=== PATIENT | male | born 1950 | race Caucasian/White ===

== ENCOUNTER 2020-06-13 19:37 | Inpatient (IN) | payer MEDICARE ==
[~2020-06-13] VITALS: Ht 180.3 cm; Wt 126.5 kg
[2020-06-13 20:11] LABS: BASOPHILS # (AUTO) 0.1 10^3/uL (0.0-0.1); BASOPHILS % (AUTO) 1 % (0-10); EOSINOPHILS # (AUTO) 0.1 10^3/uL (0.0-0.3); EOSINOPHILS % (AUTO) 1 % (0-10); HEMATOCRIT 47 % (40-54); HEMOGLOBIN 15.7 g/dL (13.3-17.7); LYMPHOCYTES # (AUTO) 1.3 10^3/uL (1.0-4.0); LYMPHOCYTES % (AUTO) 14 % (12-44); MEAN CORPUSCULAR HEMOGLOBIN 28 pg (25-34); MEAN CORPUSCULAR HGB CONC 33 g/dL (32-36); MEAN CORPUSCULAR VOLUME 83 fL (80-99); MEAN PLATELET VOLUME 9.4 fL (9.0-12.2); MONOCYTES # (AUTO) 0.8 10^3/uL (0.0-1.0); MONOCYTES % (AUTO) 9 % (0-12); NEUTROPHILS # (AUTO) 6.5 10^3/uL (1.8-7.8); NEUTROPHILS % (AUTO) 75 % (42-75); PLATELET COUNT 229 10^3/uL (130-400); WHITE BLOOD COUNT 8.8 10^3/uL (4.3-11.0)
[2020-06-13 20:19] LABS: ALBUMIN 4.1 GM/DL (3.2-4.5); CHLORIDE 101 MMOL/L (98-107); POTASSIUM 3.7 MMOL/L (3.6-5.0); SODIUM 136 MMOL/L (135-145)
[2020-06-13 20:20] LABS: CALCIUM 8.7 MG/DL (8.5-10.1)
[2020-06-13 20:22] LABS: GLUCOSE 146 MG/DL (70-105); TOTAL PROTEIN 7.9 GM/DL (6.4-8.2)
[2020-06-13 20:23] LABS: CARBON DIOXIDE 23 MMOL/L (21-32)
[2020-06-13 20:24] LABS: PROTHROMBIN TIME PATIENT 13.5 SEC (12.2-14.7)
[2020-06-13 20:25] LABS: ALKALINE PHOSPHATASE 96 U/L (40-136); CREATININE SERUM 0.98 MG/DL (0.60-1.30); GFR ESTIMATED > 60
[2020-06-13 20:26] LABS: BUN/CREATININE RATIO 16
[2020-06-13 20:28] LABS: ALANINE AMINOTRANSFERASE 38 U/L (0-55); CREATINE KINASE 539 U/L (30-200); MAGNESIUM 2.2 MG/DL (1.6-2.4)
[2020-06-13 20:37] LABS: CREATINE KINASE MB 11.1 NG/ML (<6.6)
[2020-06-13 20:39] LABS: ERYTHROCYTE SEDIMENTATION RATE 17 MM/HR (0-30)
[2020-06-13 20:48] LABS: TSH (THYROID ANALYZER) 4.26 UIU/ML (0.35-4.94)
--- NOTE | 2020-06-13 20:50 | Diagnostic Imaging Report ---
INDICATION: Edema. Abscess in bilateral legs x 2 months. TECHNIQUE: Single view chest 8:39 p.m. CORRELATION STUDY: None. FINDINGS: Heart size is enlarged. Vasculature overall is within normal limits. There may be minimal atelectasis at the left lung base. No significant infiltrate. No effusion. IMPRESSION: Cardiac enlargement without overt failure. There may be minimal left basilar atelectasis. Dictated by: Dictated on workstation # [id number]
[2020-06-13 21:25] LABS: BILIRUBIN,URINE NEGATIVE (NEGATIVE); CLARITY,URINE CLEAR; COLOR,URINE YELLOW; GLUCOSE, URINE (UA) NEGATIVE (NEGATIVE); KETONES,URINE NEGATIVE (NEGATIVE); LEUKOCYTE ESTERASE ,URINE NEGATIVE (NEGATIVE); NITRITE,URINE NEGATIVE (NEGATIVE); PROTEIN,URINE 1+ (NEGATIVE)
[2020-06-13 21:34] LABS: BACTERIA,URINE TRACE /HPF; SQUAMOUS EPITHELIAL CELL,UR RARE /HPF
[2020-06-13] MEDS ORDERED: TETANUS,DIPTH,PERTUSS P/F (BOOSTRIX) 0.5 ML VIAL IM ONE (22:15)
[2020-06-13] MEDS ORDERED: ENOXAPARIN 60 MG/0.6 ML (LOVENOX) SYR SC ONE (22:30)
[2020-06-13] MEDS ORDERED: ASPIRIN 81 MG CHEW (CHILDREN'S ASA) PO ONE (22:45)
[2020-06-13] MEDS: VANCOMYCIN INJECTION 1,000 MG in NS (IVPB) 250 ML IV SCH (23:23)
[2020-06-13 23:57] VITALS: BP 192/86
[2020-06-14] VITALS (15 sets, daily range): BP systolic 130–198; BP diastolic 62–86
[2020-06-14] MEDS ORDERED: ONDANSETRON 4 MG/2 ML (SDV) Z0FRAN IVP PRN (00:15)
[2020-06-14] MEDS ORDERED: morphine INJ 4 MG/ML 1 ML (VIAL/SYRINGE) IV PRN ×2 (00:15→01:45)
[2020-06-14] MEDS ORDERED: NITROGLYCERIN 0.4 MG SL TABS BTL 25'S SL PRN (00:15)
[2020-06-14] MEDS ORDERED: VANCOMYCIN 1000 MG/VIAL ONE (01:08)
[2020-06-14] MEDS ORDERED: NS (IVPB) 250 ML ONE (01:08)
[2020-06-14] MEDS: VANCOMYCIN INJECTION 1,000 MG in NS (IVPB) 250 ML IV SCH (01:13)
--- NOTE | 2020-06-14 01:20 | ED General ---
General Chief Complaint: Skin/Wound Problems Stated Complaint: NSTEMI;VENOUS STASIS ULCERS W/BILAT.LEG CELLULITIS Nursing Triage Note: PT STATES HE HAS WOUNDS/ABSCESSES ON HIS LEGS FOR 2 MONTHS. Nursing Sepsis Screen: No Definite Risk Source of Information: Patient History of Present Illness Date Seen by Provider: Jun 13, 2020 Time Seen by Provider: 19:47 Initial Comments PT ARRIVES VIA POV--NEEDS 2 PERSON AND WHEELCHAIR ASSIST, DESPITE ARRIVING WITH 2 CANES AND A WALKER FROM HOME C/O "SORES ON MY LEGS" FOR "2 MONTHS" ARRIVES WITH BOTH LOWER LEGS HEAVILY WRAPPED WITH PIECES OF GAUZE AND CUT UP T- SHIRT WRAPPED AROUND BOTH LOWER LEGS, WITH SIGNIFICANT WEEPING OF FLUID THROUGH DRESSINGS ( COMPLETELY SATURATED) AND ONTO THE FLOOR NO PAIN NO FEVER NO CHEST PAIN NO SHORTNESS OF BREATH NO PALPITATIONS NO DIZZINESS SYMPTOMS ARE NO DIFFERENT TONIGHT IN ANY WAY HAS NOT SOUGHT CARE UNTIL TONIGHT--STATES "MY SON TOLD ME TO COME HERE" HAS NOT APPLIED ANY ANTIBIOTIC OINTMENT, ETC. JUST WRAPS HIS LEGS WITH DRESSINGS. MOVED HERE "6 OR 7 MONTHS AGO" FROM [place] ( AMID PANDEMIC TRAVEL RESTRICTIONS) . HAS NOT ATTEMPTED TO ESTABLISH WITH ANY DR HERE. HE HAS NOT SEEN A DR IN A COUPLE OF YEARS PT STATES HE IS NOT DIABETIC AND DENIES ANY MEDICAL PROBLEMS AND STATES HE DOES NOT TAKE ANY MEDICATIONS. PCP: NONE Allergies and Home Medications Allergies Coded Allergies: No Known Drug Allergies (Unverified , 06/13/20) Patient Home Medication List Home Medication List Reviewed: Yes Review of Systems Review of Systems Constitutional: No chills, No diaphoresis, No dizziness, No fever Respiratory: no symptoms reported; No dyspnea on exertion, No orthopnea, No short of breath Cardiovascular: No chest pain; edema; No palpitations, No syncope Gastrointestinal: no symptoms reported Genitourinary: no symptoms reported Musculoskeletal: see HPI Skin: see HPI Psychiatric/Neurological: Denies Numbness, Denies Paresthesia; Pre-Existing Deficit (RIGHT FOOT DROP); Denies Tingling Past Gixuchk-Ltcrco-Puqysm Hx Past Med/Social Hx: Reviewed and Corrections made Patient Social History Alcohol Use: Past History Recreational Drug Use: No Smoking Status: Never a Smoker Recent Foreign Travel: No Contact w/Someone Who Travel: No Recent Infectious Disease Expo: No Recent Hopitalizations: No Physical Abuse: No Sexual Abuse: No Mistreated: No Fear: No Seasonal Allergies Seasonal Allergies: No Past Medical History Surgeries: Yes (BACK) Orthopedic (LUMBAR SPINE SURGERY) Respiratory: No Cardiac: No Neurological: Yes (RIGHT FOOT DROP DUE TO CHRONIC BACK PROBLEMS) Genitourinary: No Gastrointestinal: No Musculoskeletal: Yes (RIGHT FOOT DROP DUE TO CHRONIC BACK PROBLEMS;S/P LUMBAR SPINE SURGERY) Foot Drop, Chronic Back Pain Endocrine: No HEENT: No Cancer: No Psychosocial: No Integumentary: Yes (CHRONIC WOUNDS BILATERAL LOWER LEGS. 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 Physical Exam Vital Signs Vital Signs - First Documented 06/13/20 19:52 Temp 36.3 Pulse 76 Resp 20 B/P (MAP) 159/77 (104) Pulse Ox 96 O2 Delivery Room Air Capillary Refill : Less Than 3 Seconds Height, Weight, BMI Height: '" Weight: lbs. oz. kg; 39.34 BMI Method: General Appearance: No Apparent Distress, Obese, Other (DIRTY, UNKEMPT, MALODOROUS, UNSTEADY ON FEET--2 PERSON ASSIST FROM WHEELCHAIR TO BED. ) Respiratory: Normal Breath Sounds, No Accessory Muscle Use, No Respiratory Distress Cardiovascular: Regular Rate, Rhythm, No Murmur Gastrointestinal: Non Tender, Soft Extremity: Other (4+ EDEMA BILATERAL LOWER LEGS AND FEET. BOTH LOWER LEGS WITH GAUZE DRESSINGS IN PLACE AND BOTH LOWER LEGS ARE WRAPPED WITH A CUT UP T-SHIRT. PT ARRIVES WITHOUT SHOES, AND SOCKS ARE FILTHY. SOCKS AND DRESSINGS ON BOTH LEGS ARE ALL COMPLETELY SATURATED AND PROFUSELY WEEPING SEROUS FLUID ONTO THE FLOOR AND BED. BILATERAL LOWER LEGS WITH EXTENSIVE STASIS ULCERS CIRCUMFERENTIALLY., WITH DIFFUSE ERYTHEMA AND WARMTH TO BILATERAL LOWER LEGS UP TO KNEES. NO AREAS OF FLUCTUANCE. NO PURULENT DRAINAGE. NO STREAKS. FEET ARE IN EXTREMELY POOR HYGIENE, WITH TOPS OF FEET WITH VERY THICKENED AND VERY SCALY/LICHENIFIED SKIN. TOES AND FEET ARE SLIGHTLY COOL WITH DELAYED CAPILLARY REFILL BILATERALLY. PT HAS VERY MINIMAL ROM OF EITHER FOOT--STATES HE HAS RIGHT FOOT DROP, BUT DOES NOT HAVE MUCH MOVEMENT OF LEFT FOOT EITHER. ADDITIONALLY, THERE IS A BASEBALL-SIZED MASS PROTRUDING FROM JUST BELOW LEFT KNEE WITH VERY THICKENED/CALLOUSED/DARK DISCOLORED OVERLYING SKIN. 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 ) Focused Exam Lactate Level 06/13/20 20:00: Lactic Acid Level 1.64 Progress/Results/Core Measures Suspected Sepsis Recent Fever Within 48 Hours: No Infection Criteria Present: Suspected New Infection New/Unexplained Altered Menta: No Sepsis Screen: No Definite Risk SIRS Temperature: Pulse: 83 Respiratory Rate: 18 Laboratory Tests 06/13/20 20:00: White Blood Count 8.8 Blood Pressure 192 /86 Mean: 121 06/13/20 20:00: Lactic Acid Level 1.64 Laboratory Tests 06/13/20 20:00: Creatinine 0.98, INR Comment 1.0, Platelet Count 229, Total Bilirubin 1.0 Results/Orders Lab Results Laboratory Tests Test 06/13/20 20:00 06/13/20 20:01 06/13/20 21:15 06/14/20 00:48 Range/Units White Blood Count 8.8 4.3-11.0 10^3/uL Red Blood Count 5.68 H 4.30-5.52 10^6/uL Hemoglobin 15.7 13.3-17.7 g/dL Hematocrit 47 40-54 % Mean Corpuscular Volume 83 80-99 fL Mean Corpuscular Hemoglobin 28 25-34 pg Mean Corpuscular Hemoglobin Concent 33 32-36 g/dL Red Cell Distribution Width 13.5 10.0-14.5 % Platelet Count 229 130-400 10^3/uL Mean Platelet Volume 9.4 9.0-12.2 fL Immature Granulocyte % (Auto) 1 % Neutrophils (%) (Auto) 75 42-75 % Lymphocytes (%) (Auto) 14 12-44 % Monocytes (%) (Auto) 9 0-12 % Eosinophils (%) (Auto) 1 0-10 % Basophils (%) (Auto) 1 0-10 % Neutrophils # (Auto) 6.5 1.8-7.8 10^3/uL Lymphocytes # (Auto) 1.3 1.0-4.0 10^3/uL Monocytes # (Auto) 0.8 0.0-1.0 10^3/uL Eosinophils # (Auto) 0.1 0.0-0.3 10^3/uL Basophils # (Auto) 0.1 0.0-0.1 10^3/uL Immature Granulocyte # (Auto) 0.0 0.0-0.1 10^3/uL Erythrocyte Sedimentation Rate 17 0-30 MM/HR Prothrombin Time 13.5 12.2-14.7 SEC INR Comment 1.0 0.8-1.4 Activated Partial Thromboplast Time 31 24-35 SEC Sodium Level 136 135-145 MMOL/L Potassium Level 3.7 3.6-5.0 MMOL/L Chloride Level 101 98-107 MMOL/L Carbon Dioxide Level 23 21-32 MMOL/L Anion Gap 12 5-14 MMOL/L Blood Urea Nitrogen 16 7-18 MG/DL Creatinine 0.98 0.60-1.30 MG/DL Estimat Glomerular Filtration Rate > 60 BUN/Creatinine Ratio 16 Glucose Level 146 H 70-105 MG/DL Lactic Acid Level 1.64 0.50-2.00 MMOL/L Calcium Level 8.7 8.5-10.1 MG/DL Corrected Calcium 8.6 8.5-10.1 MG/DL Magnesium Level 2.2 1.6-2.4 MG/DL Total Bilirubin 1.0 0.1-1.0 MG/DL Aspartate Amino Transf (AST/SGOT) 39 H 5-34 U/L Alanine Aminotransferase (ALT/SGPT) 38 0-55 U/L Alkaline Phosphatase 96 40-136 U/L Total Creatine Kinase 539 H 30-200 U/L Creatine Kinase MB 11.1 *H <6.6 NG/ML Troponin I 0.061 H 0.074 H <0.028 NG/ML C-Reactive Protein High Sensitivity 1.98 H 0.00-0.50 MG/DL B-Type Natriuretic Peptide 18.7 <100.0 PG/ML Total Protein 7.9 6.4-8.2 GM/DL Albumin 4.1 3.2-4.5 GM/DL Procalcitonin 0.07 <0.10 NG/ML TSH Mcnabb Testing 4.26 0.35-4.94 UIU/ML Serum Alcohol < 10 <10 MG/DL Glucometer 135 H 70-110 MG/DL Urine Color YELLOW Urine Clarity CLEAR Urine pH 6.0 5-9 Urine Specific [place] 1.025 H 1.016-1.022 Urine Protein 1+ H NEGATIVE Urine Glucose (UA) NEGATIVE NEGATIVE Urine Ketones NEGATIVE NEGATIVE Urine Nitrite NEGATIVE NEGATIVE Urine Bilirubin NEGATIVE NEGATIVE Urine Urobilinogen 0.2 < = 1.0 MG/DL Urine Leukocyte Esterase NEGATIVE NEGATIVE Urine RBC (Auto) NEGATIVE NEGATIVE Urine RBC NONE /HPF Urine WBC NONE /HPF Urine Squamous Epithelial Cells RARE /HPF Urine Crystals NONE /LPF Urine Bacteria TRACE /HPF Urine Casts NONE /LPF Urine Mucus NEGATIVE /LPF Urine Culture Indicated NO My Orders Orders - NOAH BLACK DO Accucheck Stat ONCE (06/13/20:56) Ed Iv/Invasive Line Start (06/13/20:56) O2 (06/13/20:56) Monitor-Rhythm Ecg Trace Only (06/13/20:56) Chest 1 View, Ap/Pa Only (06/13/20:56) Alcohol (06/13/20:56) BNP (06/13/20:56) Cbc With Automated Diff (06/13/20:56) Comprehensive Metabolic Panel (06/13/20:56) Creatine Kinase (06/13/20:56) Creatine Kinase Mb (06/13/20:56) Hs C Reactive Protein (06/13/20:56) Lactic Acid Analyzer (06/13/20:56) Magnesium (06/13/20:56) Procalcitonin (Pct) (06/13/20:56) Protime With Inr (06/13/20:56) Partial Thromboplastin Time (06/13/20:56) Thyroid Analyzer (06/13/20:56) Ua Culture If Indicated (06/13/20:56) Blood Culture (06/13/20 19:56) Erythrocyte Sedimentation Rate (06/13/20 19:56) Wound Culture (06/13/20 20:10) Troponin I (06/13/20 20:54) Ekg Tracing (06/13/20 22:14) Vancomycin Injection (Vancomycin Injecti (06/13/20 22:15) Dipht,Pertuss(Acell),Tet Adult (Boostrix (06/13/20 22:15) Enoxaparin Injection (Lovenox Injection) (06/13/20 22:30) Aspirin Chewable Tablet (Baby Aspirin Ch (06/13/20 22:45) Medications Given in ED Current Medications Medications Dose Ordered Sig/Meli Route Start Time Stop Time Status Last Admin Dose Admin Diphtheria/ Tetanus/Acell Pertussis 0.5 ml ONCE ONCE IM 06/13/20 22:15 06/13/20 22:17 DC 06/13/20 23:23 0.5 ML Vital Signs/I&O 06/13/20 06/13/20 06/13/20 06/14/20 19:52 23:37 23:57 00:51 Temp 36.3 36.3 36.2 36.2 Pulse 76 69 83 83 Resp 18 B/P (MAP) 159/77 (104) 183/91 (104) 192/86 (121) 192/86 Pulse Ox 96 96 99 99 O2 Delivery Room Air Room Air Room Air Room Air Capillary Refill : Less Than 3 Seconds Blood Pressure Mean: 121 Point of Care Testing Finger Stick Blood Glucose: 135 Blood Glucose Action Taken: DR BLACK INFORMED Progress Note : Progress Note UNEVENTFUL ER STAY. ECG Initial ECG Impression Date: Jun 13, 2020 Initial ECG Impression Time: 22:25 Initial ECG Rate: 74 Initial ECG Rhythm: Normal Sinus Initial ECG Impression: Nonspecific Changes Initial ECG Comparisson: No Previous ECG Available Diagnostic Imaging Comments CXR--PER RADIOLOGIST REPORT AT 2214 FINDINGS: Heart size is enlarged. Vasculature overall is within normal limits. There may be minimal atelectasis at the left lung base. No significant infiltrate. No effusion. IMPRESSION: Cardiac enlargement without overt failure. There may be minimal left basilar atelectasis. Reviewed: Reviewed by Me Departure Communication (Admissions) 2211--SPOKE WITH DR. ALEXANDER, [facility], ORDERS NOTED. 2219--SPOKE WITH DR. YANEZ, HOSPITALIST, ACCEPTS PT FOR ADMIT. Impression Primary Impression: NSTEMI (non-ST elevated myocardial infarction) Additional Impressions: Bilateral lower leg cellulitis EXTENSIVE VENOUS STASIS ULCERS BILATERAL LOWER LEGS. Bilateral leg edema HTN (hypertension) Disposition: ADMITTED INPATIENT Condition: Stable Admissions Decision to Admit Reason: Admit from ER (General) Decision to Admit/Date: Jun 13, 2020 Time/Decision to Admit Time: 22:10 Departure-Patient Inst. Referrals: NO,LOCAL PHYSICIAN (PCP) Primary Care Physician NOAH BLACK DO Jun 14, 2020 01:20
--- NOTE | 2020-06-14 03:10 | NUR ---
ASSUMED CARE OF PT AT THIS TIME. SEE ASSESSMENT. HAS NO C/O CHEST PAIN AT THIS TIME.
--- NOTE | 2020-06-14 03:20 | NUR ---
REPORT GIVEN TO MEGHANN POLK FOR TRANSFER TO RM 420. PT TRANSFERRED TO ROOM 420 AT 0305 HRS.
[2020-06-14] MEDS ORDERED: CATHETER FLUSH 10 ML SYR IV PRN (07:45)
[2020-06-14 08:32] LABS: BASOPHILS # (AUTO) 0.1 10^3/uL (0.0-0.1); BASOPHILS % (AUTO) 1 % (0-10); EOSINOPHILS # (AUTO) 0.1 10^3/uL (0.0-0.3); EOSINOPHILS % (AUTO) 1 % (0-10); HEMATOCRIT 45 % (40-54); HEMOGLOBIN 14.6 g/dL (13.3-17.7); LYMPHOCYTES # (AUTO) 1.1 10^3/uL (1.0-4.0); LYMPHOCYTES % (AUTO) 13 % (12-44); MEAN CORPUSCULAR HEMOGLOBIN 28 pg (25-34); MEAN CORPUSCULAR HGB CONC 32 g/dL (32-36); MEAN CORPUSCULAR VOLUME 85 fL (80-99); MEAN PLATELET VOLUME 9.5 fL (9.0-12.2); MONOCYTES # (AUTO) 0.9 10^3/uL (0.0-1.0); MONOCYTES % (AUTO) 11 % (0-12); NEUTROPHILS # (AUTO) 6.5 10^3/uL (1.8-7.8); NEUTROPHILS % (AUTO) 74 % (42-75); PLATELET COUNT 189 10^3/uL (130-400); WHITE BLOOD COUNT 8.7 10^3/uL (4.3-11.0)
--- NOTE | 2020-06-14 08:40 | Diagnostic Imaging Report ---
PROCEDURE: US Venous Lower Ext Giorgi. TECHNIQUE: Multiple real-time grayscale images were obtained over the lower extremities in various projections, bilaterally. Additional duplex Doppler and color Doppler images were also obtained. INDICATION: Venous stasis ulcers In the right leg there appears be some nonoccluding thrombus in the mid right superficial femoral vein. Remainder the veins of the right leg have good color filling and compressibility. In the left leg there is good color filling and compressibility with phasic flow and a normal response to augmentation. IMPRESSION: Nonoccluding segmental thrombosis mid right superficial femoral vein. Dictated by: Dictated on workstation # [id number]
[2020-06-14 08:48] LABS: ALANINE AMINOTRANSFERASE 33 U/L (0-55); ALBUMIN 3.6 GM/DL (3.2-4.5); ALKALINE PHOSPHATASE 79 U/L (40-136); BILIRUBIN,TOTAL 1.2 MG/DL (0.1-1.0); BUN/CREATININE RATIO 17; CALCIUM 8.4 MG/DL (8.5-10.1); CARBON DIOXIDE 23 MMOL/L (21-32); CHLORIDE 104 MMOL/L (98-107); CREATININE SERUM 0.87 MG/DL (0.60-1.30); GFR ESTIMATED > 60; GLUCOSE 138 MG/DL (70-105); POTASSIUM 3.9 MMOL/L (3.6-5.0); SODIUM 139 MMOL/L (135-145); TOTAL PROTEIN 6.7 GM/DL (6.4-8.2)
[2020-06-14] MEDS ORDERED: REGADENOSON 0.4 MG/5 ML SYR (LEXISCAN) IV ONE ×2 (09:08→09:30)
--- NOTE | 2020-06-14 09:12 | NUR ---
PT TO STRESS TEST VIA WC
[2020-06-14] MEDS: ASPIRIN E.C. 325 MG (ECOTRIN) TABLET PO SCH (10:59)
[2020-06-14] MEDS ORDERED: amLODIPine 5 MG (NORVASC) TAB PO NR (11:00)
--- NOTE | 2020-06-14 11:22 | NUR ---
SPOKE WITH THE PT TO COMPLETE THE MED REC PT DENIES TAKING ANY PRESCRIPTION MEDICATION
[2020-06-14] MEDS: ENOXAPARIN 60 MG/0.6 ML (LOVENOX) SYR SC SCH ×2 (12:55→23:13)
--- NOTE | 2020-06-14 12:58 | NUR ---
vanc requested from pharmacy
--- NOTE | 2020-06-14 13:18 | NUR ---
pharmacy called for vanc
[2020-06-14] MEDS: VANCOMYCIN 1250 MG/NS 250 ML IVPB IV SCH ×4 (13:51→23:13)
[2020-06-14] MEDS: CATHETER FLUSH 10 ML SYR IV SCH ×2 (13:52→23:13)
--- NOTE | 2020-06-14 13:53 | NUR ---
Cm/SS visited with the patient for discharge planning. The patient was sitting up eating lunch at time of visit. He was very pleasant and willing to discuss discharge plans. Home: The patient lives at home with his adult son, [id number], and grandchildren. He reports that he moved here from [place] in September and is loving it here. He moved to be closer to his children/grandchildren. The patient states that at baseline he is independent but uses a cane to help assist him around the house. He reports he cooks, cleans, does laundry, and helps take care of the grandchildren. Equipment: Cane. Support: The patient has his 2 adult sons. His second son lives in [place] currently. The patient reports he has a good support system. His son is the one who encouraged him to come into the emergency room. Physician: The patient does not have a primary care physician. He states that while he was living in [place] he was hospitalized 2 years ago but did not follow up with anyone after that. He has not seen a physician here in [place] either. The patient reports that he is planning to follow up for his condition this time with the help of his son. Home Health: The patient does not have a PCP but if an appointment is made with a physician willing to follow until appointment it could be set up for wound care. CM/SS did discuss this with the patient. He was agreeable at this time. CM/SS will continue to follow.
--- NOTE | 2020-06-14 14:52 | History & Physical ---
History of Present Illness History of Present Illness Reason for visit/HPI 69 yo M admitted for NSTEMI; but initially came to the ER for his lower legs. They have been sore/weepy for 6-8 weeks. They do hurt some. Son told him to go to the hospital. Patient reports he moved to [place] to live with his son and help take care of the kids. Denies cardiac history or diabetes. He says he only goes to the doctor when he is really sick, does not go very often. Patient reports he is feeling better today compared to last night because he was too weak to even raise his legs last night. He has been using a walker lately but normaly only requires a cane. Date of Admission Jun 13, 2020 at 22:20 Date Seen by a Provider: Jun 14, 2020 Time Seen by a Provider: 14:45 I consulted on this patient on 06/14/20 14:46 Attending Physician Lizzy Gaines MD Admitting Physician No,Local Physician Consult Allergies and Home Medications Allergies Coded Allergies: No Known Drug Allergies (Unverified , 06/13/20) Home Medications No Active Prescriptions or Reported Meds Patient Home Medication List Home Medication List Reviewed: Yes Past Rvmevod-Isthys-Zaigar Hx Patient Social History Alcohol Use: Past History Recreational Drug Use: No Smoking Status: Never a Smoker Recent Foreign Travel: No Contact w/other who traveled: No Recent Hopitalizations: No Recent Infectious Disease Expo: No Seasonal Allergies Seasonal Allergies: No Surgeries Yes (BACK) Orthopedic (LUMBAR SPINE SURGERY) Respiratory No Cardiovascular No Neurological Yes (RIGHT FOOT DROP DUE TO CHRONIC BACK PROBLEMS) Genitourinary No Gastrointestinal No Musculoskeletal Yes (RIGHT FOOT DROP DUE TO CHRONIC BACK PROBLEMS;S/P LUMBAR SPINE SURGERY) Foot Drop, Chronic Back Pain Endocrine History of Endocrine Disorders: No HEENT History of HEENT Disorders: No Cancer No Psychosocial History of Psychiatric Problem: No Integumentary History of Skin or Integumenta: Yes (CHRONIC WOUNDS BILATERAL LOWER LEGS. 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 Physical Exam Vital Signs Vital Signs - First Documented 06/13/20 19:52 Temp 36.3 Pulse 76 Resp 20 B/P (MAP) 159/77 (104) Pulse Ox 96 O2 Delivery Room Air Capillary Refill : Less Than 3 SecondsLess Than 3 Seconds Height, Weight, BMI Height: '" Weight: lbs. oz. kg; 39.34 BMI Method: General Appearance: No Apparent Distress (unkempt) HEENT: PERRL/EOMI Neck: Non Tender, Supple Respiratory: Chest Non Tender, Lungs Clear, Normal Breath Sounds, No Accessory Muscle Use Cardiovascular: Regular Rate, Rhythm Gastrointestinal: Non Tender, Soft Extremity: Pedal Edema, Other (dirty lower extremities- callus, lichenification of skin. sores, edema, venous stasis.) Neurologic/Psychiatric: Alert, Oriented x3 Skin: Warm/Dry Assessment/Plan Assessment/Plan Admission Dx NSTEMI, elevated troponin venous stasis ulcers with cellulitis Admission Status: Inpatient Order (span 2 midnights) Reason for Inpatient Admission: Patient admitted for elevated troponin- will trend troponin levels and treat his lower extremity venous stasis ulcers with IV antibiotics. He will need over 2 midnights. Assessment and Plan NSTEMI (non-ST elevated myocardial infarction) Bilateral lower leg cellulitis- currently on vancomycin. EXTENSIVE VENOUS STASIS ULCERS BILATERAL LOWER LEGS. HTN (hypertension) 06/14/20- Dr. Seay consulted for lower extremity wounds. Dr. Domínguez consulted for cardiology. *ECHO report - LVEF 55-65%, cardiac aguirre mildly thickened.- grade 1 diastolic dysfunction. * lower leg- ultrasound -- significant for Nonoccluding segmental thrombosis mid right superficial femoral vein. -checking hga1c as his blood sugars are elevated- likely *newly diagnosed diabetic that has been diabetic for quite awhile. Dispo: awaiting wound care consult. -pt needs to establish with a PCP. -poor self care/hygiene is part of his issue along with obesity and likely sedentary lifestyle. Problems: (1) Venous stasis dermatitis of both lower extremities (2) NSTEMI (non-ST elevated myocardial infarction) (3) Bilateral lower leg cellulitis (4) HTN (hypertension) Clinical Quality Measures DVT/VTE Risk/Contraindication: Risk Factor Score Per Nursin RFS Level Per Nursing on Admit: 4+=Very High MINESH BENITEZ MD Jun 14, 2020 14:52
--- NOTE | 2020-06-14 18:48 | Consultation-Cardiology ---
HPI-Cardiology Cardiology Consultation: Date of Consultation 06/14/20 Date of Admission Attending Physician Lizzy Gaines MD Admitting Physician No,Local Physician Consulting Physician Asaf DOMÍNGUEZ MD HPI: Time Seen by a Provider: 12:30 Chief Complaint: Lower extremity discomfort This is a 69-year-old gentleman who denies any significant cardiac or medical history. He specifically denies active smoking, diabetes, hypertension, hyperlipidemia. Pertinent family history is negative. However he is been complaining of bilateral lower extremity discomfort, swelling which is getting worse. He was brought to the hospital for evaluation of his legs. During evaluation his troponin was found to be borderline positive. Cardiology was consulted. The patient denies any chest pain or shortness of breath. Review of Systems-Cardiology Review of Systems Constitutional: As described under HPI; No As described under HPI, No no symptoms reported, No chills, No fever, No lightheadedness Eyes: No As described under HPI, No no symptoms reported, No blindness, No blurred vision, No contact lenses, No drainage, No decreased acuity, No foreign body sensation, No pain, No vision change Ears/Nose/Throat: No As described under HPI, No no symptoms reported, No chronic hearing loss, No ear discharge, No ear pain, No nasal drainage, No ulcerations Respiratory: No no symptoms reported; As described under HPI; No As described under HPI, No cough, No orthopnea, No shortness of breath, No SOB with excertion Cardiovascular: No no symptoms reported; As described under HPI; No As desc ribed under HPI, No chest pain, No edema, No irregular heart rate, No lightheadedness, No palpitations Gastrointestinal: No no symptoms reported, No As described under HPI, No abdomen distended, No abdominal pain, No blood streaked bowels, No constipation, No diarrhea, No nausea, No vomiting, No stool coloration changes Genitourinary: No As described under HPI, No burning, No dysuria, No discharge, No frequency, No flank pain, No hematuria, No urgency Musculoskeletal: As describe under HPI Skin: As described under HPI; No rash, No skin related problems, No ulcerations Psychiatric/Neurological: No anxiety, No depression, No seizure, No focal weakness, No syncope Hematologic: No bleeding abnormalities DYS-Netorx-Ruwgie Hx Patient Social History Alcohol Use: Past History Recreational Drug Use: No Smoking Status: Never a Smoker Recent Foreign Travel: No Recent Infectious Disease Expo: No Past Medical History PMH As described under Assessment. Allergies and Home Medications Allergies Coded Allergies: No Known Drug Allergies (Unverified , 06/13/20) Home Medications No Active Prescriptions or Reported Meds Patient Home Medication List Home Medication List Reviewed: Yes Physical Exam-Cardiology Physical Exam Vital Signs/I&O 06/15/20 06/15/20 06/15/20 06/15/20 04:54 07:00 08:25 09:39 Temp 36.5 36.7 Pulse 72 66 74 Resp 18 18 B/P (MAP) 157/77 (103) 181/88 (119) Pulse Ox 98 93 O2 Delivery Room Air Room Air Room Air 06/15/20 06/15/20 06/15/20 11:45 12:44 16:00 Temp 37.2 36.2 Pulse 70 67 80 Resp 18 18 B/P (MAP) 151/70 (97) 161/81 (107) Pulse Ox 94 95 O2 Delivery Room Air Room Air 06/15/20 00:00 Intake Total 1036 ml Output Total 1650 ml Balance -614 ml Capillary Refill : Less Than 3 SecondsLess Than 3 Seconds Constitutional: appears stated age, AAO x 3; No apparent distress; well- developed, well-nourished HEENT: PERRL; No discharge; hearing is well preserved, oral hygience is good; No ulceration, No xanthelasmas are seen Neck: No carotid bruit; carotid pulses are 2 + bilaterally Respiratory: chest is bilaterally symmetric, lungs clear to auscultation Cardiovascular: regular rate-rhythm, S1 and S2; No diastolic murmur, No systolic murmur Gastrointestinal: soft, audible bowel sounds; No spleenomegaly Rectal: deferred Extremities: pedal edema (bilateral venous ulcers.); No clubbing, No cyanosis, No significant edema; wound Neurologic/Psychiatric: no motor/sensory deficits, alert, normal mood/affect, oriented x 3, power is 5/5 both on sides Skin: No rash, No ulcerations; ulcerations on exposed areas Data Review Labs Laboratory Tests 06/14/20 20:06: Glucometer 138H 06/15/20 05:36: Glucometer 110 06/15/20 10:04: Vancomycin Level Trough 12.7 11/21/20 10:39: Glucometer 115H 06/15/20 15:36: Glucometer 90 Microbiology 06/13/20 Blood Culture - Preliminary, Resulted No growth 06/13/20 Gram Stain - Final, Resulted 06/13/20 Wound Culture - Preliminary, Resulted Mixed Bacterial Sirena Testing In Progress ECG Impression ECG Initial ECG Rhythm: Normal Sinus Initial ECG Impression: Nonspecific Changes A/P-Cardiology Assessment/Admission Diagnosis Bilateral lower extremity venous ulcers, Positive troponin. Plan Bilateral lower extremity venous ulcers, defer to the wound service as well as general surgery. Positive troponin without any significant cardiac symptoms. Echocardiogram show s normal LV function. Nuclear stress test is recommended. Thank you for your consultation. Please call me if you have any questions. Favian Domínguez MD, FACP, FACC, FSCAI, FHRS, CCDS Interventional Cardiology Cardiac Electrophysiology Vascular Medicine and Endovascular Interventions Clinical Quality Measures DVT/VTE Risk/Contraindication: Risk Factor Score Per Nursin RFS Level Per Nursing on Admit: 4+=Very High Asaf DOMÍNGUEZ MD Jun 14, 2020 18:48
[2020-06-15] VITALS (7 sets, daily range): BP systolic 142–181; BP diastolic 65–88
[2020-06-15] MEDS: CATHETER FLUSH 10 ML SYR IV SCH ×3 (04:17→21:14)
[2020-06-15] MEDS: ASPIRIN E.C. 325 MG (ECOTRIN) TABLET PO SCH (08:32)
--- NOTE | 2020-06-15 08:42 | Progress Note ---
Subjective Subjective Date Seen by Provider: Jun 15, 2020 Time Seen by Provider: 10:00 No overnight events. Patient was sleeping this AM- No new complaints. Wound care came by last night and wrapped his legs. Review of Systems General: No Chills HEENT: No Head Aches Pulmonary: No Dyspnea, No Cough Cardiovascular: No: Chest Pain Gastrointestinal: No: Nausea, Vomiting Genitourinary: No Dysuria Musculoskeletal: back pain; No: neck pain Neurological: Weakness; No: Confusion Objective Exam Vital Signs Vital Signs Date Time Temp Pulse Resp B/P (MAP) Pulse Ox O2 Delivery O2 Flow Rate FiO2 06/15/20 07:00 66 06/15/20 04:54 36.5 72 18 157/77 (103) 98 Room Air 06/15/20 01:00 70 06/15/20 00:00 36.9 76 16 158/76 (103) 95 Room Air 06/14/20 20:11 36.7 74 18 155/71 (99) 96 Room Air 06/14/20 20:00 Room Air 06/14/20 19:00 71 06/14/20 16:23 36.7 68 20 130/68 (88) 99 Room Air 06/14/20 16:00 97 Room Air 06/14/20 13:00 67 06/14/20 12:00 97 Room Air 06/14/20 12:00 37.0 70 18 138/62 (87) 97 Room Air 06/14/20 11:00 36.3 81 18 180/79 (112) 97 Room Air 06/14/20 10:40 76 18 180/79 (112) 97 Room Air 06/14/20 09:51 Room Air 06/14/20 09:16 76 18 175/76 (109) 97 Room Air I & O 06/15/20 07:00 Intake Total 1536 ml Output Total 2625 ml Balance -1089 ml General Appearance: No Apparent Distress, Obese, Other (unkempt) Respiratory: Normal Breath Sounds, No Accessory Muscle Use, No Respiratory Distress Cardiovascular: Regular Rate, Rhythm, No Murmur Gastrointestinal: Non Tender, Soft Extremity: Other (4+ EDEMA BILATERAL LOWER LEGS AND FEET. BOTH LOWER LEGS WITH GAUZE DRESSINGS IN PLACE AND BOTH LOWER LEGS ARE WRAPPED WITH A CUT UP T-SHIRT. PT ARRIVES WITHOUT SHOES, AND SOCKS ARE FILTHY. SOCKS AND DRESSINGS ON BOTH LEGS ARE ALL COMPLETELY SATURATED AND PROFUSELY WEEPING SEROUS FLUID ONTO THE FLOOR AND BED. BILATERAL LOWER LEGS WITH EXTENSIVE STASIS ULCERS CIRCUMFERENTIALLY., WITH DIFFUSE ERYTHEMA AND WARMTH TO BILATERAL LOWER LEGS UP TO KNEES. NO AREAS OF FLUCTUANCE. NO PURULENT DRAINAGE. NO STREAKS. FEET ARE IN EXTREMELY POOR HYGIENE, WITH TOPS OF FEET WITH VERY THICKENED AND VERY SCALY/LICHENIFIED SKIN. TOES AND FEET ARE SLIGHTLY COOL WITH DELAYED CAPILLARY REFILL BILATERALLY. PT HAS VERY MINIMAL ROM OF EITHER FOOT--STATES HE HAS RIGHT FOOT DROP, BUT DOES NOT HAVE MUCH MOVEMENT OF LEFT FOOT EITHER. ADDITIONALLY, THERE IS A BASEBALL-SIZED MASS PROTRUDING FROM JUST BELOW LEFT KNEE WITH VERY THICKENED/CALLOUSED/DARK DISCOLORED OVERLYING SKIN. ) Neurologic/Psychiatric: Alert, Oriented x3, Normal Mood/Affect, Sensory Deficit (DECREASED SENSATION TO BOTH FEET AND LIMITED ROM OF BOTH FEET) Skin: Normal Color, Warm/Dry, Other ( ABOVE. ) Results Lab Laboratory Tests 06/14/20 12:04: Glucometer 140H 06/14/20 16:20: Glucometer 100 06/14/20 20:06: Glucometer 138H 06/15/20 05:36: Glucometer 110 Microbiology 06/13/20 Blood Culture - Preliminary, Resulted No growth 06/13/20 Gram Stain - Final, Resulted 06/13/20 Wound Culture - Preliminary, Resulted Mixed Bacterial Sirena Testing In Progress Assessment/Plan Assessment/Plan Admission Dx NSTEMI, elevated troponin venous stasis ulcers with cellulitis Assessment and Plan NSTEMI (non-ST elevated myocardial infarction) Bilateral lower leg cellulitis- currently on vancomycin. EXTENSIVE VENOUS STASIS ULCERS BILATERAL LOWER LEGS. HTN (hypertension) Diabetes Mellitus II 06/14/20- Dr. Seay consulted for lower extremity wounds. Dr. Domínguez consulted for cardiology. *ECHO report - LVEF 55-65%, cardiac aguirre mildly thickened.- grade 1 diastolic dysfunction. * lower leg- ultrasound -- significant for Nonoccluding segmental thrombosis mid right superficial femoral vein- he is on daily aspirin 325mg. 06/15/20- Hga1c 6.8- will do sliding scale insulin while inpatient- will start metformin on discharge- lifestyle modifications will also bring his a1c below 6.5- and improve his overall health- including his legs. Could consider SGLT2 inhibitor like farxiga, jardiance- as it would improve his blood sugar as well as be cardioprotective. But he is at increased risk for a infection due to his unkempt self-care so I will not be ordering a SGLT2 inhibitor. Dispo: awaiting wound care plan and cardiology recommendations. -pt needs to establish with a PCP. -poor self care/hygiene is part of his issue along with obesity and likely sedentary lifestyle. Problems: (1) Venous stasis dermatitis of both lower extremities (2) NSTEMI (non-ST elevated myocardial infarction) (3) Bilateral lower leg cellulitis (4) HTN (hypertension) (5) DMII (diabetes mellitus, type 2) Qualifiers: Admission Dx NSTEMI, elevated troponin venous stasis ulcers with cellulitis Clinical Quality Measures Admission Status Admission Dx NSTEMI, elevated troponin venous stasis ulcers with cellulitis DVT/VTE Risk/Contraindication: Risk Factor Score Per Nursin RFS Level Per Nursing on Admit: 4+=Very High MINESH BENITEZ MD Jun 15, 2020 08:42
[2020-06-15] MEDS ORDERED: TROUGH ORDER-PHARMACY XX NR (10:00)
--- NOTE | 2020-06-15 10:53 | NUR ---
RN CALLED DR BENITEZ RE PT BEING 'UNCOMFORTABLE' AND HAVING WOUND CARE DR COMING BACK LATER TODAY, RN ASKED IF WE CAN ADMIN IV MORPHINE FOR OTHER PAIN NOT RELATED TO ANGINA AND HE SAID YES.
[2020-06-15] MEDS: morphine INJ 4 MG/ML 1 ML (VIAL/SYRINGE) IVP PRN (10:59)
[2020-06-15] MEDS ORDERED: ENOXAPARIN 300 MG/3 ML (LOVENOX) MULTI-DOSE VIAL SQ SCH (11:30)
[2020-06-15] MEDS: inSUlin ASPART (NovoLOG) 1 UNIT/0.01 ML (CHARGE PER UNIT) SC SCH ×3 (11:42→21:13)
[2020-06-15] MEDS: VANCOMYCIN 1250 MG/NS 250 ML IVPB IV SCH ×4 (11:42→23:19)
[2020-06-15] MEDS: ENOXAPARIN 60 MG/0.6 ML (LOVENOX) SYR SC SCH (14:05)
--- NOTE | 2020-06-15 16:27 | Cardiology Stress Test Report ---
Stress Test Report Type of NM Stress Test: Test Type: LEXISCAN 0.4MG/5ML Date of Procedure/Referring: Date of Procedure: Jun 14, 2020 PCP Zander Szymanski MD Admitting Physician No,Local Physician Indications: Positive troponin Baseline Heart Rate: 73 Baseline Blood Pressure: Blood Pressure Systolic: 161 Blood Pressure Diastolic: 81 Baseline EKG: Baseline EKG: sinus rhythm Summary & Conclusion: Summary: The patient was brought to the stress lab after informed consent was taken. Stress test was performed according to the Lexiscan protocol. 0.4 mg of IV Lexiscan was given. Low-grade exercise was performed. Baseline EKG showed sinus rhythm at 73 bpm, blood pressure 175/76 mmHg, maximum heart rate of 81 bpm and blood pressure 152/80 mmHg. Patient did not have any chest pain, arrhythmias or ST segment changes during the stress test. 10.48 mCi of Myoview were given for rest imaging and 32.5 mCi of Myoview given for stress imaging. Transient ischemic dilatation score 1.2, EF 68 percent. Normal wall motion. Moderate sized distal anterior apical reversible defect. Conclusion: Pharmacological stress test was negative for ischemia. Normal LV function with no wall motion abnormalities. Evidence of possible distal anterior apical ischemia. Coronary angiography is recommended. Asaf ALEXANDER MD Jun 15, 2020 16:27
--- NOTE | 2020-06-15 16:28 | Cardiology Progress Note ---
Cardiology SOAP Progress Note Subjective: No cardiac complaints. Objective: I&O/Vital Signs 06/15/20 06/15/20 06/15/20 06/15/20 04:54 07:00 08:25 09:39 Temp 36.5 36.7 Pulse 72 66 74 Resp 18 18 B/P (MAP) 157/77 (103) 181/88 (119) Pulse Ox 98 93 O2 Delivery Room Air Room Air Room Air 06/15/20 06/15/20 06/15/20 11:45 12:44 16:00 Temp 37.2 36.2 Pulse 70 67 80 Resp 18 18 B/P (MAP) 151/70 (97) 161/81 (107) Pulse Ox 94 95 O2 Delivery Room Air Room Air 06/15/20 00:00 Intake Total 1036 ml Output Total 1650 ml Balance -614 ml Constitutional: appears stated age, AAO x 3; No apparent distress; well-develop ed, well-nourished Respiratory: chest is bilaterally symmetric, lungs clear to auscultation Cardiovascular: regular rate-rhythm, S1 and S2; No diastolic murmur, No systolic murmur Gastrointestional: soft, audible bowel sounds; No spleenomegaly Extremities: pedal edema (bilateral venous ulcers.); No clubbing, No cyanosis, No significant edema; wound Neurologic/Psychiatric: no motor/sensory deficits, alert, normal mood/affect, oriented x 3, power is 5/5 both on sides Skin: No rash, No ulcerations; ulcerations on exposed areas Results/Procedures: Labs Laboratory Tests 06/14/20 20:06: Glucometer 138H 06/15/20 05:36: Glucometer 110 06/15/20 10:04: Vancomycin Level Trough 12.7 06/15/20 10:39: Glucometer 115H 06/15/20 15:36: Glucometer 90 Microbiology 06/13/20 Blood Culture - Preliminary, Resulted No growth 06/13/20 Gram Stain - Final, Resulted 06/13/20 Wound Culture - Preliminary, Resulted Mixed Bacterial Sirena Testing In Progress A/P: Assessment/Dx: Bilateral lower extremity venous ulcers, Positive troponin. Plan: Bilateral lower extremity venous ulcers, defer to the wound service as well as general surgery. Positive troponin without any significant cardiac symptoms. Echocardiogram shows normal LV function. Nuclear stress test done 06/14/2020 showed possible anterior apical ischemia. Today I discussed at length with the patient and recommended coronary angiography and possible intervention. The patient refused. He understands the risk of NC and even . But at this point in time he is not willing to proceed with coronary angiography. We will start the patient on appropriate medical therapy including dual antiplatelet therapy Thank you for your consultation. Please call me if you have any questions. Favian Domínguez MD, FACP, FACC, FSCAI, FHRS, CCDS Interventional Cardiology Cardiac Electrophysiology Vascular Medicine and Endovascular Interventions Focused Exam Lactate Level 06/13/20 20:00: Lactic Acid Level 1.64 Asaf DOMÍNGUEZ MD Jun 15, 2020 16:28
[2020-06-15] MEDS: CLOPIDOGREL 75 MG (PLAVIX) TABLET PO SCH (17:22)
[2020-06-15] MEDS: lisINopril 20 MG (PRINIVIL) TABLET PO SCH (17:22)
[2020-06-15] MEDS: ENOXAPARIN 300 MG/3 ML (LOVENOX) MULTI-DOSE VIAL SQ SCH (23:19)
[2020-06-16 03:55] VITALS: BP 134/62
[2020-06-16] MEDS: inSUlin ASPART (NovoLOG) 1 UNIT/0.01 ML (CHARGE PER UNIT) SC SCH ×4 (05:31→20:53)
[2020-06-16] MEDS: CATHETER FLUSH 10 ML SYR IV SCH ×3 (06:25→22:07)
--- NOTE | 2020-06-16 07:31 | Progress Note ---
Subjective Subjective Date Seen by Provider: Jun 16, 2020 Time Seen by Provider: 07:30 No overnight events. He is having some difficulty urinating. -Yesterday, Cardiology recommended cath- after the stress test showed evidence of possible anterior apical ischemia. Patient declined and made an informed decision knowing risk of not further evaluating. no complaints this am- he reports he tries to walk but if he can't get up and do it lately he has been just sitting a lot more lately. Review of Systems General: No Chills HEENT: No Head Aches Pulmonary: No Dyspnea, No Cough Cardiovascular: No: Chest Pain Gastrointestinal: No: Nausea, Vomiting Genitourinary: No Dysuria Musculoskeletal: back pain; No: neck pain Neurological: Weakness; No: Confusion Objective Exam Vital Signs Vital Signs Date Time Temp Pulse Resp B/P (MAP) Pulse Ox O2 Delivery O2 Flow Rate FiO2 06/16/20 03:55 37.0 72 18 134/62 (86) 93 Room Air 06/16/20 01:00 84 06/15/20 23:29 37.2 70 18 142/65 (90) 93 Room Air 06/15/20 21:15 Room Air 06/15/20 19:58 37.0 85 18 154/79 (104) 95 Room Air 06/15/20 19:00 74 06/15/20 16:00 36.2 80 18 161/81 (107) 95 Room Air 06/15/20 12:44 67 06/15/20 11:45 37.2 70 18 151/70 (97) 94 Room Air 06/15/20 09:39 Room Air 06/15/20 08:25 36.7 74 18 181/88 (119) 93 Room Air I & O 06/16/20 07:00 Intake Total 910 ml Output Total 2175 ml Balance -1265 ml General Appearance: No Apparent Distress, Obese, Other (unkempt) HEENT: PERRL/EOMI Neck: Non Tender, Supple Respiratory: Normal Breath Sounds, No Accessory Muscle Use, No Respiratory Distress Cardiovascular: Regular Rate, Rhythm, No Murmur Gastrointestinal: Non Tender, Soft Extremity: Other (legs wrapped in kerlix gauze. ) Neurologic/Psychiatric: Alert, Oriented x3, Normal Mood/Affect, Sensory Deficit (DECREASED SENSATION TO BOTH FEET AND LIMITED ROM OF BOTH FEET), Other (PROPRIOCEPTION NOT INTACT- HE IS UNAWARE OF POSITION OF GREAT TOES. PART OF HIS FALL RISK) Skin: Normal Color, Warm/Dry, Other ( ABOVE. ) Results Lab Laboratory Tests 06/15/20 10:04: Vancomycin Level Trough 12.7 06/15/20 10:39: Glucometer 115H 06/15/20 15:36: Glucometer 90 06/15/20 18:05: Glucometer 106 06/15/20 20:09: Glucometer 105 06/16/20 05:20: Glucometer 100 Microbiology 06/13/20 Blood Culture - Preliminary, Resulted No growth 06/13/20 Gram Stain - Final, Resulted 06/13/20 Wound Culture - Preliminary, Resulted Mixed Bacterial Sirena Testing In Progress Assessment/Plan Assessment/Plan Admission Dx NSTEMI, elevated troponin venous stasis ulcers with cellulitis Assessment and Plan NSTEMI (non-ST elevated myocardial infarction) Bilateral lower leg cellulitis- currently on vancomycin. EXTENSIVE VENOUS STASIS ULCERS BILATERAL LOWER LEGS. HTN (hypertension) Diabetes Mellitus II 06/14/20- Dr. Seay consulted for lower extremity wounds. Dr. Domínguez consulted for cardiology. *ECHO report - LVEF 55-65%, cardiac aguirre mildly thickened.- grade 1 diastolic dysfunction. * lower leg- ultrasound -- significant for Nonoccluding segmental thrombosis mid right superficial femoral vein- he is on daily aspirin 325mg. 06/15/20- Hga1c 6.8- will do sliding scale insulin while inpatient- will start metformin on discharge- lifestyle modifications will also bring his a1c below 6.5- and improve his overall health- including his legs. Could consider SGLT2 inhibitor like dianne acevedo- as it would improve his blood sugar as well as be cardioprotective. But he is at increased risk for a infection due to his unkempt self-care so I will not be ordering a SGLT2 inhibitor. 06/16/20- maximize cardiac regimen- lisinopril, metoprolol, clopidogrel, atorvastatin. Continue with wound care. Proprioception not intact- increases his fall risk. ordering PT/OT to evaluate/work with him. Pt reports he will be going home to his son's house when he is discharged. Discharge planning pending wound care evaluation and recommendation. Wound culture pending. Dispo: -pt needs to establish with a PCP. Problems: (1) Venous stasis dermatitis of both lower extremities (2) NSTEMI (non-ST elevated myocardial infarction) (3) Bilateral lower leg cellulitis (4) HTN (hypertension) (5) DMII (diabetes mellitus, type 2) Qualifiers: Admission Dx NSTEMI, elevated troponin venous stasis ulcers with cellulitis Clinical Quality Measures Admission Status Admission Dx NSTEMI, elevated troponin venous stasis ulcers with cellulitis DVT/VTE Risk/Contraindication: Risk Factor Score Per Nursin RFS Level Per Nursing on Admit: 4+=Very High MINESH BENITEZ MD Jun 16, 2020 07:31
[2020-06-16 07:58] VITALS: BP 159/67
[2020-06-16] MEDS: lisINopril 20 MG (PRINIVIL) TABLET PO SCH (08:10)
[2020-06-16] MEDS: CLOPIDOGREL 75 MG (PLAVIX) TABLET PO SCH (08:10)
[2020-06-16] MEDS: ASPIRIN E.C. 325 MG (ECOTRIN) TABLET PO SCH (08:10)
[2020-06-16] MEDS: morphine INJ 4 MG/ML 1 ML (VIAL/SYRINGE) IVP PRN ×2 (11:11→13:54)
[2020-06-16] MEDS: ENOXAPARIN 300 MG/3 ML (LOVENOX) MULTI-DOSE VIAL SQ SCH ×2 (11:13→22:20)
[2020-06-16] MEDS: VANCOMYCIN 1250 MG/NS 250 ML IVPB IV SCH ×4 (11:13→22:07)
[2020-06-16 11:20] VITALS: BP 103/64
--- NOTE | 2020-06-16 12:59 | Cardiology Progress Note ---
Cardiology SOAP Progress Note Subjective: No acute cardiac complaints. Objective: I&O/Vital Signs 06/16/20 06/16/20 06/16/20 06/16/20 01:00 03:55 07:00 07:58 Temp 37.0 37.0 Pulse 84 72 78 72 Resp 18 18 B/P (MAP) 134/62 (86) 159/67 (97) Pulse Ox 93 95 O2 Delivery Room Air Room Air 06/16/20 06/16/20 09:00 11:20 Temp 35.6 Pulse 75 Resp 20 B/P (MAP) 103/64 (77) Pulse Ox 95 O2 Delivery Room Air Room Air 06/15/20 23:59 Intake Total 610 ml Output Total 2175 ml Balance -1565 ml Constitutional: appears stated age, AAO x 3; No apparent distress; well- developed, well-nourished Respiratory: chest is bilaterally symmetric, lungs clear to auscultation Cardiovascular: regular rate-rhythm, S1 and S2; No diastolic murmur, No systolic murmur Gastrointestional: soft, audible bowel sounds; No spleenomegaly Extremities: pedal edema (bilateral venous ulcers.); No clubbing, No cyanosis, No significant edema; wound Neurologic/Psychiatric: no motor/sensory deficits, alert, normal mood/affect, oriented x 3, power is 5/5 both on sides Skin: No rash, No ulcerations; ulcerations on exposed areas Results/Procedures: Labs Laboratory Tests 06/15/20 15:36: Glucometer 90 06/15/20 18:05: Glucometer 106 06/15/20 20:09: Glucometer 105 06/16/20 05:20: Glucometer 100 06/16/20 11:19: Glucometer 140H Microbiology 06/13/20 Blood Culture - Preliminary, Resulted No growth 06/13/20 Gram Stain - Final, Resulted 06/13/20 Wound Culture - Preliminary, Resulted Mixed Bacterial Sirena Testing In Progress A/P: Assessment/Dx: Bilateral lower extremity venous ulcers, Positive troponin. Plan: Bilateral lower extremity venous ulcers, defer to the wound service as well as general surgery. Positive troponin without any significant cardiac symptoms. Echocardiogram shows normal LV function. Nuclear stress test done 06/14/2020 showed possible anterior apical ischemia. Today I discussed at length with the patient and recommended coronary angiography and possible intervention. The patient refused. He understands the risk of AL and even . But at this point in time he is not willing to proceed with coronary angiography. We will start the patient on appropriate medical therapy including dual antiplatelet therapy. I will recommended patient follows with one of our outpatient retort load expediter either Dr Gabriel or Dr Jaeger. Thank you for your consultation. Please call me if you have any questions. Favian Domínguez MD, FACP, FACC, FSCAI, FHRS, CCDS Interventional Cardiology Cardiac Electrophysiology Vascular Medicine and Endovascular Interventions Focused Exam Lactate Level 06/13/20 20:00: Lactic Acid Level 1.64 Asaf DOMÍNGUEZ MD Jun 16, 2020 12:59
--- NOTE | 2020-06-16 15:00 | NUR ---
PVD ULCERS THAT ARE WERE UNWRAPPED D/T SHOWER AND HAD BLEEDING AFTERWARDS.PT TOOK SHOWER TODAY AND THEY WERE BLEEDING. DR ROSE CONTACTED BY THIS RN AND HE SAID TO WRAP THEM TIGHTLY AND TO HOLD AREA FOR 5 MINUTES. BLEEDING DID STOP. LEGS ELEVATED AT ALL TIMES IN BED AND WHEN UP IN RECLINER. PT TOLERATES WELL.
[2020-06-16 16:00] VITALS: BP 105/57
--- NOTE | 2020-06-16 17:59 | Wound Care Assessment ---
Wound Care Assessment Date Seen by Provider: Jun 16, 2020 Time Seen by Provider: 17:30 Chief Complaint Bilateral leg ulcers. HPI The patient is a 69 year old male with bilateral chronic venous stasis ulcers, cellulitis, and bleeding from ulcers on blood thinners for NSTEMI. The bleeding is controlled with current dry dressing. His dressing is not removed. the edema and cellulitis are markedly improved with elevation. Smoking Status: Never a Smoker Recreational Drug Use: No Alcohol Use: Past History Exam Vital Signs Date Time Temp Pulse Resp B/P (MAP) Pulse Ox O2 Delivery O2 Flow Rate FiO2 06/16/20 16:00 36.2 72 18 105/57 (73) 95 Room Air Capillary Refill : Less Than 3 SecondsLess Than 3 Seconds Results Laboratory Tests 06/15/20 18:05: Glucometer 106 06/15/20 20:09: Glucometer 105 06/16/20 05:20: Glucometer 100 06/16/20 11:19: Glucometer 140H 06/16/20 15:48: Glucometer 128H 06/16/20 17:07: Glucometer 138H Microbiology 06/13/20 Blood Culture - Preliminary, Resulted Probable Coag Negative Staph See Comments 06/13/20 Gram Stain - Final, Complete 06/13/20 Wound Culture - Final, Complete Mixed Bacterial Sirena EBONY ROSE MD Jun 16, 2020 17:59
[2020-06-16 19:43] VITALS: BP 110/57
[2020-06-16] MEDS ORDERED: ENOXAPARIN 60 MG/0.6 ML (LOVENOX) SYR SC SCH (23:30)
[2020-06-16 23:54] VITALS: BP 118/67
[2020-06-17 04:00] VITALS: BP 133/60
[2020-06-17] MEDS: inSUlin ASPART (NovoLOG) 1 UNIT/0.01 ML (CHARGE PER UNIT) SC SCH ×4 (05:28→22:28)
[2020-06-17] MEDS: CATHETER FLUSH 10 ML SYR IV SCH ×3 (05:28→22:28)
[2020-06-17 06:23] LABS: CALCIUM 7.8 MG/DL (8.5-10.1)
[2020-06-17 06:27] LABS: CREATININE SERUM 2.32 MG/DL (0.60-1.30)
[2020-06-17 08:50] VITALS: BP 135/72
[2020-06-17] MEDS ORDERED: meTOproloL SUCCINATE 50 MG (TOPROL XL) TAB PO SCH (09:00)
[2020-06-17] MEDS: ASPIRIN E.C. 325 MG (ECOTRIN) TABLET PO SCH (09:11)
[2020-06-17] MEDS: CLOPIDOGREL 75 MG (PLAVIX) TABLET PO SCH (09:12)
[2020-06-17] MEDS: lisINopril 20 MG (PRINIVIL) TABLET PO SCH (09:12)
--- NOTE | 2020-06-17 09:18 | Physical Therapy Evaluation ---
PT Evaluation-General Medical Diagnosis Admission Date Jun 13, 2020 at 22:20 Medical Diagnosis: NSTEMI/bilateral LE cellulitis/venous stasis ulcers bilateral LE Onset Date: Jun 13, 2020 Therapy Diagnosis Therapy Diagnosis: debility Precautions Precautions/Isolations: Fall Prevention, Standard Precautions Weight Bear Status Right Lower Extremity: Right Weight Bearing/Tolerated Left Lower Extremity: Left Weight Bearing/Tolerated Referral Physician: Stephon Reason for Referral: Evaluation/Treatment Medical History Additional Medical History lumbar surgery years prior resulting in right foot drop and limited left ankle/foot ROM Current History ER secondary to bilateral LE wounds x 2 months Reviewed History: Yes Social History Home: Single Level Current Living Status: Other Family Prior Prior Level of Function SCALE: Activities may be completed with or without assistive devices. 6-Llchmtpkvj-rzyirzj completes the activity by him/herself with no assistance from a helper. 5-Set-up or Clean-up Assistance-helper sets up or cleans up; patient completes activity. Callands assists only prior to or following the activity. 4-Supervision or Touching Assistance-helper provides verbal cues and/or touching/steadying and/or contact guard assistance as patient completes activity. Assistance may be provided throughout the activity or intermittently. 3-Partial/Moderate Assistance-helper does LESS THAN HALF the effort. Callands lifts, holds or supports trunk or limbs, but provides less than half the effort. 2-Substantial/Maximal Assistance-helper does MORE THAN HALF the effort. Callands lifts or holds trunk or limbs and provides more than half the effort. 5-Rdtjdnpgh-xdpexg does ALL the effort. Patient does none of the effort to complete the activity. Or, the assistance of 2 or more helpers is required for the patient to complete the activity. If activity was not attempted, code reason: 7-Patient Refused. 9-Not Applicable-not attempted and the patient did not perform the activity before the current illness, exacerbation or injury. 10-Not Attempted due to Environmental Limitations-(lack of equipment, weather restraints, etc.). 88-Not Attempted due to Medical Conditions or Safety Concerns. Bed Mobility: 5 Transfers (B,C,W/C): 5 Gait: 5 Stairs: 9 Indoor Mobility (Ambulation): Independent Stairs: Not Applicalbe Prior Devices Use: Walker PT Evaluation-Current Subjective Patient agrees to PT. Objective Patient Orientation: Normal For Age ROM/Strength ROM Lower Extremities diminished bilateral ankle ROM/ bilateral LE WFL Strength Lower Extremities 3/5 grossly bilateral LE Integumentary/Posture Integumentary refer to nursing notes Bowel Incontinence: Yes Bladder Incontinence: No Posture WFL Neuromuscular (Tone, Coordination, Reflexes) grossly intact Sensory Vision: Wears Glasses Hearing: Functional Sensation Right Lower Extremit: Impaired Sensation Left Lower Extremity: Impaired Transfers Roll Left to Right (QC): 5 Sit to Lying (QC): 5 Lying to Sitting/Side of Bed(Q: 5 Sit to Stand (QC): 3 Chair/Ltv-md-Ddcea Xfer(QC): 4 Gait Does the Patient Walk?: Yes Mode of Locomotion: Walk Anticipated Mode of Locomotion: Walk Walk 10 feet (QC): 4 Walk 50 ft with 2 Turns(QC): 4 Walk 150 ft (QC): 88 Gait Assistive Device: FWW Comments/Gait Description functional gait sequence/limited knee flexion due to weakness Wheelchair Training Does the Pt Use a Wheelchair?: No Balance Sitting Static: Normal Sitting Dynamic: Normal Standing Static: Fair Standing Dynamic: Fair Assessment/Needs 69 y.o. male, will benefit from skilled PT to address functional strength and mobility to improve current LOF to safely return to home with family at maximum LOF. Rehab Potential: Guarded Post Rehab Potential-Barriers: compliance PT Underwriting Clerks Supervisor Goals Mcfp Goals PT Mcfp Goals Time Frame: Jun 29, 2020 Roll Left & Right (QC): 6 Sit to Lying (QC): 6 Lying-Sitting on Side/Bed(QC): 6 Sit to Stand (QC): 6 Chair/Rph-rt-Mpymz Xfer(QC): 6 Toilet Transfer (QC): 6 Does the Patient Walk: Yes Walk 10 feet (QC): 6 Walk 50ft with 2 Turns (QC): 6 Walk 150 ft (QC): 6 PT Plan Problem List Problem List: Activity Tolerance, Functional Strength, Safety, Balance, Gait, Transfer, Bed Mobility Treatment/Plan Treatment Plan: Continue Plan of Care Treatment Plan: Bed Mobility, Education, Functional Activity Steph, Functional Strength, Gait, Safety, Therapeutic Exercise, Transfers Treatment Duration: Jun 29, 2020 Frequency: 6 times per week Estimated Hrs Per Day: .5 hour per day Patient and/or Family Agrees t: Yes Time/GCodes Time In: 824 Time Out: 846 Total Billed Treatment Time: 22 Total Billed Treatment 1 visit EVMod 22 min CHRIS,LAVELLE PT Jun 17, 2020 09:18
[2020-06-17] MEDS ORDERED: TROUGH ORDER-PHARMACY XX NR (10:00)
[2020-06-17] MEDS: VANCOMYCIN 1250 MG/NS 250 ML IVPB IV SCH ×2 (11:20)
[2020-06-17] MEDS: ENOXAPARIN 300 MG/3 ML (LOVENOX) MULTI-DOSE VIAL SQ SCH (11:59)
[2020-06-17 12:16] VITALS: BP 123/67
--- NOTE | 2020-06-17 12:22 | Progress Note ---
Subjective Subjective Date Seen by Provider: Jun 17, 2020 Time Seen by Provider: 13:15 No overnight events. Patient is looking forward to going home. He has thought about SNU but would chose to go home instead. Patient is willing to go to inpatient rehab. Urinating well, no issues. Review of Systems General: No Chills HEENT: No Head Aches Pulmonary: No Dyspnea, No Cough Cardiovascular: No: Chest Pain Gastrointestinal: No: Nausea, Vomiting Genitourinary: No Dysuria Musculoskeletal: back pain; No: neck pain Neurological: Weakness; No: Confusion Objective Exam Vital Signs Vital Signs Date Time Temp Pulse Resp B/P (MAP) Pulse Ox O2 Delivery O2 Flow Rate FiO2 06/17/20 12:16 72 20 123/67 (85) 97 Room Air 06/17/20 08:50 37.2 82 20 135/72 (93) 94 Room Air 06/17/20 08:00 94 Room Air 06/17/20 04:00 36.3 76 19 133/60 (84) 96 Room Air 06/17/20 01:00 68 06/16/20 23:54 36.0 67 18 118/67 (84) 97 Room Air 06/16/20 19:43 36.2 79 18 110/57 (74) 94 Room Air 06/16/20 19:40 Room Air 06/16/20 19:00 70 06/16/20 16:00 36.2 72 18 105/57 (73) 95 Room Air 06/16/20 13:00 61 I & O 06/17/20 07:00 Intake Total 1362.5 ml Output Total 1250 ml Balance 112.5 ml General Appearance: No Apparent Distress, Obese, Other (unkempt) HEENT: PERRL/EOMI Neck: Non Tender, Supple Respiratory: Normal Breath Sounds, No Accessory Muscle Use, No Respiratory Distress Cardiovascular: Regular Rate, Rhythm, No Murmur Gastrointestinal: Non Tender, Soft Extremity: Other (legs wrapped in kerlix gauze. ) Neurologic/Psychiatric: Alert, Oriented x3, Normal Mood/Affect, Sensory Deficit (DECREASED SENSATION TO BOTH FEET AND LIMITED ROM OF BOTH FEET), Other (PROPRIOCEPTION NOT INTACT- HE IS UNAWARE OF POSITION OF GREAT TOES. PART OF HIS FALL RISK) Skin: Normal Color, Warm/Dry, Other ( ABOVE. ) Results Lab Laboratory Tests 06/16/20 15:48: Glucometer 128H 06/16/20 17:07: Glucometer 138H 06/16/20 20:52: Glucometer 140H 06/17/20 05:12: Sodium Level 136, Potassium Level 4.0, Chloride Level 102, Carbon Dioxide Level 23, Anion Gap 11, Blood Urea Nitrogen 30H, Creatinine 2.32H, Estimat Glomerular Filtration Rate 28, BUN/Creatinine Ratio 13, Glucose Level 118H, Calcium Level 7.8L 06/17/20 05:27: Glucometer 115H 06/17/20 10:14: Vancomycin Level Trough 26.0*H 06/17/20 11:33: Glucometer 126H Microbiology 06/13/20 Blood Culture - Preliminary, Resulted Micrococcus species See Comments 06/13/20 Gram Stain - Final, Complete 06/13/20 Wound Culture - Final, Complete Mixed Bacterial Sirena Assessment/Plan Assessment/Plan Admission Dx NSTEMI, elevated troponin venous stasis ulcers with cellulitis Assessment and Plan NSTEMI (non-ST elevated myocardial infarction) Bilateral lower leg cellulitis- currently on vancomycin. EXTENSIVE VENOUS STASIS ULCERS BILATERAL LOWER LEGS. HTN (hypertension) Diabetes Mellitus II 06/14/20- Dr. Seay consulted for lower extremity wounds. Dr. Domínguez consulted for cardiology. *ECHO report - LVEF 55-65%, cardiac aguirre mildly thickened.- grade 1 diastolic dysfunction. * lower leg- ultrasound -- significant for Nonoccluding segmental thrombosis mid right superficial femoral vein- he is on daily aspirin 325mg. 06/15/20- Hga1c 6.8- will do sliding scale insulin while inpatient- will start metformin on discharge- lifestyle modifications will also bring his a1c below 6.5- and improve his overall health- including his legs. Could consider SGLT2 inhibitor like isabelxidianne dias- as it would improve his blood sugar as well as be cardioprotective. But he is at increased risk for a infection due to his unkempt self-care so I will not be ordering a SGLT2 inhibitor. 06/16/20- maximize cardiac regimen- lisinopril, metoprolol, clopidogrel, atorvastatin. Continue with wound care. Proprioception not intact- increases his fall risk. ordering PT/OT to evaluate/work with him. Pt reports he will be going home to his son's house when he is discharged. Discharge planning pending wound care evaluation and recommendation. Wound culture pending. 06/17/20- acute kidney injury- secondary to vancomycin, lovenox- stopping vancomycin- and starting doxycycline for his lower extremity infection- stopping therapeutic lovenox- will give him LR bolus at 200cc/hr x 1L. Holding lisinopril. Recheck of BMP- Creatinine about the same- placing on LR IVF- will recheck BMP in AM. Dispo: -pt needs to establish with a PCP- [facility] Plan to d/c to inpatient rehab- on Wednesday06/19/20. Will need to keep follow up at wound clinic at [facility]. Problems: (1) Venous stasis dermatitis of both lower extremities (2) NSTEMI (non-ST elevated myocardial infarction) (3) Bilateral lower leg cellulitis (4) HTN (hypertension) (5) DMII (diabetes mellitus, type 2) Qualifiers: (6) OSWALDO (acute kidney injury) Admission Dx NSTEMI, elevated troponin venous stasis ulcers with cellulitis Clinical Quality Measures Admission Status Admission Dx NSTEMI, elevated troponin venous stasis ulcers with cellulitis DVT/VTE Risk/Contraindication: Risk Factor Score Per Nursin RFS Level Per Nursing on Admit: 4+=Very High MINESH BENITEZ MD Jun 17, 2020 12:22
--- NOTE | 2020-06-17 12:42 | Cardiology Progress Note ---
Cardiology SOAP Progress Note Subjective: no cardiac complaints. Objective: I&O/Vital Signs 06/17/20 06/17/20 06/17/20 06/17/20 01:00 04:00 08:00 08:50 Temp 36.3 37.2 Pulse 68 76 82 Resp 20 B/P (MAP) 133/60 (84) 135/72 (93) Pulse Ox 96 94 94 O2 Delivery Room Air Room Air Room Air 06/17/20 12:16 Pulse 72 Resp 20 B/P (MAP) 123/67 (85) Pulse Ox 97 O2 Delivery Room Air 06/17/20 00:00 Intake Total 1162.5 ml Output Total 1000 ml Balance 162.5 ml Constitutional: appears stated age, AAO x 3; No apparent distress; well- developed, well-nourished Respiratory: chest is bilaterally symmetric, lungs clear to auscultation Cardiovascular: regular rate-rhythm, S1 and S2; No diastolic murmur, No systolic murmur Gastrointestional: soft, audible bowel sounds; No spleenomegaly Extremities: pedal edema (bilateral venous ulcers.); No clubbing, No cyanosis, No significant edema; wound Neurologic/Psychiatric: no motor/sensory deficits, alert, normal mood/affect, oriented x 3, power is 5/5 both on sides Skin: No rash, No ulcerations; ulcerations on exposed areas Results/Procedures: Labs Laboratory Tests 06/16/20 15:48: Glucometer 128H 06/16/20 17:07: Glucometer 138H 06/16/20 20:52: Glucometer 140H 06/17/20 05:12: Sodium Level 136, Potassium Level 4.0, Chloride Level 102, Carbon Dioxide Level 23, Anion Gap 11, Blood Urea Nitrogen 30H, Creatinine 2.32H, Estimat Glomerular Filtration Rate 28, BUN/Creatinine Ratio 13, Glucose Level 118H, Calcium Level 7.8L 06/17/20 05:27: Glucometer 115H 06/17/20 10:14: Vancomycin Level Trough 26.0*H 06/17/20 11:33: Glucometer 126H Microbiology 06/13/20 Blood Culture - Preliminary, Resulted Micrococcus species See Comments 06/13/20 Gram Stain - Final, Complete 06/13/20 Wound Culture - Final, Complete Mixed Bacterial Sirena A/P: Assessment/Dx: Bilateral lower extremity venous ulcers, Positive troponin. Plan: Bilateral lower extremity venous ulcers, defer to the wound service as well as general surgery. Positive troponin without any significant cardiac symptoms. Echocardiogram shows normal LV function. Nuclear stress test done 06/14/2020 showed possible anterior apical ischemia. I discussed at length with the patient and recommended coronary angiography and possible intervention. The patient refused. He understands the risk of NH and even . But at this point in time he is not willing to proceed with coronary angiography. We will start the patient on appropriate medical therapy including dual antiplatelet therapy. can change Lovenox to DVT dose. Dr. Gabriel to take over cardiology care tomorrow. Thank you for your consultation. Please call me if you have any questions. Favian Domínguez MD, FACP, FACC, FSCAI, FHRS, CCDS Interventional Cardiology Cardiac Electrophysiology Vascular Medicine and Endovascular Interventions Asaf DOMÍNGUEZ MD Jun 17, 2020 12:42
[2020-06-17] MEDS ORDERED: LACTATED RINGERS 1,000 ML IV ONE (12:45)
--- NOTE | 2020-06-17 14:05 | NUR ---
"RD ASSESSMENT PMHx: no significant PMH, as pt does not regularly seek routine medical care. PT INTERACTION: Pt was awake and pleasant during nutrition assessment. Pt states current appetite is okay. Note avg PO intake 34% x2d, per chart review. Pt states following a regular diet at home, and has no issues with chewing/swallowing food. Pt states no recent issues with nausea, vomiting, constipation, or diarrhea, and that his last BM was 06/15. Note pt not currently on bowel regimen per chart review. Pt states unsure of recent wt changes. Note unable to determine recent wt hx, per chart review. Note presence of wounds (bilateral LE), per chart review. ABNORMAL NUTRITION-RELATED LAB VALUES LOW: Ca 7.8; HIGH: BUN 20; cr 2.32; glu 118; Est. kcal needs: 9843-8980 kcal | 15-18 kcal/kg Est. Pro needs: 101-126 g Pro | 0.8-1.0 g Pro/kg PES STATEMENT: Inadequate oral intake (NI-2.1) related to loss of appetite as evidenced by pt interview, and avg PO intake 34% x2d. INTERVENTION: Continue with current diet order of CHO 75g/m 1snack diet. Add Glucerna (vary) to meals TID, for increased kcal intake. Provides 220 kcal and 10 g Pro per serving. Will continue to follow and reassess as pt needs, intake, and status change. Kelly Haley, MS RD LD"
--- NOTE | 2020-06-17 14:49 | Occupational Therapy Eval ---
OT Evaluation-General/PLF Medical Diagnosis Admission Date Jun 13, 2020 at 22:20 Medical Diagnosis: NSTEMI/bilateral LE cellulitis/venous stasis ulcers bilateral LE Onset Date: Jun 13, 2020 Therapy Diagnosis Therapy Diagnosis: Decreased ADL status Precautions Precautions/Isolations: Fall Prevention, Standard Precautions, Pressure Ulcer Referral Physician: Stephon Meade Reason: Activity Tolerance, Self Care, Evaluation/Treatment, Strengthening/ROM Medical History Additional Medical History see nursing/ medical hx Current History NSTEMI with BLE cellulitis/ venous stasis with ulceration. Reviewed History: Yes Social History Home: Single Level Current Living Status: Other Family ADL-Prior Level of Function SCALE: Activities may be completed with or without assistive devices. 5-Asttwwknji-hdkwdvs completes the activity by him/herself with no assistance from a helper. 5-Set-up or Clean-up Assistance-helper sets up or cleans up; patient completes activity. [place] assists only prior to or following the activity. 4-Supervision or Touching Assistance-helper provides verbal cues and/or touching/steadying and/or contact guard assistance as patient completes activity. Assistance may be provided throughout the activity or intermittently. 3-Partial/Moderate Assistance-helper does LESS THAN HALF the effort. Crouse lifts, holds or supports trunk or limbs, but provides less than half the effort. 2-Substantial/Maximal Assistance-helper does MORE THAN HALF the effort. [place]ouse lifts or holds trunk or limbs and provides more than half the effort. 8-Xbjrqwvbc-vykijt does ALL the effort. Patient does none of the effort to complete the activity. Or, the assistance of 2 or more helpers is required for the patient to complete the activity. If activity was not attempted, code reason: 7-Patient Refused. 9-Not Applicable-not attempted and the patient did not perform the activity before the current illness, exacerbation or injury. 10-Not Attempted due to Environmental Limitations-(lack of equipment, weather restraints, etc.). 88-Not Attempted due to Medical Conditions or Safety Concerns. ADL PLOF Comments Pt states IND within home with use of 2 SPC and walker. Self Care: Independent Functional Cognition: Independent DME/Equipment: Bath Chair, Grab Bars, Shower Drive Self: No OT Current Status Subjective Pt in chair upon entry. AxO. Pt in no apparent distress, LE's wrapped. pt agrees to OT eval/ treat. Mental Status/Objective Patient Orientation: Normal For Age Attachments: IV, Telemetry Current Glasses/Contacts: Yes Hearing Aids: No Dentures/Partials: No Hand Dominance: Right Upper Extremity ROM WFL BUE Upper Extremity Coordination WFL BUE Upper Extremity Sensation WFL BUE Upper Extremity Strength WFL BUE ADL-Treatment Eating (QC): 6 Oral Hygiene (QC): 6 Lower Body Dressing (QC): 2 (max A per clinical judgment) On/Off Footwear (QC): 5 (s/u for AE per clinical reasoning.Pt uses hip kit at home.) Toileting Hygiene (QC): 2 (Max A- completed in stance.) Other Treatments Pt in chair. Pt states lives with son and daughter in law with 7 grandchildren in single level home. Pt is responsible for cooking/ cleaning/ children's entertainer at times, though does not drive. Completes environment hx and ROM/ MMT. Pt's UE WFL. Pt states has decreased in strength in LE's since back surgery yeard prior. Pt states an increase of pressure on ulcer area upon stance. Pt sit to stand with mod A, mod A for righting when standing, upon righting pt able to bring hands to walker level and stands with CGA. Bottom is cleaned in stance and new ingrid placed under bottom. Pt stands ~45 sec and requests rest. Pt rests, and completes again. This time, min A stance. Pt stands with use of both SPCs, stands to walker height and utilizes walker to stand upright. Pt able to take one hand off walker and bring behind back/ to bottom. Pt does this with other hand. Pt returns to sit, all needs met, call light in reach. SW notified of HHOT recommended upon home. SW states physician desires home program for pt. HEP brought to pt, pt demonstrates 3/5 exercises. Agrees others can be managed on own. Pt instructed to complete 2-3x per day, 10 reps. Education OT Patient Education: Correct positioning, Exercise program, Home exercise program, Purpose of tx/functional activities, Safety issues Teaching Recipient: Patient Teaching Methods: Demonstration, Discussion Response to Teaching: Verbalize Understanding, Return Demonstration OT Film Editor Supervisor Goals Film Editor Supervisor Goals Time Frame: Jun 24, 2020 Eating (QC): 6 Oral Hygiene (QC): 6 Toileting Hygiene (QC): 4 Shower/Bathe Self (QC): 5 Upper Body Dressing (QC): 6 Lower Body Dressing (QC): 4 On/Off Footwear (QC): 6 Additional Goals: 1-Demonstrate ADL Tasks, 2-Verbalize Understanding, 3- ImproveStrength/Steph 1=Demonstrate adherence to instructed precautions during ADL tasks. 2=Patient will verbalize/demonstrate understanding of assistive devices/modifications for ADL. 3=Patient will improve strength/tolerance for activity to enable patient to perform ADL's. OT Education/Plan Problem List/Assessment Assessment: Decreased Activ Tolerance, Decreased UE Strength, Dependent Transfers, Edema, Impaired Funct Balance, Impaired I ADL's, Impaired Self-Care Skills Discharge Recommendations Plan/Recommendations: Continue POC Therapy Discharge Recommendati: 24 Hour Supervision, Home & Family, Post Acute PT, Post Acute OT Treatment Plan/Plan of Care Treatment,Training & Education: Yes Patient would benefit from OT for education, treatment and training to promote independence in ADL's, mobility, safety and/or upper extremity function for ADL's. Plan of Care: ADL Retraining, Functional Mobility, UE Funct Exercise/Act Treatment Duration: Jun 24, 2020 Frequency: 5 times per week Estimated Hrs Per Day: .5 hour per day Agreement: Yes Rehab Potential: Guarded Time/GCodes Start Time: 13:40 Stop Time: 14:28 Total Time Billed (hr/min): 20 Billed Treatment Time 1, EVM (20) OT in room from 8911-5249. OT eval lasted 20 minutes, remaining time not charged due to not fx treatment. ROMEL ALVARENGA OTR Jun 17, 2020 14:49
--- NOTE | 2020-06-17 15:09 | NUR ---
CM/DUY follow up. The patient reports he is doing well today. He states that his legs are also doing better. The patient was tired and drifting asleep inbetween conversation. CM/SS provided patient with number and services offered by [facility]. CM/SS visited about the the different discharge options such as nursing home home placement, home health (doesn't have a primary care physician), outpatient physical therapy, and Inpatient rehab. The patient reports that he would not go into a nursing home facility and doesn't want to do outpatient therapy due to Covid. The patient is wanting to stay in the hospital to receive therapies. TI/SS spoke with Marlena to discuss patient. She will evaluate patient and let this sw know.
[2020-06-17 16:00] VITALS: BP 132/58
--- NOTE | 2020-06-17 16:29 | NUR ---
IRF Evaluation Determination: Accepted At the request of SW, evaluation for ARU initiated. Chart review complete and findings discussed with Dr. Duong - patient accepted. Spoke with Dr. Szymanski and he is in agreement with this plan. The ARU continues to capped at 8, with the next available bed likely coming available, Wednesday, June 19. Will continue to follow. Thank you for this referral.
[2020-06-17] MEDS: DOXYCYCLINE 100 MG (VIBRAMYCIN) TABLET PO SCH (16:49)
[2020-06-17 20:00] VITALS: BP 143/67
[2020-06-17 21:22] LABS: POTASSIUM 3.9 MMOL/L (3.6-5.0)
[2020-06-17 21:24] LABS: CALCIUM 7.8 MG/DL (8.5-10.1)
[2020-06-17 21:28] LABS: CREATININE SERUM 2.55 MG/DL (0.60-1.30)
[2020-06-17] MEDS: LACTATED RINGERS 1,000 ML IV SCH (23:18)
[2020-06-18 00:37] VITALS: BP 124/63
[2020-06-18 04:00] VITALS: BP 151/68
[2020-06-18 05:14] LABS: BASOPHILS % (AUTO) 1 % (0-10); EOSINOPHILS # (AUTO) 0.3 10^3/uL (0.0-0.3); EOSINOPHILS % (AUTO) 3 % (0-10); HEMATOCRIT 38 % (40-54); HEMOGLOBIN 12.4 g/dL (13.3-17.7); LYMPHOCYTES # (AUTO) 1.1 10^3/uL (1.0-4.0); LYMPHOCYTES % (AUTO) 14 % (12-44); MEAN CORPUSCULAR HEMOGLOBIN 28 pg (25-34); MEAN CORPUSCULAR HGB CONC 32 g/dL (32-36); MEAN CORPUSCULAR VOLUME 87 fL (80-99); MEAN PLATELET VOLUME 10.5 fL (9.0-12.2); MONOCYTES # (AUTO) 0.9 10^3/uL (0.0-1.0); MONOCYTES % (AUTO) 12 % (0-12); NEUTROPHILS # (AUTO) 5.6 10^3/uL (1.8-7.8); NEUTROPHILS % (AUTO) 70 % (42-75); PLATELET COUNT 193 10^3/uL (130-400)
[2020-06-18 05:25] LABS: POTASSIUM 3.6 MMOL/L (3.6-5.0)
[2020-06-18 05:27] LABS: CALCIUM 7.7 MG/DL (8.5-10.1)
[2020-06-18 05:31] LABS: CREATININE SERUM 2.4 MG/DL (0.60-1.30)
[2020-06-18] MEDS: CATHETER FLUSH 10 ML SYR IV SCH ×3 (05:36→23:27)
[2020-06-18] MEDS: inSUlin ASPART (NovoLOG) 1 UNIT/0.01 ML (CHARGE PER UNIT) SC SCH ×4 (05:36→21:30)
[2020-06-18] MEDS: DOXYCYCLINE 100 MG (VIBRAMYCIN) TABLET PO SCH ×2 (06:39→17:45)
[2020-06-18 08:21] VITALS: BP 143/75
[2020-06-18] MEDS: CLOPIDOGREL 75 MG (PLAVIX) TABLET PO SCH (08:51)
[2020-06-18] MEDS: LACTATED RINGERS 1,000 ML IV SCH ×3 (08:51→23:29)
[2020-06-18] MEDS: ASPIRIN E.C. 325 MG (ECOTRIN) TABLET PO SCH (08:51)
--- NOTE | 2020-06-18 09:40 | Physical Therapy Daily Note ---
PT Daily Note-Current Subjective Patient agrees to PT. No c/o. Mental Status Patient Orientation: Normal For Age Attachments: IV Transfers SCALE: Activities may be completed with or without assistive devices. 7-Ldhoeuvwgh-rfixuwa completes the activity by him/herself with no assistance from a helper. 5-Set-up or Clean-up Assistance-helper sets up or cleans up; patient completes activity. [place] assists only prior to or following the activity. 4-Supervision or Touching Assistance-helper provides verbal cues and/or touching/steadying and/or contact guard assistance as patient completes activity. Assistance may be provided throughout the activity or intermittently. 3-Partial/Moderate Assistance-helper does LESS THAN HALF the effort. [place] lifts, holds or supports trunk or limbs, but provides less than half the effort. 2-Substantial/Maximal Assistance-helper does MORE THAN HALF the effort. [place] lifts or holds trunk or limbs and provides more than half the effort. 1-Jberrdgoo-itrgyo does ALL the effort. Patient does none of the effort to complete the activity. Or, the assistance of 2 or more helpers is required for the patient to complete the activity. If activity was not attempted, code reason: 7-Patient Refused. 9-Not Applicable-not attempted and the patient did not perform the activity before the current illness, exacerbation or injury. 10-Not Attempted due to Environmental Limitations-(lack of equipment, weather restraints, etc.). 88-Not Attempted due to Medical Conditions or Safety Concerns. Lying to Sitting/Side of Bed(Q: 5 Sit to Stand (QC): 3 Chair/Aba-wr-Etuza Xfer(QC): 3 Weight Bearing Right Lower Extremity: Right Weight Bearing/Tolerated Left Lower Extremity: Left Weight Bearing/Tolerated Gait Training Does the Patient Walk?: Yes Distance: 80' Walk 10 feet (QC): 3 Walk 50 ft with 2 Turns(QC): 3 Walk 150 ft (QC): 88 Gait Assistive Device: FWW slow, steady Exercises Supine Ex: Quad Set, Heel Slides, Straight leg raise Seated Therapy Exercises: Long arc quads, Hip flexion Seated Reps: 15 Assessment Patient tolerated treatment well and is up in recliner with needs met. PT and patient discussed ARU with patient excited about going. Plan transfer in a.m. per report. PT Novelty Chain Maker Goals Halfway Goals PT Halfway Goals Time Frame: Jun 29, 2020 Roll Left & Right (QC): 6 Sit to Lying (QC): 6 Lying-Sitting on Side/Bed(QC): 6 Sit to Stand (QC): 6 Chair/Rcm-ue-Mladc Xfer(QC): 6 Toilet Transfer (QC): 6 Does the Patient Walk: Yes Walk 10 feet (QC): 6 Walk 50ft with 2 Turns (QC): 6 Walk 150 ft (QC): 6 PT Plan Treatment/Plan Treatment Plan: Continue Plan of Care Treatment Plan: Bed Mobility, Education, Functional Activity Steph, Functional Strength, Gait, Safety, Therapeutic Exercise, Transfers Treatment Duration: Jun 29, 2020 Frequency: 6 times per week Estimated Hrs Per Day: .5 hour per day Patient and/or Family Agrees t: Yes Time/GCodes Time In: 846 Time Out: 914 Total Billed Treatment Time: 28 Total Billed Treatment 1 visit EX 15 min GT 13 min LAVELLE PEREZ PT Jun 18, 2020 09:40
[2020-06-18] MEDS ORDERED: TROUGH ORDER-PHARMACY XX NR (10:00)
--- NOTE | 2020-06-18 10:04 | Cardiology Progress Note ---
Subjective Date Seen by Provider: Jun 18, 2020 Time Seen by Provider: 09:59 Subjective/Events-last exam Patient was seen at bedside sitting comfortably denied any active pain Review of Systems General: No Chills, No Night Sweats, No Fatigue, No Malaise, No Appetite, No Other HEENT: No Head Aches, No Visual Changes, No Eye Pain, No Ear Pain, No Dysphasia, No Sinus Congestion, No Post Nasal Drip, No Sore Throat, No Other Pulmonary: No Dyspnea, No Cough, No Pleuritic Chest Pain, No Other Cardiovascular: No: Chest Pain, Palpitations, Orthopnea, Paroxysmal Noc. Dyspnea, Edema, Lt Headedness, Other Objective-Cardiology Exam Last Set of Vital Signs Vital Signs 06/18/20 08:21 Temp 36.2 Pulse 52 Resp 18 B/P (MAP) 143/75 (97) Pulse Ox 97 O2 Delivery Room Air Capillary Refill : Less Than 3 SecondsLess Than 3 Seconds I&O Intake and Output 06/18/20 00:00 Intake Total 2580 ml Output Total 1025 ml Balance 1555 ml Intake Oral 1580 ml IV Total 1000 ml Output Urine Total 1025 ml General: Alert, Oriented X3, Cooperative HEENT: Atraumatic, PERRLA Neck: Supple, No JVD, No Thyromegaly Lungs: Clear to Auscultation, Normal Air Movement Heart: Regular Rate, Normal S1, Normal S2, No Murmurs Abdomen: Normal Bowel Sounds, Soft, No Tenderness, No Hepatosplenomegaly, No Masses Extremities: No Clubbing, No Cyanosis, No Edema, Normal Pulses, No Tenderness/Swelling Skin: No Rashes, No Breakdown, No Significant Lesion Neuro: Normal Gait, Normal Speech, Strength at 5/5 X4 Ext, Normal Tone, Sensation Intact Psych/Mental Status: Mental Status NL, Mood NL Results Lab Laboratory Tests 06/17/20 20:20 06/18/20 04:35 A/P-Cardiology Admission Diagnosis BLE venous ulcers Positive troponin HTN HLP Assessment/Plan Bilateral lower extremity venous ulcers, defer to the wound service as well as general surgery. Positive troponin without any significant cardiac symptoms. Echocardiogram shows normal LV function. Nuclear stress test done 06/14/2020 showed possible anterior apical ischemia. I discussed at length with the patient and recommended coronary angiography and possible intervention. The patient refused. He understands the risk of PA and even . But at this point in time he is not willing to proceed with coronary angiography. Continue on current medication. Patient agreeable to f/u as outpatient. HTN, mildy elevated, continue to monitor HLP,maintained on statin. continue to monitor CRI DM Patient was seen and evaluated with Corinna, examination performed, management plan was discussed, agree with the current scribed note, I made few changes to the note using Italic font Patient was seen at bedside sitting comfortably. Denied any active pain We discussed the management plan, the possibility of cardiac catheterization, patient does not want to proceed with this procedure. We'll continue with medical therapy and monitor, continue to follow-up as an outpatient. Clinical Quality Measures DVT/VTE Risk/Contraindication: Risk Factor Score Per Nursin RFS Level Per Nursing on Admit: 4+=Very High CORINNA MARIA Jun 18, 2020 10:04 am RHONDA FERNANDEZ MD Jun 18, 2020 11:52 am
[2020-06-18 11:54] VITALS: BP 107/58
--- NOTE | 2020-06-18 13:13 | Occupational Ther Daily Note ---
OT Current Status-Daily Note Subjective Pt alert/ oriented in recliner. Pt denies pain, agrees to tx session. Mental Status/Objective Patient Orientation: Normal For Age ADL-Treatment Therapy Code Descriptions/Definitions Functional [place] Measure: 0=Not Assessed/NA 4=Minimal Assistance 1=Total Assistance 5=Supervision or Setup 2=Maximal Assistance 6=Modified [place] 3=Moderate Assistance 7=Complete IndependenceSCALE: Activities may be completed with or without assistive devices. 9-Glttznndme-nrozshh completes the activity by him/herself with no assistance from a helper. 5-Set-up or Clean-up Assistance-helper sets up or cleans up; patient completes activity. [place] assists only prior to or following the activity. 4-Supervision or Touching Assistance-helper provides verbal cues and/or touching/steadying and/or contact guard assistance as patient completes activity. Assistance may be provided throughout the activity or intermittently. 3-Partial/Moderate Assistance-helper does LESS THAN HALF the effort. [place] lifts, holds or supports trunk or limbs, but provides less than half the effort. 2-Substantial/Maximal Assistance-helper does MORE THAN HALF the effort. [place] lifts or holds trunk or limbs and provides more than half the effort. 0-Xyqaenzwt-acaoym does ALL the effort. Patient does none of the effort to compl ete the activity. Or, the assistance of 2 or more helpers is required for the patient to complete the activity. If activity was not attempted, code reason: 7-Patient Refused. 9-Not Applicable-not attempted and the patient did not perform the activity before the current illness, exacerbation or injury. 10-Not Attempted due to Environmental Limitations-(lack of equipment, weather restraints, etc.). 88-Not Attempted due to Medical Conditions or Safety Concerns. Eating (QC): 6 Oral Hygiene (QC): 6 (completes in recliner with items handed to pt) Bathing Location: L Arm, R Arm, L Upper Leg, R Upper Leg, Chest, Abdomen, Perineal Area Shower/Bathe Self (QC): 3 (min A for bottom hygiene in stance. Pt completes all other tasks in sit. Does not wash LE's / feet as wrapped. ) Upper Body Dressing (QC): 5 (s/u for gown doffing/ donning.) Lower Body Dressing (QC): 7 (denies underwear donning. ) Toileting Hygiene (QC): 3 Toilet Transfer (QC): 7 (states need for BM, BSC placed beside pt. Pt states no need anymore. ) Other Treatment Pt in recliner. Agrees to oral care and sponge bath. Pt completes all as outlined above. Sit to stand with walker with mod A, stands though requires min A for bottom thoroughness. Pt returns to sit, call light in reach, all needs met. Education OT Patient Education: Correct positioning, Progress toward Goal/Update tx plan, Purpose of tx/functional activities, Safety issues, Transfer techniques Teaching Recipient: Patient Teaching Methods: Demonstration, Discussion Response to Teaching: Verbalize Understanding, Return Demonstration OT Jigger Machine Operator Goals Fdc Goals Time Frame: Jun 24, 2020 Eating (QC): 6 Oral Hygiene (QC): 6 Toileting Hygiene (QC): 4 Shower/Bathe Self (QC): 5 Upper Body Dressing (QC): 6 Lower Body Dressing (QC): 4 On/Off Footwear (QC): 6 Additional Goals: 1-Demonstrate ADL Tasks, 2-Verbalize Understanding, 3- ImproveStrength/Steph 1=Demonstrate adherence to instructed precautions during ADL tasks. 2=Patient will verbalize/demonstrate understanding of assistive devices/chantal fications for ADL. 3=Patient will improve strength/tolerance for activity to enable patient to perform ADL's. OT Education/Plan Problem List/Assessment Assessment: Decreased Activ Tolerance, Decreased UE Strength, Dependent Transfers, Edema, Impaired Funct Balance, Impaired I ADL's, Impaired Self-Care Skills Discharge Recommendations Plan/Recommendations: Continue POC Therapy Discharge Recommendati: Post Acute OT Treatment Plan/Plan of Care Treatment,Training & Education: Yes Patient would benefit from OT for education, treatment and training to promote independence in ADL's, mobility, safety and/or upper extremity function for ADL's. Plan of Care: ADL Retraining, Functional Mobility, UE Funct Exercise/Act Treatment Duration: Jun 24, 2020 Frequency: 5 times per week Estimated Hrs Per Day: .5 hour per day Agreement: Yes Rehab Potential: Guarded Time/GCodes Start Time: 09:25 Stop Time: 09:54 Total Time Billed (hr/min): 29 Billed Treatment Time 1, ADL 2 (29) ROMEL ALVARENGA OTR Jun 18, 2020 13:13
--- NOTE | 2020-06-18 13:52 | Physician Query Clarification ---
"Physician Query-General Query to Physician: The medical record reflects the following clinical scenario: History/Risk factors: DM, NSTEMI, ABX for Cellulitis Clinical Findings: Cr on admission 0.98 increase to 2.55 on 06/17 Treatment: lab monitoring, I and O, IV fluids Question: What condition best reflects the above clinical scenario? Please document response in the Progress notes or Discharge Summary. 1. Acute kidney injury 2. CRI (as currently documented by Dr. Gabriel) 3. Other , with explanation of the clinical findings 4. Clinically undetermined, no explanation for the clinical findings Please remember a lack of response to the above will prompt a phone page by CDI/coding staff In responding to this query, please exercise your independent professional judgment. The purpose of this communication is to more accurately reflect the complexity of your patients condition. The fact that a question is asked does not imply that any particular answer is desired or expected. Thank you for timely response to this clarification. Sameera Couch, MSN, RN RN Specialist-Clinical Doc Improvement CD -Health Info Mgmt Operations [address] [facility] t: [phone] | f: [phone] If you are unable to reach me at my extension, I may be working from home. Please contact me at [phone] PHYSICIAN RESPONSE: Based on the clinical findings in the record, please respond to the query above on this document as an addendum. Physician Response: If you have questions please contact: [employer]: Ext: Thank you for your time and cooperation. Clinical Webmethods Architect/[employer] This is a permanent part of the medical record SAMEERA COUCH Jun 18, 2020 13:52"
--- NOTE | 2020-06-18 14:53 | NUR ---
Pt is Voodoo. Flat Cutter provided prayer and Communion.
--- NOTE | 2020-06-18 15:34 | NUR ---
CM/SS finalized discharge plan. Plan: Patient will discharge tomorrow to inpatient rehab unit. The patient reports that he spoke with Marlena and the therapist who he will be working with. He reports that she is tough but he knows he'll be much better when he is able to leave. CM/SS asked if this sw needs to call and speak with family about plan. He stated no, and that he has already alerted his son. No further needs at this time.
[2020-06-18 16:00] VITALS: BP 133/62
--- NOTE | 2020-06-18 17:17 | Progress Note ---
Subjective Subjective Date Seen by Provider: Jun 18, 2020 Time Seen by Provider: 12:40 No overnight events. Patient has been accepting to inpatient rehab. He is glad to get this opportunity before going home. Denies chest pain. Review of Systems General: No Chills, No Night Sweats, No Fatigue, No Malaise, No Appetite, No Other HEENT: No Head Aches, No Visual Changes, No Eye Pain, No Ear Pain, No Dysphasia, No Sinus Congestion, No Post Nasal Drip, No Sore Throat, No Other Pulmonary: No Dyspnea, No Cough, No Pleuritic Chest Pain, No Other Cardiovascular: No: Chest Pain, Palpitations, Orthopnea, Paroxysmal Noc. Dyspnea, Edema, Lt Headedness, Other Gastrointestinal: No: Nausea, Vomiting Genitourinary: No Dysuria Musculoskeletal: back pain; No: neck pain Neurological: Weakness; No: Confusion Objective Exam Vital Signs Vital Signs Date Time Temp Pulse Resp B/P (MAP) Pulse Ox O2 Delivery O2 Flow Rate FiO2 06/19/20 07:43 36.6 66 20 140/63 (88) 97 06/19/20 04:14 36.0 68 20 140/63 (88) 98 Room Air 06/19/20 01:00 64 06/19/20 00:30 36.5 72 18 149/67 (94) 95 Room Air 06/18/20 20:00 Room Air 06/18/20 20:00 36.3 68 16 130/61 (84) 95 Room Air 06/18/20 19:00 87 06/18/20 16:00 36.4 66 20 133/62 (85) 95 Room Air 06/18/20 12:40 84 06/18/20 11:54 36.5 74 20 107/58 (74) 96 Room Air 06/18/20 08:21 36.2 52 18 143/75 (97) 97 Room Air I & O 06/19/20 07:00 Intake Total 3270 ml Output Total 2150 ml Balance 1120 ml General Appearance: No Apparent Distress, Obese, Other (unkempt) HEENT: PERRL/EOMI Neck: Non Tender, Supple Respiratory: Normal Breath Sounds, No Accessory Muscle Use, No Respiratory Distress Cardiovascular: Regular Rate, Rhythm, No Murmur Gastrointestinal: Non Tender, Soft Extremity: Other (legs wrapped in kerlix gauze. ) Neurologic/Psychiatric: Alert, Oriented x3, Normal Mood/Affect, Sensory Deficit (DECREASED SENSATION TO BOTH FEET AND LIMITED ROM OF BOTH FEET), Other (PROPRIOCEPTION NOT INTACT- HE IS UNAWARE OF POSITION OF GREAT TOES. PART OF HIS FALL RISK) Skin: Normal Color, Warm/Dry, Other ( ABOVE. ) Results Lab Laboratory Tests 06/17/20 20:20: Sodium Level 134L, Potassium Level 3.9, Chloride Level 102, Carbon Dioxide Level 19L, Anion Gap 13, Blood Urea Nitrogen 36H, Creatinine 2.55H, Estimat Glomerular Filtration Rate 25, BUN/Creatinine Ratio 14, Glucose Level 115H, Calcium Level 7.8L 06/17/20 21:07: Glucometer 117H 06/18/20 04:35: Sodium Level 137, Potassium Level 3.6, Chloride Level 104, Carbon Dioxide Level 20L, Anion Gap 13, Blood Urea Nitrogen 36H, Creatinine 2.40H, Estimat Glomerular Filtration Rate 27, BUN/Creatinine Ratio 15, Glucose Level 115H, Calcium Level 7.7L, White Blood Count 8.0, Red Blood Count 4.43, Hemoglobin 12.4L, Hematocrit 38L, Mean Corpuscular Volume 87, Mean Corpuscular Hemoglobin 28, Mean Corpuscular Hemoglobin Concent 32, Red Cell Distribution Width 13.6, Platelet Count 193, Mean Platelet Volume 10.5, Immature Granulocyte % (Auto) 1, Neutrophils (%) (Auto) 70, Lymphocytes (%) (Auto) 14, Monocytes (%) (Auto) 12, Eosinophils (%) (Auto) 3, Basophils (%) (Auto) 1, Neutrophils # (Auto) 5.6, Lymphocytes # (Auto) 1.1, Monocytes # (Auto) 0.9, Eosinophils # (Auto) 0.3, Baso phils # (Auto) 0.0, Immature Granulocyte # (Auto) 0.1 06/18/20 11:12: Glucometer 134H 06/18/20 16:19: Glucometer 113H Microbiology 06/13/20 Blood Culture - Final, Complete Micrococcus species See Comments 06/13/20 Gram Stain - Final, Complete 06/13/20 Wound Culture - Final, Complete Mixed Bacterial Sirena Assessment/Plan Assessment/Plan Admission Dx NSTEMI, elevated troponin venous stasis ulcers with cellulitis Assessment and Plan NSTEMI (non-ST elevated myocardial infarction) Bilateral lower leg cellulitis- currently on vancomycin. EXTENSIVE VENOUS STASIS ULCERS BILATERAL LOWER LEGS. HTN (hypertension) Diabetes Mellitus II 06/14/20- Dr. Seay consulted for lower extremity wounds. Dr. Domínguez consulted for cardiology. *ECHO report - LVEF 55-65%, cardiac aguirre mildly thickened.- grade 1 diastolic dysfunction. * lower leg- ultrasound -- significant for Nonoccluding segmental thrombosis mid right superficial femoral vein- he is on daily aspirin 325mg. 06/15/20- Hga1c 6.8- will do sliding scale insulin while inpatient- will start metformin on discharge- lifestyle modifications will also bring his a1c below 6.5- and improve his overall health- including his legs. Could consider SGLT2 inhibitor like dianne acevedo- as it would improve his blood sugar as well as be cardioprotective. But he is at increased risk for a infection due to his unkempt self-care so I will not be ordering a SGLT2 inhibitor. 06/16/20- maximize cardiac regimen- lisinopril, metoprolol, clopidogrel, atorvastatin. Continue with wound care. Proprioception not intact- increases his fall risk. ordering PT/OT to evaluate/work with him. Pt reports he will be going home to his son's house when he is discharged. Discharge planning pending wound care evaluation and recommendation. Wound culture pending. 06/17/20- acute kidney injury- secondary to vancomycin, lovenox- stopping vancomycin- and starting doxycycline for his lower extremity infection- stopping therapeutic lovenox- will give him LR bolus at 200cc/hr x 1L. Holding lisinopril. Recheck of BMP- Creatinine about the same- placing on LR IVF- will recheck BMP in AM. 06/18/20-- Cr improving with IVF and avoiding nephrotoxic agents. Will transfer down to Rehab tomorrow. Dispo: -pt needs to establish with a PCP- [facility] Plan to d/c to inpatient rehab- on Wednesday06/19/20. Will need to keep follow up at wound clinic at [facility]. Problems: (1) Venous stasis dermatitis of both lower extremities (2) NSTEMI (non-ST elevated myocardial infarction) (3) Bilateral lower leg cellulitis (4) HTN (hypertension) (5) DMII (diabetes mellitus, type 2) Qualifiers: (6) OSWALDO (acute kidney injury) Admission Dx NSTEMI, elevated troponin venous stasis ulcers with cellulitis Clinical Quality Measures Admission Status Admission Dx NSTEMI, elevated troponin venous stasis ulcers with cellulitis DVT/VTE Risk/Contraindication: Risk Factor Score Per Nursin RFS Level Per Nursing on Admit: 4+=Very High MINESH BENITEZ MD Jun 18, 2020 17:17
[2020-06-18 20:00] VITALS: BP 130/61
[2020-06-19 00:30] VITALS: BP 149/67
[2020-06-19 04:14] VITALS: BP 140/63
[2020-06-19 05:50] LABS: POTASSIUM 3.3 MMOL/L (3.6-5.0)
[2020-06-19 05:51] LABS: CALCIUM 7.5 MG/DL (8.5-10.1)
[2020-06-19 05:55] LABS: CREATININE SERUM 1.99 MG/DL (0.60-1.30)
[2020-06-19] MEDS: inSUlin ASPART (NovoLOG) 1 UNIT/0.01 ML (CHARGE PER UNIT) SC SCH (06:07)
[2020-06-19] MEDS: DOXYCYCLINE 100 MG (VIBRAMYCIN) TABLET PO SCH (06:32)
[2020-06-19] MEDS: LACTATED RINGERS 1,000 ML IV SCH (06:33)
[2020-06-19] MEDS: CATHETER FLUSH 10 ML SYR IV SCH (06:33)
[2020-06-19 07:43] VITALS: BP 140/63
[2020-06-19] MEDS ORDERED: KCL 10 MEQ TAB (MICRO K) PO SCH (08:15)
[2020-06-19] MEDS: CLOPIDOGREL 75 MG (PLAVIX) TABLET PO SCH (08:29)
[2020-06-19] MEDS ORDERED: ATOR80TA76 PO (08:55)
[2020-06-19] MEDS ORDERED: CLOP75TA28 PO (08:55)
[2020-06-19] MEDS ORDERED: ASPI325T32 PO (08:55)
[2020-06-19] MEDS ORDERED: LISI-552 PO (08:55)
[2020-06-19] MEDS ORDERED: DOXY100T2 PO (08:55)
[2020-06-19] MEDS: ASPIRIN E.C. 325 MG (ECOTRIN) TABLET PO SCH (08:57)
--- NOTE | 2020-06-19 08:57 | Discharge Summary ---
Discharge Summary Hospital Course Was the Problem List Reviewed?: Yes Problems/Dx: (1) Venous stasis dermatitis of both lower extremities (2) NSTEMI (non-ST elevated myocardial infarction) Status: Acute (3) Bilateral lower leg cellulitis Status: Acute (4) HTN (hypertension) Status: Acute (5) DMII (diabetes mellitus, type 2) Qualifiers: (6) OSWALDO (acute kidney injury) Hospital Course Date of Admission: Jun 13, 2020 at 22:20 Admission Diagnosis : Family Physician/Provider: No,Local Physician Date of Discharge: 06/19/20 Discharge Diagnosis: [ ] Hospital Course: [ ] Labs and Pending Lab Test: Laboratory Tests 06/18/20 11:12: Glucometer 134H 06/18/20 16:19: Glucometer 113H 06/18/20 20:49: Glucometer 108 06/19/20 05:20: Sodium Level 138, Potassium Level 3.3L, Chloride Level 106, Carbon Dioxide Level 23, Anion Gap 9, Blood Urea Nitrogen 35H, Creatinine 1.99H, Estimat Glomerular Filtration Rate 34, BUN/Creatinine Ratio 18, Glucose Level 114H, Calcium Level 7.5L Microbiology 06/13/20 Blood Culture - Final, Complete Micrococcus species See Comments 06/13/20 Gram Stain - Final, Complete 06/13/20 Wound Culture - Final, Complete Mixed Bacterial Sirena Home Meds Active Aspirin EC (Aspirin) 325 Mg Tablet.dr 325 Mg PO DAILY Lisinopril 20 Mg Tablet 20 Mg PO DAILY Atorvastatin Calcium 80 Mg Tablet 80 Mg PO HS Clopidogrel (Clopidogrel Bisulfate) 75 Mg Tablet 75 Mg PO DAILY Doxycycline Hyclate 100 Mg Tablet 100 Mg PO BID@,17 Assessment/Pt Instructions Continue new prescriptions- may have to decrease lisinopril to 10mg if blood pressure is too low. -Discharged to inpatient rehab- -Patient will need to find a PCP- he is to look into [facility]. Discharge Planning: >30 minutes discharge planning Discharge Instructions Discharge Diet: Cardiac Diet Pneumonia Vaccine Order Indica: Yes Discharge Physical Examination Vital Signs Vital Signs Date Time Temp Pulse Resp B/P (MAP) Pulse Ox O2 Delivery O2 Flow Rate FiO2 06/19/20 07:43 36.6 66 20 140/63 (88) 97 06/19/20 04:14 Room Air Allergies: Coded Allergies: No Known Drug Allergies (Unverified , 06/13/20) Discharge Summary Date of Admission Jun 13, 2020 at 22:20 Date of Discharge Discharge Diagnosis (1) Venous stasis dermatitis of both lower extremities (2) NSTEMI (non-ST elevated myocardial infarction) Status: Acute (3) Bilateral lower leg cellulitis Status: Acute (4) HTN (hypertension) Status: Acute (5) DMII (diabetes mellitus, type 2) Qualifiers: (6) OSWALDO (acute kidney injury) Clinical Quality Measures DVT/VTE Risk/Contraindication: Risk Factor Score Per Nursin RFS Level Per Nursing on Admit: 4+=Very High MINESH BENITEZ MD Jun 19, 2020 08:57
--- NOTE | 2020-06-19 09:52 | NUR ---
REPORT CALLED TO AARON HANKS.
--- NOTE | 2020-06-19 09:59 | Cardiology Progress Note ---
Subjective Date Seen by Provider: Jun 19, 2020 Time Seen by Provider: 09:57 Subjective/Events-last exam Patient is sitting up in chair, no new complaints. Denies any chest pain or dyspnea. Review of Systems General: No Chills, No Night Sweats, No Fatigue, No Malaise, No Appetite, No Other HEENT: No Head Aches, No Visual Changes, No Eye Pain, No Ear Pain, No Dysphasi a, No Sinus Congestion, No Post Nasal Drip, No Sore Throat, No Other Pulmonary: No Dyspnea, No Cough, No Pleuritic Chest Pain, No Other Cardiovascular: No: Chest Pain, Palpitations, Orthopnea, Paroxysmal Noc. Dyspnea, Edema, Lt Headedness, Other Objective-Cardiology Exam Last Set of Vital Signs Vital Signs 06/19/20 06/19/20 07:43 08:00 Temp 36.6 Pulse 66 Resp 20 B/P (MAP) 140/63 (88) Pulse Ox 97 O2 Delivery Room Air Capillary Refill : Less Than 3 SecondsLess Than 3 Seconds I&O Intake and Output 06/19/20 00:00 Intake Total 2870 ml Output Total 2100 ml Balance 770 ml Intake Oral 1870 ml IV Total 1000 ml Output Urine Total 2100 ml General: Alert, Oriented X3, Cooperative HEENT: Atraumatic, PERRLA Neck: Supple, No JVD, No Thyromegaly Lungs: Clear to Auscultation, Normal Air Movement Heart: Regular Rate, Normal S1, Normal S2, No Murmurs Abdomen: Normal Bowel Sounds, Soft, No Tenderness, No Hepatosplenomegaly, No Masses Extremities: No Clubbing, No Cyanosis, No Edema, Normal Pulses, No Tenderness/Swelling Skin: No Rashes, No Breakdown, No Significant Lesion Neuro: Normal Gait, Normal Speech, Strength at 5/5 X4 Ext, Normal Tone, Sensation Intact Psych/Mental Status: Mental Status NL, Mood NL Results Lab Laboratory Tests 06/19/20 05:20 A/P-Cardiology Admission Diagnosis BLE venous ulcers Positive troponin HTN HLP Assessment/Plan Bilateral lower extremity venous ulcers, defer to the wound service as well as general surgery. Positive troponin without any significant cardiac symptoms. Echocardiogram shows normal LV function. Nuclear stress test done 06/14/2020 showed possible anterior apical ischemia. I discussed at length with the patient and re commended coronary angiography and possible intervention. The patient refused. He understands the risk of [place] and even . But at this point in time he is not willing to proceed with coronary angiography. Continue on current medication. Patient agreeable to f/u as outpatient. HTN, mildy elevated, continue to monitor HLP,maintained on statin. continue to monitor CRI DM Patient was seen and evaluated with Corinna, examination performed, management plan was discussed, agree with the current scribed note, I made few changes to the note using Italic font Patient was seen at that site, no new complaint Conservative management is recommended. We'll arrange for follow-up as an outpatient Continue to monitor blood pressure and lipids Clinical Quality Measures DVT/VTE Risk/Contraindication: Risk Factor Score Per Nursin RFS Level Per Nursing on Admit: 4+=Very High CORINNA MARIA Jun 19, 2020 09:59 RHONDA FERNANDEZ MD Jun 19, 2020 14:11
== END 2020-06-19 10:20 | DRG 281 ==
LOC: EDSEX 19:41 → ER 19:41 → ICU 22:20 → 4TH 06-14 04:18
PROVIDERS: ADMIT Internal Medicine; ATTEND Family Medicine
DX: I21.4 Non-ST elevation (NSTEMI) myocardial infarction (principal); L03.115 Cellulitis of right lower limb; L03.116 Cellulitis of left lower limb; I82.411 Acute embolism and thrombosis of right femoral vein; N17.9 Acute kidney failure, unspecified; I87.2 Venous insufficiency (chronic) (peripheral); E11.9 Type 2 diabetes mellitus without complications; I10 Essential (primary) hypertension; E66.9 Obesity, unspecified; M21.371 Foot drop, right foot; M54.9 Dorsalgia, unspecified; F10.21 Alcohol dependence, in remission; Z68.38 Body mass index [BMI] 38.0-38.9, adult; Z72.89 Other problems related to lifestyle; Z98.890 Other specified postprocedural states; T36.8X5A Adverse effect of other systemic antibiotics, initial encounter
CPT/HCPCS: 36415; 71045; 78452; 80048; 80053; 80202; 80320; 81000; 82550; 82553; 82962; 83036; 83605; 83735; 83880; 84145; 84443; 84484; 85025; 85610; 85652; 85730; 86141; 87040; 87070; 87205; 90471; 90715; 93005; 93017; 93041; 93306; 93970; 96365; 96372

== ENCOUNTER 2020-06-19 10:00 | Inpatient (IN) | payer MEDICARE ==
[~2020-06-19] VITALS: Ht 180.3 cm; Wt 110.4 kg
[~2020-06-19 10:00] MED LIST: ACETAMINOPHEN 500 MG TAB (TYLENOL) PO PRN; ALPRAZolam 0.25 MG (XANAX) TAB PO PRN; ASPI325T32 PO; ATOR80TA76 PO; BISACODYL 10 MG SUPP (DULCOLAX) PR PRN; CALCIUM CARBONATE 500 MG (TUMS) TAB.CHEW PO PRN; CLOP75TA28 PO; DOCUSATE SODIUM 100 MG (COLACE) CAP PO PRN; DOXY100T2 PO; FLEET ENEMA ADULT 1 EA BTL PR PRN; LACTULOSE SYRUP 10GM/15ML (ENULOSE) 30ML UDC PO PRN; LISI-552 PO; LOPERAMIDE 2 MG (IMODIUM) TABLET PO PRN; ONDANSETRON 4 MG (ZOFRAN) ORAL DISSOLVE TAB PO PRN; diphenhydrAMINE 25 MG TAB (BENADRYL) PO PRN; guaiFENesin/CODEINE (ROBITUSSIN AC) 10ML UDC PO PRN
--- NOTE | 2020-06-19 10:00 | NUR ---
KATHY MARMOLEJO admitted to room 224-1, with an admitting diagnosis of NSTEMI AND BILATERAL LEG WOUNDS, on 06/19/20 from [facility] via WHEELCHAIR, accompanied by THERAPY. KATHY MARMOLEJO introduced to surroundings, call light, bed controls, phone, TV, temperature control, lights, meal times, smoking policy, visitor policy, side rail policy, bathrooms and showers. Patient Rights given to patient in the handbook. KATHY MARMOLEJO verbalizes understanding that [facility] is not responsible for the loss or damage to any personal effects or valuables that are kept in the patient's possession during their hospitalization. The following Patient Care Plans were discussed with the PATIENT: Discharge Planning, PAIN, HIGH RISK: INFECTION, AND KNOWLEDGE DEFICIT. KATHY MARMOLEJO verbalizes understanding of Interdisciplinary Patient Education. Patient received Patient Rights Booklet, which includes Privacy Act Statement and Data Collection Information Summary.
[2020-06-19] MEDS: polyethylene glycoL POWDER 17 GM (MIRALAX) PACK PO SCH ×2 (10:47→20:10)
[2020-06-19] MEDS: SENNA W/DOCUSATE (SENOKOT S) TABLET PO SCH ×2 (10:47→20:10)
[2020-06-19] MEDS: DOCUSATE SODIUM 100 MG (COLACE) CAP PO SCH ×2 (10:47→20:15)
--- NOTE | 2020-06-19 11:34 | Physical Therapy Evaluation ---
PT Evaluation-General Medical Diagnosis Admission Date Jun 19, 2020 at 10:00 Medical Diagnosis: NSTEMI/bilateral LE cellulitis/venous stasis ulcers bilateral LE Onset Date: Jun 13, 2020 Therapy Diagnosis Therapy Diagnosis: impaired mobility, strength, endurance Referral Physician: Naina Duong DO Reason for Referral: Evaluation/Treatment Medical History Additional Medical History Surgeries Yes (BACK) Orthopedic (LUMBAR SPINE SURGERY) Respiratory No Cardiovascular No Neurological Yes (RIGHT FOOT DROP DUE TO CHRONIC BACK PROBLEMS) Genitourinary No Gastrointestinal No Musculoskeletal Yes (RIGHT FOOT DROP DUE TO CHRONIC BACK PROBLEMS;S/P LUMBAR SPINE SURGERY) Foot Drop, Chronic Back Pain Endocrine History of Endocrine Disorders: No HEENT History of HEENT Disorders: No Cancer No Psychosocial History of Psychiatric Problem: No Integumentary History of Skin or Integumenta: Yes (CHRONIC WOUNDS BILATERAL LOWER LEGS. 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 Social History Home: Single Level Current Living Status: Children Entry Into Home: Stairs With Railing PT Steps Into Home: 2 Patient also states he has one large step to go up which does not have a railing. Prior Prior Level of Function SCALE: Activities may be completed with or without assistive devices. 5-Yoltglgroi-hkubeal completes the activity by him/herself with no assistance from a helper. 5-Set-up or Clean-up Assistance-helper sets up or cleans up; patient completes activity. [place] assists only prior to or following the activity. 4-Supervision or Touching Assistance-helper provides verbal cues and/or touching/steadying and/or contact guard assistance as patient completes activity. Assistance may be provided throughout the activity or intermittently. 3-Partial/Moderate Assistance-helper does LESS THAN HALF the effort. [place] lifts, holds or supports trunk or limbs, but provides less than half the effort. 2-Substantial/Maximal Assistance-helper does MORE THAN HALF the effort. [place] lifts or holds trunk or limbs and provides more than half the effort. 8-Vuprqxtvr-zmdibm does ALL the effort. Patient does none of the effort to complete the activity. Or, the assistance of 2 or more helpers is required for the patient to complete the activity. If activity was not attempted, code reason: 7-Patient Refused. 9-Not Applicable-not attempted and the patient did not perform the activity before the current illness, exacerbation or injury. 10-Not Attempted due to Environmental Limitations-(lack of equipment, weather restraints, etc.). 88-Not Attempted due to Medical Conditions or Safety Concerns. Bed Mobility: 6 Transfers (B,C,W/C): 6 Gait: 6 Stairs: 6 Indoor Mobility (Ambulation): Independent Stairs: Independent Prior Devices Use: Walker Patient states he recently was walking with a rolling walker but previous to that he was not using an assistive device. PT Evaluation-Current Subjective Patient in recliner pre tx, agrees to PT, has no complaints of pain. Will be co-treating for part of therapy due to poor patient mobility, strength, endurance, the need to coordinate UE and LE during activity. Pt/Family Goals to be independent at home Objective Patient Orientation: Person, Place, Situation ROM/Strength ROM Lower Extremities bilateral foot drop Strength Lower Extremities LLE (hip flexion 4/5, knee flexion 4+/5, knee extension 4+/5, dorsiflexion 0/5), RLE (hip flexion 4+/5, knee flexion 5/5, knee extension 5/5, dorsiflexion 0/5) Sensory Vision: Wears Glasses Hearing: Functional Sensation Right Lower Extremit: Impaired Sensation Left Lower Extremity: Impaired Transfers Roll Left & Right (QC): 6 Sit to Lying (QC): 4 Lying to Sitting/Side of Bed(Q: 4 Sit to Stand (QC): 3 Chair/Zcx-pw-Fdbgn Xfer(QC): 3 Toilet Transfer (QC): 3 Car Transfer (QC): 3 Patient performs bed mobility and supine <-> sit SBA, sit <-> stand and transfers min assist, car transfer min assist. Occasional cues for hand placement or positioning. Gait Does the Patient Walk?: Yes Mode of Locomotion: Walk Anticipated Mode of Locomotion: Walk Walk 10 feet (QC): 4 Walk 50 ft with 2 Turns(QC): 4 Walk 150 ft (QC): 4 Walking 10ft/uneven surface-QC: 4 Distance: 150', 100' Gait Assistive Device: FWW Comments/Gait Description Patient can ambulate 150' with a rolling walker with CGA (including 50' with at least 2 turns of 90 degrees and 10' over an uneven surface). Patient ambulates slowly, no LOB but knee occasionally seemed to be on the verge of buckling but never did. Wheelchair Training Wheel 50 ft with 2 turns (QC): 9 Wheel 150 ft (QC): 9 Stairs #of Steps: 1 1 Step (curb) (QC): 3 4 Steps (QC): 88 12 Steps (QC): 88 Walking Assistive Device: Walker Patient can go up and down 1 step using a rolling walker with min assist. Cues for foot placement. Balance Sitting Static: Normal Sitting Dynamic: Normal Standing Static: Fair Standing Dynamic: Fair Picking up an Object (QC): 88 Treatment Bathing, dressing, assist nursing with LE positioning during dressing change. PT worked on bed mobility, transfers, ambulation, LE positioning, assist with standing and positioning during bathing and dressing, OT worked on bathing and dressing, UE positioning and safety. Assessment/Needs Patient has impaired mobility, strength, endurance. He mostly needs assist with sit to stand and during transfers. Patient in bed post tx with nurse call, phone, tray, all needs met, nurse in room. Rehab Potential: Fair PT Short Term Goals Short Term Goals Time Frame: Jun 26, 2020 Roll Left & Right: 6 Sit to lyin Lying to sitting on side of be: 6 Sit to stand: 4 Chair/vdm-pl-wcajc transfer: 4 Walk 10 feet: 4 (SBA) Walk 50 feet with two turns: 4 (SBA) Walk 150 feet: 4 (SBA) PT Residential Goals Residential Goals PT Rate Engineer Goals Time Frame: Jul 10, 2020 Roll Left & Right (QC): 6 Sit to Lying (QC): 6 Lying-Sitting on Side/Bed(QC): 6 Sit to Stand (QC): 6 Chair/Lit-io-Wgodh Xfer(QC): 6 Toilet Transfer (QC): 6 Car Transfer (QC): 6 Does the Patient Walk: Yes Walk 10 feet (QC): 6 Walk 50ft with 2 Turns (QC): 6 Walk 150 ft (QC): 6 Walking 10ft on Uneven Surface: 6 1 Step (curb) (QC): 4 4 Steps (QC): 4 12 Steps (QC): 88 Picking up an Object (QC): 88 Wheel 50 feet with 2 turns (QC: 9 Wheel 150 feet: 9 PT Plan Problem List Problem List: Activity Tolerance, Functional Strength, Safety, Balance, Gait, Transfer, Bed Mobility, ROM Treatment/Plan Treatment Plan: Continue Plan of Care Treatment Plan: Bed Mobility, Education, Functional Activity Steph, Functional Strength, Group Therapy, Gait, Safety, Therapeutic Exercise, Transfers Treatment Duration: Jul 10, 2020 Frequency: At least 5 of 7 days/Wk (IRF) Estimated Hrs Per Day: 1.5 hours per day Patient and/or Family Agrees t: Yes Safety Risks/Education Patient Education: Gait Training, Transfer Techniques, Steps, Correct Positio anastacio, Safety Issues Teaching Recipient: Patient Teaching Methods: Demonstration, Discussion Response to Teaching: Reinforcement Needed Discharge Recommendations Plan Patient will perform bed mobility and transfer training, balance and endurance training, functional strengthening, stair training, gait training, and education, to improve functional mobility and independence at home. Therapy Discharge Recommendati: Scheduled Assistance, Home & Family, Post Acute PT Time/GCodes Time In: 1000 Time Out: 1125 Total Billed Treatment Time: 75 Total Billed Treatment 1 visit EVM 15' FA 60' PT eval from [id number], OT eval from [id number], co-treat from [id number] DOMO MAKI PT Jun 19, 2020 11:34
[2020-06-19 11:43] VITALS: BP 152/70
[2020-06-19] MEDS ORDERED: FLU QUAD HIGH DOSE 240 MCG/0.7 ML 2020-21 (FLUZONE) IM ONE (12:45)
--- NOTE | 2020-06-19 12:55 | Occupational Therapy Eval ---
OT Evaluation-General/PLF Medical Diagnosis Admission Date Jun 19, 2020 at 10:00 Medical Diagnosis: NSTEMI/bilateral LE cellulitis/venous stasis ulcers bilateral LE Onset Date: Jun 13, 2020 Therapy Diagnosis Therapy Diagnosis: Weakness, Decreased ADL skills Precautions Precautions/Isolations: Fall Prevention, Standard Precautions Weight Bear Status Weight Bearing Restriction: Weight Bearing/Tolerated Referral Physician: Naina Duong DO Referral Reason: Activity Tolerance, Self Care, Evaluation/Treatment, Strengthening/ROM Medical History Additional Medical History Back surgery Current History Pt. has been attempting to take care of wounds on legs at home. Pt. sustained NSTEMI. Came to ER. Found to have bilateral LE cellutis, as well as venous stasis ulcers. Reviewed History: Yes (grandchildren as well.) Social History Home: Single Level Current Living Status: Children Entry Into Home: Stairs With Railing Steps Into Home: 2 ADL-Prior Level of Function SCALE: Activities may be completed with or without assistive devices. 1-Lfbuccvrpg-egmxaud completes the activity by him/herself with no assistance from a helper. 5-Set-up or Clean-up Assistance-helper sets up or cleans up; patient completes activity. [place] assists only prior to or following the activity. 4-Supervision or Touching Assistance-helper provides verbal cues and/or touching/steadying and/or contact guard assistance as patient completes activity. Assistance may be provided throughout the activity or intermittently. 3-Partial/Moderate Assistance-helper does LESS THAN HALF the effort. [place] l ifts, holds or supports trunk or limbs, but provides less than half the effort. 2-Substantial/Maximal Assistance-helper does MORE THAN HALF the effort. [place] lifts or holds trunk or limbs and provides more than half the effort. 1-Nymkfpwky-yfqmfp does ALL the effort. Patient does none of the effort to complete the activity. Or, the assistance of 2 or more helpers is required for t he patient to complete the activity. If activity was not attempted, code reason: 7-Patient Refused. 9-Not Applicable-not attempted and the patient did not perform the activity before the current illness, exacerbation or injury. 10-Not Attempted due to Environmental Limitations-(lack of equipment, weather restraints, etc.). 88-Not Attempted due to Medical Conditions or Safety Concerns. ADL PLOF Comments Pt. verbalizes that he was independent with daily tasks. He is able to bathe/d ress self with AE. Pt. has hip kit at home. He reports he was able to ambulate without assistive device, but has at times used two single point canes and a walker. Self Care: Independent Functional Cognition: Independent DME/Equipment: Bath Chair, Grab Bars, Shower DME/Equipment Comments Pt. has single point canes and a walker. Drive Self: No OT Current Status Subjective No pain reported. Appearance Pt. up in chair in room. Agrees to work with therapy. Mental Status/Objective Patient Orientation: Person, Place, Time, Situation Attachments: IV Current Upper Extremity ROM WFL ADL-Treatment Eating (QC): 6 (Per pt.) Oral Hygiene (QC): 5 (Clinical assessment.) Shower/Bathe Self (QC): 3 (Min assist overall. Pt. attempts to wash rear andrea area, but is unable to do so.) Upper Body Dressing (QC): 88 Lower Body Dressing (QC): 88 On/Off Footwear (QC): 1 (Pt. dependent this date with slipper socks. However, does state that he usually uses a sock aide and that he could do better with that.) Toileting Hygiene (QC): 3 (Mod assist overall to cleanse rear andrea area. Pt. able to utilize urinal.) Other Treatments Pt. seen for co-treatment with PT due to need of skilled assistance x 2 with all needs during treatment. OT facilitated ADL skills and treatment while PT focused on ambulation and mobility. Pt. fatigues easily. Agrees to shower and nursing okay'd OT to remove bandages and allow water on wounds. Nursing addressed wound care after shower. Pt. is able to stand with min assist at walker. Please see PT note for distance walked. Pt. did well overall with rest breaks. After shower, pt. transferred to bed with SBA. Street clothing not available but pt. will have family bring. All needs met at bed level. Education OT Patient Education: Correct positioning, Modified ADL techniques, Progress toward Goal/Update tx plan, Purpose of tx/functional activities, Reviewed precautions, Rehab process, Transfer techniques Teaching Recipient: Patient Teaching Methods: Demonstration, Discussion Response to Teaching: Verbalize Understanding, Return Demonstration OT Short Term Goals Short Term Goals Time Frame: Jun 26, 2020 Eatin Oral hygiene: 6 Toileting hygiene: 4 Shower/bathe self: 4 Upper body dressin Lower body dressin Putting on/taking off footwear: 4 (with AE) OT Furrier Shop Supervisor Goals Senior Care Goals Time Frame: Jul 03, 2020 Eating (QC): 6 Oral Hygiene (QC): 6 Toileting Hygiene (QC): 6 Shower/Bathe Self (QC): 5 Upper Body Dressing (QC): 6 Lower Body Dressing (QC): 6 On/Off Footwear (QC): 6 Additional Goals: 1-Demonstrate ADL Tasks, 2-Verbalize Understanding, 3- ImproveStrength/Steph 1=Demonstrate adherence to instructed precautions during ADL tasks. 2=Patient will verbalize/demonstrate understanding of assistive devices/modifications for ADL. 3=Patient will improve strength/tolerance for activity to enable patient to perform ADL's. OT Education/Plan Problem List/Assessment Assessment: Decreased Activ Tolerance, Dependent Transfers, Impaired I ADL's, Impaired Self-Care Skills, Restricted Funct UE ROM Discharge Recommendations Plan/Recommendations: Continue POC Therapy Discharge Recommendati: Home & Family, Post Acute OT Treatment Plan/Plan of Care Treatment,Training & Education: Yes Patient would benefit from OT for education, treatment and training to promote independence in ADL's, mobility, safety and/or upper extremity function for ADL's. Plan of Care: ADL Retraining, Functional Mobility, Group Exercise/Act as Ind, UE Funct Exercise/Act Treatment Duration: Jul 03, 2020 Frequency: At least 5 of 7 days/Wk (IRF) Estimated Hrs Per Day: 1.5 hours per day Agreement: Yes Rehab Potential: Good Time/GCodes Start Time: 10:15 Stop Time: 11:30 Total Time Billed (hr/min): 75 Billed Treatment Time 0742-6182 1, EVM x 10minutes [id number] ADL x 65minutes. ([id number] Co-treatment with PT. Please see above note for designated roles.) JANET LYNCH OT Jun 19, 2020 12:55
--- NOTE | 2020-06-19 13:14 | PM&R Post Admission Assessment ---
PM&R HP Date of Visit: Jun 19, 2020 Time of Visit: 11:30 History of Present Illness CC: Debility from heart attack HPI: This is a 69yo male who presents to inpatient rehab following a lengthy stay following a non-STEMI and lower extremity edema with cellulitis. He refused to have cardiac catheterization. He overall had a stable hospital course on med-surg but remains on antibiotic to complete for cellulitis on lower extre mities. Prior level of functioning was independent without the use of assistive devices. He doesnt smoke, drink or have a doctor, and he will be closely monitored and provided aggressive therapy in order to return home to live independently. Prior notes: NSTEMI, elevated troponin venous stasis ulcers with cellulitis Assessment and Plan NSTEMI (non-ST elevated myocardial infarction) Bilateral lower leg cellulitis- currently on vancomycin. EXTENSIVE VENOUS STASIS ULCERS BILATERAL LOWER LEGS. HTN (hypertension) Diabetes Mellitus II 06/14/20- Dr. Seay consulted for lower extremity wounds. Dr. Domínguez consul eliceo for cardiology. *ECHO report - LVEF 55-65%, cardiac aguirre mildly thickened.- grade 1 diastolic dysfunction. * lower leg- ultrasound -- significant for Nonoccluding segmental thrombosis mid right superficial femoral vein- he is on daily aspirin 325mg. 06/15/20- Hga1c 6.8- will do sliding scale insulin while inpatient- will start metformin on discharge- lifestyle modifications will also bring his a1c below 6.5- and improve his overall health- including his legs. Could consider SGLT2 inhibitor like dianne acevedo- as it would improve his blood sugar as well as be cardioprotective. But he is at increased risk for a infection due to his unkempt self-care so I will not be ordering a SGLT2 inhibitor. 06/16/20- maximize cardiac regimen- lisinopril, metoprolol, clopidogrel, atorvastatin. Continue with wound care. Proprioception not intact- increases his fall risk. ordering PT/OT to evaluate/work with him. Pt reports he will be going home to his son's house when he is discharged. Discharge planning pending wound care evaluation and recommendation. Wound culture pending. 06/17/20- acute kidney injury- secondary to vancomycin, lovenox- stopping vancomycin- and starting doxycycline for his lower extremity infection- stopping therapeutic lovenox- will give him LR bolus at 200cc/hr x 1L. Holding lisinopril. Recheck of BMP- Creatinine about the same- placing on LR IVF- will recheck BMP in AM. 06/18/20-- Cr improving with IVF and avoiding nephrotoxic agents. Will transfer down to Rehab tomorrow. Dispo: -pt needs to establish with a PCP- patient should look into [facility]. Plan to d/c to inpatient rehab- on Wednesday06/19/20. Will need to keep follow up at wound clinic at [facility]. Problems: (1) Venous stasis dermatitis of both lower extremities (2) NSTEMI (non-ST elevated myocardial infarction) (3) Bilateral lower leg cellulitis (4) HTN (hypertension) (5) DMII (diabetes mellitus, type 2) Qualifiers: (6) OSWALDO (acute kidney injury) Admission Dx NSTEMI, elevated troponin venous stasis ulcers with cellulitis Past Knmtnit-Xvcesv-Fgczji Hx Past Med/Social Hx: Reviewed Nursing Past Med/Soc Hx, Reviewed and Corrections made Patient Social History Marrital Status: single Employed/Student: retired Alcohol Use: Denies Use Smoking Status: Former Smoker Recent Foreign Travel: No Contact w/other who traveled: No Recent Hopitalizations: No Recent Infectious Disease Expo: No Seasonal Allergies Seasonal Allergies: No Past Medical History Surgeries: Orthopedic Musculoskeletal: Foot Drop, Chronic Back Pain Skin/Integumentary: Recent Skin Changes Family History SOCIAL HISTORY: -ETOH--HISTORY OF ABUSE, CLAIMS NO USE FOR 20 YEARS, PER PT ON 06/13/20 -DRUGS--DENIES USE -SMOKING--DENIES PT STATES HE WAS HOSPITALIZED APPROXIMATELY 2 YEARS AGO--DOES NOT KNOW WHAT HE WAS DX WITH STATES HE WAS INTUBATED AND IN ICU FOR 2 WEEKS STATES HE HAD FEVER OF 105 WHEN HE WAS ADMITTED, BUT HAS NO IDEA WHAT KIND OF INFECTION HE HAD THAT CAUSED HIM TO BE ILL. Prior Level of Function Bed Mobility: 6 Transfers: 6 Gait: 6 Stairs: 6 Indoor Mobility (Ambulation): Independent Stairs: Independent Prior Devices Use: Walker Current Level of Fuctioning Roll Left to Right: 6 Sit to Lyin Lying to Sitting/Side of Bed: 4 Sit to Stand: 3 Chair/Tlg-wi-Lqjls Xfer: 3 Car Transfer: 3 Does the Patient Walk: Yes Mode of Locomotion: Walk Anticipated Mode of Locomotion: Walk Walk 10 feet: 4 Walk 50 ft with 2 Turns: 4 Walk 150 ft: 4 Walking 10ft on uneven surface: 4 Gait Assistive Device: FWW Wheel 50 ft with 2 turns: 9 Wheel 150 ft: 9 #of Steps: 1 1 Step (curb): 3 4 Steps: 88 Walking Assistive Device: Walker 12 Steps: 88 Picking up an Object: 88 PM&R Allergy/Meds/Data Review Allergies Coded Allergies: No Known Drug Allergies (Unverified , 06/13/20) Home Medications Scheduled Aspirin (Aspirin EC), 325 MG PO DAILY Atorvastatin Calcium (Atorvastatin Calcium), 80 MG PO HS Clopidogrel Bisulfate (Clopidogrel), 75 MG PO DAILY Doxycycline Hyclate (Doxycycline Hyclate), 100 MG PO BID@07,17 Lisinopril (Lisinopril), 20 MG PO DAILY Current Medications Current Medications Reviewed Review of Systems Constitutional: see HPI, malaise, weakness EENTM: no symptoms reported Respiratory: no symptoms reported Cardiovascular: no symptoms reported Gastrointestinal: no symptoms reported Genitourinary: no symptoms reported Musculoskeletal: no symptoms reported Skin: no symptoms reported Psychiatric/Neurological: No Symptoms Reported All Other Systems Reviewed Negative Unless Noted: Yes Physical Exam Physical Exam Vital Signs Vital Signs - First Documented 06/19/20 11:43 Temp 36.4 Pulse 77 Resp 17 B/P (MAP) 152/70 Pulse Ox 98 O2 Delivery Room Air Capillary Refill : Height, Weight, BMI Height: '" Weight: lbs. oz. kg; 39.80 BMI Method: General Appearance: No Apparent Distress, WD/WN, Chronically ill Eyes: Bilateral Eye Normal Inspection, Bilateral Eye PERRL HEENT: PERRL/EOMI, Normal ENT Inspection, Pharynx Normal Neck: Full Range of Motion, Normal Inspection, Non Tender, Supple, Carotid Bruit Respiratory: Chest Non Tender, Lungs Clear, Normal Breath Sounds, No Accessory Muscle Use, No Respiratory Distress Cardiovascular: Regular Rate, Rhythm, No Gallop, No JVD, No Murmur, Normal Peripheral Pulses Gastrointestinal: Normal Bowel Sounds, No Organomegaly, No Pulsatile Mass, Non Tender, Soft Back: Normal Inspection, No CVA Tenderness, No Vertebral Tenderness Extremity: Normal Capillary Refill, Normal Inspection, Normal Range of Motion, Non Tender, No Calf Tenderness, Pedal Edema Neurologic/Psychiatric: Alert, Oriented x3, No Motor/Sensory Deficits, Normal Mood/Affect, Motor Weakness (generalized all extremities) Skin: Normal Color, Warm/Dry, Rash (lower legs) Lymphatic: No Adenopathy PM&R Medical Assessment & Plan REHAB/MEDICAL ASSESSMENT AND PLAN: REHAB IMPAIRMENT GROUP: CAD induced debility ETIOLOGIC DIAGNOSIS: CAD induced debility The comorbidities that impact the patients function and/or functional outcome by: Refusal of definitive management of elevated troponin, DM, cellulitis of legs, CRI REHAB PLAN: The patient is being admitted to our comprehensive inpatient rehabilitation facility and can tolerate the intensity of service consisting of at least: 180 minutes of therapy a day, 5 out of 7 days a week Rehab treatment will consist of: PT OT will help regain strength and independence in order to return home with close monitoring of CAD symptoms The patient/family has a good understanding of our discharge process and will benefit from an interdisciplinary inpatient rehabilitation program. The patient has potential to make improvement and is in need of at least two of the following multidisciplinary therapies including but not limited to physical, occupational, speech, and prosthetics and orthotics. Additionally the patient will need services from respiratory, nutritional services, wound care, psychology, etc. (Customize this to each patient). Given the patients complex condition and risk of further medical complications, rehabilitation services cannot be safely or effectively provided at a lower level of care such as a [place] [facility] facility. BARRIERS TO DISCHARGE: Multiple new diagnosis ESTIMATED LOS: 7 days DISPOSITION: Home RELEVANT CHANGES SINCE PREADMISSION SCREENING: I have compared the patients medical and functional status at the time of the preadmission screening and there are: no changes PROGNOSIS: Good REHABILITATION GOALS: 1. PT OT will help regain strength and independence in order to return home with close monitoring of CAD symptoms All the above goals were reviewed with the patient and he/she is in agreement. By signing this document, I acknowledge that I have personally performed a full physical examination on this patient within 24 hours of admission to this inpatient rehabilitation facility and have determined the patient to be able to tolerate the above course of treatment at an intensive level for a reasonable period of time. I will be completing a detailed individualized Plan of Care for this patient by day #4 of the patients stay based upon the Preadmission Screen, the Post-Admission Evaluation, and the therapy evaluations. Admission Dx/Comorbidities: (1) NSTEMI (non-ST elevated myocardial infarction) Status: Acute ICD Codes: I21.4 - Non-ST elevation (NSTEMI) myocardial infarction; L03.115 - Cellulitis of right lower limb (2) OSWALDO (acute kidney injury) ICD Codes: N17.9 - Acute kidney failure, unspecified (3) DMII (diabetes mellitus, type 2) ICD Codes: E11.9 - Type 2 diabetes mellitus without complications (4) Venous stasis dermatitis of both lower extremities ICD Codes: I87.2 - Venous insufficiency (chronic) (peripheral) (5) Bilateral lower leg cellulitis Status: Acute ICD Codes: L03.116 - Cellulitis of left lower limb; L03.115 - Cellulitis of right lower limb (6) Bilateral leg edema Status: Acute ICD Codes: R60.0 - Localized edema; L03.115 - Cellulitis of right lower limb (7) HTN (hypertension) Status: Acute ICD Codes: I10 - Essential (primary) hypertension Assessment/Plan Assessment and Plan Assess & Plan/Chief Complaint Assessment: Debility NSTEMI CAD Refusal of cardiac cath for definitive treatment CRI DM new onset hga1c 6.8 Lower leg cellulitis Venous stasis dermatitis Plan: Monitor creat IRF protocol Monitor chest pain BRIAN GAN DO Jun 19, 2020 13:14
[2020-06-19] MEDS ORDERED: NITROGLYCERIN 0.4 MG SL TABS BTL 25'S SL PRN (13:15)
[2020-06-19] MEDS ORDERED: HYDROcodone/APAP 5 MG/325 MG (LORTAB) TAB PO PRN (13:15)
[2020-06-19] MEDS: CATHETER FLUSH 10 ML SYR IV SCH ×2 (14:42→22:05)
--- NOTE | 2020-06-19 14:43 | Occupational Ther Daily Note ---
OT Current Status-Daily Note Subjective No pain reported. Mental Status/Objective Patient Orientation: Person, Place, Time, Situation ADL-Treatment Therapy Code Descriptions/Definitions Functional [place] Measure: 0=Not Assessed/NA 4=Minimal Assistance 1=Total Assistance 5=Supervision or Setup 2=Maximal Assistance 6=Modified [place] 3=Moderate Assistance 7=Complete IndependenceSCALE: Activities may be completed with or without assistive devices. 9-Xcnhebxpdb-izwhoyw completes the activity by him/herself with no assistance from a helper. 5-Set-up or Clean-up Assistance-helper sets up or cleans up; patient completes activity. [place] assists only prior to or following the activity. 4-Supervision or Touching Assistance-helper provides verbal cues and/or touching/steadying and/or contact guard assistance as patient completes activity. Assistance may be provided throughout the activity or intermittently. 3-Partial/Moderate Assistance-helper does LESS THAN HALF the effort. [place] lifts, holds or supports trunk or limbs, but provides less than half the effort. 2-Substantial/Maximal Assistance-helper does MORE THAN HALF the effort. [place] lifts or holds trunk or limbs and provides more than half the effort. 6-Yvdcclxom-kgmlcy does ALL the effort. Patient does none of the effort to complete the activity. Or, the assistance of 2 or more helpers is required for the patient to complete the activity. If activity was not attempted, code reason: 7-Patient Refused. 9-Not Applicable-not attempted and the patient did not perform the activity before the current illness, exacerbation or injury. 10-Not Attempted due to Environmental Limitations-(lack of equipment, weather restraints, etc.). 88-Not Attempted due to Medical Conditions or Safety Concerns. Pt. in bed. Agrees to work with OT. Pt. has HEP in room with red theraband. Pt. is given paper and is instructed on what exercises to attempt. Pt. is able to complete 3 bilateral UE exercises x 15 reps each, with increased hold on each stretch. Pt. tolerated this well with increased time to complete the exercises. Pt. able to demonstrate understanding of each exercise with no difficulty. All needs met in room. Education OT Patient Education: Correct positioning, Exercise program, Home exercise program, Progress toward Goal/Update tx plan, Purpose of tx/functional activities, Reviewed precautions, Rehab process Teaching Recipient: Patient Teaching Methods: Demonstration, Discussion Response to Teaching: Verbalize Understanding, Return Demonstration OT Short Term Goals Short Term Goals Time Frame: Jun 26, 2020 Eatin Oral hygiene: 6 Toileting hygiene: 4 Shower/bathe self: 4 Upper body dressin Lower body dressin Putting on/taking off footwear: 4 (with AE) OT Nursing Home Goals Nursing Home Goals Time Frame: Jul 03, 2020 Eating (QC): 6 Oral Hygiene (QC): 6 Toileting Hygiene (QC): 6 Shower/Bathe Self (QC): 5 Upper Body Dressing (QC): 6 Lower Body Dressing (QC): 6 On/Off Footwear (QC): 6 Additional Goals: 1-Demonstrate ADL Tasks, 2-Verbalize Understanding, 3- ImproveStrength/Steph 1=Demonstrate adherence to instructed precautions during ADL tasks. 2=Patient will verbalize/demonstrate understanding of assistive devices/modifications for ADL. 3=Patient will improve strength/tolerance for activity to enable patient to perform ADL's. OT Education/Plan Problem List/Assessment Assessment: Decreased Activ Tolerance, Impaired I ADL's, Impaired Self-Care Skills Discharge Recommendations Plan/Recommendations: Continue POC Therapy Discharge Recommendati: Home & Family, Post Acute OT Treatment Plan/Plan of Care Treatment,Training & Education: Yes Patient would benefit from OT for education, treatment and training to promote independence in ADL's, mobility, safety and/or upper extremity function for ADL's. Plan of Care: ADL Retraining, Functional Mobility, Group Exercise/Act as Ind, UE Funct Exercise/Act Treatment Duration: Jul 03, 2020 Frequency: At least 5 of 7 days/Wk (IRF) Estimated Hrs Per Day: 1.5 hours per day Agreement: Yes Rehab Potential: Good Time/GCodes Start Time: 13:20 Stop Time: 13:43 Total Time Billed (hr/min): 23 Billed Treatment Time 1, Ex x 2 JANET LYNCH OT Jun 19, 2020 14:43
--- NOTE | 2020-06-19 14:46 | Physical Therapy Daily Note ---
PT Daily Note-Current Subjective Patient in bed pre tx, agrees to PT, has no complaints of pain. Appearance Patient in bed post tx with nurse call, phone, tray, all needs met. Mental Status Patient Orientation: Person, Place, Situation Transfers SCALE: Activities may be completed with or without assistive devices. 4-Doxnipgbst-mcrftfn completes the activity by him/herself with no assistance from a helper. 5-Set-up or Clean-up Assistance-helper sets up or cleans up; patient completes activity. [place] assists only prior to or following the activity. 4-Supervision or Touching Assistance-helper provides verbal cues and/or touching/steadying and/or contact guard assistance as patient completes activity. Assistance may be provided throughout the activity or intermittently. 3-Partial/Moderate Assistance-helper does LESS THAN HALF the effort. [place] lifts, holds or supports trunk or limbs, but provides less than half the effort. 2-Substantial/Maximal Assistance-helper does MORE THAN HALF the effort. [place] lifts or holds trunk or limbs and provides more than half the effort. 1-Unherspwc-ukcamj does ALL the effort. Patient does none of the effort to complete the activity. Or, the assistance of 2 or more helpers is required for the patient to complete the activity. If activity was not attempted, code reason: 7-Patient Refused. 9-Not Applicable-not attempted and the patient did not perform the activity before the current illness, exacerbation or injury. 10-Not Attempted due to Environmental Limitations-(lack of equipment, weather restraints, etc.). 88-Not Attempted due to Medical Conditions or Safety Concerns. Roll Left & Right (QC): 6 Sit to Lying (QC): 6 Lying to Sitting/Side of Bed(Q: 6 Sit to Stand (QC): 3 Chair/Mhn-hb-Pkceg Xfer(QC): 4 After standing patient states he needs to use the restroom, ambulated into the restroom and used the commode, needed assist with wiping. Gait Training Distance: 150', 100' Walk 10 feet (QC): 4 Walk 50 ft with 2 Turns(QC): 4 Walk 150 ft (QC): 4 Gait Assistive Device: FWW slow but steady ambulation, patient is aware of fatigue and takes a rest appropriately Treatments ambulation Assessment Current Status: Fair Progress improving mobility PT Short Term Goals Short Term Goals Time Frame: Jun 26, 2020 Roll Left & Right: 6 Sit to lyin Lying to sitting on side of be: 6 Sit to stand: 4 Chair/jqc-re-hcyyp transfer: 4 Walk 10 feet: 4 (SBA) Walk 50 feet with two turns: 4 (SBA) Walk 150 feet: 4 (SBA) PT Flat Sheet Maker Goals Flat Sheet Maker Goals PT Flat Sheet Maker Goals Time Frame: Jul 10, 2020 Roll Left & Right (QC): 6 Sit to Lying (QC): 6 Lying-Sitting on Side/Bed(QC): 6 Sit to Stand (QC): 6 Chair/Zkt-em-Boyic Xfer(QC): 6 Toilet Transfer (QC): 6 Car Transfer (QC): 6 Does the Patient Walk: Yes Walk 10 feet (QC): 6 Walk 50ft with 2 Turns (QC): 6 Walk 150 ft (QC): 6 Walking 10ft on Uneven Surface: 6 1 Step (curb) (QC): 4 4 Steps (QC): 4 12 Steps (QC): 88 Picking up an Object (QC): 88 Wheel 50 feet with 2 turns (QC: 9 Wheel 150 feet: 9 PT Plan Problem List Problem List: Activity Tolerance, Functional Strength, Safety, Balance, Gait, Transfer, Bed Mobility, ROM Treatment/Plan Treatment Plan: Continue Plan of Care Treatment Plan: Bed Mobility, Education, Functional Activity Steph, Functional Strength, Group Therapy, Gait, Safety, Therapeutic Exercise, Transfers Treatment Duration: Jul 10, 2020 Frequency: At least 5 of 7 days/Wk (IRF) Estimated Hrs Per Day: 1.5 hours per day Patient and/or Family Agrees t: Yes Safety Risks/Education Patient Education: Gait Training, Transfer Techniques, Correct Positioning, Safety Issues Teaching Recipient: Patient Teaching Methods: Demonstration, Discussion Response to Teaching: Reinforcement Needed Time/GCodes Time In: 1425 Time Out: 1440 Total Billed Treatment Time: 15 Total Billed Treatment 1 visit GT 15' DOMO MAKI PT Jun 19, 2020 14:46
--- NOTE | 2020-06-19 14:49 | NUR ---
DR. MICHELLE NOTIFIED OF CONSULT.
--- NOTE | 2020-06-19 15:06 | NUR ---
TELEMETRY DC'D PER ORDERS.
--- NOTE | 2020-06-19 15:43 | NUR ---
DR. FERNANDEZ AWARE OF CONSULT.
--- NOTE | 2020-06-19 15:58 | NUR ---
DR. ROSE AWARE OF CONSULT.
--- NOTE | 2020-06-19 16:24 | ST Cognitive Linguistic Eval ---
Speech Evaluation-General Medical Diagnosis NSTEMI/bilateral LE cellulitis/venous stasis ulcers bilateral LE Onset Date: Jun 13, 2020 Therapy Diagnosis Therapy Diagnosis: Cognitive-communication Referral Referring Physician: Dr. Duong Medical History Reviewed History: Yes (grandchildren as well.) Social History Current Living Status: Children Speech PLF-Current Status Prior Level of Function Patient lives in the home with his children. Subjective Patient was pleasant with the cognitive assessment. Language Eval: Auditory Comprehends Simple Yes/No Ques: Functional Indent/Objects Multiple Mejía: Functional Ident/Pics in Multiple Mejía: Functional Follows 1-Step Commands: Functional Follows Complex Directions: Functional Follows General Conversations: Mild Patient speaks [place] as a second language Language Eval: Verbal Language Completes Spontaneous Greeting: Functional Produces Auto, Serial Info: Functional Imitates Simple Words/Phrases: Functional Word Finding: Mild Requests Basic Needs: Functional States Basic Personal Info: Functional Expresses Complex Ideas: Mild Patient speaks [place]ian as a second language Objective Cognitive Domain Attention: WNL Memory: WNL Problem Solving: Functional Executive Functions: WNL Visuospatial Skills: WNL Composite Severity Rating: WNL Clock Drawing Severity Rating: Mild Objective Formal/Standardized Tests [facility] Mental Status ([facility]) Results Within normal range for ESL patient Oral Motor/Speech Production Within Normal Limits Impression Patient is a pleasant 69 y/o male who was admitted to the ARU for strengthening due to decline in function. The patient was given the SLUMS with a score in the normal range for a ESL patient. The patient does not require further ST services at this time. Speech Patient Assess Expression of Ideas/Wants: Expression (4) Understanding Verbal Content: Usually Understands (3) Brief Interview-Mental Status: Yes Repetition of Three Words: Three (3) Temporal Orientation: Year: Correct (3) Temporal Orientation: Month: Accurate within 5 days(2) Temporal Orientation: Day: Correct (1) Recall : Wear to say "Sock": Yes,after cueing (1) Recall : Color: Yes, no cue required (2) Recall : Bed: Yes,after cueing (1) Memory/Recall Ability: Current season, That he or she is in a hsp/hsp unit Speech-Plan Patient/Family Goals Patient/Family Goals: Patient plans on returning to his home where he lives with his children. Treatment Plan Speech Therapy Treatment Plan: Discontinue ST Treatment Duration: Jun 19, 2020 Frequency: 1 time per week Estimated Hrs Per Day: .25 hour per day Rehab Potential: Good Barriers to Learning: None identified Pt/Family Agrees to Plan: Yes Safety Risks/Education Teaching Recipient: Patient Teaching Methods: Discussion Response to Teaching: Verbalize Understanding Education Topics Provided: Safety within his room, utilization of the call light Time Speech Therapy Time In: 16:00 Speech Therapy Time Out: 16:15 Total Billed Time: 15 Billed Treatment Time 1, DERIAN Vogel Jun 19, 2020 16:24
[2020-06-19] MEDS: inSUlin ASPART (NovoLOG) 1 UNIT/0.01 ML (CHARGE PER UNIT) SC SCH ×2 (16:31→20:10)
[2020-06-19] MEDS: DOXYCYCLINE 100 MG (VIBRAMYCIN) TABLET PO SCH (18:00)
--- NOTE | 2020-06-19 18:09 | NUR ---
DR. MICHELLE HERE.
[2020-06-19 18:50] VITALS: BP 153/69
--- NOTE | 2020-06-19 21:19 | CONSULTATION REPORT ---
DATE OF SERVICE: 06/19/2020 REASON FOR CONSULTATION: Foot care. HISTORY OF PRESENT ILLNESS: This 69-year-old male was admitted for rehabilitation and assistance with life activities after an elongated hospitalization due to bilateral leg wounds. The patient has had back injury and back surgery, which resulted in numbness in his legs. He has difficulty reaching for and caring for his feet. He also had an injury about six years ago resulting in some discomfort and in mobility to the right foot and leg. He said he has drop foot on both, but the right is worse. PAST MEDICAL HISTORY: The above-mentioned foot drop, chronic back pain, chronic ulcerations to bilateral lower extremity, orthopedic surgeries have been performed. SOCIAL HISTORY: The patient has a history of alcohol abuse, but he has not drink alcohol in the past 19 years or so. He denies tobacco or illicit drug use. He lives with his son. ALLERGIES: The patient has no known drug allergies. PHYSICAL EXAMINATION: EXTREMITIES: On lower extremity examination, the patient has nonpalpable pedal pulses bilaterally. Cap refill time is approximately 3 seconds. Some edema is noted to the bilateral lower extremity. NEUROLOGIC: The patient has diminished protective sensation with 10 gram monofilament wire examination bilaterally. Deep tendon reflexes to the Achilles tendon are diminished bilaterally. Diminished vibratory sensation is noted to the forefoot on both feet. INTEGUMENTARY: The patient has thick yellow dystrophic toenails with subungual debris associated with all 10 toenails. There is at least previous bleeding underneath the left second toenail. No proximal streaking. No malodor. No gross signs of bacterial infection. He has dry xerotic skin on plantar aspect of the foot bilaterally. MUSCULOSKELETAL: The patient has 3/5 muscle strength to the four major quadrants of the foot bilaterally. ASSESSMENT: Atherosclerosis, edema, idiopathic neuropathy, onychomycosis, xerosis, foot drop and muscle weakness. PLAN: Various treatment options were discussed with the patient today. We focused our treatment on his digits and nails today. The toenails were debrided today manually mechanically. Betadine applied, which included the right first, second, third, fourth and fifth and left first, second, fourth and fifth digits. We discussed oral and topical antifungal medications. Upon discharge, he is welcome to follow up in the office for further treatment. Encouraged the patient to continue with compression therapy and with the wound care with Dr. Seay. Also encouraged the patient to continue with physical therapy to strengthen the lower extremities in anticipation of further ambulation and discharge. We will see the patient in our office upon discharge as necessary. Job ID: [id number] DocumentID: [id number] Dictated Date: 06/19/2020 17:54:22 Workers Compensation Attorney Date: 06/19/2020 21:19:03 Dictated By: KALLI MICHELLE DPM
[2020-06-20 05:30] LABS: BASOPHILS % (AUTO) 0 % (0-10); EOSINOPHILS # (AUTO) 0.3 10^3/uL (0.0-0.3); EOSINOPHILS % (AUTO) 4 % (0-10); HEMATOCRIT 37 % (40-54); HEMOGLOBIN 11.9 g/dL (13.3-17.7); LYMPHOCYTES # (AUTO) 1.4 10^3/uL (1.0-4.0); LYMPHOCYTES % (AUTO) 18 % (12-44); MEAN CORPUSCULAR HEMOGLOBIN 28 pg (25-34); MEAN CORPUSCULAR HGB CONC 33 g/dL (32-36); MEAN CORPUSCULAR VOLUME 85 fL (80-99); MEAN PLATELET VOLUME 10.5 fL (9.0-12.2); MONOCYTES # (AUTO) 0.9 10^3/uL (0.0-1.0); MONOCYTES % (AUTO) 11 % (0-12); NEUTROPHILS # (AUTO) 5.3 10^3/uL (1.8-7.8); NEUTROPHILS % (AUTO) 67 % (42-75); PLATELET COUNT 196 10^3/uL (130-400)
--- NOTE | 2020-06-20 06:10 | Individualized Plan of Care ---
Individualized Plan of Care Rehab Nursing IPOC Order Admission Date Jun 19, 2020 at 10:00 Current Orders Orders Admission Order(Inpt,Obs,Sdc) (06/19/20 05:30) Vital Signs: Per Unit Policy ( 08,16,00 (06/19/20 05:30) Kush Contreras 09,21 (06/19/20 05:30) Sequential Compression Device Q4H (06/19/20 05:30) Cigar Binder-Inpt Rehab Con (06/19/20 05:30) Rehab Nursing Orders-Ipoc (06/19/20 05:30) Physical Therapy Rehab Orders (06/19/20 05:30) Occupational Therapy Rehab Ord (06/19/20 05:30) Speech Therapy Rehab Orders (06/19/20 05:30) Cbc With Automated Diff (06/20/20 06:00) Comprehensive Metabolic Panel (06/20/20 06:00) Intake & Output 06,14,22 (06/19/20 05:30) Precautions (Aru) (06/19/20 05:30) Rehab-Intensity Of Therapy (06/19/20 05:30) Initiate Admission Nursing Pro .admission (06/19/20 05:30) Acetaminophen Tablet (Tylenol Tablet) (06/19/20 05:30) Alprazolam Tablet (Xanax Tablet) (06/19/20 05:30) Calcium Carbonate Chew Tablet (Antacid C (06/19/20 05:30) Diphenhydramine Tablet (Benadryl Tablet) (06/19/20 05:30) Docusate Sodium Capsule (Colace Capsule) (06/19/20 09:00) Docusate Sodium Capsule (Colace Capsule) (06/19/20 05:30) Bisacodyl Suppository (Dulcolax Supposit (06/19/20 05:30) Lactulose Oral Solution (Enulose Oral So (06/19/20 05:30) Na Phos/Na Biphos Enema (Fleet Enema Mumtaz (06/19/20 05:30) Guaifenesin/Codeine Syrup (Robitussin Ac (06/19/20 05:30) Loperamide Tablet (Imodium Tablet) (06/19/20 05:30) Melatonin Tablet (Melatonin Tablet) (06/19/20 05:30) Polyethylene Glycol Powder Pkt (Miralax (06/19/20 09:00) Ondansetron Oral Dissolve Tab (Zofran (06/19/20 05:30) Senna S Tablet (Senokot S Tablet) (06/19/20 09:00) Heart Healthy (06/19/20 Breakfast) Initiate Admission Nursing Pro .admission (06/19/20 05:30) Admission Arrival Bed Request (06/19/20 10:31) Flu Quad High Dose [id number] (Fluzone Hi (06/19/20 12:45) Ambulate 08,12,20 (06/19/20 12:39) Dvt/Vte Risk - Notifiy Physici Q4H (06/19/20 12:39) Code/Resuscitation (06/19/20 13:08) Daily Weight 06 (06/19/20 13:08) Intake & Output 06,14,22 (06/19/20 13:08) Oxygen-Administer 07,19 (06/19/20 13:08) Cho 75g/M 1snack (21-2400 Juan Carlos) (06/19/20 Lunch) Glucerna (06/19/20 Lunch) Aspirin Enteric Coated Tablet (Ecotrin T (06/20/20 09:00) Atorvastatin Tablet (Lipitor Tablet) (06/19/20 21:00) Clopidogrel Tablet (Plavix Tablet) (06/20/20 09:00) Doxycycline Hyclate Tablet (Vibramycin T (06/19/20 17:00) Heparin Injection (Heparin Injection) (06/19/20 14:00) Nitroglycerin 0.4 Mg Btl 25's (Nitrostat (06/19/20 13:15) Insulin Aspart (Novolog) (Novolog (Charg (06/19/20 16:00) Potassium Chloride (Tablet) (Klor Con Ta (06/20/20 07:00) Sodium Chloride Flush (Catheter Flush Sy (06/19/20 14:00) Consult Cardiology (06/19/20 13:08) Consult Wound Care Physician (06/19/20 13:08) Hydrocodone/Apap 5/325 Tablet (Lortab 5 (06/19/20 13:15) Patient Visit (06/19/20 ) Speech Sound Lang Comp (06/19/20 ) Consult Podiatry (06/19/20 14:26) Patient Visit (06/19/20 ) Pt Eval Moderate Complexity (06/19/20 ) Functional Activities, Ea 15 (06/19/20 ) Gait Training, Ea 15 Min (06/19/20 ) Dressing Order (Intervention) DAILY (06/19/20 18:21) Potassium Chloride (Tablet) (Klor Con Ta (06/20/20 13:00) Patient Visit (06/20/20 ) Exercise Therap, Ea 15 Min (06/20/20 ) Gait Training, Ea 15 Min (06/20/20 ) Patient Visit (06/20/20 ) Therapeutic, Group (06/20/20 ) Rehab Nursing Orders: Ongoing Assess. of Function Status, Bladder Training, Bowel Management, Disease Management & Educaiton, DVT Prophylaxis, Fall Prevention, Fluid/Electrolyte/Nutrition Mgmt, Infection Prevention, Medication Management & Education, Management of Risks & Complications, Management of Skin Intergrity, Nutrition Management, Pain Management, Patient/Family Support, Wound Management Intensity of Therapy to be met Patient to be seen: Min.3h per day/5 of 7d PT IPOC Problem List: Activity Tolerance, Functional Strength, Safety, Balance, Gait, Transfer, Bed Mobility, ROM Treatment Plan: Continue Plan of Care Bed Mobility, Education, Functional Activity Steph, Functional Strength, Group Therapy, Gait, Safety, Therapeutic Exercise, Transfers Treatment Duration: Jul 10, 2020 Frequency: At least 5 of 7 days/Wk (IRF) Estimated Hrs Per Day: 1.5 hours per day OT IPOC Problems: Decreased Activ Tolerance, Impaired I ADL's, Impaired Self-Care Skills OT Treatment, Training and Edu: Yes Plan of Care: ADL Retraining, Functional Mobility, Group Exercise/Act as Ind, UE Funct Exercise/Act Treatment Duration: Jul 03, 2020 Frequency: At least 5 of 7 days/Wk (IRF) Estimated Hrs Per Day: 1.[address] IPOC Speech Therapy Treatment Plan: Discontinue ST Treatment Duration: Jun 19, 2020 Frequency: 1 time per week Estimated Hrs Per Day: .25 hour per day Cigar Binder/Case Mgmt Cigar Binder/Case Managemen: Discharge Planning Dietitian/Scarfer Operator Dietitian/Scarfer Operator to monitor nutritional status and make changes and/or recommendations as needed and work with speech pathology on dietary upgrades as the occur. Physician IPOC Medical Issues being managed closely and that require the 24 hour availability of a physician: Recent NSTEMI and refusal for definitive cath will place him at risk for recurrent RI will require close monitoring Medical Issues: Bowel/Bladder Function, DVT Prophylaxis, Falls Precautions, Fluid/Electrolyte/Nutrition Balance, Infection Protection, Pain Management, Wound Care Brief Synthesis of Preadmission Screen, Post-Admission Evaluation, and Therapy Evaluations: PT OT will focus on regaining function in order to return home to live independently and help increase ADL and ambulation Medical Prognosis: Good Anticipated Length of Stay: 6 days BRIAN GAN DO Jun 20, 2020 06:10
--- NOTE | 2020-06-20 06:10 | PM&R Progress Note ---
Subjective HPI/CC On Admission Date Seen by Provider: Jun 20, 2020 Time Seen by Provider: 09:30 Subjective/Events-last exam Patient had a good night Legs are improved overall and dressing changes maintained Potassium 3.1 so increased PO supplement Creat 1.89 Loose stools noted Checked meds and labs Conferred with RN Reviewed therapy notes Review of Systems General: Fatigue, Malaise Pulmonary: Dyspnea Musculoskeletal: leg pain Objective Exam Vital Signs Vital Signs Date Time Temp Pulse Resp B/P (MAP) Pulse Ox O2 Delivery O2 Flow Rate FiO2 06/20/20 17:08 36.6 71 18 139/68 (91) 98 Room Air Capillary Refill : Less Than 3 Seconds General Appearance: No Apparent Distress, WD/WN, Chronically ill HEENT: PERRL/EOMI, Normal ENT Inspection, Pharynx Normal Neck: Full Range of Motion, Normal Inspection, Non Tender, Supple, Carotid Bruit Respiratory: Chest Non Tender, Lungs Clear, Normal Breath Sounds, No Accessory Muscle Use, No Respiratory Distress Cardiovascular: Regular Rate, Rhythm, No Gallop, No JVD, No Murmur, Normal Peripheral Pulses Gastrointestinal: Normal Bowel Sounds, No Organomegaly, No Pulsatile Mass, Non Tender, Soft Back: Normal Inspection, No CVA Tenderness, No Vertebral Tenderness Extremity: Normal Capillary Refill, Normal Inspection, Normal Range of Motion, Non Tender, No Calf Tenderness, Pedal Edema Neurologic/Psychiatric: Alert, Oriented x3, No Motor/Sensory Deficits, Normal Mood/Affect, Motor Weakness (generalized all extremities) Skin: Normal Color, Warm/Dry, Rash (lower legs) Lymphatic: No Adenopathy Results/Procedures Lab Laboratory Tests 06/20/20 04:55 Patient resulted labs reviewed. FIM Transfers Therapy Code Descriptions/Definitions Functional [place] Measure: 0=Not Assessed/NA 4=Minimal Assistance 1=Total Assistance 5=Supervision or Setup 2=Maximal Assistance 6=Modified [place] 3=Moderate Assistance 7=Complete IndependenceSCALE: Activities may be completed with or without assistive devices. 9-Lyompxhbpo-kkvtqwh completes the activity by him/herself with no assistance from a helper. 5-Set-up or Clean-up Assistance-helper sets up or cleans up; patient completes activity. [place] assists only prior to or following the activity. 4-Supervision or Touching Assistance-helper provides verbal cues and/or touching/steadying and/or contact guard assistance as patient completes activity. Assistance may be provided throughout the activity or intermittently. 3-Partial/Moderate Assistance-helper does LESS THAN HALF the effort. [place] lifts, holds or supports trunk or limbs, but provides less than half the effort. 2-Substantial/Maximal Assistance-helper does MORE THAN HALF the effort. [place] lifts or holds trunk or limbs and provides more than half the effort. 7-Uwcszanwo-uozhej does ALL the effort. Patient does none of the effort to complete the activity. Or, the assistance of 2 or more helpers is required for the patient to complete the activity. If activity was not attempted, code reason: 7-Patient Refused. 9-Not Applicable-not attempted and the patient did not perform the activity before the current illness, exacerbation or injury. 10-Not Attempted due to Environmental Limitations-(lack of equipment, weather restraints, etc.). 88-Not Attempted due to Medical Conditions or Safety Concerns. Roll Left to Right (QC): 6 Sit to Lying (QC): 6 Sit to Stand (QC): 3 Chair/Qur-ei-Rsvtk Xfer(QC): 4 Car Transfer (QC): 3 Gait Training Does the Patient Walk?: Yes Distance: 150', 100' Walk 10 feet (QC): 4 Walk 50 ft with 2 Turns(QC): 4 Walk 150 ft (QC): 4 Walking 10ft/uneven surface-QC: 4 Gait Assistive Device: FWW Wheelchair Training Wheel 50 ft with 2 turns (QC): 9 Wheel 150 ft (QC): 9 Stair Training #of Steps: 1 1 Step (curb) (QC): 3 4 Steps (QC): 88 12 Steps (QC): 88 Balance Picking up an Object (QC): 88 ADL-Treatment Eating (QC): 6 (Per pt.) Oral Hygiene (QC): 5 (Clinical assessment.) Shower/Bathe Self (QC): 3 (Min assist overall. Pt. attempts to wash rear andrea area, but is unable to do so.) Upper Body Dressing (QC): 88 Lower Body Dressing (QC): 88 On/Off Footwear (QC): 1 (Pt. dependent this date with slipper socks. However, does state that he usually uses a sock aide and that he could do better with that.) Toileting Hygiene (QC): 3 (Mod assist overall to cleanse rear andrea area. Pt. able to utilize urinal.) Assessment/Plan Assessment and Plan Assess & Plan/Chief Complaint Assessment: Debility NSTEMI CAD Refusal of cardiac cath for definitive treatment CRI DM new onset hga1c 6.8 Lower leg cellulitis Venous stasis dermatitis Plan: Monitor creat IRF protocol Monitor chest pain 06/20/20: Rash management with abx and dressing changes Increase potassium to TID with meals DC accuchecks (1) NSTEMI (non-ST elevated myocardial infarction) Status: Acute (2) OSWALDO (acute kidney injury) (3) DMII (diabetes mellitus, type 2) (4) Venous stasis dermatitis of both lower extremities (5) Bilateral lower leg cellulitis Status: Acute (6) Bilateral leg edema Status: Acute (7) HTN (hypertension) Status: Acute BRIAN GAN DO Jun 20, 2020 06:09
[2020-06-20 06:17] LABS: ALBUMIN 3.1 GM/DL (3.2-4.5)
[2020-06-20 06:18] LABS: POTASSIUM 3.1 MMOL/L (3.6-5.0)
[2020-06-20 06:19] LABS: CALCIUM 7.7 MG/DL (8.5-10.1)
[2020-06-20 06:20] LABS: TOTAL PROTEIN 6.1 GM/DL (6.4-8.2)
[2020-06-20 06:22] LABS: BILIRUBIN,TOTAL 0.7 MG/DL (0.1-1.0)
[2020-06-20 06:23] LABS: CREATININE SERUM 1.89 MG/DL (0.60-1.30)
[2020-06-20] MEDS: CATHETER FLUSH 10 ML SYR IV SCH ×3 (06:26→22:04)
[2020-06-20] MEDS: DOXYCYCLINE 100 MG (VIBRAMYCIN) TABLET PO SCH ×2 (06:26→16:59)
[2020-06-20 06:36] VITALS: BP 153/69
[2020-06-20] MEDS ORDERED: KCL 10 MEQ TAB (MICRO K) PO SCH (07:00)
--- NOTE | 2020-06-20 08:06 | Physical Therapy Daily Note ---
PT Daily Note-Current Subjective Patient is very agreeable to participate with therapy. No c/o. Mental Status Patient Orientation: Normal For Age Transfers SCALE: Activities may be completed with or without assistive devices. 9-Pdztehyvlk-vsgbbtt completes the activity by him/herself with no assistance from a helper. 5-Set-up or Clean-up Assistance-helper sets up or cleans up; patient completes activity. [place] assists only prior to or following the activity. 4-Supervision or Touching Assistance-helper provides verbal cues and/or touching/steadying and/or contact guard assistance as patient completes activity. Assistance may be provided throughout the activity or intermittently. 3-Partial/Moderate Assistance-helper does LESS THAN HALF the effort. [place] lifts, holds or supports trunk or limbs, but provides less than half the effort. 2-Substantial/Maximal Assistance-helper does MORE THAN HALF the effort. [place] lifts or holds trunk or limbs and provides more than half the effort. 1-Zzlrvxnqp-csxtjt does ALL the effort. Patient does none of the effort to complete the activity. Or, the assistance of 2 or more helpers is required for the patient to complete the activity. If activity was not attempted, code reason: 7-Patient Refused. 9-Not Applicable-not attempted and the patient did not perform the activity before the current illness, exacerbation or injury. 10-Not Attempted due to Environmental Limitations-(lack of equipment, weather restraints, etc.). 88-Not Attempted due to Medical Conditions or Safety Concerns. Sit to Stand (QC): 4 Toilet Transfer (QC): 4 Car Transfer (QC): 4 Gait Training Does the Patient Walk?: Yes Distance: 175' x 5 Walk 10 feet (QC): 4 Walk 50 ft with 2 Turns(QC): 4 Walk 150 ft (QC): 4 Gait Assistive Device: FWW slow, steady, no deviation/ he did require seated recovery periods due to fatigue Wheelchair Training Does the Pt Use a Wheelchair?: No Exercises Seated Therapy Exercises: Long arc quads, Hip flexion, Hip abd/add, Glut set Seated Reps: 15 (2 sets) NuStep Minutes: 20 NuStep Workload: 3 (to improve strength and mobility with ambulation) Assessment Current Status: Excellent Progress Patient is much improved from earlier this week. Patient continue so progress. PT Short Term Goals Short Term Goals Time Frame: Jun 26, 2020 Roll Left & Right: 6 Sit to lyin Lying to sitting on side of be: 6 Sit to stand: 4 Chair/hes-vt-quitw transfer: 4 Walk 10 feet: 4 (SBA) Walk 50 feet with two turns: 4 (SBA) Walk 150 feet: 4 (SBA) PT Correction Goals Court Security Officer Goals PT Correction Goals Time Frame: Jul 10, 2020 Roll Left & Right (QC): 6 Sit to Lying (QC): 6 Lying-Sitting on Side/Bed(QC): 6 Sit to Stand (QC): 6 Chair/Bpz-mz-Nsqiv Xfer(QC): 6 Toilet Transfer (QC): 6 Car Transfer (QC): 6 Does the Patient Walk: Yes Walk 10 feet (QC): 6 Walk 50ft with 2 Turns (QC): 6 Walk 150 ft (QC): 6 Walking 10ft on Uneven Surface: 6 1 Step (curb) (QC): 4 4 Steps (QC): 4 12 Steps (QC): 88 Picking up an Object (QC): 88 Wheel 50 feet with 2 turns (QC: 9 Wheel 150 feet: 9 PT Plan Treatment/Plan Treatment Plan: Continue Plan of Care Treatment Plan: Bed Mobility, Education, Functional Activity Steph, Functional Strength, Group Therapy, Gait, Safety, Therapeutic Exercise, Transfers Treatment Duration: Jul 10, 2020 Frequency: At least 5 of 7 days/Wk (IRF) Estimated Hrs Per Day: 1.5 hours per day Patient and/or Family Agrees t: Yes Time/GCodes Time In: 700 Time Out: 800 Total Billed Treatment Time: 60 Total Billed Treatment 1 visit EX x 2 36 min GT x 2 24 min LAVELLE PEREZ PT Jun 20, 2020 08:06
[2020-06-20] MEDS: ASPIRIN E.C. 325 MG (ECOTRIN) TABLET PO SCH (08:17)
[2020-06-20] MEDS: CLOPIDOGREL 75 MG (PLAVIX) TABLET PO SCH (08:17)
[2020-06-20] MEDS: DOCUSATE SODIUM 100 MG (COLACE) CAP PO SCH ×2 (08:19→20:26)
[2020-06-20] MEDS: SENNA W/DOCUSATE (SENOKOT S) TABLET PO SCH ×2 (08:19→20:27)
[2020-06-20] MEDS: polyethylene glycoL POWDER 17 GM (MIRALAX) PACK PO SCH ×2 (08:19→20:27)
--- NOTE | 2020-06-20 09:00 | NUR ---
STATES "I HAVEN'T HAD A WORKOUT LIKE I GET HERE IN A LONG TIME!" FEELS LEG ULCERS ARE IMPROVING. HAVING DIARRHEA STOOLS - WILL CONTINUE TO MONITOR.
--- NOTE | 2020-06-20 10:16 | Occupational Ther Daily Note ---
OT Current Status-Daily Note Subjective No pain reported. Pt. states, "I'm tired, I'm beat." Agrees to work with OT but to "take his time." Mental Status/Objective Patient Orientation: Person, Place, Time, Situation ADL-Treatment Therapy Code Descriptions/Definitions Functional [place] Measure: 0=Not Assessed/NA 4=Minimal Assistance 1=Total Assistance 5=Supervision or Setup 2=Maximal Assistance 6=Modified [place] 3=Moderate Assistance 7=Complete IndependenceSCALE: Activities may be completed with or without assistive devices. 5-Zmizwmuhbo-ccubjya completes the activity by him/herself with no assistance from a helper. 5-Set-up or Clean-up Assistance-helper sets up or cleans up; patient completes a ctivity. [place] assists only prior to or following the activity. 4-Supervision or Touching Assistance-helper provides verbal cues and/or touching/steadying and/or contact guard assistance as patient completes activity. Assistance may be provided throughout the activity or intermittently. 3-Partial/Moderate Assistance-helper does LESS THAN HALF the effort. [place] lifts, holds or supports trunk or limbs, but provides less than half the effort. 2-Substantial/Maximal Assistance-helper does MORE THAN HALF the effort. [place] lifts or holds trunk or limbs and provides more than half the effort. 1-Xjhjjyopy-hotjce does ALL the effort. Patient does none of the effort to complete the activity. Or, the assistance of 2 or more helpers is required for the patient to complete the activity. If activity was not attempted, code reason: 7-Patient Refused. 9-Not Applicable-not attempted and the patient did not perform the activity before the current illness, exacerbation or injury. 10-Not Attempted due to Environmental Limitations-(lack of equipment, weather restraints, etc.). 88-Not Attempted due to Medical Conditions or Safety Concerns. Eating (QC): 6 Oral Hygiene (QC): 5 (Pt. brushed teeth earlier per him after nurse aide set this up for him.) Upper Body Dressing (QC): 5 Lower Body Dressing (QC): 4 (SBA to don shorts using AE.) On/Off Footwear: 2 (Pt. attempts to use sock aide to don slipper socks. This is technique he uses at home. However, due to thick bandages on feet, pt. unable to safely get socks on without rubbing bandages off.) Pt. showered yesterday with bandage change. Will have bandages changed today, but states that he doesn't need to shower. Will shower tomorrow. Pt. agrees to get dressed, as his son has dropped off clothing. Pt. uses hip kit at home for LE dressing, and so OT brings this in for him to use here. Pt. is able to don shorts and stand with SBA to laborer pullet farm hips. He uses packing floor worker for this. Pt. is able to attempt using sock aide correctly to don slipper socks, but due to bandages is unable to do so. OT does this for him. All needs are met. Pt. completes series of bilateral UE exercises at slow pace, x 15 reps each exer cise, x 4 exercises. Pt. is able to demonstrate independence with these exercises, but does report that he is very "fatigued." All needs met up in chair after session. Education OT Patient Education: Correct positioning, Exercise program, Home exercise program, Modified ADL techniques, Progress toward Goal/Update tx plan, Purpose of tx/functional activities, Reviewed precautions, Rehab process, Transfer techniques, Use of adapted equipment Teaching Recipient: Patient Teaching Methods: Demonstration, Discussion Response to Teaching: Verbalize Understanding, Return Demonstration OT Short Term Goals Short Term Goals Time Frame: Jun 26, 2020 Eatin Oral hygiene: 6 Toileting hygiene: 4 Shower/bathe self: 4 Upper body dressin Lower body dressin Putting on/taking off footwear: 4 (with AE) OT Psychiatric Assistant Goals Halfway Goals Time Frame: Jul 03, 2020 Eating (QC): 6 Oral Hygiene (QC): 6 Toileting Hygiene (QC): 6 Shower/Bathe Self (QC): 5 Upper Body Dressing (QC): 6 Lower Body Dressing (QC): 6 On/Off Footwear (QC): 6 Additional Goals: 1-Demonstrate ADL Tasks, 2-Verbalize Understanding, 3- ImproveStrength/Steph 1=Demonstrate adherence to instructed precautions during ADL tasks. 2=Patient will verbalize/demonstrate understanding of assistive devices/chantal fications for ADL. 3=Patient will improve strength/tolerance for activity to enable patient to perform ADL's. OT Education/Plan Problem List/Assessment Assessment: Decreased Activ Tolerance, Decreased UE Strength, Impaired I ADL's, Impaired Self-Care Skills Discharge Recommendations Plan/Recommendations: Continue POC Therapy Discharge Recommendati: Home & Family Treatment Plan/Plan of Care Treatment,Training & Education: Yes Patient would benefit from OT for education, treatment and training to promote independence in ADL's, mobility, safety and/or upper extremity function for ADL's. Plan of Care: ADL Retraining, Functional Mobility, Group Exercise/Act as Ind, UE Funct Exercise/Act Treatment Duration: Jul 03, 2020 Frequency: At least 5 of 7 days/Wk (IRF) Estimated Hrs Per Day: 1.5 hours per day Agreement: Yes Rehab Potential: Good Time/GCodes Start Time: 09:00 Stop Time: 10:00 Total Time Billed (hr/min): 60 Billed Treatment Time 1, ADL x 45minutes, Ex x 15minutes JANET LYNCH OT Jun 20, 2020 10:16
[2020-06-20] MEDS: KCL 10 MEQ TAB (MICRO K) PO SCH ×2 (12:06→17:00)
--- NOTE | 2020-06-20 12:30 | Therapy Group Daily Note ---
Therapy Daily Group Note Patient Education Topic Home Safety, Exercises Exercises LE Seated Exercise, Stretching, UE Exercise Session Ratio (pt:therapist): 4:1 Goal of Session: Home Safety Strategies Education on home safety strategies Functional strengthening for improved functional mobility. Goal Met for this Session: Yes Pt Benefit of Group: Increased Functional Safety Pt enjoyed visiting with others and sharing safety tips. Pt laughed and visited with others with words of encouragement. Masks worn and social distancing practiced. Other/Notes Pt interacted well and noted that the information was beneficial. Pt participated with ther ex and provided full effort. Start Time: 11:00 Stop Time: 12:00 Total Billed Treatment Time: 60 Total Billed Treatment visit GRP 60 KYA MILLAN PT Jun 20, 2020 12:30
[2020-06-20 17:08] VITALS: BP 139/68
--- NOTE | 2020-06-20 19:17 | NUR ---
Bedside report from LYNN POLK, assume care of pt
--- NOTE | 2020-06-20 20:22 | NUR ---
Pt refused COLACE, MIRALAX & SENOKOT, states had lots of stools today, up with 1 person assist & walker
[2020-06-21 05:10] VITALS: BP 164/74
[2020-06-21] MEDS: DOXYCYCLINE 100 MG (VIBRAMYCIN) TABLET PO SCH ×2 (06:27→17:25)
[2020-06-21] MEDS: CATHETER FLUSH 10 ML SYR IV SCH ×3 (06:27→21:53)
--- NOTE | 2020-06-21 07:05 | PM&R Progress Note ---
Subjective HPI/CC On Admission Date Seen by Provider: Jun 21, 2020 Time Seen by Provider: 11:00 Subjective/Events-last exam 06/21/20: No new issues Dressing to legs improved Podiatry consultation done BP 165 so added Norvasc Patient had a good night Legs are improved overall and dressing changes maintained Potassium 3.1 so increased PO supplement Creat 1.89 Loose stools noted Checked meds and labs Conferred with RN Reviewed therapy notes Review of Systems General: Fatigue Musculoskeletal: leg pain Objective Exam Vital Signs Vital Signs Date Time Temp Pulse Resp B/P (MAP) Pulse Ox O2 Delivery O2 Flow Rate FiO2 06/22/20 05:08 36.0 65 18 150/66 (94) 96 Room Air Capillary Refill : Less Than 3 Seconds General Appearance: No Apparent Distress, WD/WN, Chronically ill HEENT: PERRL/EOMI, Normal ENT Inspection, Pharynx Normal Neck: Full Range of Motion, Normal Inspection, Non Tender, Supple, Carotid Bruit Respiratory: Chest Non Tender, Lungs Clear, Normal Breath Sounds, No Accessory Muscle Use, No Respiratory Distress Cardiovascular: Regular Rate, Rhythm, No Gallop, No JVD, No Murmur, Normal Peripheral Pulses Gastrointestinal: Normal Bowel Sounds, No Organomegaly, No Pulsatile Mass, Non Tender, Soft Back: Normal Inspection, No CVA Tenderness, No Vertebral Tenderness Extremity: Normal Capillary Refill, Normal Inspection, Normal Range of Motion, Non Tender, No Calf Tenderness, Pedal Edema Neurologic/Psychiatric: Alert, Oriented x3, No Motor/Sensory Deficits, Normal Mood/Affect, Motor Weakness (generalized all extremities) Skin: Normal Color, Warm/Dry, Rash (lower legs) Lymphatic: No Adenopathy Results/Procedures Lab Patient resulted labs reviewed. FIM Transfers Therapy Code Descriptions/Definitions Functional [place] Measure: 0=Not Assessed/NA 4=Minimal Assistance 1=Total Assistance 5=Supervision or Setup 2=Maximal Assistance 6=Modified [place] 3=Moderate Assistance 7=Complete IndependenceSCALE: Activities may be completed with or without assistive devices. 0-Amspqeakix-rfiejgh completes the activity by him/herself with no assistance from a helper. 5-Set-up or Clean-up Assistance-helper sets up or cleans up; patient completes activity. [place] assists only prior to or following the activity. 4-Supervision or Touching Assistance-helper provides verbal cues and/or touching/steadying and/or contact guard assistance as patient completes activity. Assistance may be provided throughout the activity or intermittently. 3-Partial/Moderate Assistance-helper does LESS THAN HALF the effort. [place] lifts, holds or supports trunk or limbs, but provides less than half the effort. 2-Substantial/Maximal Assistance-helper does MORE THAN HALF the effort. [place] lifts or holds trunk or limbs and provides more than half the effort. 6-Whmdcyfnr-pkvphp does ALL the effort. Patient does none of the effort to complete the activity. Or, the assistance of 2 or more helpers is required for the patient to complete the activity. If activity was not attempted, code reason: 7-Patient Refused. 9-Not Applicable-not attempted and the patient did not perform the activity before the current illness, exacerbation or injury. 10-Not Attempted due to Environmental Limitations-(lack of equipment, weather restraints, etc.). 88-Not Attempted due to Medical Conditions or Safety Concerns. Roll Left to Right (QC): 6 Sit to Lying (QC): 6 Sit to Stand (QC): 4 Chair/Hxt-mx-Wvvnw Xfer(QC): 4 Car Transfer (QC): 4 Gait Training Does the Patient Walk?: Yes Distance: 175' x 5 Walk 10 feet (QC): 4 Walk 50 ft with 2 Turns(QC): 4 Walk 150 ft (QC): 4 Walking 10ft/uneven surface-QC: 4 Gait Assistive Device: FWW Wheelchair Training Does the Pt Use a Wheelchair?: No Wheel 50 ft with 2 turns (QC): 9 Wheel 150 ft (QC): 9 Stair Training #of Steps: 1 1 Step (curb) (QC): 3 4 Steps (QC): 88 12 Steps (QC): 88 Balance Picking up an Object (QC): 88 ADL-Treatment Eating (QC): 6 Oral Hygiene (QC): 5 (Pt. brushed teeth earlier per him after nurse aide set this up for him.) Shower/Bathe Self (QC): 3 (Min assist overall. Pt. attempts to wash rear andrea area, but is unable to do so.) Upper Body Dressing (QC): 5 Lower Body Dressing (QC): 4 (SBA to don shorts using AE.) On/Off Footwear (QC): 2 (Pt. attempts to use sock aide to don slipper socks. This is technique he uses at home. However, due to thick bandages on feet, pt. unable to safely get socks on without rubbing bandages off.) Toileting Hygiene (QC): 3 (Mod assist overall to cleanse rear andrea area. Pt. able to utilize urinal.) Assessment/Plan Assessment and Plan Assess & Plan/Chief Complaint Assessment: Debility NSTEMI CAD Refusal of cardiac cath for definitive treatment CRI DM new onset hga1c 6.8 Lower leg cellulitis Venous stasis dermatitis Plan: Monitor creat IRF protocol Monitor chest pain 06/20/20: Rash management with abx and dressing changes Increase potassium to TID with meals DC accuchecks 06/21/20: Improved status Add Norvasc for elevated BP (1) NSTEMI (non-ST elevated myocardial infarction) Status: Acute (2) OSWALDO (acute kidney injury) (3) DMII (diabetes mellitus, type 2) (4) Venous stasis dermatitis of both lower extremities (5) Bilateral lower leg cellulitis Status: Acute (6) Bilateral leg edema Status: Acute (7) HTN (hypertension) Status: Acute BRIAN GAN DO Jun 21, 2020 07:05
[2020-06-21] MEDS: KCL 10 MEQ TAB (MICRO K) PO SCH ×3 (08:27→18:27)
[2020-06-21] MEDS: ASPIRIN E.C. 325 MG (ECOTRIN) TABLET PO SCH (08:27)
[2020-06-21] MEDS: CLOPIDOGREL 75 MG (PLAVIX) TABLET PO SCH (08:27)
--- NOTE | 2020-06-21 09:07 | Physical Therapy Daily Note ---
PT Daily Note-Current Subjective Pt presents sitting up in chair upon arrival to room, agreeable to therapy treatment. Denies pain during session Appearance Following session, pt up in chair with call light and tray within reach. All needs met at this time Mental Status Patient Orientation: Person, Place, Situation Transfers SCALE: Activities may be completed with or without assistive devices. 0-Bwckpxnanr-mmvbkmi completes the activity by him/herself with no assistance from a helper. 5-Set-up or Clean-up Assistance-helper sets up or cleans up; patient completes activity. [place] assists only prior to or following the activity. 4-Supervision or Touching Assistance-helper provides verbal cues and/or touching/steadying and/or contact guard assistance as patient completes activity. Assistance may be provided throughout the activity or intermittently. 3-Partial/Moderate Assistance-helper does LESS THAN HALF the effort. [place] lifts, holds or supports trunk or limbs, but provides less than half the effort. 2-Substantial/Maximal Assistance-helper does MORE THAN HALF the effort. [place] lifts or holds trunk or limbs and provides more than half the effort. 0-Qztuzognw-znbwxi does ALL the effort. Patient does none of the effort to complete the activity. Or, the assistance of 2 or more helpers is required for the patient to complete the activity. If activity was not attempted, code reason: 7-Patient Refused. 9-Not Applicable-not attempted and the patient did not perform the activity before the current illness, exacerbation or injury. 10-Not Attempted due to Environmental Limitations-(lack of equipment, weather restraints, etc.). 88-Not Attempted due to Medical Conditions or Safety Concerns. Sit to Stand (QC): 4 Gait Training Does the Patient Walk?: Yes Distance: 150' x 4 Walk 10 feet (QC): 4 Walk 50 ft with 2 Turns(QC): 4 Walk 150 ft (QC): 4 Gait Assistive Device: FWW with fatigue, pt begins to shuffle gait with RLE drag > LLE Exercises Seated Therapy Exercises: Ankle pumps, Long arc quads, Hip flexion, Hamstring Curls Seated Reps: 20 NuStep Minutes: 20 NuStep Workload: 3 Assessment Current Status: Good Progress Pt progressing well with therapy, aware of when to take appropriate rest breaks. PT Short Term Goals Short Term Goals Time Frame: Jun 26, 2020 Roll Left & Right: 6 Sit to lyin Lying to sitting on side of be: 6 Sit to stand: 4 Chair/noi-tz-dchyi transfer: 4 Walk 10 feet: 4 (SBA) Walk 50 feet with two turns: 4 (SBA) Walk 150 feet: 4 (SBA) PT Community Service Officer Coordinator Goals Community Service Officer Coordinator Goals PT Residential Goals Time Frame: Jul 10, 2020 Roll Left & Right (QC): 6 Sit to Lying (QC): 6 Lying-Sitting on Side/Bed(QC): 6 Sit to Stand (QC): 6 Chair/Ysc-th-Sznbo Xfer(QC): 6 Toilet Transfer (QC): 6 Car Transfer (QC): 6 Does the Patient Walk: Yes Walk 10 feet (QC): 6 Walk 50ft with 2 Turns (QC): 6 Walk 150 ft (QC): 6 Walking 10ft on Uneven Surface: 6 1 Step (curb) (QC): 4 4 Steps (QC): 4 12 Steps (QC): 88 Picking up an Object (QC): 88 Wheel 50 feet with 2 turns (QC: 9 Wheel 150 feet: 9 PT Plan Problem List Problem List: Activity Tolerance, Functional Strength, Safety, Balance, Gait, Transfer, Bed Mobility, ROM Treatment/Plan Treatment Plan: Continue Plan of Care Treatment Plan: Bed Mobility, Education, Functional Activity Steph, Functional Strength, Group Therapy, Gait, Safety, Therapeutic Exercise, Transfers Treatment Duration: Jul 10, 2020 Frequency: At least 5 of 7 days/Wk (IRF) Estimated Hrs Per Day: 1.5 hours per day Patient and/or Family Agrees t: Yes Time/GCodes Time In: 800 Time Out: 900 Total Billed Treatment Time: 60 Total Billed Treatment 1 visit EX (35') GT (25') EDIE UBI PT Jun 21, 2020 09:06
[2020-06-21] MEDS: SENNA W/DOCUSATE (SENOKOT S) TABLET PO SCH ×2 (09:17→20:31)
[2020-06-21] MEDS: polyethylene glycoL POWDER 17 GM (MIRALAX) PACK PO SCH ×2 (09:17→20:31)
[2020-06-21] MEDS: DOCUSATE SODIUM 100 MG (COLACE) CAP PO SCH ×2 (09:17→20:30)
--- NOTE | 2020-06-21 10:27 | Occupational Ther Daily Note ---
OT Current Status-Daily Note Subjective Pt in chair upon entry. Pt states desire for shower/ shave. Pt denies pain. OT/ PT co-treat for part of session to work on increased safety and fx transfers during ADL tasks. OT addresses fx ADLs, fx activity tolerance, sitting balance and UE movement while PT addresses LE movement, gait/ strength, standing balance and fx transfers. Pt in chair upon 2nd OT entry. Alert/ oriented. Agrees to gym time. Mental Status/Objective Patient Orientation: Person, Place, Situation ADL-Treatment Therapy Code Descriptions/Definitions Functional [place] Measure: 0=Not Assessed/NA 4=Minimal Assistance 1=Total Assistance 5=Supervision or Setup 2=Maximal Assistance 6=Modified [place] 3=Moderate Assistance 7=Complete IndependenceSCALE: Activities may be completed with or without assistive devices. 8-Gobvhmqtal-qjnrwgd completes the activity by him/herself with no assistance from a helper. 5-Set-up or Clean-up Assistance-helper sets up or cleans up; patient completes activity. [place] assists only prior to or following the activity. 4-Supervision or Touching Assistance-helper provides verbal cues and/or touching/steadying and/or contact guard assistance as patient completes activity. Assistance may be provided throughout the activity or intermittently. 3-Partial/Moderate Assistance-helper does LESS THAN HALF the effort. [place] lifts, holds or supports trunk or limbs, but provides less than half the effort. 2-Substantial/Maximal Assistance-helper does MORE THAN HALF the effort. [place] lifts or holds trunk or limbs and provides more than half the effort. 2-Fcehemtfa-nagdtd does ALL the effort. Patient does none of the effort to complete the activity. Or, the assistance of 2 or more helpers is required for the patient to complete the activity. If activity was not attempted, code reason: 7-Patient Refused. 9-Not Applicable-not attempted and the patient did not perform the activity before the current illness, exacerbation or injury. 10-Not Attempted due to Environmental Limitations-(lack of equipment, weather restraints, etc.). 88-Not Attempted due to Medical Conditions or Safety Concerns. Eating (QC): 6 Oral Hygiene (QC): 4 (SBA in stance. ) Bathing Location: L Arm, R Arm, L Upper Leg, R Upper Leg, Chest, Abdomen, Perineal Area Shower/Bathe Self (QC): 3 (min A: pt able to reach all areas, CGA in stance, min A for bottom hygiene due to decreased balance in stance. ) Upper Body Dressing (QC): 5 Lower Body Dressing (QC): 3 (min A threading over LLE due to wounds. Pt pulls up in stance with CGA.) On/Off Footwear: 3 (Pt able to doff with mod I/ dressing stick. Due to wounds (uncoered post-shower), OT dons socks for pt. Pt typically dons with sock aide. ) Toileting Hygiene (QC): 2 (max A bottom hygiene in stance during shower.) Toilet Transfer (QC): 4 (demonstration by OT/ PT prior to sit on sc, pt demonstrates ability/ safety with SBA) Other Treatment Pt sit to stand with CGA. Use of walker to nv. Pt completes fx transfers to nv and ADLs as outlined above. Pt requires assist in stance due to decreased balance. Pt dresses in shower, OT unwraps bandaging post-shower for easier doffing. Small area on L calf continues to stick to skin, this is cut away to avoid bleeding and nursing is notified. Pt ambulates to sink, able to conserve energy through WB through UE on sink, requests sit, BSC placed behind pt. Pt sit to stand from here with SBA and ambulates back to chair. LE's brought up, call light in reach, all needs met. Sit to stand with SBA, ambulates to toilet and stands to urinate with SBA. Pt ambulates to gym, one rest break needed, sits EOM and is educated on balance task. Pt stands, completing standing balance/ reaching/ crossing midline task. Pt demonstrates slight shaking during one handed activity at walker level, though able to complete ~30 seconds worth of standing balance task prior to sit. Pt ambulates through [employer], resting at far chair. Pt ambulates back to room, sits in recliner and LEs elevated with all needs met, call light in reach. Education OT Patient Education: Correct positioning, Energy conservation, Modified ADL techniques, Progress toward Goal/Update tx plan, Purpose of tx/functional activities, Rehab process, Safety issues, Transfer techniques Teaching Recipient: Patient Teaching Methods: Demonstration, Discussion Response to Teaching: Verbalize Understanding, Return Demonstration OT Short Term Goals Short Term Goals Time Frame: Jun 26, 2020 Eatin Oral hygiene: 6 Toileting hygiene: 4 Shower/bathe self: 4 Upper body dressin Lower body dressin Putting on/taking off footwear: 4 (with AE) OT Foundry Operator Goals Nursing Home Goals Time Frame: Jul 03, 2020 Eating (QC): 6 Oral Hygiene (QC): 6 Toileting Hygiene (QC): 6 Shower/Bathe Self (QC): 5 Upper Body Dressing (QC): 6 Lower Body Dressing (QC): 6 On/Off Footwear (QC): 6 Additional Goals: 1-Demonstrate ADL Tasks, 2-Verbalize Understanding, 3-ImproveStrength/Steph 1=Demonstrate adherence to instructed precautions during ADL tasks. 2=Patient will verbalize/demonstrate understanding of assistive devices/modifications for ADL. 3=Patient will improve strength/tolerance for activity to enable patient to perform ADL's. OT Education/Plan Problem List/Assessment Assessment: Decreased Activ Tolerance, Decreased UE Strength, Dependent Transfers, Impaired Funct Balance, Impaired I ADL's, Impaired Self-Care Skills Discharge Recommendations Plan/Recommendations: Continue POC Therapy Discharge Recommendati: Home & Family Treatment Plan/Plan of Care Treatment,Training & Education: Yes Patient would benefit from OT for education, treatment and training to promote independence in ADL's, mobility, safety and/or upper extremity function for ADL's. Plan of Care: ADL Retraining, Functional Mobility, Group Exercise/Act as Ind, UE Funct Exercise/Act Treatment Duration: Jul 03, 2020 Frequency: At least 5 of 7 days/Wk (IRF) Estimated Hrs Per Day: 1.5 hours per day Agreement: Yes Rehab Potential: Good Time/GCodes Start Time: 09:00 (5) Stop Time: 10:00 (134) Total Time Billed (hr/min): 90 Billed Treatment Time OT addresses fx ADLs, fx activity tolerance, sitting balance and UE movement while PT addresses LE movement, gait/ strength, standing balance and fx transfers. OT individual tx: [id number] OT/ PT co-treat: [id number] OT individual tx: [id number] 1, ADL 4 (60) OT individual tx: [id number] 1, ADL, EX (30) Total: 90 ROMEL ALVARENGA OTR Jun 21, 2020 10:27
--- NOTE | 2020-06-21 11:12 | NUR ---
RD ASSESSMENT PMHx: no significant PMH PT INTERACTION: Pt was awake and pleasant during nutrition follow-up. Pt states his appetite is "getting better." Note avg PO intake 70% x2d, per chart review. Pt states no issues with nausea, vomiting, constipation, or diarrhe since last assessment. Note last BM was 06/20, and pt currently on bowel regimen of colace BID, senna BID, and miralax BID, per chart review. Note presence of wounds (bilateral LE), per chart review. ABNORMAL NUTRITION-RELATED LAB VALUES LOW: K 3.1; Ca 7.7; Pro 6.1; alb 3.1; HIGH: BUN 31; cr 1.89; AST 40; glu 112; HbA1c 6.8 (06/14/2020) Est. kcal needs: 9965-4522 kcal | 15-18 kcal/kg Est. Pro needs: 102-129 g Pro | 1.2-1.4 g Pro/kg PES STATEMENT: Inadequate oral intake (NI-2.1) related to loss of appetite as evidenced by pt interview, and avg PO intake 70% x2d. Inadequate protein intake (NI-5.6.1) related to increased protein needs as evidenced by presence of wounds (bilateral LE). INTERVENTION: Continue with current diet order of CHO 75g/m 1snack diet. Would recommend nutrition supplementation for increased kcal and protein intake, but pt had declined supplement of Glucerna earlier in the week. Will continue to follow and reassess as pt needs, intake, and status change. Kelly Haley, MS RD LD [phone] cell
--- NOTE | 2020-06-21 11:16 | Physical Therapy Daily Note ---
PT Daily Note-Current Subjective Pt up in chair with OT upon arrival to room, agreeable to PT/OT cotreat to complete shower/shaving activities. OT/ PT co-treat for session to work on increased safety and fx transfers during ADL tasks. OT addresses fx ADLs, fx activity tolerance, sitting balance and UE movement while PT addresses LE movement, gait/ strength, standing balance and fx transfers. Appearance Following session, pt with OT in bathroom to complete dressing and drying off post shower. Pt denies any further needs at this time. Mental Status Patient Orientation: Person, Place, Situation Transfers SCALE: Activities may be completed with or without assistive devices. 7-Ypwknpjpve-okzmxnr completes the activity by him/herself with no assistance from a helper. 5-Set-up or Clean-up Assistance-helper sets up or cleans up; patient completes activity. [place] assists only prior to or following the activity. 4-Supervision or Touching Assistance-helper provides verbal cues and/or touching/steadying and/or contact guard assistance as patient completes activity. Assistance may be provided throughout the activity or intermittently. 3-Partial/Moderate Assistance-helper does LESS THAN HALF the effort. [place] lifts, holds or supports trunk or limbs, but provides less than half the effort. 2-Substantial/Maximal Assistance-helper does MORE THAN HALF the effort. [place] lifts or holds trunk or limbs and provides more than half the effort. 7-Xkdfpqtus-odsxbe does ALL the effort. Patient does none of the effort to compl ete the activity. Or, the assistance of 2 or more helpers is required for the patient to complete the activity. If activity was not attempted, code reason: 7-Patient Refused. 9-Not Applicable-not attempted and the patient did not perform the activity before the current illness, exacerbation or injury. 10-Not Attempted due to Environmental Limitations-(lack of equipment, weather restraints, etc.). 88-Not Attempted due to Medical Conditions or Safety Concerns. Sit to Stand (QC): 4 Chair/Osc-gn-Aujfs Xfer(QC): 4 Gait Training Distance: 10' Walk 10 feet (QC): 4 Gait Assistive Device: FWW Treatments Pt agrees to Pt/OT co treat for shower activities due to increased need for two skilled clinicians during showering activities. Pt able to complete sit to stand from recliner chair and ambulate to bathroom shower chair with CGA, pt requiring assistance with all standing shower activities due to decreased balance. Following showering and transfers, pt left in bathroom with OT to complete OT treatment. Assessment Current Status: Good Progress Pt with good progress, will continue to progress activity tolerance as able. PT Short Term Goals Short Term Goals Time Frame: Jun 26, 2020 Roll Left & Right: 6 Sit to lyin Lying to sitting on side of be: 6 Sit to stand: 4 Chair/jjv-ux-rmqos transfer: 4 Walk 10 feet: 4 (SBA) Walk 50 feet with two turns: 4 (SBA) Walk 150 feet: 4 (SBA) PT Pupil Personnel Services Director Goals [facility] Goals PT [facility]sp Goals Time Frame: Jul 10, 2020 Roll Left & Right (QC): 6 Sit to Lying (QC): 6 Lying-Sitting on Side/Bed(QC): 6 Sit to Stand (QC): 6 Chair/Ema-jb-Wannj Xfer(QC): 6 Toilet Transfer (QC): 6 Car Transfer (QC): 6 Does the Patient Walk: Yes Walk 10 feet (QC): 6 Walk 50ft with 2 Turns (QC): 6 Walk 150 ft (QC): 6 Walking 10ft on Uneven Surface: 6 1 Step (curb) (QC): 4 4 Steps (QC): 4 12 Steps (QC): 88 Picking up an Object (QC): 88 Wheel 50 feet with 2 turns (QC: 9 Wheel 150 feet: 9 PT Plan Problem List Problem List: Activity Tolerance, Functional Strength, Safety, Balance, Gait, Transfer, Bed Mobility, ROM Treatment/Plan Treatment Plan: Continue Plan of Care Treatment Plan: Bed Mobility, Education, Functional Activity Steph, Functional Strength, Group Therapy, Gait, Safety, Therapeutic Exercise, Transfers Treatment Duration: Jul 10, 2020 Frequency: At least 5 of 7 days/Wk (IRF) Estimated Hrs Per Day: 1.5 hours per day Patient and/or Family Agrees t: Yes Time/GCodes Time In: 915 Time Out: 945 Total Billed Treatment Time: 30 Total Billed Treatment 1 visit FA x2 (30') EDIE BUI PT Jun 21, 2020 11:16
[2020-06-21 11:55] VITALS: BP 139/72
--- NOTE | 2020-06-21 12:15 | NUR ---
CM/SS ADMISSION Patient was admitted to ARU 06/19/20 from [facility] for NSTEMI. He was an inpatient at [facility] from 06/13, refused cardiac catheterization for definitive treatment. Other comorbidities are, in part, DMII, bilateral lower leg edema, cellulitis, and venous stasis dermatitis, HTN. Patient moved here from [place] September 2019 and resides with his son Helio and the family. He plans to return there when medically stable to do so. PCP: Patient has no established PCP and history of same scenario. Inpatient social work lecturer provided information about [facility] and patient states he is interested in a referral with that system for his post hospital care. Patient may also require specialized Wound Care, to be determined. PHARMACY: [facility] INSURANCE: Medicare only DME: Patient has a cane and FWW. Therapy team to assess for any additional assistive device recommendations. BARRIERS TO DISCHARGE PLANNING: None noted at this time. Patient's residence is established with his son/family, they would be able to assist patient as he continues his recuperation post discharge. CONTACTS: Helio Castillo, Son [address] [place] [address] Ander Castillo Jr., Son [place], [place] Patient understood the purpose and process of the weekly patient care conference and that his first review would be Friday, June 26, 2020.
[2020-06-21] MEDS ORDERED: amLODIPine 5 MG (NORVASC) TAB PO NR (12:45)
[2020-06-21 14:39] VITALS: BP 142/65
[2020-06-21 16:02] VITALS: BP 134/61
--- NOTE | 2020-06-21 19:04 | NUR ---
Bedside report received from EDILBERTO POLK, assume care of pt
[2020-06-21] MEDS: MELATONIN 3 MG TABLET PO PRN (20:29)
--- NOTE | 2020-06-21 20:29 | NUR ---
Pt refused Colace, Miralax & Senokot, states had stools today, pt took melatonin for rest
[2020-06-22 05:08] VITALS: BP 150/66
[2020-06-22] MEDS: CATHETER FLUSH 10 ML SYR IV SCH ×4 (06:35→22:08)
[2020-06-22] MEDS: DOXYCYCLINE 100 MG (VIBRAMYCIN) TABLET PO SCH ×2 (06:35→17:04)
[2020-06-22 08:00] VITALS: BP 151/70
[2020-06-22] MEDS: ASPIRIN E.C. 325 MG (ECOTRIN) TABLET PO SCH (08:05)
[2020-06-22] MEDS: amLODIPine 5 MG (NORVASC) TAB PO SCH (08:05)
[2020-06-22] MEDS: CLOPIDOGREL 75 MG (PLAVIX) TABLET PO SCH (08:06)
[2020-06-22] MEDS: KCL 10 MEQ TAB (MICRO K) PO SCH ×3 (08:06→17:04)
[2020-06-22] MEDS: DOCUSATE SODIUM 100 MG (COLACE) CAP PO SCH ×2 (08:06→20:36)
[2020-06-22] MEDS: SENNA W/DOCUSATE (SENOKOT S) TABLET PO SCH ×2 (08:07→20:37)
[2020-06-22] MEDS: polyethylene glycoL POWDER 17 GM (MIRALAX) PACK PO SCH ×2 (08:07→20:36)
--- NOTE | 2020-06-22 09:00 | NUR ---
STATES DIARRHEA "ABOUT DONE". DENIES PAIN OR OTHER COMPLAINTS.
--- NOTE | 2020-06-22 10:39 | Physical Therapy Daily Note ---
PT Daily Note-Current Subjective Pt is in the chair and agreeable to treatment. Mental Status Patient Orientation: Person, Place, Time, Situation Transfers SCALE: Activities may be completed with or without assistive devices. 8-Sqpsecwnxs-eyohwnv completes the activity by him/herself with no assistance from a helper. 5-Set-up or Clean-up Assistance-helper sets up or cleans up; patient completes activity. [place] assists only prior to or following the activity. 4-Supervision or Touching Assistance-helper provides verbal cues and/or touching/steadying and/or contact guard assistance as patient completes activity. Assistance may be provided throughout the activity or intermittently. 3-Partial/Moderate Assistance-helper does LESS THAN HALF the effort. [place] lifts, holds or supports trunk or limbs, but provides less than half the effort. 2-Substantial/Maximal Assistance-helper does MORE THAN HALF the effort. [place] lifts or holds trunk or limbs and provides more than half the effort. 7-Tqkkhbiuc-wynggd does ALL the effort. Patient does none of the effort to complete the activity. Or, the assistance of 2 or more helpers is required for the patient to complete the activity. If activity was not attempted, code reason: 7-Patient Refused. 9-Not Applicable-not attempted and the patient did not perform the activity before the current illness, exacerbation or injury. 10-Not Attempted due to Environmental Limitations-(lack of equipment, weather restraints, etc.). 88-Not Attempted due to Medical Conditions or Safety Concerns. Sit to Stand (QC): 6 Gait Training Does the Patient Walk?: Yes Distance: 180ft Walk 10 feet (QC): 5 Walk 50 ft with 2 Turns(QC): 5 Walk 150 ft (QC): 5 Gait Assistive Device: FWW Good safety and stability throughout gait training. Exercises Supine Ex: LE Protocol Supine Reps: 15 Seated Therapy Exercises: LE Protocol Seated Reps: 20 Assessment Pt needed 10% assist with (L) LE during supine (reclined) exercises, and was (I) with seated ex. (R) LE (I) with all ex. Good safety and no issues with gait. PT Short Term Goals Short Term Goals Time Frame: Jun 26, 2020 Roll Left & Right: 6 Sit to lyin Lying to sitting on side of be: 6 Sit to stand: 4 Chair/vhy-bo-bhwvd transfer: 4 Walk 10 feet: 4 (SBA) Walk 50 feet with two turns: 4 (SBA) Walk 150 feet: 4 (SBA) PT Cfo Goals Cfo Goals PT Intermediate Goals Time Frame: Jul 10, 2020 Roll Left & Right (QC): 6 Sit to Lying (QC): 6 Lying-Sitting on Side/Bed(QC): 6 Sit to Stand (QC): 6 Chair/Ewz-cg-Vhost Xfer(QC): 6 Toilet Transfer (QC): 6 Car Transfer (QC): 6 Does the Patient Walk: Yes Walk 10 feet (QC): 6 Walk 50ft with 2 Turns (QC): 6 Walk 150 ft (QC): 6 Walking 10ft on Uneven Surface: 6 1 Step (curb) (QC): 4 4 Steps (QC): 4 12 Steps (QC): 88 Picking up an Object (QC): 88 Wheel 50 feet with 2 turns (QC: 9 Wheel 150 feet: 9 PT Plan Treatment/Plan Treatment Plan: Continue Plan of Care Treatment Plan: Bed Mobility, Education, Functional Activity Steph, Functional Strength, Group Therapy, Gait, Safety, Therapeutic Exercise, Transfers Treatment Duration: Jul 10, 2020 Frequency: At least 5 of 7 days/Wk (IRF) Estimated Hrs Per Day: 1.5 hours per day Patient and/or Family Agrees t: Yes Time/GCodes Time In: 0830 Time Out: 0855 Total Billed Treatment Time: 25 Total Billed Treatment 1, ex 15, gt 10 MARIBEL NAVARRO PT Jun 22, 2020 10:38
--- NOTE | 2020-06-22 13:00 | NUR ---
IV SITE STARTING TO GET RED AND SLIGHT FIRM AND 9 DAYS OLD. NOT GETTING IV MEDICATIONS AND SITE DC'D.
--- NOTE | 2020-06-22 13:56 | PM&R Progress Note ---
Subjective HPI/CC On Admission Date Seen by Provider: Jun 22, 2020 Time Seen by Provider: 14:00 Subjective/Events-last exam 06/22/20: Diarrhea is improved Legs improved Dressing changes daily 06/21/20: No new issues Dressing to legs improved Podiatry consultation done BP 165 so added Norvasc Patient had a good night Legs are improved overall and dressing changes maintained Potassium 3.1 so increased PO supplement Creat 1.89 Loose stools noted Checked meds and labs Conferred with RN Reviewed therapy notes Review of Systems General: Fatigue Pulmonary: Dyspnea Musculoskeletal: leg pain Objective Exam Vital Signs Vital Signs Date Time Temp Pulse Resp B/P (MAP) Pulse Ox O2 Delivery O2 Flow Rate FiO2 06/22/20 09:38 Room Air 06/22/20 05:08 36.0 65 18 150/66 (94) 96 Capillary Refill : Less Than 3 Seconds General Appearance: No Apparent Distress, WD/WN, Chronically ill HEENT: PERRL/EOMI, Normal ENT Inspection, Pharynx Normal Neck: Full Range of Motion, Normal Inspection, Non Tender, Supple, Carotid Bruit Respiratory: Chest Non Tender, Lungs Clear, Normal Breath Sounds, No Accessory Muscle Use, No Respiratory Distress Cardiovascular: Regular Rate, Rhythm, No Gallop, No JVD, No Murmur, Normal Peripheral Pulses Gastrointestinal: Normal Bowel Sounds, No Organomegaly, No Pulsatile Mass, Non Tender, Soft Back: Normal Inspection, No CVA Tenderness, No Vertebral Tenderness Extremity: Normal Capillary Refill, Normal Inspection, Normal Range of Motion, Non Tender, No Calf Tenderness, Pedal Edema Neurologic/Psychiatric: Alert, Oriented x3, No Motor/Sensory Deficits, Normal Mood/Affect, Motor Weakness (generalized all extremities) Skin: Normal Color, Warm/Dry, Rash (lower legs) Lymphatic: No Adenopathy Results/Procedures Lab Patient resulted labs reviewed. FIM Transfers Therapy Code Descriptions/Definitions Functional [place] Measure: 0=Not Assessed/NA 4=Minimal Assistance 1=Total Assistance 5=Supervision or Setup 2=Maximal Assistance 6=Modified [place] 3=Moderate Assistance 7=Complete IndependenceSCALE: Activities may be completed with or without assistive devices. 9-Uqplrzlupm-ubmuzlq completes the activity by him/herself with no assistance from a helper. 5-Set-up or Clean-up Assistance-helper sets up or cleans up; patient completes activity. [place] assists only prior to or following the activity. 4-Supervision or Touching Assistance-helper provides verbal cues and/or touching/steadying and/or contact guard assistance as patient completes activity. Assistance may be provided throughout the activity or intermittently. 3-Partial/Moderate Assistance-helper does LESS THAN HALF the effort. [place] lifts, holds or supports trunk or limbs, but provides less than half the effort. 2-Substantial/Maximal Assistance-helper does MORE THAN HALF the effort. [place] lifts or holds trunk or limbs and provides more than half the effort. 0-Ibfbeuwlc-jgkqnm does ALL the effort. Patient does none of the effort to complete the activity. Or, the assistance of 2 or more helpers is required for the patient to complete the activity. If activity was not attempted, code reason: 7-Patient Refused. 9-Not Applicable-not attempted and the patient did not perform the activity before the current illness, exacerbation or injury. 10-Not Attempted due to Environmental Limitations-(lack of equipment, weather restraints, etc.). 88-Not Attempted due to Medical Conditions or Safety Concerns. Roll Left to Right (QC): 6 Sit to Lying (QC): 6 Sit to Stand (QC): 6 Chair/Aqk-pq-Lmrfg Xfer(QC): 4 Car Transfer (QC): 4 Gait Training Does the Patient Walk?: Yes Distance: 180ft Walk 10 feet (QC): 5 Walk 50 ft with 2 Turns(QC): 5 Walk 150 ft (QC): 5 Walking 10ft/uneven surface-QC: 4 Gait Assistive Device: FWW Wheelchair Training Does the Pt Use a Wheelchair?: No Wheel 50 ft with 2 turns (QC): 9 Wheel 150 ft (QC): 9 Stair Training #of Steps: 1 1 Step (curb) (QC): 3 4 Steps (QC): 88 12 Steps (QC): 88 Balance Picking up an Object (QC): 88 ADL-Treatment Eating (QC): 6 Oral Hygiene (QC): 4 (SBA in stance. ) Bathing Location: L Arm, R Arm, L Upper Leg, R Upper Leg, Chest, Abdomen, Perineal Area Shower/Bathe Self (QC): 3 (min A: pt able to reach all areas, CGA in stance, min A for bottom hygiene due to decreased balance in stance. ) Upper Body Dressing (QC): 5 Lower Body Dressing (QC): 3 (min A threading over LLE due to wounds. Pt pulls up in stance with CGA.) On/Off Footwear (QC): 3 (Pt able to doff with mod I/ dressing stick. Due to wounds (uncoered post-shower), OT dons socks for pt. Pt typically dons with sock aide. ) Toileting Hygiene (QC): 2 (max A bottom hygiene in stance during shower.) Toilet Transfer (QC): 4 (demonstration by OT/ PT prior to sit on sc, pt demonstrates ability/ safety with SBA) Assessment/Plan Assessment and Plan Assess & Plan/Chief Complaint Assessment: Debility NSTEMI CAD Refusal of cardiac cath for definitive treatment CRI DM new onset hga1c 6.8 Lower leg cellulitis Venous stasis dermatitis Plan: Monitor creat IRF protocol Monitor chest pain 06/20/20: Rash management with abx and dressing changes Increase potassium to TID with meals DC accuchecks 06/21/20: Improved status Add Norvasc for elevated BP 06/22/20: Improved status Monitor BP Dressing changes (1) NSTEMI (non-ST elevated myocardial infarction) Status: Acute (2) OSWALDO (acute kidney injury) (3) DMII (diabetes mellitus, type 2) (4) Venous stasis dermatitis of both lower extremities (5) Bilateral lower leg cellulitis Status: Acute (6) Bilateral leg edema Status: Acute (7) HTN (hypertension) Status: Acute BRIAN GAN DO Jun 22, 2020 13:56
--- NOTE | 2020-06-22 15:30 | NUR ---
FLU VACCINE OFFERED, BUT DECLINED AT THIS TIME.
[2020-06-22 17:26] VITALS: BP 168/72
--- NOTE | 2020-06-22 19:04 | NUR ---
Bedside report received from LYNN POLK, assume care of pt
[2020-06-22] MEDS: MELATONIN 3 MG TABLET PO PRN (20:32)
--- NOTE | 2020-06-22 20:32 | NUR ---
Pt refused COLACE, Miralax & Senokot, stating had stool today
[2020-06-23 05:21] VITALS: BP 165/71
[2020-06-23] MEDS: DOXYCYCLINE 100 MG (VIBRAMYCIN) TABLET PO SCH ×2 (06:08→17:37)
--- NOTE | 2020-06-23 07:30 | PM&R Progress Note ---
Subjective HPI/CC On Admission Date Seen by Provider: Jun 23, 2020 Time Seen by Provider: 12:30 Subjective/Events-last exam 06/23/20: BP still a bit high at 150's but just started Norvasc BM+ No pain reported Dressing change of legs going well 06/22/20: Diarrhea is improved Legs improved Dressing changes daily 06/21/20: No new issues Dressing to legs improved Podiatry consultation done BP 165 so added Norvasc Patient had a good night Legs are improved overall and dressing changes maintained Potassium 3.1 so increased PO supplement Creat 1.89 Loose stools noted Checked meds and labs Conferred with RN Reviewed therapy notes Review of Systems General: Fatigue Neurological: Weakness Objective Exam Vital Signs Vital Signs Date Time Temp Pulse Resp B/P (MAP) Pulse Ox O2 Delivery O2 Flow Rate FiO2 06/23/20 09:00 Room Air 06/23/20 05:21 36.1 69 18 165/71 (102) 94 Capillary Refill : Less Than 3 Seconds General Appearance: No Apparent Distress, WD/WN, Chronically ill HEENT: PERRL/EOMI, Normal ENT Inspection, Pharynx Normal Neck: Full Range of Motion, Normal Inspection, Non Tender, Supple, Carotid Bruit Respiratory: Chest Non Tender, Lungs Clear, Normal Breath Sounds, No Accessory Muscle Use, No Respiratory Distress Cardiovascular: Regular Rate, Rhythm, No Gallop, No JVD, No Murmur, Normal Peripheral Pulses Gastrointestinal: Normal Bowel Sounds, No Organomegaly, No Pulsatile Mass, Non Tender, Soft Back: Normal Inspection, No CVA Tenderness, No Vertebral Tenderness Extremity: Normal Capillary Refill, Normal Inspection, Normal Range of Motion, Non Tender, No Calf Tenderness, Pedal Edema Neurologic/Psychiatric: Alert, Oriented x3, No Motor/Sensory Deficits, Normal Mood/Affect, Motor Weakness (generalized all extremities) Skin: Normal Color, Warm/Dry, Rash (lower legs) Lymphatic: No Adenopathy Results/Procedures Lab Patient resulted labs reviewed. FIM Transfers Therapy Code Descriptions/Definitions Functional [place] Measure: 0=Not Assessed/NA 4=Minimal Assistance 1=Total Assistance 5=Supervision or Setup 2=Maximal Assistance 6=Modified [place] 3=Moderate Assistance 7=Complete IndependenceSCALE: Activities may be completed with or without assistive devices. 0-Wvokuutfpd-ttjyhtr completes the activity by him/herself with no assistance from a helper. 5-Set-up or Clean-up Assistance-helper sets up or cleans up; patient completes activity. [place] assists only prior to or following the activity. 4-Supervision or Touching Assistance-helper provides verbal cues and/or touching/steadying and/or contact guard assistance as patient completes activity. Assistance may be provided throughout the activity or intermittently. 3-Partial/Moderate Assistance-helper does LESS THAN HALF the effort. [place] lifts, holds or supports trunk or limbs, but provides less than half the effort. 2-Substantial/Maximal Assistance-helper does MORE THAN HALF the effort. [place] lifts or holds trunk or limbs and provides more than half the effort. 5-Euvsyefkr-zwlpcj does ALL the effort. Patient does none of the effort to complete the activity. Or, the assistance of 2 or more helpers is required for the patient to complete the activity. If activity was not attempted, code reason: 7-Patient Refused. 9-Not Applicable-not attempted and the patient did not perform the activity before the current illness, exacerbation or injury. 10-Not Attempted due to Environmental Limitations-(lack of equipment, weather restraints, etc.). 88-Not Attempted due to Medical Conditions or Safety Concerns. Roll Left to Right (QC): 6 Sit to Lying (QC): 6 Sit to Stand (QC): 6 Chair/Viy-rt-Nbxja Xfer(QC): 4 Car Transfer (QC): 4 Gait Training Does the Patient Walk?: Yes Distance: 180ft Walk 10 feet (QC): 5 Walk 50 ft with 2 Turns(QC): 5 Walk 150 ft (QC): 5 Walking 10ft/uneven surface-QC: 4 Gait Assistive Device: FWW Wheelchair Training Does the Pt Use a Wheelchair?: No Wheel 50 ft with 2 turns (QC): 9 Wheel 150 ft (QC): 9 Stair Training #of Steps: 1 1 Step (curb) (QC): 3 4 Steps (QC): 88 12 Steps (QC): 88 Balance Picking up an Object (QC): 88 ADL-Treatment Eating (QC): 6 Oral Hygiene (QC): 4 (SBA in stance. ) Bathing Location: L Arm, R Arm, L Upper Leg, R Upper Leg, Chest, Abdomen, Perineal Area Shower/Bathe Self (QC): 3 (min A: pt able to reach all areas, CGA in stance, min A for bottom hygiene due to decreased balance in stance. ) Upper Body Dressing (QC): 5 Lower Body Dressing (QC): 3 (min A threading over LLE due to wounds. Pt pulls up in stance with CGA.) On/Off Footwear (QC): 3 (Pt able to doff with mod I/ dressing stick. Due to wounds (uncoered post-shower), OT dons socks for pt. Pt typically dons with sock aide. ) Toileting Hygiene (QC): 2 (max A bottom hygiene in stance during shower.) Toilet Transfer (QC): 4 (demonstration by OT/ PT prior to sit on sc, pt demonstrates ability/ safety with SBA) Assessment/Plan Assessment and Plan Assess & Plan/Chief Complaint Assessment: Debility NSTEMI CAD Refusal of cardiac cath for definitive treatment CRI DM new onset hga1c 6.8 Lower leg cellulitis Venous stasis dermatitis Plan: Monitor creat IRF protocol Monitor chest pain 06/20/20: Rash management with abx and dressing changes Increase potassium to TID with meals DC accuchecks 06/21/20: Improved status Add Norvasc for elevated BP 06/22/20: Improved status Monitor BP Dressing changes 06/23/20: Monitor BP Dressing changes to legs Complete abx Check labs in am (1) NSTEMI (non-ST elevated myocardial infarction) Status: Acute (2) OSWALDO (acute kidney injury) (3) DMII (diabetes mellitus, type 2) (4) Venous stasis dermatitis of both lower extremities (5) Bilateral lower leg cellulitis Status: Acute (6) Bilateral leg edema Status: Acute (7) HTN (hypertension) Status: Acute BRIAN GAN DO Jun 23, 2020 07:30
[2020-06-23] MEDS: SENNA W/DOCUSATE (SENOKOT S) TABLET PO SCH ×2 (08:28→20:39)
[2020-06-23] MEDS: polyethylene glycoL POWDER 17 GM (MIRALAX) PACK PO SCH ×2 (08:28→20:39)
[2020-06-23] MEDS: DOCUSATE SODIUM 100 MG (COLACE) CAP PO SCH ×2 (08:28→20:39)
[2020-06-23] MEDS: KCL 10 MEQ TAB (MICRO K) PO SCH ×3 (08:32→17:37)
[2020-06-23] MEDS: amLODIPine 5 MG (NORVASC) TAB PO SCH (08:32)
[2020-06-23] MEDS: CLOPIDOGREL 75 MG (PLAVIX) TABLET PO SCH (08:32)
[2020-06-23] MEDS: ASPIRIN E.C. 325 MG (ECOTRIN) TABLET PO SCH (08:32)
[2020-06-23] MEDS: CATHETER FLUSH 10 ML SYR IV SCH ×2 (12:27→22:05)
[2020-06-23 17:16] VITALS: BP 143/71
--- NOTE | 2020-06-23 19:04 | NUR ---
Bedside report received from EUFEMIA POLK, assume care of pt
[2020-06-23] MEDS: MELATONIN 3 MG TABLET PO PRN ×2 (20:26→20:38)
--- NOTE | 2020-06-23 20:28 | NUR ---
pt refused Colace, Miralax & Senokot, remains up in the recline with legs elevated & on pillows
[2020-06-24 05:04] VITALS: BP 150/68
[2020-06-24 05:34] LABS: BASOPHILS % (AUTO) 1 % (0-10); EOSINOPHILS # (AUTO) 0.3 10^3/uL (0.0-0.3); EOSINOPHILS % (AUTO) 4 % (0-10); HEMATOCRIT 39 % (40-54); HEMOGLOBIN 12.6 g/dL (13.3-17.7); LYMPHOCYTES # (AUTO) 1.4 10^3/uL (1.0-4.0); LYMPHOCYTES % (AUTO) 18 % (12-44); MEAN CORPUSCULAR HEMOGLOBIN 28 pg (25-34); MEAN CORPUSCULAR HGB CONC 32 g/dL (32-36); MEAN CORPUSCULAR VOLUME 85 fL (80-99); MEAN PLATELET VOLUME 10.5 fL (9.0-12.2); MONOCYTES # (AUTO) 0.7 10^3/uL (0.0-1.0); MONOCYTES % (AUTO) 10 % (0-12); NEUTROPHILS # (AUTO) 5.2 10^3/uL (1.8-7.8); NEUTROPHILS % (AUTO) 68 % (42-75); PLATELET COUNT 239 10^3/uL (130-400); WHITE BLOOD COUNT 7.7 10^3/uL (4.3-11.0)
[2020-06-24 05:44] LABS: ALBUMIN 3.4 GM/DL (3.2-4.5)
[2020-06-24 05:46] LABS: CALCIUM 8.1 MG/DL (8.5-10.1)
[2020-06-24 05:47] LABS: TOTAL PROTEIN 6.8 GM/DL (6.4-8.2)
[2020-06-24 05:49] LABS: BILIRUBIN,TOTAL 0.8 MG/DL (0.1-1.0)
[2020-06-24 05:51] LABS: CREATININE SERUM 1.56 MG/DL (0.60-1.30)
[2020-06-24] MEDS: DOXYCYCLINE 100 MG (VIBRAMYCIN) TABLET PO SCH ×2 (06:01→17:51)
[2020-06-24] MEDS: CATHETER FLUSH 10 ML SYR IV SCH ×3 (06:02→22:00)
--- NOTE | 2020-06-24 08:19 | PM&R Progress Note ---
Subjective HPI/CC On Admission Date Seen by Provider: Jun 24, 2020 Time Seen by Provider: 08:30 Subjective/Events-last exam 06/24/20: Creatinine 1.56 on labs today Norvasc of 5mg maintaining BP of 150s Bowels are moving okay Dressing changes maintained 06/23/20: BP still a bit high at 150's but just started Norvasc BM+ No pain reported Dressing change of legs going well 06/22/20: Diarrhea is improved Legs improved Dressing changes daily 06/21/20: No new issues Dressing to legs improved Podiatry consultation done BP 165 so added Norvasc Patient had a good night Legs are improved overall and dressing changes maintained Potassium 3.1 so increased PO supplement Creat 1.89 Loose stools noted Checked meds and labs Conferred with RN Reviewed therapy notes Review of Systems Neurological: Weakness, Incoordination Objective Exam Vital Signs Vital Signs Date Time Temp Pulse Resp B/P (MAP) Pulse Ox O2 Delivery O2 Flow Rate FiO2 06/24/20 20:00 Room Air 06/24/20 18:00 36.4 63 18 141/63 (89) 100 Capillary Refill : Less Than 3 Seconds General Appearance: No Apparent Distress, WD/WN, Chronically ill HEENT: PERRL/EOMI, Normal ENT Inspection, Pharynx Normal Neck: Full Range of Motion, Normal Inspection, Non Tender, Supple, Carotid Bruit Respiratory: Chest Non Tender, Lungs Clear, Normal Breath Sounds, No Accessory Muscle Use, No Respiratory Distress Cardiovascular: Regular Rate, Rhythm, No Gallop, No JVD, No Murmur, Normal Peripheral Pulses Gastrointestinal: Normal Bowel Sounds, No Organomegaly, No Pulsatile Mass, Non Tender, Soft Back: Normal Inspection, No CVA Tenderness, No Vertebral Tenderness Extremity: Normal Capillary Refill, Normal Inspection, Normal Range of Motion, Non Tender, No Calf Tenderness, Pedal Edema Neurologic/Psychiatric: Alert, Oriented x3, No Motor/Sensory Deficits, Normal Mood/Affect, Motor Weakness (generalized all extremities) Skin: Normal Color, Warm/Dry, Rash (lower legs) Lymphatic: No Adenopathy Results/Procedures Lab Patient resulted labs reviewed. FIM Transfers Therapy Code Descriptions/Definitions Functional [place] Measure: 0=Not Assessed/NA 4=Minimal Assistance 1=Total Assistance 5=Supervision or Setup 2=Maximal Assistance 6=Modified [place] 3=Moderate Assistance 7=Complete IndependenceSCALE: Activities may be completed with or without assistive devices. 1-Pdlryegpyx-wniejtd completes the activity by him/herself with no assistance from a helper. 5-Set-up or Clean-up Assistance-helper sets up or cleans up; patient completes activity. [place] assists only prior to or following the activity. 4-Supervision or Touching Assistance-helper provides verbal cues and/or touching/steadying and/or contact guard assistance as patient completes activity . Assistance may be provided throughout the activity or intermittently. 3-Partial/Moderate Assistance-helper does LESS THAN HALF the effort. [place] lifts, holds or supports trunk or limbs, but provides less than half the effort. 2-Substantial/Maximal Assistance-helper does MORE THAN HALF the effort. [place] lifts or holds trunk or limbs and provides more than half the effort. 6-Crzcspmqg-bpkiai does ALL the effort. Patient does none of the effort to complete the activity. Or, the assistance of 2 or more helpers is required for the patient to complete the activity. If activity was not attempted, code reason: 7-Patient Refused. 9-Not Applicable-not attempted and the patient did not perform the activity before the current illness, exacerbation or injury. 10-Not Attempted due to Environmental Limitations-(lack of equipment, weather restraints, etc.). 88-Not Attempted due to Medical Conditions or Safety Concerns. Roll Left to Right (QC): 6 Sit to Lying (QC): 6 Sit to Stand (QC): 6 Chair/Skf-km-Gvlye Xfer(QC): 4 Car Transfer (QC): 4 Gait Training Does the Patient Walk?: Yes Distance: 180ft Walk 10 feet (QC): 5 Walk 50 ft with 2 Turns(QC): 5 Walk 150 ft (QC): 5 Walking 10ft/uneven surface-QC: 4 Gait Assistive Device: FWW Wheelchair Training Does the Pt Use a Wheelchair?: No Wheel 50 ft with 2 turns (QC): 9 Wheel 150 ft (QC): 9 Stair Training #of Steps: 1 1 Step (curb) (QC): 3 4 Steps (QC): 88 12 Steps (QC): 88 Balance Picking up an Object (QC): 88 ADL-Treatment Eating (QC): 6 Oral Hygiene (QC): 4 (SBA in stance. ) Bathing Location: L Arm, R Arm, L Upper Leg, R Upper Leg, Chest, Abdomen, Perineal Area Shower/Bathe Self (QC): 3 (min A: pt able to reach all areas, CGA in stance, min A for bottom hygiene due to decreased balance in stance. ) Upper Body Dressing (QC): 5 Lower Body Dressing (QC): 3 (min A threading over LLE due to wounds. Pt pulls up in stance with CGA.) On/Off Footwear (QC): 3 (Pt able to doff with mod I/ dressing stick. Due to wounds (uncoered post-shower), OT dons socks for pt. Pt typically dons with sock aide. ) Toileting Hygiene (QC): 2 (max A bottom hygiene in stance during shower.) Toilet Transfer (QC): 4 (demonstration by OT/ PT prior to sit on sc, pt demonstrates ability/ safety with SBA) Assessment/Plan Assessment and Plan Assess & Plan/Chief Complaint Assessment: Debility NSTEMI CAD Refusal of cardiac cath for definitive treatment CRI DM new onset hga1c 6.8 Lower leg cellulitis Venous stasis dermatitis Plan: Monitor creat IRF protocol Monitor chest pain 06/20/20: Rash management with abx and dressing changes Increase potassium to TID with meals DC accuchecks 06/21/20: Improved status Add Norvasc for elevated BP 06/22/20: Improved status Monitor BP Dressing changes 06/23/20: Monitor BP Dressing changes to legs Complete abx Check labs in am 06/24/20: Labs stable Dressing changes helping heal stasis dermatitis (1) NSTEMI (non-ST elevated myocardial infarction) Status: Acute (2) OSWALDO (acute kidney injury) (3) DMII (diabetes mellitus, type 2) (4) Venous stasis dermatitis of both lower extremities (5) Bilateral lower leg cellulitis Status: Acute (6) Bilateral leg edema Status: Acute (7) HTN (hypertension) Status: Acute BRIAN GAN DO Jun 24, 2020 08:18
--- NOTE | 2020-06-24 08:34 | Cardiology Progress Note ---
Subjective Date Seen by Provider: Jun 24, 2020 Time Seen by Provider: 08:32 Subjective/Events-last exam Patient with PT, denies any chest pain or dyspnea. Review of Systems General: No Chills, No Night Sweats; Fatigue; No Malaise, No Appetite, No Other HEENT: No Head Aches, No Visual Changes, No Eye Pain, No Ear Pain, No Dysphasia, No Sinus Congestion, No Post Nasal Drip, No Sore Throat, No Other Pulmonary: No Dyspnea, No Cough, No Pleuritic Chest Pain, No Other Cardiovascular: No: Chest Pain, Palpitations, Orthopnea, Paroxysmal Noc. Dyspnea, Edema, Lt Headedness, Other Objective-Cardiology Exam Last Set of Vital Signs Vital Signs 06/24/20 06/24/20 05:04 09:00 Temp 36.2 Pulse 68 Resp 20 B/P (MAP) 150/68 (95) Pulse Ox 95 O2 Delivery Room Air Capillary Refill : Less Than 3 Seconds I&O Intake and Output 06/24/20 00:00 Intake Total 2250 ml Balance 2250 ml Intake Oral 2250 ml # Voids 8 # Bowel Movements 1 General: Alert, Oriented X3, Cooperative HEENT: Atraumatic, PERRLA Neck: Supple, No JVD, No Thyromegaly Lungs: Clear to Auscultation, Normal Air Movement Heart: Regular Rate, Normal S1, Normal S2, No Murmurs Abdomen: Normal Bowel Sounds, Soft, No Tenderness, No Hepatosplenomegaly, No Masses Extremities: No Clubbing, No Cyanosis, No Edema, Normal Pulses, No Tenderness/Swelling Skin: Other (C/D/I dressing to BLE extremity) Neuro: Normal Speech, Cranial Nerves 3-12 NL Psych/Mental Status: Mental Status NL, Mood NL Results Lab Laboratory Tests 06/24/20 04:30 A/P-Cardiology Admission Diagnosis BLE venous ulcers HTN HLP DM Assessment/Plan Bilateral lower extremity venous ulcers, defer to the wound service as well as general surgery. Positive troponin without any significant cardiac symptoms. Echocardiogram shows normal LV function. Nuclear stress test done 06/14/2020 showed possible anterior apical ischemia. I discussed at length with the patient and recommended coronary angiography and possible intervention. The patient refused. He understands the risk of WA and even . Patient initially was refusing the procedure, he indicated that he will discuss it with his son and let me know if he agreed on having the procedure done HTN, mildy elevated, started on Norvasc on 06/22/2020. Continue to monitor. HLP,maintained on statin. continue to monitor CRI DM Patient was seen and evaluated with Corinna, examination performed, management plan was discussed, agree with the current scribed note, I made few changes to the note using Italic font Cardiomyopathy, possible ischemic, discussed the need for cardiac catheterization again with the patient, patient will discuss it with his son is know the decision Clinical Quality Measures DVT/VTE Risk/Contraindication: Risk Factor Score Per Nursin RFS Level Per Nursing on Admit: 4+=Very High CORINNA MARIA Jun 24, 2020 8:34 am RHONDA FERNANDEZ MD Jun 24, 2020 12:11 pm
--- NOTE | 2020-06-24 09:04 | Physical Therapy Daily Note ---
PT Daily Note-Current Subjective Pt. agrees to Rx, states he still gets tired with Rx but feels "now that was really a work out" Pain Location: No Pain Reported Mental Status Patient Orientation: Normal For Age Transfers SCALE: Activities may be completed with or without assistive devices. 5-Adrjfztche-busmdma completes the activity by him/herself with no assistance from a helper. 5-Set-up or Clean-up Assistance-helper sets up or cleans up; patient completes activity. [place] assists only prior to or following the activity. 4-Supervision or Touching Assistance-helper provides verbal cues and/or touching/steadying and/or contact guard assistance as patient completes activity. Assistance may be provided throughout the activity or intermittently. 3-Partial/Moderate Assistance-helper does LESS THAN HALF the effort. [place] lifts, holds or supports trunk or limbs, but provides less than half the effort. 2-Substantial/Maximal Assistance-helper does MORE THAN HALF the effort. [place] l ifts or holds trunk or limbs and provides more than half the effort. 0-Uxeibhatb-bzgiza does ALL the effort. Patient does none of the effort to complete the activity. Or, the assistance of 2 or more helpers is required for the patient to complete the activity. If activity was not attempted, code reason: 7-Patient Refused. 9-Not Applicable-not attempted and the patient did not perform the activity before the current illness, exacerbation or injury. 10-Not Attempted due to Environmental Limitations-(lack of equipment, weather restraints, etc.). 88-Not Attempted due to Medical Conditions or Safety Concerns. Roll Left & Right (QC): 6 Sit to Lying (QC): 6 Lying to Sitting/Side of Bed(Q: 6 Sit to Stand (QC): 6 Chair/Fau-tq-Otffl Xfer(QC): 6 Gait Training Does the Patient Walk?: Yes Walk 10 feet (QC): 4 Walk 50 ft with 2 Turns(QC): 4 Gait Persons Needed: 1 Gait Assistive Device: FWW [id number], 50ft x 3, FWW CGA , pt fatigues and asks for sit break, decreased DF , pt. is careful and compensates with hip flexion each step Exercises Supine Ex: Bridging, Ankle pumps, Quad Set, Rolling, Glut sets, Heel Slides, Short Arc Quads, Straight leg raise, Hip abd/add Supine Reps: 15 Seated Therapy Exercises: Ankle pumps, Sit to stand, Long arc quads, Hip flexion Seated Reps: 15 NuStep Minutes: 8 NuStep Workload: 2 Treatments toileted in standing with CGA Assessment Current Status: Good Progress PT Short Term Goals Short Term Goals Time Frame: Jun 26, 2020 Roll Left & Right: 6 Sit to lyin Lying to sitting on side of be: 6 Sit to stand: 4 Chair/ayj-dh-ccqqb transfer: 4 Walk 10 feet: 4 (SBA) Walk 50 feet with two turns: 4 (SBA) Walk 150 feet: 4 (SBA) PT Scale Mechanic Goals Mcfp Goals PT Scale Mechanic Goals Time Frame: Jul 10, 2020 Roll Left & Right (QC): 6 Sit to Lying (QC): 6 Lying-Sitting on Side/Bed(QC): 6 Sit to Stand (QC): 6 Chair/Qwo-ga-Zctcp Xfer(QC): 6 Toilet Transfer (QC): 6 Car Transfer (QC): 6 Does the Patient Walk: Yes Walk 10 feet (QC): 6 Walk 50ft with 2 Turns (QC): 6 Walk 150 ft (QC): 6 Walking 10ft on Uneven Surface: 6 1 Step (curb) (QC): 4 4 Steps (QC): 4 12 Steps (QC): 88 Picking up an Object (QC): 88 Wheel 50 feet with 2 turns (QC: 9 Wheel 150 feet: 9 PT Plan Treatment/Plan Treatment Plan: Continue Plan of Care Treatment Plan: Bed Mobility, Education, Functional Activity Steph, Functional Strength, Group Therapy, Gait, Safety, Therapeutic Exercise, Transfers Treatment Duration: Jul 10, 2020 Frequency: At least 5 of 7 days/Wk (IRF) Estimated Hrs Per Day: 1.5 hours per day Patient and/or Family Agrees t: Yes Safety Risks/Education Patient Education: Gait Training, Transfer Techniques, Correct Positioning, Disease Process, Safety Issues Teaching Recipient: Patient Teaching Methods: Demonstration, Discussion Response to Teaching: Verbalize Understanding, Return Demonstration, Reinforcement Needed Time/GCodes Time In: 800 Time Out: 900 Total Billed Treatment Time: 60 Total Billed Treatment 1,EX35m,GT15m,FA10m YESI BARNHART GUN FITTER Jun 24, 2020 09:04
[2020-06-24] MEDS: DOCUSATE SODIUM 100 MG (COLACE) CAP PO SCH ×2 (09:12→20:00)
[2020-06-24] MEDS: SENNA W/DOCUSATE (SENOKOT S) TABLET PO SCH ×2 (09:12→20:00)
[2020-06-24] MEDS: amLODIPine 5 MG (NORVASC) TAB PO SCH (09:12)
[2020-06-24] MEDS: KCL 10 MEQ TAB (MICRO K) PO SCH ×3 (09:12→17:51)
[2020-06-24] MEDS: CLOPIDOGREL 75 MG (PLAVIX) TABLET PO SCH (09:12)
[2020-06-24] MEDS: ASPIRIN E.C. 325 MG (ECOTRIN) TABLET PO SCH (09:12)
[2020-06-24] MEDS: polyethylene glycoL POWDER 17 GM (MIRALAX) PACK PO SCH ×2 (09:14→20:00)
--- NOTE | 2020-06-24 12:58 | NUR ---
CM/SS CONCURRENT DOCUMENTATION Reviewed EMR and observed patent participation with therapy team. Continues positive progress, no change in overall discharge to home plan at this time.
--- NOTE | 2020-06-24 13:26 | Occupational Ther Daily Note ---
OT Current Status-Daily Note Subjective No pain reported. Appearance Pt. up in chair. Agrees to work with OT. Mental Status/Objective Patient Orientation: Person, Place, Time, Situation ADL-Treatment Therapy Code Descriptions/Definitions Functional Day Measure: 0=Not Assessed/NA 4=Minimal Assistance 1=Total Assistance 5=Supervision or Setup 2=Maximal Assistance 6=Modified Day 3=Moderate Assistance 7=Complete IndependenceSCALE: Activities may be completed with or without assistive devices. 9-Nxtocaboin-swfncnc completes the activity by him/herself with no assistance from a helper. 5-Set-up or Clean-up Assistance-helper sets up or cleans up; patient completes activity. [place] assists only prior to or following the activity. 4-Supervision or Touching Assistance-helper provides verbal cues and/or touching/steadying and/or contact guard assistance as patient completes activity. Assistance may be provided throughout the activity or intermittently. 3-Partial/Moderate Assistance-helper does LESS THAN HALF the effort. [place] lifts, holds or supports trunk or limbs, but provides less than half the effort. 2-Substantial/Maximal Assistance-helper does MORE THAN HALF the effort. [place] lifts or holds trunk or limbs and provides more than half the effort. 1-Ohjidmbfg-ofcjnp does ALL the effort. Patient does none of the effort to complete the activity. Or, the assistance of 2 or more helpers is required for the patient to complete the activity. If activity was not attempted, code reason: 7-Patient Refused. 9-Not Applicable-not attempted and the patient did not perform the activity before the current illness, exacerbation or injury. 10-Not Attempted due to Environmental Limitations-(lack of equipment, weather restraints, etc.). 88-Not Attempted due to Medical Conditions or Safety Concerns. Shower/Bathe Self (QC): 4 Upper Body Dressing (QC): 5 Lower Body Dressing (QC): 4 (SBA with AE) On/Off Footwear: 4 (SBA with AE) Pt. agrees to shower this a.m. Coordinated with nursing for wounds on bilateral LE. Pt. able to transfer into shower with SBA and doff clothing using adaptive equipment. OT removed dressings and pt. able to shower self. Pt. dried and dressed self using AE, and then ambulated with CGA and walker to bed. OT assisted nursing by positioning LE for efficient wound care. Pt. able to transfer into/out of bed with SBA. Pt. ambulated to therapy gym with CGA and walker, with slow steps. Completed two sets x 5 minutes each on arm bike at min resistance. Completed to increase overall strength and independence with daily skills. Pt. ambulated back to room after this task, and transferred to reclining chair with all needs met. Education OT Patient Education: Correct positioning, Exercise program, Modified ADL techniques, Progress toward Goal/Update tx plan, Purpose of tx/functional activities, Reviewed precautions, Rehab process, Transfer techniques, Use of adapted equipment Teaching Recipient: Patient Teaching Methods: Demonstration, Discussion Response to Teaching: Verbalize Understanding, Return Demonstration OT Short Term Goals Short Term Goals Time Frame: Jun 26, 2020 Eatin Oral hygiene: 6 Toileting hygiene: 4 Shower/bathe self: 4 Upper body dressin Lower body dressin Putting on/taking off footwear: 4 (with AE) OT Airplane Rental Clerk Goals Airplane Rental Clerk Goals Time Frame: Jul 03, 2020 Eating (QC): 6 Oral Hygiene (QC): 6 Toileting Hygiene (QC): 6 Shower/Bathe Self (QC): 5 Upper Body Dressing (QC): 6 Lower Body Dressing (QC): 6 On/Off Footwear (QC): 6 Additional Goals: 1-Demonstrate ADL Tasks, 2-Verbalize Understanding, 3- ImproveStrength/Steph 1=Demonstrate adherence to instructed precautions during ADL tasks. 2=Patient will verbalize/demonstrate understanding of assistive devices/modifications for ADL. 3=Patient will improve strength/tolerance for activity to enable patient to perform ADL's. OT Education/Plan Problem List/Assessment Assessment: Decreased Activ Tolerance, Impaired I ADL's, Impaired Self-Care Skills Discharge Recommendations Plan/Recommendations: Continue POC Therapy Discharge Recommendati: Home & Family, Post Acute OT Treatment Plan/Plan of Care Treatment,Training & Education: Yes Patient would benefit from OT for education, treatment and training to promote independence in ADL's, mobility, safety and/or upper extremity function for ADL's. Plan of Care: ADL Retraining, Functional Mobility, Group Exercise/Act as Ind, UE Funct Exercise/Act Treatment Duration: Jul 03, 2020 Frequency: At least 5 of 7 days/Wk (IRF) Estimated Hrs Per Day: 1.5 hours per day Agreement: Yes Rehab Potential: Good Time/GCodes Start Time: 09:00 Stop Time: 10:30 Total Time Billed (hr/min): 90 Billed Treatment Time 1, ADL x 60minutes, Ex x 15minutes, FA x 15minutes JANET LYNCH OT Jun 24, 2020 13:26
--- NOTE | 2020-06-24 13:35 | Physical Therapy Daily Note ---
PT Daily Note-Current Subjective Pt agrees to Rx. States he wants to practice steps again soon. Pain Location: No Pain Reported Mental Status Patient Orientation: Normal For Age Attachments: Other-See Comments (mask) Transfers SCALE: Activities may be completed with or without assistive devices. 2-Hvnnchdloi-wlticzb completes the activity by him/herself with no assistance from a helper. 5-Set-up or Clean-up Assistance-helper sets up or cleans up; patient completes activity. [place] assists only prior to or following the activity. 4-Supervision or Touching Assistance-helper provides verbal cues and/or touching/steadying and/or contact guard assistance as patient completes activity. Assistance may be provided throughout the activity or intermittently. 3-Partial/Moderate Assistance-helper does LESS THAN HALF the effort. [place] lifts, holds or supports trunk or limbs, but provides less than half the effort. 2-Substantial/Maximal Assistance-helper does MORE THAN HALF the effort. [place] lifts or holds trunk or limbs and provides more than half the effort. 2-Bdydlyxmj-dvjdur does ALL the effort. Patient does none of the effort to complete the activity. Or, the assistance of 2 or more helpers is required for the patient to complete the activity. If activity was not attempted, code reason: 7-Patient Refused. 9-Not Applicable-not attempted and the patient did not perform the activity before the current illness, exacerbation or injury. 10-Not Attempted due to Environmental Limitations-(lack of equipment, weather restraints, etc.). 88-Not Attempted due to Medical Conditions or Safety Concerns. sit to stand x 6 trials all SBA Gait Training Does the Patient Walk?: Yes Gait Assistive Device: FWW 100x2, 60x2 FWW requiring rest breaks, CGA, poor DF, pt.compensates with hip flexion Stair Training Stair Training: Handrails/: 2 handrails #of Steps: 4 4 Steps (QC): 4 Stairs: Pattern: Step to CGA and sequence instruction for steps and rails, fatiguing for pt, but managed well Assessment Current Status: Good Progress rest breaks required PT Short Term Goals Short Term Goals Time Frame: Jun 26, 2020 Roll Left & Right: 6 Sit to lyin Lying to sitting on side of be: 6 Sit to stand: 4 Chair/kyl-cu-vgzzv transfer: 4 Walk 10 feet: 4 (SBA) Walk 50 feet with two turns: 4 (SBA) Walk 150 feet: 4 (SBA) PT Penitentiary Goals Penitentiary Goals PT Steam Distribution Supervisor Goals Time Frame: Jul 10, 2020 Roll Left & Right (QC): 6 Sit to Lying (QC): 6 Lying-Sitting on Side/Bed(QC): 6 Sit to Stand (QC): 6 Chair/Drx-cu-Fialj Xfer(QC): 6 Toilet Transfer (QC): 6 Car Transfer (QC): 6 Does the Patient Walk: Yes Walk 10 feet (QC): 6 Walk 50ft with 2 Turns (QC): 6 Walk 150 ft (QC): 6 Walking 10ft on Uneven Surface: 6 1 Step (curb) (QC): 4 4 Steps (QC): 4 12 Steps (QC): 88 Picking up an Object (QC): 88 Wheel 50 feet with 2 turns (QC: 9 Wheel 150 feet: 9 PT Plan Treatment/Plan Treatment Plan: Continue Plan of Care Treatment Plan: Bed Mobility, Education, Functional Activity Steph, Functional Strength, Group Therapy, Gait, Safety, Therapeutic Exercise, Transfers Treatment Duration: Jul 10, 2020 Frequency: At least 5 of 7 days/Wk (IRF) Estimated Hrs Per Day: 1.5 hours per day Patient and/or Family Agrees t: Yes Safety Risks/Education Patient Education: Gait Training, Transfer Techniques, Steps, Correct Positioning, Disease Process, Safety Issues Teaching Recipient: Patient Teaching Methods: Demonstration, Discussion Response to Teaching: Verbalize Understanding, Return Demonstration, Reinforcement Needed Time/GCodes Time In: 1300 Time Out: 1330 Total Billed Treatment Time: 30 Total Billed Treatment 1,GT15m,FA15m YESI BARNHART LASER BEAM MACHINE OPERATOR Jun 24, 2020 13:35
[2020-06-24 18:00] VITALS: BP 141/63
[2020-06-25] MEDS: CATHETER FLUSH 10 ML SYR IV SCH ×3 (06:10→22:00)
[2020-06-25 06:15] VITALS: BP 133/63
[2020-06-25] MEDS: DOXYCYCLINE 100 MG (VIBRAMYCIN) TABLET PO SCH ×2 (06:20→16:30)
[2020-06-25] MEDS: ASPIRIN E.C. 325 MG (ECOTRIN) TABLET PO SCH (08:24)
[2020-06-25] MEDS: KCL 10 MEQ TAB (MICRO K) PO SCH ×3 (08:24→16:35)
[2020-06-25] MEDS: polyethylene glycoL POWDER 17 GM (MIRALAX) PACK PO SCH ×2 (08:24→20:39)
[2020-06-25] MEDS: SENNA W/DOCUSATE (SENOKOT S) TABLET PO SCH ×2 (08:24→20:40)
[2020-06-25] MEDS: amLODIPine 5 MG (NORVASC) TAB PO SCH (08:24)
[2020-06-25] MEDS: DOCUSATE SODIUM 100 MG (COLACE) CAP PO SCH ×2 (08:24→20:39)
[2020-06-25] MEDS: CLOPIDOGREL 75 MG (PLAVIX) TABLET PO SCH (08:24)
--- NOTE | 2020-06-25 08:47 | PM&R Progress Note ---
Subjective HPI/CC On Admission Date Seen by Provider: Jun 25, 2020 Time Seen by Provider: 08:30 Subjective/Events-last exam 06/25/20: Daily dressing changes on the legs are required and they seem to be seeping through the dressing so will initiate a Dr. Seay wound consult Denies any new issues otherwise Bowels are moving well 06/24/20: Creatinine 1.56 on labs today Norvasc of 5mg maintaining BP of 150s Bowels are moving okay Dressing changes maintained 06/23/20: BP still a bit high at 150's but just started Norvasc BM+ No pain reported Dressing change of legs going well 06/22/20: Diarrhea is improved Legs improved Dressing changes daily 06/21/20: No new issues Dressing to legs improved Podiatry consultation done BP 165 so added Norvasc Patient had a good night Legs are improved overall and dressing changes maintained Potassium 3.1 so increased PO supplement Creat 1.89 Loose stools noted Checked meds and labs Conferred with RN Reviewed therapy notes Review of Systems General: Fatigue, Malaise Musculoskeletal: leg pain Objective Exam Vital Signs Vital Signs Date Time Temp Pulse Resp B/P (MAP) Pulse Ox O2 Delivery O2 Flow Rate FiO2 06/25/20 20:42 Room Air 06/25/20 15:36 36.8 64 16 147/68 (94) 98 Capillary Refill : Less Than 3 Seconds General Appearance: No Apparent Distress, WD/WN, Chronically ill HEENT: PERRL/EOMI, Normal ENT Inspection, Pharynx Normal Neck: Full Range of Motion, Normal Inspection, Non Tender, Supple, Carotid Bruit Respiratory: Chest Non Tender, Lungs Clear, Normal Breath Sounds, No Accessory Muscle Use, No Respiratory Distress Cardiovascular: Regular Rate, Rhythm, No Gallop, No JVD, No Murmur, Normal Peripheral Pulses Gastrointestinal: Normal Bowel Sounds, No Organomegaly, No Pulsatile Mass, Non Tender, Soft Back: Normal Inspection, No CVA Tenderness, No Vertebral Tenderness Extremity: Normal Capillary Refill, Normal Inspection, Normal Range of Motion, Non Tender, No Calf Tenderness, Pedal Edema Neurologic/Psychiatric: Alert, Oriented x3, No Motor/Sensory Deficits, Normal Mood/Affect, Motor Weakness (generalized all extremities) Skin: Normal Color, Warm/Dry, Rash (lower legs) Lymphatic: No Adenopathy Results/Procedures Lab Patient resulted labs reviewed. FIM Transfers Therapy Code Descriptions/Definitions Functional [place] Measure: 0=Not Assessed/NA 4=Minimal Assistance 1=Total Assistance 5=Supervision or Setup 2=Maximal Assistance 6=Modified [place] 3=Moderate Assistance 7=Complete IndependenceSCALE: Activities may be completed with or without assistive devices. 6-Qjlhjqtvot-obbbrfn completes the activity by him/herself with no assistance from a helper. 5-Set-up or Clean-up Assistance-helper sets up or cleans up; patient completes activity. [place] assists only prior to or following the activity. 4-Supervision or Touching Assistance-helper provides verbal cues and/or touching/steadying and/or contact guard assistance as patient completes activity. Assistance may be provided throughout the activity or intermittently. 3-Partial/Moderate Assistance-helper does LESS THAN HALF the effort. [place] lifts, holds or supports trunk or limbs, but provides less than half the effort. 2-Substantial/Maximal Assistance-helper does MORE THAN HALF the effort. [place] lifts or holds trunk or limbs and provides more than half the effort. 5-Tljnruoxc-mbxlii does ALL the effort. Patient does none of the effort to complete the activity. Or, the assistance of 2 or more helpers is required for the patient to complete the activity. If activity was not attempted, code reason: 7-Patient Refused. 9-Not Applicable-not attempted and the patient did not perform the activity before the current illness, exacerbation or injury. 10-Not Attempted due to Environmental Limitations-(lack of equipment, weather restraints, etc.). 88-Not Attempted due to Medical Conditions or Safety Concerns. Roll Left to Right (QC): 6 Sit to Lying (QC): 6 Sit to Stand (QC): 6 Chair/Fwi-mu-Saqdb Xfer(QC): 6 Car Transfer (QC): 4 Gait Training Does the Patient Walk?: Yes Distance: 180ft Walk 10 feet (QC): 4 Walk 50 ft with 2 Turns(QC): 4 Walk 150 ft (QC): 5 Walking 10ft/uneven surface-QC: 4 Gait Persons Needed: 1 Gait Assistive Device: FWW Wheelchair Training Wheel 50 ft with 2 turns (QC): 9 Wheel 150 ft (QC): 9 Stair Training Stair Training: Handrails/: 2 handrails #of Steps: 4 1 Step (curb) (QC): 3 4 Steps (QC): 4 12 Steps (QC): 88 Stairs: Pattern: Step to Balance Picking up an Object (QC): 88 ADL-Treatment Eating (QC): 6 Oral Hygiene (QC): 4 (SBA in stance. ) Bathing Location: L Arm, R Arm, L Upper Leg, R Upper Leg, Chest, Abdomen, Perineal Area Shower/Bathe Self (QC): 4 Upper Body Dressing (QC): 5 Lower Body Dressing (QC): 4 (SBA with AE) On/Off Footwear (QC): 4 (SBA with AE) Toileting Hygiene (QC): 2 (max A bottom hygiene in stance during shower.) Toilet Transfer (QC): 4 (demonstration by OT/ PT prior to sit on sc, pt demonstrates ability/ safety with SBA) Assessment/Plan Assessment and Plan Assess & Plan/Chief Complaint Assessment: Debility NSTEMI CAD Refusal of cardiac cath for definitive treatment CRI DM new onset hga1c 6.8 Lower leg cellulitis Venous stasis dermatitis Plan: Monitor creat IRF protocol Monitor chest pain 06/20/20: Rash management with abx and dressing changes Increase potassium to TID with meals DC accuchecks 06/21/20: Improved status Add Norvasc for elevated BP 06/22/20: Improved status Monitor BP Dressing changes 06/23/20: Monitor BP Dressing changes to legs Complete abx Check labs in am 06/24/20: Labs stable Dressing changes helping heal stasis dermatitis 06/25/20: Wound care to legs Monitor BP (1) NSTEMI (non-ST elevated myocardial infarction) Status: Acute (2) OSWALDO (acute kidney injury) (3) DMII (diabetes mellitus, type 2) (4) Venous stasis dermatitis of both lower extremities (5) Bilateral lower leg cellulitis Status: Acute (6) Bilateral leg edema Status: Acute (7) HTN (hypertension) Status: Acute BRIAN GAN DO Jun 25, 2020 08:47
--- NOTE | 2020-06-25 10:54 | NUR ---
DR. ROSE WILL SEE PATIENT LATER THIS AFTERNOON.
--- NOTE | 2020-06-25 11:29 | Occupational Ther Daily Note ---
OT Current Status-Daily Note Subjective No pain reported. Appearance Pt. up in chair. Agrees to work with OT. Mental Status/Objective Patient Orientation: Person, Place, Time, Situation ADL-Treatment Therapy Code Descriptions/Definitions Functional [place] Measure: 0=Not Assessed/NA 4=Minimal Assistance 1=Total Assistance 5=Supervision or Setup 2=Maximal Assistance 6=Modified [place] 3=Moderate Assistance 7=Complete IndependenceSCALE: Activities may be completed with or without assistive devices. 1-Ykxoipajzi-xwrlldh completes the activity by him/herself with no assistance from a helper. 5-Set-up or Clean-up Assistance-helper sets up or cleans up; patient completes activity. [place] assists only prior to or following the activity. 4-Supervision or Touching Assistance-helper provides verbal cues and/or touching/steadying and/or contact guard assistance as patient completes activity. Assistance may be provided throughout the activity or intermittently. 3-Partial/Moderate Assistance-helper does LESS THAN HALF the effort. [place] lifts, holds or supports trunk or limbs, but provides less than half the effort. 2-Substantial/Maximal Assistance-helper does MORE THAN HALF the effort. [place] lifts or holds trunk or limbs and provides more than half the effort. 1-Ptkzhrotc-gyxnkr does ALL the effort. Patient does none of the effort to complete the activity. Or, the assistance of 2 or more helpers is required for the patient to complete the activity. If activity was not attempted, code reason: 7-Patient Refused. 9-Not Applicable-not attempted and the patient did not perform the activity before the current illness, exacerbation or injury. 10-Not Attempted due to Environmental Limitations-(lack of equipment, weather restraints, etc.). 88-Not Attempted due to Medical Conditions or Safety Concerns. Toileting Hygiene (QC): 2 Toilet Transfer (QC): 4 Pt. is dressed from last night, and states that he will shower tomorrow. Pt. agrees to work with OT. Stands at walker with CGA, and ambulates to toilet. Pt. able to transfer with CGA, and is able to have BM. Pt. does attempt to clean self in sitting and in standing, but due to set up of bathroom, is unable to efficiently do this. Pt. stands with CGA and OT cleanses bottom. Pt. is able to pull up pants while OT is assisting with balance. Pt. stands at sink to wash hands. Ambulates with slow gait to therapy gym. Tolerates 15 minutes at m in resistance on arm bike to increase overall strength with daily tasks. Pt. dons 1 lb. wrist weights and completes arm exercise with reciprocal movements, back/forth for increased strengthening. While doing this, pt. participates in "[employer]" game for home safety education. Pt. educated on home safety, and activities to make situations safer and easier. Pt. verbalizes understanding. Pt. ambulates with CGA back to room. All needs met. Education OT Patient Education: Correct positioning, Exercise program, Modified ADL techniques, Progress toward Goal/Update tx plan, Purpose of tx/functional ac tivities, Reviewed precautions, Rehab process, Transfer techniques Teaching Recipient: Patient Teaching Methods: Demonstration, Discussion Response to Teaching: Verbalize Understanding, Return Demonstration OT Short Term Goals Short Term Goals Time Frame: Jun 26, 2020 Eatin Oral hygiene: 6 Toileting hygiene: 4 Shower/bathe self: 4 Upper body dressin Lower body dressin Putting on/taking off footwear: 4 (with AE) OT Glass Curvature Gauger Goals [facility] Goals Time Frame: Jul 03, 2020 Eating (QC): 6 Oral Hygiene (QC): 6 Toileting Hygiene (QC): 6 Shower/Bathe Self (QC): 5 Upper Body Dressing (QC): 6 Lower Body Dressing (QC): 6 On/Off Footwear (QC): 6 Additional Goals: 1-Demonstrate ADL Tasks, 2-Verbalize Understanding, 3- ImproveStrength/Steph 1=Demonstrate adherence to instructed precautions during ADL tasks. 2=Patient will verbalize/demonstrate understanding of assistive devices/modifications for ADL. 3=Patient will improve strength/tolerance for activity to enable patient to perform ADL's. OT Education/Plan Problem List/Assessment Assessment: Decreased Activ Tolerance, Dependent Transfers, Impaired I ADL's, Impaired Self-Care Skills Discharge Recommendations Plan/Recommendations: Continue POC Therapy Discharge Recommendati: Home & Family, Post Acute OT Treatment Plan/Plan of Care Treatment,Training & Education: Yes Patient would benefit from OT for education, treatment and training to promote independence in ADL's, mobility, safety and/or upper extremity function for ADL's. Plan of Care: ADL Retraining, Functional Mobility, Group Exercise/Act as Ind, UE Funct Exercise/Act Treatment Duration: Jul 03, 2020 Frequency: At least 5 of 7 days/Wk (IRF) Estimated Hrs Per Day: 1.5 hours per day Agreement: Yes Rehab Potential: Good Time/GCodes Start Time: 08:30 Stop Time: 09:30 Total Time Billed (hr/min): 60 Billed Treatment Time 1, Ex x 15minutes, FA x 45minutes JANET LYNCH OT Jun 25, 2020 11:29
--- NOTE | 2020-06-25 12:12 | NUR ---
DR. GAN ON THE FLOOR THIS AM. INFORMED OF BLOODY DRAINAGE FROM BILATERAL LOWER LEG ULCERS AND THAT PATIENT REMAINS ON ASPIRIN, PLAVIX, AND HEPARIN. NO NEW ORDERS REC'D.
--- NOTE | 2020-06-25 12:34 | Physical Therapy Daily Note ---
PT Daily Note-Current Subjective Pt. seated in chair and agrees to therapy. He denies pain. Mental Status Patient Orientation: Person, Place, Time, Situation Transfers SCALE: Activities may be completed with or without assistive devices. 5-Jrldgpyria-jdffclc completes the activity by him/herself with no assistance from a helper. 5-Set-up or Clean-up Assistance-helper sets up or cleans up; patient completes activity. [place] assists only prior to or following the activity. 4-Supervision or Touching Assistance-helper provides verbal cues and/or touching/steadying and/or contact guard assistance as patient completes activity. Assistance may be provided throughout the activity or intermittently. 3-Partial/Moderate Assistance-helper does LESS THAN HALF the effort. [place] lifts, holds or supports trunk or limbs, but provides less than half the effort. 2-Substantial/Maximal Assistance-helper does MORE THAN HALF the effort. [place] lifts or holds trunk or limbs and provides more than half the effort. 6-Geqbhajlu-tfmzcp does ALL the effort. Patient does none of the effort to complete the activity. Or, the assistance of 2 or more helpers is required for the patient to complete the activity. If activity was not attempted, code reason: 7-Patient Refused. 9-Not Applicable-not attempted and the patient did not perform the activity before the current illness, exacerbation or injury. 10-Not Attempted due to Environmental Limitations-(lack of equipment, weather restraints, etc.). 88-Not Attempted due to Medical Conditions or Safety Concerns. Sit to Stand (QC): 4 Weight Bearing Right Lower Extremity: Right Full Weight Bearing Left Lower Extremity: Left Full Weight Bearing Gait Training Does the Patient Walk?: Yes Distance: 2 x 75 ft, x 150 ft Walk 10 feet (QC): 4 Walk 150 ft (QC): 4 Gait Persons Needed: 1 Gait Assistive Device: FWW slow gait speed and becomes fatigued with gait >100 ft, no losses of balance Stair Training 4 Steps (QC): 4 Stairs: Pattern: Step to completes with difficulty and close CGA Exercises Seated Therapy Exercises: Ankle pumps, Sit to stand (2 x 5 reps), Long arc quads, Hip flexion Seated Reps: 20 NuStep Minutes: 15 NuStep Workload: 5 Treatments gait, LE exercises Assessment Current Status: Good Progress Pt. needs several rest periods during session due to LE fatigue. He completed 4 steps but with difficulty. Pt. is CGA with all transfers and ambulation but remains limited in gait distances due to LE weakness. PT Short Term Goals Short Term Goals Time Frame: Jun 26, 2020 Roll Left & Right: 6 Sit to lyin Lying to sitting on side of be: 6 Sit to stand: 4 Chair/lnt-cx-hffui transfer: 4 Walk 10 feet: 4 (SBA) Walk 50 feet with two turns: 4 (SBA) Walk 150 feet: 4 (SBA) PT [place] Goals Jail Goals PT [place] Goals Time Frame: Jul 10, 2020 Roll Left & Right (QC): 6 Sit to Lying (QC): 6 Lying-Sitting on Side/Bed(QC): 6 Sit to Stand (QC): 6 Chair/Ddh-tj-Babfc Xfer(QC): 6 Toilet Transfer (QC): 6 Car Transfer (QC): 6 Does the Patient Walk: Yes Walk 10 feet (QC): 6 Walk 50ft with 2 Turns (QC): 6 Walk 150 ft (QC): 6 Walking 10ft on Uneven Surface: 6 1 Step (curb) (QC): 4 4 Steps (QC): 4 12 Steps (QC): 88 Picking up an Object (QC): 88 Wheel 50 feet with 2 turns (QC: 9 Wheel 150 feet: 9 PT Plan Treatment/Plan Treatment Plan: Continue Plan of Care Treatment Plan: Bed Mobility, Education, Functional Activity Steph, Functional Strength, Group Therapy, Gait, Safety, Therapeutic Exercise, Transfers Treatment Duration: Jul 10, 2020 Frequency: At least 5 of 7 days/Wk (IRF) Estimated Hrs Per Day: 1.5 hours per day Patient and/or Family Agrees t: Yes Time/GCodes Time In: 929 Time Out: 1030 Total Billed Treatment Time: 60 Total Billed Treatment 1, GT 20', Ex 30', FA 10' AYANA JOHNSON PT Jun 25, 2020 12:34
--- NOTE | 2020-06-25 13:10 | NUR ---
Pt is Zoroastrian. Club Manager provided prayer and Communion.
--- NOTE | 2020-06-25 14:21 | Progress Note - Cardiology ---
Cardiology SOAP Progress Note Subjective: Sitting up in recliner at the bedside. No c/o CP, palpitations, dyspnea, syncope or near syncope. Objective: I&O/Vital Signs 06/26/20 06/26/20 05:22 09:00 Temp 36.3 Pulse 66 Resp 18 B/P (MAP) 139/64 (89) Pulse Ox 97 O2 Delivery Room Air Room Air 06/26/20 00:00 Intake Total 1240 ml Balance 1240 ml Constitutional: AAO x 3, well-developed, well-nourished Respiratory: No accessory muscle use, No respiratory distress; chest expansion is symmetric, chest is bilaterally symmetric, lungs clear to auscultation Cardiovascular: regular rate-rhythm; No JVD; S1 and S2 Gastrointestional: No tender; soft, round, audible bowel sounds Extremities: other (dressings to bilat LE, D&I, not removed) Neurologic/Psychiatric: grossly intact (moves all extremities) Skin: other (see above) Results/Procedures: Labs A/P: Assessment: Bilateral lower extremity venous ulcers - management per wound care and surgical services. Mildly elevated troponin on Jun 13, 2020 without any significant cardiac symptoms. Nuclear stress test done 06/14/2020 showed possible anterior apical ischemia. Dr. Gabriel as well as I have discussed at length with the patient and recommended coronary angiography and possible intervention. The patient refused. He has verbalized understanding the risk of SD and even . He continues to decline the procedure at this time. He is agreeable to f/u as an out pt for consideration of further cardiac work up unless he develops symptoms, of which he is currently not having any at this time HTN HLP CRI DM Plan: Continue current regimen Change Heparin out to Lovenox DVT dosing Monitor lab We have reviewed Dr. Gabriel's progress notes ARELIS ANDINO Jun 25, 2020 14:21
--- NOTE | 2020-06-25 14:46 | Occupational Ther Daily Note ---
OT Current Status-Daily Note Subjective No pain reported. Appearance Pt. up in chair. Agrees to work with OT. Mental Status/Objective Patient Orientation: Person, Place ADL-Treatment Therapy Code Descriptions/Definitions Functional [place] Measure: 0=Not Assessed/NA 4=Minimal Assistance 1=Total Assistance 5=Supervision or Setup 2=Maximal Assistance 6=Modified [place] 3=Moderate Assistance 7=Complete IndependenceSCALE: Activities may be completed with or without assistive devices. 8-Ofhpvxipha-rlrhxli completes the activity by him/herself with no assistance from a helper. 5-Set-up or Clean-up Assistance-helper sets up or cleans up; patient completes activity. [place] assists only prior to or following the activity. 4-Supervision or Touching Assistance-helper provides verbal cues and/or touching/steadying and/or contact guard assistance as patient completes activity. Assistance may be provided throughout the activity or intermittently. 3-Partial/Moderate Assistance-helper does LESS THAN HALF the effort. [place] lifts, holds or supports trunk or limbs, but provides less than half the effort. 2-Substantial/Maximal Assistance-helper does MORE THAN HALF the effort. [place] lifts or holds trunk or limbs and provides more than half the effort. 7-Acbdhzoho-kvxnnq does ALL the effort. Patient does none of the effort to complete the activity. Or, the assistance of 2 or more helpers is required for the patient to complete the activity. If activity was not attempted, code reason: 7-Patient Refused. 9-Not Applicable-not attempted and the patient did not perform the activity before the current illness, exacerbation or injury. 10-Not Attempted due to Environmental Limitations-(lack of equipment, weather restraints, etc.). 88-Not Attempted due to Medical Conditions or Safety Concerns. Other Treatment Pt. agrees to work with OT. Pt. has his own walker here, and is interested in walker basket/tray, or some way to transport items. Pt. ambulated to therapy dining area with SBA and walker. Pt. educated on walker tray and walker basket. Also educated on and shown tray that is used as tabletop on walker surface to eat from. Pt. verbalizes understanding. Pt. educated on where to obtain these from. Practices retrieving items from high/low surfaces in kitchen. Pt. able to do this with increased time and with safe posture. Pt. educated on using tree deadener, and other techniques for safety and energy conservation. Pt. verbalizes understanding of all recommendations. Pt. ambulated back to room and transferred to reclining chair. All needs met in room. Education OT Patient Education: Correct positioning, Modified ADL techniques, Progress toward Goal/Update tx plan, Purpose of tx/functional activities, Reviewed precautions, Rehab process, Transfer techniques Teaching Recipient: Patient Teaching Methods: Demonstration, Discussion Response to Teaching: Verbalize Understanding, Return Demonstration OT Short Term Goals Short Term Goals Time Frame: Jun 26, 2020 Eatin Oral hygiene: 6 Toileting hygiene: 4 Shower/bathe self: 4 Upper body dressin Lower body dressin Putting on/taking off footwear: 4 (with AE) OT Fish Hatchery Laborer Goals Fish Hatchery Laborer Goals Time Frame: Jul 03, 2020 Eating (QC): 6 Oral Hygiene (QC): 6 Toileting Hygiene (QC): 6 Shower/Bathe Self (QC): 5 Upper Body Dressing (QC): 6 Lower Body Dressing (QC): 6 On/Off Footwear (QC): 6 Additional Goals: 1-Demonstrate ADL Tasks, 2-Verbalize Understanding, 3-ImproveStrength/Steph 1=Demonstrate adherence to instructed precautions during ADL tasks. 2=Patient will verbalize/demonstrate understanding of assistive devices/modifications for ADL. 3=Patient will improve strength/tolerance for activity to enable patient to perf orm ADL's. OT Education/Plan Problem List/Assessment Assessment: Decreased Activ Tolerance, Impaired I ADL's, Impaired Self-Care Skills Discharge Recommendations Plan/Recommendations: Continue POC Therapy Discharge Recommendati: Home & Family, Post Acute OT Equpiment Recommendations-D/C: Walker Bag or Basket Treatment Plan/Plan of Care Treatment,Training & Education: Yes Patient would benefit from OT for education, treatment and training to promote independence in ADL's, mobility, safety and/or upper extremity function for ADL's. Plan of Care: ADL Retraining, Functional Mobility, Group Exercise/Act as Ind, UE Funct Exercise/Act Treatment Duration: Jul 03, 2020 Frequency: At least 5 of 7 days/Wk (IRF) Estimated Hrs Per Day: 1.5 hours per day Agreement: Yes Rehab Potential: Good Time/GCodes Start Time: 13:45 Stop Time: 14:15 Total Time Billed (hr/min): 30 Billed Treatment Time 1, ADL x 2 JANET LYNHC OT Jun 25, 2020 14:46
--- NOTE | 2020-06-25 14:49 | Physical Therapy Daily Note ---
PT Daily Note-Current Subjective Pt denied pain, agreeable to treatment. Transfers SCALE: Activities may be completed with or without assistive devices. 1-Wqlpcvinge-quvkbpf completes the activity by him/herself with no assistance from a helper. 5-Set-up or Clean-up Assistance-helper sets up or cleans up; patient completes activity. [place] assists only prior to or following the activity. 4-Supervision or Touching Assistance-helper provides verbal cues and/or touching/steadying and/or contact guard assistance as patient completes activity. Assistance may be provided throughout the activity or intermittently. 3-Partial/Moderate Assistance-helper does LESS THAN HALF the effort. [place] lifts, holds or supports trunk or limbs, but provides less than half the effort. 2-Substantial/Maximal Assistance-helper does MORE THAN HALF the effort. [place] lifts or holds trunk or limbs and provides more than half the effort. 8-Mkoszoqxw-tktpjj does ALL the effort. Patient does none of the effort to complete the activity. Or, the assistance of 2 or more helpers is required for the patient to complete the activity. If activity was not attempted, code reason: 7-Patient Refused. 9-Not Applicable-not attempted and the patient did not perform the activity before the current illness, exacerbation or injury. 10-Not Attempted due to Environmental Limitations-(lack of equipment, weather restraints, etc.). 88-Not Attempted due to Medical Conditions or Safety Concerns. Transfers mod (I), relies heavily on (B)UEs Weight Bearing Right Lower Extremity: Right Full Weight Bearing Left Lower Extremity: Left Full Weight Bearing Gait Training Gait Assistive Device: FWW Pt amb with FWW and CGA x 200ft Exercises Supine Ex: Quad Set, Heel Slides, Straight leg raise Supine Reps: 20 Standing: Hip Abduction, Marching Standing Reps: 20 NuStep Minutes: 5 NuStep Workload: 2 Treatments Pt requested BR privileges, Mod (I) Assessment Current Status: Good Progress Pt progressing appropriately. Pt mod (I) for sit to stand and relies heavily on FWW for balance during ambulation. Knees appear minimally weak during ambulation. Pt able ambulate with breaks during session. Pt in care of OT post therapy session. PT Short Term Goals Short Term Goals Time Frame: Jun 26, 2020 Roll Left & Right: 6 Sit to lyin Lying to sitting on side of be: 6 Sit to stand: 4 Chair/ngl-wt-lzwad transfer: 4 Walk 10 feet: 4 (SBA) Walk 50 feet with two turns: 4 (SBA) Walk 150 feet: 4 (SBA) PT Detention Goals Help Desk Team Leader Goals PT Help Desk Team Leader Goals Time Frame: Jul 10, 2020 Roll Left & Right (QC): 6 Sit to Lying (QC): 6 Lying-Sitting on Side/Bed(QC): 6 Sit to Stand (QC): 6 Chair/Mtg-sj-Lcgpv Xfer(QC): 6 Toilet Transfer (QC): 6 Car Transfer (QC): 6 Does the Patient Walk: Yes Walk 10 feet (QC): 6 Walk 50ft with 2 Turns (QC): 6 Walk 150 ft (QC): 6 Walking 10ft on Uneven Surface: 6 1 Step (curb) (QC): 4 4 Steps (QC): 4 12 Steps (QC): 88 Picking up an Object (QC): 88 Wheel 50 feet with 2 turns (QC: 9 Wheel 150 feet: 9 PT Plan Treatment/Plan Treatment Plan: Continue Plan of Care Treatment Plan: Bed Mobility, Education, Functional Activity Steph, Functional Strength, Group Therapy, Gait, Safety, Therapeutic Exercise, Transfers Treatment Duration: Jul 10, 2020 Frequency: At least 5 of 7 days/Wk (IRF) Estimated Hrs Per Day: 1.5 hours per day Patient and/or Family Agrees t: Yes Time/GCodes Time In: 1315 Time Out: 1345 Total Billed Treatment 1, Gait 15', Ther ex 15' FARIDA ZAPATA CPTA Jun 25, 2020 14:49
--- NOTE | 2020-06-25 15:30 | NUR ---
orders rec'd for diabetic education. review of chart shows patient is no longer having glucometer checks or insulin given. general diabetic education for health information given to patient. encouragement of healthy habits, i.e., healthy eating habits, healthy exercise, health daily bathing and other self-care habits encouraged. Discussion of depression s/s, and establishing health care with a local doctor, now that he is moved to [place] from [place] to be with family. Patient expresses thanks towards doctor and facility stating, "they care about the whole patient, not just what is wrong and to get me better."
[2020-06-25 15:36] VITALS: BP 147/68
--- NOTE | 2020-06-25 16:21 | Progress Note - Cardiology ---
Cardiology SOAP Progress Note Subjective: No cp or palp or syncope or shortness of breath Gen weakness and malaise Objective: I&O/Vital Signs 06/25/20 06/25/20 06/25/20 06:15 09:59 15:36 Temp 36.4 36.8 Pulse 66 64 Resp 16 16 B/P (MAP) 133/63 (86) 147/68 (94) Pulse Ox 96 98 O2 Delivery Room Air Room Air Room Air 06/25/20 00:00 Intake Total 1250 ml Balance 1250 ml Constitutional: AAO x 3, well-developed, well-nourished Respiratory: No accessory muscle use, No respiratory distress; chest expansion is symmetric, chest is bilaterally symmetric, lungs clear to auscultation Cardiovascular: regular rate-rhythm; No JVD; S1 and S2 Gastrointestional: No tender; soft, round, audible bowel sounds Extremities: other (dressings to bilat LE, D&I, not removed) Neurologic/Psychiatric: grossly intact (moves all extremities) Skin: other (see above) A/P: Assessment: Bilateral lower extremity venous ulcers - management per wound care and surgical services. Mildly elevated troponin on Jun 13, 2020 without any significant cardiac symptoms. Nuclear stress test done 06/14/2020 showed possible anterior apical ischemia. Pt desires conservative therapy only HTN HLP CRI DM Plan: Continue current regimen Change Heparin out to Lovenox DVT dosing Monitor lab We have reviewed Dr. Gabriel's progress notes Dr. Gabriel and we have recommended coronary angiography and possible intervention. The patient understands but refuses ELOY ANTONIO MD FACP FAC CCDS Jun 25, 2020 16:21
--- NOTE | 2020-06-25 17:52 | NUR ---
DR. ROSE HERE TO ASSESS LOWER LEG ULCERS. STATES, MUCH IMPROVED. ORDERS TO CONTINUE CURRENT WOUND CARE REGIMEN OF XEROFORM AND KERLIX. F/U WITH DR. ROSE OUTPATIENT.
--- NOTE | 2020-06-25 18:19 | Wound Care Assessment ---
Wound Care Assessment Date Seen by Provider: Jun 25, 2020 Time Seen by Provider: 17:00 Chief Complaint Bilateral calf ulcers. HPI The patient is a 69 year old male with bilateral venous stasis ulcers. These are improving with elevation and resolution of cellulitis and massive edema. Urged to continue elevation, will continue Xeroform dressings and follow in clinic when discharged. Past Medical History: Admits Heart Disease Smoking Status: Former Smoker Alcohol Use: Denies Use Review of Systems Pulmonary: No Dyspnea Cardiovascular: No: Chest Pain Exam Vital Signs Date Time Temp Pulse Resp B/P (MAP) Pulse Ox O2 Delivery O2 Flow Rate FiO2 06/25/20 18:04 Room Air 06/25/20 15:36 36.8 64 16 147/68 (94) 98 Capillary Refill : Less Than 3 Seconds General Appearance: no apparent distress Extremities: other (Bilateral calf ulcers are much improved.) Assessment/Plan/Dx 1. Bilateral calf ulcers, full thickness. 2. Venous insufficiency. 3. Coronary artery disease. Plan: Continue Xeroform dressings. Will follow-up in office post discharge. EBONY ROSE MD Jun 25, 2020 18:19
--- NOTE | 2020-06-25 19:10 | NUR ---
Bedside report received from LATONYA POLK, assume care of pt
[2020-06-25] MEDS: MELATONIN 3 MG TABLET PO PRN (20:35)
[2020-06-25] MEDS: ENOXAPARIN 40 MG/0.4 ML (LOVENOX) SYR SC SCH (20:35)
--- NOTE | 2020-06-25 20:35 | NUR ---
Pt Refused Colace, Miralax & Senokot, Remains up in the recliner
[2020-06-26 05:22] VITALS: BP 139/64
--- NOTE | 2020-06-26 05:52 | PM&R Progress Note ---
Subjective HPI/CC On Admission Date Seen by Provider: Jun 26, 2020 Time Seen by Provider: 08:30 Subjective/Events-last exam 06/26/20: Dr. Seay was pleased with how his legs look Slept in a chair all night Bowels moved today Cardiac catheterization has been refused by the pt 06/25/20: Daily dressing changes on the legs are required and they seem to be seeping through the dressing so will initiate a Dr. Seay wound consult Denies any new issues otherwise Bowels are moving well 06/24/20: Creatinine 1.56 on labs today Norvasc of 5mg maintaining BP of 150s Bowels are moving okay Dressing changes maintained 06/23/20: BP still a bit high at 150's but just started Norvasc BM+ No pain reported Dressing change of legs going well 06/22/20: Diarrhea is improved Legs improved Dressing changes daily 06/21/20: No new issues Dressing to legs improved Podiatry consultation done BP 165 so added Norvasc Patient had a good night Legs are improved overall and dressing changes maintained Potassium 3.1 so increased PO supplement Creat 1.89 Loose stools noted Checked meds and labs Conferred with RN Reviewed therapy notes Review of Systems General: Fatigue, Malaise Musculoskeletal: leg pain Objective Exam Vital Signs Vital Signs Date Time Temp Pulse Resp B/P (MAP) Pulse Ox O2 Delivery O2 Flow Rate FiO2 06/26/20 17:30 36.4 61 18 134/64 (87) 99 Room Air Capillary Refill : Less Than 3 Seconds General Appearance: No Apparent Distress, WD/WN, Chronically ill HEENT: PERRL/EOMI, Normal ENT Inspection, Pharynx Normal Neck: Full Range of Motion, Normal Inspection, Non Tender, Supple, Carotid Bruit Respiratory: Chest Non Tender, Lungs Clear, Normal Breath Sounds, No Accessory Muscle Use, No Respiratory Distress Cardiovascular: Regular Rate, Rhythm, No Gallop, No JVD, No Murmur, Normal Peripheral Pulses Gastrointestinal: Normal Bowel Sounds, No Organomegaly, No Pulsatile Mass, Non Tender, Soft Back: Normal Inspection, No CVA Tenderness, No Vertebral Tenderness Extremity: Normal Capillary Refill, Normal Inspection, Normal Range of Motion, Non Tender, No Calf Tenderness, Pedal Edema Neurologic/Psychiatric: Alert, Oriented x3, No Motor/Sensory Deficits, Normal Mood/Affect, Motor Weakness (generalized all extremities) Skin: Normal Color, Warm/Dry, Rash (lower legs) Lymphatic: No Adenopathy Results/Procedures Lab Patient resulted labs reviewed. FIM Transfers Therapy Code Descriptions/Definitions Functional [place] Measure: 0=Not Assessed/NA 4=Minimal Assistance 1=Total Assistance 5=Supervision or Setup 2=Maximal Assistance 6=Modified [place] 3=Moderate Assistance 7=Complete IndependenceSCALE: Activities may be completed with or without assistive devices. 5-Fmqwmwdsau-lmpxgzc completes the activity by him/herself with no assistance from a helper. 5-Set-up or Clean-up Assistance-helper sets up or cleans up; patient completes activity. Roy assists only prior to or following the activity. 4-Supervision or Touching Assistance-helper provides verbal cues and/or touching/steadying and/or contact guard assistance as patient completes activity. Assistance may be provided throughout the activity or intermittently. 3-Partial/Moderate Assistance-helper does LESS THAN HALF the effort. Roy lifts, holds or supports trunk or limbs, but provides less than half the effort. 2-Substantial/Maximal Assistance-helper does MORE THAN HALF the effort. Roy lifts or holds trunk or limbs and provides more than half the effort. 7-Lexppmrry-nsinkf does ALL the effort. Patient does none of the effort to complete the activity. Or, the assistance of 2 or more helpers is required for the patient to complete the activity. If activity was not attempted, code reason: 7-Patient Refused. 9-Not Applicable-not attempted and the patient did not perform the activity before the current illness, exacerbation or injury. 10-Not Attempted due to Environmental Limitations-(lack of equipment, weather restraints, etc.). 88-Not Attempted due to Medical Conditions or Safety Concerns. Roll Left to Right (QC): 6 Sit to Lying (QC): 6 Sit to Stand (QC): 4 Chair/Anx-pf-Yadzw Xfer(QC): 6 Car Transfer (QC): 4 Gait Training Does the Patient Walk?: Yes Distance: 2 x 75 ft, x 150 ft Walk 10 feet (QC): 4 Walk 50 ft with 2 Turns(QC): 4 Walk 150 ft (QC): 4 Walking 10ft/uneven surface-QC: 4 Gait Persons Needed: 1 Gait Assistive Device: FWW Wheelchair Training Wheel 50 ft with 2 turns (QC): 9 Wheel 150 ft (QC): 9 Stair Training Stair Training: Handrails/: 2 handrails #of Steps: 4 1 Step (curb) (QC): 3 4 Steps (QC): 4 12 Steps (QC): 88 Stairs: Pattern: Step to Balance Picking up an Object (QC): 88 ADL-Treatment Eating (QC): 6 Oral Hygiene (QC): 4 (SBA in stance. ) Bathing Location: L Arm, R Arm, L Upper Leg, R Upper Leg, Chest, Abdomen, Perineal Area Shower/Bathe Self (QC): 4 Upper Body Dressing (QC): 5 Lower Body Dressing (QC): 4 (SBA with AE) On/Off Footwear (QC): 4 (SBA with AE) Toileting Hygiene (QC): 2 Toilet Transfer (QC): 4 Assessment/Plan Assessment and Plan Assess & Plan/Chief Complaint Assessment: Debility NSTEMI CAD Refusal of cardiac cath for definitive treatment CRI DM new onset hga1c 6.8 Lower leg cellulitis Venous stasis dermatitis Plan: Monitor creat IRF protocol Monitor chest pain 06/20/20: Rash management with abx and dressing changes Increase potassium to TID with meals DC accuchecks 06/21/20: Improved status Add Norvasc for elevated BP 06/22/20: Improved status Monitor BP Dressing changes 06/23/20: Monitor BP Dressing changes to legs Complete abx Check labs in am 06/24/20: Labs stable Dressing changes helping heal stasis dermatitis 06/25/20: Wound care to legs Monitor BP 06/26/20: Wound care BP management (1) NSTEMI (non-ST elevated myocardial infarction) Status: Acute (2) OSWALDO (acute kidney injury) (3) DMII (diabetes mellitus, type 2) (4) Venous stasis dermatitis of both lower extremities (5) Bilateral lower leg cellulitis Status: Acute (6) Bilateral leg edema Status: Acute (7) HTN (hypertension) Status: Acute BRIAN GAN DO Jun 26, 2020 05:52
[2020-06-26] MEDS: CATHETER FLUSH 10 ML SYR IV SCH (06:00)
[2020-06-26] MEDS: DOXYCYCLINE 100 MG (VIBRAMYCIN) TABLET PO SCH ×2 (06:14→17:23)
[2020-06-26 08:00] VITALS: BP 145/65
[2020-06-26] MEDS: amLODIPine 5 MG (NORVASC) TAB PO SCH (08:26)
[2020-06-26] MEDS: ASPIRIN E.C. 325 MG (ECOTRIN) TABLET PO SCH (08:26)
[2020-06-26] MEDS: CLOPIDOGREL 75 MG (PLAVIX) TABLET PO SCH (08:26)
[2020-06-26] MEDS: polyethylene glycoL POWDER 17 GM (MIRALAX) PACK PO SCH ×2 (08:27→20:46)
[2020-06-26] MEDS: DOCUSATE SODIUM 100 MG (COLACE) CAP PO SCH ×2 (08:27→20:46)
[2020-06-26] MEDS: SENNA W/DOCUSATE (SENOKOT S) TABLET PO SCH ×2 (08:27→20:46)
[2020-06-26] MEDS: KCL 10 MEQ TAB (MICRO K) PO SCH ×3 (08:29→17:22)
--- NOTE | 2020-06-26 10:03 | Physical Therapy Daily Note ---
PT Daily Note-Current Subjective Pt. agrees to Rx. No c/o pain except briefly in bridging position Mental Status Patient Orientation: Normal For Age Attachments: Other-See Comments (mask while out of room) Transfers SCALE: Activities may be completed with or without assistive devices. 3-Gmzqkwoten-dvbolod completes the activity by him/herself with no assistance from a helper. 5-Set-up or Clean-up Assistance-helper sets up or cleans up; patient completes activity. [place] assists only prior to or following the activity. 4-Supervision or Touching Assistance-helper provides verbal cues and/or touching/steadying and/or contact guard assistance as patient completes activity. Assistance may be provided throughout the activity or intermittently. 3-Partial/Moderate Assistance-helper does LESS THAN HALF the effort. [place] lifts, holds or supports trunk or limbs, but provides less than half the effort. 2-Substantial/Maximal Assistance-helper does MORE THAN HALF the effort. [place] lifts or holds trunk or limbs and provides more than half the effort. 3-Ciajgkyyi-peotma does ALL the effort. Patient does none of the effort to complete the activity. Or, the assistance of 2 or more helpers is required for the patient to complete the activity. If activity was not attempted, code reason: 7-Patient Refused. 9-Not Applicable-not attempted and the patient did not perform the activity before the current illness, exacerbation or injury. 10-Not Attempted due to Environmental Limitations-(lack of equipment, weather restraints, etc.). 88-Not Attempted due to Medical Conditions or Safety Concerns. Roll Left & Right (QC): 6 Sit to Lying (QC): 6 Lying to Sitting/Side of Bed(Q: 6 Sit to Stand (QC): 6 Chair/Gpk-mk-Wrhoq Xfer(QC): 6 Car Transfer (QC): 6 good deal of effort required to TRF sit to stand but he does it Weight Bearing Right Lower Extremity: Right Full Weight Bearing Left Lower Extremity: Left Full Weight Bearing Gait Training Does the Patient Walk?: Yes Walk 10 feet (QC): 6 Walk 50 ft with 2 Turns(QC): 6 Walk 150 ft (QC): 6 Gait Persons Needed: 0 Gait Assistive Device: FWW slow, no LOB Stair Training Stair Training: Handrails/: 2 handrails Exercises Supine Ex: Bridging, Ankle pumps, Quad Set, Rolling, Glut sets, Heel Slides, Short Arc Quads, Scooting, Straight leg raise, Hip abd/add Supine Reps: 15 Treatments standing for toileting indep Assessment Current Status: Good Progress PT Short Term Goals Short Term Goals Time Frame: Jun 26, 2020 Roll Left & Right: 6 Sit to lyin Lying to sitting on side of be: 6 Sit to stand: 4 Chair/eio-zy-jbozt transfer: 4 Walk 10 feet: 4 (SBA) Walk 50 feet with two turns: 4 (SBA) Walk 150 feet: 4 (SBA) PT Half-Way Goals Instrument Processing Tech Goals PT Instrument Processing Tech Goals Time Frame: Jul 10, 2020 Roll Left & Right (QC): 6 Sit to Lying (QC): 6 Lying-Sitting on Side/Bed(QC): 6 Sit to Stand (QC): 6 Chair/Lzd-vn-Oceqn Xfer(QC): 6 Toilet Transfer (QC): 6 Car Transfer (QC): 6 Does the Patient Walk: Yes Walk 10 feet (QC): 6 Walk 50ft with 2 Turns (QC): 6 Walk 150 ft (QC): 6 Walking 10ft on Uneven Surface: 6 1 Step (curb) (QC): 4 4 Steps (QC): 4 12 Steps (QC): 88 Picking up an Object (QC): 88 Wheel 50 feet with 2 turns (QC: 9 Wheel 150 feet: 9 PT Plan Treatment/Plan Treatment Plan: Continue Plan of Care Treatment Plan: Bed Mobility, Education, Functional Activity Steph, Functional Strength, Group Therapy, Gait, Safety, Therapeutic Exercise, Transfers Treatment Duration: Jul 10, 2020 Frequency: At least 5 of 7 days/Wk (IRF) Estimated Hrs Per Day: 1.5 hours per day Patient and/or Family Agrees t: Yes Safety Risks/Education Patient Education: Gait Training, Transfer Techniques, Correct Positioning, Disease Process, Safety Issues Teaching Recipient: Patient Teaching Methods: Demonstration, Discussion Response to Teaching: Verbalize Understanding, Return Demonstration, Reinforcement Needed Time/GCodes Time In: 900 Time Out: 1000 Total Billed Treatment Time: 60 Total Billed Treatment 1,GT25m,FA15m,EX20m YESI BARNHART PASTE MIXING SUPERVISOR Jun 26, 2020 10:03
--- NOTE | 2020-06-26 11:49 | Occupational Ther Daily Note ---
OT Current Status-Daily Note Subjective No pain reported. Appearance Pt. up in chair. Agrees to work with OT. Mental Status/Objective Patient Orientation: Person, Place, Time, Situation ADL-Treatment Therapy Code Descriptions/Definitions Functional [place] Measure: 0=Not Assessed/NA 4=Minimal Assistance 1=Total Assistance 5=Supervision or Setup 2=Maximal Assistance 6=Modified [place] 3=Moderate Assistance 7=Complete IndependenceSCALE: Activities may be completed with or without assistive devices. 9-Revgpncoad-cplmmys completes the activity by him/herself with no assistance from a helper. 5-Set-up or Clean-up Assistance-helper sets up or cleans up; patient completes activity. [place] assists only prior to or following the activity. 4-Supervision or Touching Assistance-helper provides verbal cues and/or touching/steadying and/or contact guard assistance as patient completes activity. Assistance may be provided throughout the activity or intermittently. 3-Partial/Moderate Assistance-helper does LESS THAN HALF the effort. [place] lifts, holds or supports trunk or limbs, but provides less than half the effort. 2-Substantial/Maximal Assistance-helper does MORE THAN HALF the effort. [place] lifts or holds trunk or limbs and provides more than half the effort. 8-Kpsnwpeud-ugdebv does ALL the effort. Patient does none of the effort to complete the activity. Or, the assistance of 2 or more helpers is required for the patient to complete the activity. If activity was not attempted, code reason: 7-Patient Refused. 9-Not Applicable-not attempted and the patient did not perform the activity before the current illness, exacerbation or injury. 10-Not Attempted due to Environmental Limitations-(lack of equipment, weather restraints, etc.). 88-Not Attempted due to Medical Conditions or Safety Concerns. Eating (QC): 6 Oral Hygiene (QC): 6 (Independent seated at sink.) Shower/Bathe Self (QC): 3 (Mod assist due to pt. needing assistance to cleanse rear andrea area.) Upper Body Dressing (QC): 5 Lower Body Dressing (QC): 5 (Set up with AE) Toileting Hygiene (QC): 2 (Assistance to cleanse rear andrea area. Pt. issued toilet tongs to use next time he has a BM.) Toilet Transfer (QC): 4 Other Treatment After ADLs, pt. ambulated with walker and SBA to therapy gym. Tolerated 15 minutes on arm bike at mod resistance to increase overall strength and endurance. Ambulated to room and completed 3 bilateral UE exercises with red theraband x 10 reps each to increase overall strength. All needs met in room. Education OT Patient Education: Exercise program, Home exercise program, Modified ADL techniques, Progress toward Goal/Update tx plan, Purpose of tx/functional activities, Reviewed precautions, Rehab process, Transfer techniques, Use of adapted equipment Teaching Recipient: Patient Teaching Methods: Demonstration, Discussion Response to Teaching: Verbalize Understanding, Return Demonstration OT Short Term Goals Short Term Goals Time Frame: Jun 26, 2020 Eatin Oral hygiene: 6 Toileting hygiene: 4 Shower/bathe self: 4 Upper body dressin Lower body dressin Putting on/taking off footwear: 4 (with AE) OT Halfway Goals Registered Client Associate Goals Time Frame: Jul 03, 2020 Eating (QC): 6 Oral Hygiene (QC): 6 Toileting Hygiene (QC): 6 Shower/Bathe Self (QC): 5 Upper Body Dressing (QC): 6 Lower Body Dressing (QC): 6 On/Off Footwear (QC): 6 Additional Goals: 1-Demonstrate ADL Tasks, 2-Verbalize Understanding, 3- ImproveStrength/Steph 1=Demonstrate adherence to instructed precautions during ADL tasks. 2=Patient will verbalize/demonstrate understanding of assistive devices/modifications for ADL. 3=Patient will improve strength/tolerance for activity to enable patient to perform ADL's. OT Education/Plan Problem List/Assessment Assessment: Decreased Activ Tolerance, Impaired I ADL's Discharge Recommendations Plan/Recommendations: Continue POC Therapy Discharge Recommendati: Home & Family Equpiment Recommendations-D/C: Walker Bag or Basket Treatment Plan/Plan of Care Treatment,Training & Education: Yes Patient would benefit from OT for education, treatment and training to promote independence in ADL's, mobility, safety and/or upper extremity function for ADL's. Plan of Care: ADL Retraining, Functional Mobility, Group Exercise/Act as Ind, UE Funct Exercise/Act Treatment Duration: Jul 03, 2020 Frequency: At least 5 of 7 days/Wk (IRF) Estimated Hrs Per Day: 1.5 hours per day Agreement: Yes Rehab Potential: Good Time/GCodes Start Time: 10:15 Stop Time: 11:15 Total Time Billed (hr/min): 60 Billed Treatment Time 1, ADL x 30minutes, Ex x 30minutes JANET LYNCH OT Jun 26, 2020 11:49
--- NOTE | 2020-06-26 12:07 | Physical Therapy Daily Note ---
PT Daily Note-Current Subjective Pt. agrees to Rx. No c/o Pain Location: No Pain Reported Mental Status Patient Orientation: Normal For Age Attachments: Other-See Comments (msk) Transfers SCALE: Activities may be completed with or without assistive devices. 2-Usjximpkfe-mgnfnsb completes the activity by him/herself with no assistance from a helper. 5-Set-up or Clean-up Assistance-helper sets up or cleans up; patient completes activity. [place] assists only prior to or following the activity. 4-Supervision or Touching Assistance-helper provides verbal cues and/or touching/steadying and/or contact guard assistance as patient completes activity. Assistance may be provided throughout the activity or intermittently. 3-Partial/Moderate Assistance-helper does LESS THAN HALF the effort. [place] lifts, holds or supports trunk or limbs, but provides less than half the effort. 2-Substantial/Maximal Assistance-helper does MORE THAN HALF the effort. [place] lifts or holds trunk or limbs and provides more than half the effort. 1-Zoxzioeso-bsfdmw does ALL the effort. Patient does none of the effort to complete the activity. Or, the assistance of 2 or more helpers is required for the patient to complete the activity. If activity was not attempted, code reason: 7-Patient Refused. 9-Not Applicable-not attempted and the patient did not perform the activity before the current illness, exacerbation or injury. 10-Not Attempted due to Environmental Limitations-(lack of equipment, weather restraints, etc.). 88-Not Attempted due to Medical Conditions or Safety Concerns. in out chair and bed Mod I Weight Bearing Right Lower Extremity: Right Full Weight Bearing Left Lower Extremity: Left Full Weight Bearing Gait Training Does the Patient Walk?: Yes Gait Assistive Device: FWW 160 ft x 2 FWW Mod I to SBA Exercises Seated Therapy Exercises: Ankle pumps, Sit to stand, Long arc quads, Hip flexion, Hip abd/add Seated Reps: 12 NuStep Minutes: 12 NuStep Workload: 4 Treatments observed toileting Mod I standing to urinate and then to wash hands Assessment Current Status: Good Progress advanced to up ad ansley status PT Short Term Goals Short Term Goals Time Frame: Jun 26, 2020 Roll Left & Right: 6 Sit to lyin Lying to sitting on side of be: 6 Sit to stand: 4 Chair/trq-ux-gyhdv transfer: 4 Walk 10 feet: 4 (SBA) Walk 50 feet with two turns: 4 (SBA) Walk 150 feet: 4 (SBA) PT Supervisor [employer] Goals Nursing Home Goals PT Nursing Home Goals Time Frame: Jul 10, 2020 Roll Left & Right (QC): 6 Sit to Lying (QC): 6 Lying-Sitting on Side/Bed(QC): 6 Sit to Stand (QC): 6 Chair/Klx-mm-Wvpmq Xfer(QC): 6 Toilet Transfer (QC): 6 Car Transfer (QC): 6 Does the Patient Walk: Yes Walk 10 feet (QC): 6 Walk 50ft with 2 Turns (QC): 6 Walk 150 ft (QC): 6 Walking 10ft on Uneven Surface: 6 1 Step (curb) (QC): 4 4 Steps (QC): 4 12 Steps (QC): 88 Picking up an Object (QC): 88 Wheel 50 feet with 2 turns (QC: 9 Wheel 150 feet: 9 PT Plan Treatment/Plan Treatment Plan: Continue Plan of Care Treatment Plan: Bed Mobility, Education, Functional Activity Steph, Functional Strength, Group Therapy, Gait, Safety, Therapeutic Exercise, Transfers Treatment Duration: Jul 10, 2020 Frequency: At least 5 of 7 days/Wk (IRF) Estimated Hrs Per Day: 1.5 hours per day Patient and/or Family Agrees t: Yes Safety Risks/Education Patient Education: Gait Training, Transfer Techniques, Correct Positioning, Safety Issues Teaching Recipient: Patient Teaching Methods: Demonstration, Discussion Response to Teaching: Verbalize Understanding, Return Demonstration, Reinforcement Needed Time/GCodes Time In: 1130 Time Out: 1200 Total Billed Treatment Time: 30 Total Billed Treatment 1,GT17,EX13 YESI BARNHART CUSTOM CLOTHIER Jun 26, 2020 12:06
--- NOTE | 2020-06-26 12:16 | Progress Note - Cardiology ---
Cardiology SOAP Progress Note Subjective: Sitting up in recliner at the bedside. No c/o CP, dyspnea, palpitations, syncope or near syncope. Objective: I&O/Vital Signs 06/27/20 06/27/20 06/27/20 06:00 08:57 09:00 Temp 36.2 Pulse 64 66 Resp 16 B/P (MAP) 139/73 (95) 137/74 (95) Pulse Ox 97 O2 Delivery Room Air Room Air 06/27/20 00:00 Intake Total 1250 ml Balance 1250 ml Constitutional: AAO x 3, well-developed, well-nourished Respiratory: No accessory muscle use, No respiratory distress; chest expansion is symmetric, chest is bilaterally symmetric, lungs clear to auscultation Cardiovascular: regular rate-rhythm; No JVD; S1 and S2 Gastrointestional: No tender; soft, round, audible bowel sounds Extremities: other (dressings to bilat LE, D&I, not removed) Neurologic/Psychiatric: grossly intact (moves all extremities) Skin: other (see above) A/P: Assessment: Bilateral lower extremity venous ulcers - management per wound care and surgical services. Mildly elevated troponin on Jun 13, 2020 without any significant cardiac symptoms. Nuclear stress test done 06/14/2020 showed possible anterior apical ischemia. Pt desires conservative therapy only HTN HLP CRI DM Plan: Continue current cardiac regimen Wound care management per Dr. Dawood Gabriel and we have recommended coronary angiography and possible intervention. The patient understands but refuses ARELIS ANDINO Jun 26, 2020 12:16
--- NOTE | 2020-06-26 14:19 | Occupational Ther Daily Note ---
OT Current Status-Daily Note Subjective Pt alert, sitting in recliner. Pt agrees to therapy. No c/o pain. Mental Status/Objective Patient Orientation: Person, Place, Time, Situation ADL-Treatment Therapy Code Descriptions/Definitions Functional [place] Measure: 0=Not Assessed/NA 4=Minimal Assistance 1=Total Assistance 5=Supervision or Setup 2=Maximal Assistance 6=Modified [place] 3=Moderate Assistance 7=Complete IndependenceSCALE: Activities may be completed with or without assistive devices. 2-Ufxlwqhxax-ybchpvk completes the activity by him/herself with no assistance f rom a helper. 5-Set-up or Clean-up Assistance-helper sets up or cleans up; patient completes activity. [place] assists only prior to or following the activity. 4-Supervision or Touching Assistance-helper provides verbal cues and/or touching/steadying and/or contact guard assistance as patient completes activity. Assistance may be provided throughout the activity or intermittently. 3-Partial/Moderate Assistance-helper does LESS THAN HALF the effort. [place] lifts, holds or supports trunk or limbs, but provides less than half the effort. 2-Substantial/Maximal Assistance-helper does MORE THAN HALF the effort. [place] lifts or holds trunk or limbs and provides more than half the effort. 4-Qchvioacr-skwgbw does ALL the effort. Patient does none of the effort to complete the activity. Or, the assistance of 2 or more helpers is required for the patient to complete the activity. If activity was not attempted, code reason: 7-Patient Refused. 9-Not Applicable-not attempted and the patient did not perform the activity before the current illness, exacerbation or injury. 10-Not Attempted due to Environmental Limitations-(lack of equipment, weather restraints, etc.). 88-Not Attempted due to Medical Conditions or Safety Concerns. Toileting Hygiene (QC): 6 (Completes independently) Toilet Transfer (QC): 6 (Completed with AD independently) Other Treatment Pt ambulated to therapy gym using FWW. Completed arm pulleys for 5 min with 1# wts attached to B wrists. Completed UE dowel tiffani exercises with 1# wts attached to wrists, 3 exercises 2 sets 10 reps each. Increasing B UE strengthening to for daily functional tasks and activity tolerance. Pt ambulated back to room. Sat in recliner at end of therapy. Call light/phone in reach. Pt up ad ansley in room. All needs met. OT Short Term Goals Short Term Goals Time Frame: Jun 26, 2020 Eatin Oral hygiene: 6 Toileting hygiene: 4 Shower/bathe self: 4 Upper body dressin Lower body dressin Putting on/taking off footwear: 4 (with AE) OT Nursing Home Goals Nursing Home Goals Time Frame: Jul 03, 2020 Eating (QC): 6 Oral Hygiene (QC): 6 Toileting Hygiene (QC): 6 Shower/Bathe Self (QC): 5 Upper Body Dressing (QC): 6 Lower Body Dressing (QC): 6 On/Off Footwear (QC): 6 Additional Goals: 1-Demonstrate ADL Tasks, 2-Verbalize Understanding, 3-ImproveStrength/Steph 1=Demonstrate adherence to instructed precautions during ADL tasks. 2=Patient will verbalize/demonstrate understanding of assistive devices/modifications for ADL. 3=Patient will improve strength/tolerance for activity to enable patient to perform ADL's. OT Education/Plan Problem List/Assessment Assessment: Decreased Activ Tolerance, Restricted Funct UE ROM Discharge Recommendations Plan/Recommendations: Continue POC Treatment Plan/Plan of Care Patient would benefit from OT for education, treatment and training to promote i ndependence in ADL's, mobility, safety and/or upper extremity function for ADL's. Plan of Care: ADL Retraining, Functional Mobility, Group Exercise/Act as Ind, UE Funct Exercise/Act Treatment Duration: Jul 03, 2020 Frequency: At least 5 of 7 days/Wk (IRF) Estimated Hrs Per Day: 1.5 hours per day Agreement: Yes Rehab Potential: Good Time/GCodes Start Time: 13:25 Stop Time: 13:55 Total Time Billed (hr/min): 30 Billed Treatment Time 1 visit-ADL 1 (10 min) EX 1 (20 min) KYA AGAGRWAL Jun 26, 2020 14:19
--- NOTE | 2020-06-26 15:00 | NUR ---
UP IN CHAIR ALL DAY. FEELS WILL BE READY FOR DISCHARGE THIS WEEK. UP AD ANDREW IN ROOM BY Alla MILLAN P.T.
--- NOTE | 2020-06-26 15:55 | NUR ---
provided prayer and Communion.
--- NOTE | 2020-06-26 16:21 | NUR ---
CM/SS PATIENT CARE CONFERENCE Left Summary for patient review, returned to discuss. Patient indicate he had no questions, signed, charted. Patient in agreement to target discharge of Monday, June 29, 2020. He will return home with his son and family as before. HHC: Reviewed agencies in service area, patient stated he preferred to stay within the [facility] network. Referral completed with [facility], await their confirmation of acceptance for RN (dressing changes) and PT. DME: Patient has FWW with small wheels, therapy team recommends 4" wheels. Will attempt to get the wheels, will order a new FWW if needed. This one is apparently gifted and not issued to patient through Medicare.
[2020-06-26 17:30] VITALS: BP 134/64
--- NOTE | 2020-06-26 19:18 | NUR ---
Bedside report received from LYNN POLK, assume care of pt
[2020-06-26] MEDS: MELATONIN 3 MG TABLET PO PRN (20:39)
[2020-06-26] MEDS: ENOXAPARIN 40 MG/0.4 ML (LOVENOX) SYR SC SCH (20:39)
--- NOTE | 2020-06-26 20:39 | NUR ---
Pt refused Colace, miralax & Senokot, up to chair & up to bathroom with walker
[2020-06-27 06:00] VITALS: BP 139/73
[2020-06-27] MEDS: DOXYCYCLINE 100 MG (VIBRAMYCIN) TABLET PO SCH ×2 (07:04→17:04)
[2020-06-27 08:57] VITALS: BP 137/74
[2020-06-27] MEDS: KCL 10 MEQ TAB (MICRO K) PO SCH ×3 (08:58→17:04)
[2020-06-27] MEDS: CLOPIDOGREL 75 MG (PLAVIX) TABLET PO SCH (08:58)
[2020-06-27] MEDS: amLODIPine 5 MG (NORVASC) TAB PO SCH (08:58)
[2020-06-27] MEDS: ASPIRIN E.C. 325 MG (ECOTRIN) TABLET PO SCH (08:58)
--- NOTE | 2020-06-27 09:13 | Wound Care Assessment ---
Wound Care Assessment Date Seen by Provider: Jun 27, 2020 Time Seen by Provider: 07:55 Chief Complaint Bilateral calf ulcers. HPI The patient is a 69 year old male with bilateral venous stasis ulcers. These are improving with elevation and resolution of cellulitis and massive edema. Urged to continue elevation, will continue Xeroform dressings and follow in clinic when discharged. 06/27/20 Interval Note: The bilateral calf ulcers are improved with Xeroform dressings. Will continue same and follow-up in out-patient clinic. Past Medical History: Admits Heart Disease Smoking Status: Former Smoker Alcohol Use: Denies Use Exam Vital Signs Date Time Temp Pulse Resp B/P (MAP) Pulse Ox O2 Delivery O2 Flow Rate FiO2 06/27/20 08:57 66 137/74 (95) 06/27/20 06:00 36.2 16 97 Room Air Capillary Refill : Less Than 3 Seconds Assessment/Plan/Dx 1. Bilateral calf ulcers, full thickness. 2. Venous insufficiency. 3. Coronary artery disease. Plan: Continue Xeroform dressings. Will follow-up in office post discharge. EBONY ROSE MD Jun 27, 2020 09:13
[2020-06-27] MEDS: SENNA W/DOCUSATE (SENOKOT S) TABLET PO SCH ×2 (09:43→19:52)
[2020-06-27] MEDS: polyethylene glycoL POWDER 17 GM (MIRALAX) PACK PO SCH ×2 (09:43→19:53)
[2020-06-27] MEDS: DOCUSATE SODIUM 100 MG (COLACE) CAP PO SCH ×2 (09:43→19:53)
--- NOTE | 2020-06-27 10:01 | Physical Therapy Daily Note ---
PT Daily Note-Current Subjective Pt sitting in recliner upon arrival. Pt agrees to PT. Pt is excited for DC on Wednesday (06/29). Pain Location: No Pain Reported Mental Status Patient Orientation: Person, Place, Time, Situation Transfers SCALE: Activities may be completed with or without assistive devices. 8-Dgrlqfoije-hjywjra completes the activity by him/herself with no assistance from a helper. 5-Set-up or Clean-up Assistance-helper sets up or cleans up; patient completes activity. [place] assists only prior to or following the activity. 4-Supervision or Touching Assistance-helper provides verbal cues and/or touching/steadying and/or contact guard assistance as patient completes activity. Assistance may be provided throughout the activity or intermittently. 3-Partial/Moderate Assistance-helper does LESS THAN HALF the effort. [place] lifts, holds or supports trunk or limbs, but provides less than half the effort. 2-Substantial/Maximal Assistance-helper does MORE THAN HALF the effort. [place] lifts or holds trunk or limbs and provides more than half the effort. 4-Vcnvhaylg-oormac does ALL the effort. Patient does none of the effort to complete the activity. Or, the assistance of 2 or more helpers is required for the patient to complete the activity. If activity was not attempted, code reason: 7-Patient Refused. 9-Not Applicable-not attempted and the patient did not perform the activity before the current illness, exacerbation or injury. 10-Not Attempted due to Environmental Limitations-(lack of equipment, weather restraints, etc.). 88-Not Attempted due to Medical Conditions or Safety Concerns. Sit to Stand (QC): 6 Chair/How-qo-Igabq Xfer(QC): 6 Weight Bearing Right Lower Extremity: Right Full Weight Bearing Left Lower Extremity: Left Full Weight Bearing Gait Training Does the Patient Walk?: Yes Distance: 150', 250' Walk 10 feet (QC): 6 Walk 50 ft with 2 Turns(QC): 6 Walk 150 ft (QC): 6 Gait Persons Needed: 1 Gait Assistive Device: FWW Wheelchair Training Does the Pt Use a Wheelchair?: No Stair Training Stair Training: Handrails/: 2 handrails #of Steps: 4 1 Step (curb) (QC): 6 4 Steps (QC): 6 Stairs: Pattern: Reciprocal Exercises Seated Therapy Exercises: Ankle pumps, Long arc quads, Hip flexion, Kicking activity, Hip abd/add Seated Reps: 15 NuStep Minutes: 16 NuStep Workload: 4 Treatments TF to standing and amb. in hallway. Pt completes Seated Ex as well as uses NuStep for 16m at WL 4. Amb in hallway before returning to room to rest in recliner. All needs met, call light in hand. Assessment Current Status: Good Progress Pt is Ad ansley in room and has made gains with strength and activity tolerance as well as independence of tasks. PT Short Term Goals Short Term Goals Time Frame: Jun 26, 2020 Roll Left & Right: 6 Sit to lyin Lying to sitting on side of be: 6 Sit to stand: 4 Chair/bgv-aa-ohvzw transfer: 4 Walk 10 feet: 4 (SBA) Walk 50 feet with two turns: 4 (SBA) Walk 150 feet: 4 (SBA) PT Boat Patcher Plastic Goals [place] Goals PT Boat Patcher Plastic Goals Time Frame: Jul 10, 2020 Roll Left & Right (QC): 6 Sit to Lying (QC): 6 Lying-Sitting on Side/Bed(QC): 6 Sit to Stand (QC): 6 Chair/Ckh-gf-Vlqkg Xfer(QC): 6 Toilet Transfer (QC): 6 Car Transfer (QC): 6 Does the Patient Walk: Yes Walk 10 feet (QC): 6 Walk 50ft with 2 Turns (QC): 6 Walk 150 ft (QC): 6 Walking 10ft on Uneven Surface: 6 1 Step (curb) (QC): 4 4 Steps (QC): 4 12 Steps (QC): 88 Picking up an Object (QC): 88 Wheel 50 feet with 2 turns (QC: 9 Wheel 150 feet: 9 PT Plan Treatment/Plan Treatment Plan: Continue Plan of Care Treatment Plan: Bed Mobility, Education, Functional Activity Steph, Functional Strength, Group Therapy, Gait, Safety, Therapeutic Exercise, Transfers Treatment Duration: Jul 10, 2020 Frequency: At least 5 of 7 days/Wk (IRF) Estimated Hrs Per Day: 1.5 hours per day Patient and/or Family Agrees t: Yes Safety Risks/Education Patient Education: Steps, Safety Issues Teaching Recipient: Patient Teaching Methods: Discussion Response to Teaching: Verbalize Understanding Time/GCodes Time In: 900 Time Out: 1000 Total Billed Treatment Time: 60 Total Billed Treatment 1, GT x2 (25m) & EX x2 (35m) JOSSELINE HAYS PTA Jun 27, 2020 10:01
--- NOTE | 2020-06-27 11:36 | Progress Note - Cardiology ---
Cardiology SOAP Progress Note Subjective: Up with PT No c/o CP, palpitations, syncope, near syncope or dyspnea Objective: I&O/Vital Signs 06/27/20 06/28/20 20:20 06:34 Temp 36.2 Pulse 74 Resp 16 B/P (MAP) 156/68 (97) Pulse Ox 95 O2 Delivery Room Air Room Air 06/28/20 00:00 Intake Total 1700 ml Balance 1700 ml Constitutional: AAO x 3, well-developed, well-nourished Respiratory: No accessory muscle use, No respiratory distress; chest expansion is symmetric, chest is bilaterally symmetric, lungs clear to auscultation Cardiovascular: regular rate-rhythm; No JVD; S1 and S2 Gastrointestional: No tender; soft, round, audible bowel sounds Extremities: other (dressings to bilat LE, D&I, not removed) Neurologic/Psychiatric: grossly intact (moves all extremities) Skin: other (see above) A/P: Assessment: Bilateral lower extremity venous ulcers - management per wound care and surgical services. Mildly elevated troponin on Jun 13, 2020 without any significant cardiac symptoms. Nuclear stress test done 06/14/2020 showed possible anterior apical ischemia. Pt desires conservative therapy only HTN HLP CRI DM Plan: Continue current cardiac regimen Wound care management per Dr. Dawood Gabriel and we have recommended coronary angiography and possible intervention. The patient understands but refuses Plan for possible discharge home tomorrow Schedule out pt f/u ARELIS ANDINO Jun 27, 2020 11:36
--- NOTE | 2020-06-27 12:50 | PM&R Progress Note ---
Subjective HPI/CC On Admission Date Seen by Provider: Jun 27, 2020 Time Seen by Provider: 05:10 Subjective/Events-last exam 06/27/2020: Patient doing pretty well Asked me to become his primary care provider at discharge and I agreed Dressing changes maintained Discharge is planned on Wednesday06/26/20: Dr. Seay was pleased with how his legs look Slept in a chair all night Bowels moved today Cardiac catheterization has been refused by the pt 06/25/20: Daily dressing changes on the legs are required and they seem to be seeping through the dressing so will initiate a Dr. Seay wound consult Denies any new issues otherwise Bowels are moving well 06/24/20: Creatinine 1.56 on labs today Norvasc of 5mg maintaining BP of 150s Bowels are moving okay Dressing changes maintained 06/23/20: BP still a bit high at 150's but just started Norvasc BM+ No pain reported Dressing change of legs going well 06/22/20: Diarrhea is improved Legs improved Dressing changes daily 06/21/20: No new issues Dressing to legs improved Podiatry consultation done BP 165 so added Norvasc Patient had a good night Legs are improved overall and dressing changes maintained Potassium 3.1 so increased PO supplement Creat 1.89 Loose stools noted Checked meds and labs Conferred with RN Reviewed therapy notes Review of Systems Musculoskeletal: leg pain Objective Exam Vital Signs Vital Signs Date Time Temp Pulse Resp B/P (MAP) Pulse Ox O2 Delivery O2 Flow Rate FiO2 06/27/20 17:04 36.8 66 18 145/65 (91) 97 Room Air Capillary Refill : Less Than 3 Seconds General Appearance: No Apparent Distress, WD/WN, Chronically ill HEENT: PERRL/EOMI, Normal ENT Inspection, Pharynx Normal Neck: Full Range of Motion, Normal Inspection, Non Tender, Supple, Carotid Bruit Respiratory: Chest Non Tender, Lungs Clear, Normal Breath Sounds, No Accessory Muscle Use, No Respiratory Distress Cardiovascular: Regular Rate, Rhythm, No Gallop, No JVD, No Murmur, Normal Peripheral Pulses Gastrointestinal: Normal Bowel Sounds, No Organomegaly, No Pulsatile Mass, Non Tender, Soft Back: Normal Inspection, No CVA Tenderness, No Vertebral Tenderness Extremity: Normal Capillary Refill, Normal Inspection, Normal Range of Motion, Non Tender, No Calf Tenderness, Pedal Edema Neurologic/Psychiatric: Alert, Oriented x3, No Motor/Sensory Deficits, Normal Mood/Affect, Motor Weakness (generalized all extremities) Skin: Normal Color, Warm/Dry, Rash (lower legs) Lymphatic: No Adenopathy Results/Procedures Lab Patient resulted labs reviewed. FIM Transfers Therapy Code Descriptions/Definitions Functional [place] Measure: 0=Not Assessed/NA 4=Minimal Assistance 1=Total Assistance 5=Supervision or Setup 2=Maximal Assistance 6=Modified [place] 3=Moderate Assistance 7=Complete IndependenceSCALE: Activities may be completed with or without assistive devices. 9-Rgjggrqgnw-udqibhy completes the activity by him/herself with no assistance from a helper. 5-Set-up or Clean-up Assistance-helper sets up or cleans up; patient completes activity. [place] assists only prior to or following the activity. 4-Supervision or Touching Assistance-helper provides verbal cues and/or touching/steadying and/or contact guard assistance as patient completes activity. Assistance may be provided throughout the activity or intermittently. 3-Partial/Moderate Assistance-helper does LESS THAN HALF the effort. [place] lifts, holds or supports trunk or limbs, but provides less than half the effort. 2-Substantial/Maximal Assistance-helper does MORE THAN HALF the effort. [place] lifts or holds trunk or limbs and provides more than half the effort. 6-Kfxxqrlqr-bsgqgl does ALL the effort. Patient does none of the effort to complete the activity. Or, the assistance of 2 or more helpers is required for the patient to complete the activity. If activity was not attempted, code reason: 7-Patient Refused. 9-Not Applicable-not attempted and the patient did not perform the activity before the current illness, exacerbation or injury. 10-Not Attempted due to Environmental Limitations-(lack of equipment, weather restraints, etc.). 88-Not Attempted due to Medical Conditions or Safety Concerns. Roll Left to Right (QC): 6 Sit to Lying (QC): 6 Sit to Stand (QC): 6 Chair/Ncs-si-Lqutk Xfer(QC): 6 Car Transfer (QC): 6 Gait Training Does the Patient Walk?: Yes Distance: 150', 250' Walk 10 feet (QC): 6 Walk 50 ft with 2 Turns(QC): 6 Walk 150 ft (QC): 6 Walking 10ft/uneven surface-QC: 4 Gait Persons Needed: 1 Gait Assistive Device: FWW Wheelchair Training Does the Pt Use a Wheelchair?: No Wheel 50 ft with 2 turns (QC): 9 Wheel 150 ft (QC): 9 Stair Training Stair Training: Handrails/: 2 handrails #of Steps: 4 1 Step (curb) (QC): 6 4 Steps (QC): 6 12 Steps (QC): 88 Stairs: Pattern: Reciprocal Balance Picking up an Object (QC): 88 ADL-Treatment Eating (QC): 6 Oral Hygiene (QC): 6 (Independent seated at sink.) Bathing Location: L Arm, R Arm, L Upper Leg, R Upper Leg, Chest, Abdomen, Perineal Area Shower/Bathe Self (QC): 3 (Mod assist due to pt. needing assistance to cleanse rear andrea area.) Upper Body Dressing (QC): 5 Lower Body Dressing (QC): 5 (Set up with AE) On/Off Footwear (QC): 4 (SBA with AE) Toileting Hygiene (QC): 6 (Completes independently) Toilet Transfer (QC): 6 (Completed with AD independently) Assessment/Plan Assessment and Plan Assess & Plan/Chief Complaint Assessment: Debility NSTEMI CAD Refusal of cardiac cath for definitive treatment CRI DM new onset hga1c 6.8 Lower leg cellulitis Venous stasis dermatitis Plan: Monitor creat IRF protocol Monitor chest pain 06/20/20: Rash management with abx and dressing changes Increase potassium to TID with meals DC accuchecks 06/21/20: Improved status Add Norvasc for elevated BP 06/22/20: Improved status Monitor BP Dressing changes 06/23/20: Monitor BP Dressing changes to legs Complete abx Check labs in am 06/24/20: Labs stable Dressing changes helping heal stasis dermatitis 06/25/20: Wound care to legs Monitor BP 06/26/20: Wound care BP management 06/27/2020: Discharge was planned on Wednesday Wound care Monitor blood pressure (1) NSTEMI (non-ST elevated myocardial infarction) Status: Acute (2) OSWALDO (acute kidney injury) (3) DMII (diabetes mellitus, type 2) (4) Venous stasis dermatitis of both lower extremities (5) Bilateral lower leg cellulitis Status: Acute (6) Bilateral leg edema Status: Acute (7) HTN (hypertension) Status: Acute BRIAN GAN DO Jun 27, 2020 12:50
--- NOTE | 2020-06-27 13:41 | NUR ---
CM/SS DISCHARGE PLANNING Explored larger wheels for patient's FWW, most reasonable option appears to be for patient to purchase. [facility] does not have in stock, they recommended [employer] or [employer]. Skimmer located at [employer] online and updated patient, cost for 2 universal 6" wheels is only approximately $8.50. Patient stated his son could assist with ordering online. [place]: Referral completed with [facility], patient accepted. They understand that patient will discharge Wednesday, orders will be for RN (wound dressing) and PT. Patient will inform his son of discharge and his son will take off work in order to be available to patient. Addendum: 06/27/20 at 1349 by BRADLEY GAO SS OT recommended a basket for walker, also a private pay item of patient's choice of design. Addendum: 06/27/20 at 1427 by BRADLEY GAO SS Provided medical walker basket resources through [employer] so that patient can order both items through same resource if he chooses.
--- NOTE | 2020-06-27 15:24 | Physical Therapy Daily Note ---
PT Daily Note-Current Subjective Pt sitting in recliner upon arrival. Pt agrees to PT but asks to use BR before leaving room. Pain Location: No Pain Reported Mental Status Patient Orientation: Person, Place, Time, Situation Transfers SCALE: Activities may be completed with or without assistive devices. 6-Tohspbugah-lwulbfx completes the activity by him/herself with no assistance from a helper. 5-Set-up or Clean-up Assistance-helper sets up or cleans up; patient completes activity. [place] assists only prior to or following the activity. 4-Supervision or Touching Assistance-helper provides verbal cues and/or touching/steadying and/or contact guard assistance as patient completes activity. Assistance may be provided throughout the activity or intermittently. 3-Partial/Moderate Assistance-helper does LESS THAN HALF the effort. [place] lifts, holds or supports trunk or limbs, but provides less than half the effort. 2-Substantial/Maximal Assistance-helper does MORE THAN HALF the effort. [place] lifts or holds trunk or limbs and provides more than half the effort. 8-Jtejfifdd-pbtpyu does ALL the effort. Patient does none of the effort to complete the activity. Or, the assistance of 2 or more helpers is required for the patient to complete the activity. If activity was not attempted, code reason: 7-Patient Refused. 9-Not Applicable-not attempted and the patient did not perform the activity before the current illness, exacerbation or injury. 10-Not Attempted due to Environmental Limitations-(lack of equipment, weather restraints, etc.). 88-Not Attempted due to Medical Conditions or Safety Concerns. Sit to Stand (QC): 6 Toilet Transfer (QC): 6 Weight Bearing Right Lower Extremity: Right Full Weight Bearing Left Lower Extremity: Left Full Weight Bearing Gait Training Does the Patient Walk?: Yes Distance: 400' Walk 10 feet (QC): 6 Walk 50 ft with 2 Turns(QC): 6 Walk 150 ft (QC): 6 Gait Persons Needed: 1 Gait Assistive Device: FWW Treatments Pt uses BR before amb. in hallway. Pt takes RB before returning to room. Pt asks VALUE ANALYST for assistance in arranging furniture to have everything in reach since pt is Ad ansley in room. Pt resting in recliner at end of tx. All needs met,call light in hand. Assessment Pt has made progress and now looks forward to DC on Wednesday. PT Short Term Goals Short Term Goals Time Frame: Jun 26, 2020 Roll Left & Right: 6 Sit to lyin Lying to sitting on side of be: 6 Sit to stand: 4 Chair/cha-ou-mofye transfer: 4 Walk 10 feet: 4 (SBA) Walk 50 feet with two turns: 4 (SBA) Walk 150 feet: 4 (SBA) PT Clearance Center Manager Goals Clearance Center Manager Goals PT Long-Term Goals Time Frame: Jul 10, 2020 Roll Left & Right (QC): 6 Sit to Lying (QC): 6 Lying-Sitting on Side/Bed(QC): 6 Sit to Stand (QC): 6 Chair/Qly-ss-Wujzq Xfer(QC): 6 Toilet Transfer (QC): 6 Car Transfer (QC): 6 Does the Patient Walk: Yes Walk 10 feet (QC): 6 Walk 50ft with 2 Turns (QC): 6 Walk 150 ft (QC): 6 Walking 10ft on Uneven Surface: 6 1 Step (curb) (QC): 4 4 Steps (QC): 4 12 Steps (QC): 88 Picking up an Object (QC): 88 Wheel 50 feet with 2 turns (QC: 9 Wheel 150 feet: 9 PT Plan Problem List Problem List: Activity Tolerance Treatment/Plan Treatment Plan: Continue Plan of Care Treatment Plan: Bed Mobility, Education, Functional Activity Steph, Functional Strength, Group Therapy, Gait, Safety, Therapeutic Exercise, Transfers Treatment Duration: Jul 10, 2020 Frequency: At least 5 of 7 days/Wk (IRF) Estimated Hrs Per Day: 1.5 hours per day Patient and/or Family Agrees t: Yes Time/GCodes Time In: 1330 Time Out: 1400 Total Billed Treatment Time: 30 Total Billed Treatment 1, FA (10m) & GT (20m) JOSSELINE HAYS VALUE ANALYST Jun 27, 2020 15:24
--- NOTE | 2020-06-27 15:41 | Occupational Ther Daily Note ---
OT Current Status-Daily Note Subjective No pain reported. Mental Status/Objective Patient Orientation: Person, Place, Time, Situation ADL-Treatment Therapy Code Descriptions/Definitions Functional [place] Measure: 0=Not Assessed/NA 4=Minimal Assistance 1=Total Assistance 5=Supervision or Setup 2=Maximal Assistance 6=Modified [place] 3=Moderate Assistance 7=Complete IndependenceSCALE: Activities may be completed with or without assistive devices. 6-Syqoahnpyb-ayotvmw completes the activity by him/herself with no assistance from a helper. 5-Set-up or Clean-up Assistance-helper sets up or cleans up; patient completes activity. [place] assists only prior to or following the activity. 4-Supervision or Touching Assistance-helper provides verbal cues and/or touching/steadying and/or contact guard assistance as patient completes activity. Assistance may be provided throughout the activity or intermittently. 3-Partial/Moderate Assistance-helper does LESS THAN HALF the effort. [place] lifts, holds or supports trunk or limbs, but provides less than half the effort. 2-Substantial/Maximal Assistance-helper does MORE THAN HALF the effort. [place] lifts or holds trunk or limbs and provides more than half the effort. 3-Dbtsneiqu-ohbnhh does ALL the effort. Patient does none of the effort to complete the activity. Or, the assistance of 2 or more helpers is required for the patient to complete the activity. If activity was not attempted, code reason: 7-Patient Refused. 9-Not Applicable-not attempted and the patient did not perform the activity before the current illness, exacerbation or injury. 10-Not Attempted due to Environmental Limitations-(lack of equipment, weather restraints, etc.). 88-Not Attempted due to Medical Conditions or Safety Concerns. Pt. declines showering as he had just got his LE wrapped from wound care. Agrees to shower tomorrow. Pt. stands and ambulates with independence and walker to therapy gym. Completed 15 minutes on arm bike x 15 minutes at mod resistance for increased UE strength. Donned 1 lb. wrist weights and completed series of UE activities for increased endurance overall. Tolerated well. Pt. ambulated with walker and independence around dining area and rehab unit. Went back to therapy gym and completed ball activity, back and forth for UE/LE strengthening. Tolerated well. Ambulated back to room. Pt. up ad ansley now. All needs met. Education OT Patient Education: Correct positioning, Exercise program, Modified ADL techniques, Progress toward Goal/Update tx plan, Purpose of tx/functional activities, Reviewed precautions, Rehab process, Transfer techniques Teaching Recipient: Patient Teaching Methods: Demonstration, Discussion Response to Teaching: Verbalize Understanding, Return Demonstration OT Short Term Goals Short Term Goals Time Frame: Jun 26, 2020 Eatin Oral hygiene: 6 Toileting hygiene: 4 Shower/bathe self: 4 Upper body dressin Lower body dressin Putting on/taking off footwear: 4 (with AE) OT Mcfp Goals Mcfp Goals Time Frame: Jul 03, 2020 Eating (QC): 6 Oral Hygiene (QC): 6 Toileting Hygiene (QC): 6 Shower/Bathe Self (QC): 5 Upper Body Dressing (QC): 6 Lower Body Dressing (QC): 6 On/Off Footwear (QC): 6 Additional Goals: 1-Demonstrate ADL Tasks, 2-Verbalize Understanding, 3- ImproveStrength/Steph 1=Demonstrate adherence to instructed precautions during ADL tasks. 2=Patient will verbalize/demonstrate understanding of assistive devices/modifications for ADL. 3=Patient will improve strength/tolerance for activity to enable patient to perform ADL's. OT Education/Plan Problem List/Assessment Assessment: Decreased Activ Tolerance Discharge Recommendations Plan/Recommendations: Continue POC Therapy Discharge Recommendati: Home & Family Treatment Plan/Plan of Care Treatment,Training & Education: Yes Patient would benefit from OT for education, treatment and training to promote independence in ADL's, mobility, safety and/or upper extremity function for ADL's. Plan of Care: ADL Retraining, Functional Mobility, Group Exercise/Act as Ind, UE Funct Exercise/Act Treatment Duration: Jul 03, 2020 Frequency: At least 5 of 7 days/Wk (IRF) Estimated Hrs Per Day: 1.5 hours per day Agreement: Yes Rehab Potential: Good Time/GCodes Start Time: 10:15 Stop Time: 11:45 Total Time Billed (hr/min): 90 Billed Treatment Time 1, ADL x 15minutes, Ex x 15minutes, FA x 60minutes JANET LYNCH OT Jun 27, 2020 15:41
[2020-06-27 17:04] VITALS: BP 145/65
--- NOTE | 2020-06-27 19:31 | Progress Note - Cardiology ---
Cardiology SOAP Progress Note Subjective: Gen malaise and weakness No shortness of breath No cp or palp or syncope No n/v/d Objective: I&O/Vital Signs 06/27/20 06/27/20 06/27/20 08:57 09:00 17:04 Temp 36.8 Pulse 66 66 Resp 18 B/P (MAP) 137/74 (95) 145/65 (91) Pulse Ox 97 O2 Delivery Room Air Room Air 06/27/20 00:00 Intake Total 1250 ml Balance 1250 ml Constitutional: AAO x 3, well-developed, well-nourished Respiratory: No accessory muscle use, No respiratory distress; chest expansion is symmetric, chest is bilaterally symmetric, lungs clear to auscultation Cardiovascular: regular rate-rhythm; No JVD; S1 and S2 Gastrointestional: No tender; soft, round, audible bowel sounds Extremities: other (dressings to bilat LE, D&I, not removed) Neurologic/Psychiatric: grossly intact (moves all extremities) Skin: other (see above) A/P: Assessment: Bilateral lower extremity venous ulcers - management per wound care and surgical services. Mildly elevated troponin on Jun 13, 2020 without any significant cardiac symptoms. Nuclear stress test done 06/14/2020 showed possible anterior apical ischemia. Pt desires conservative therapy only HTN HLP CRI DM Plan: Continue current cardiac regimen Wound care management per Dr. Dawood Gabriel and we have recommended coronary angiography and possible intervention. The patient understands but refuses Plan for possible discharge home tomorrow Schedule out pt f/u ELOY ANTONIO MD FACP FAC CCDS Jun 27, 2020 19:31
[2020-06-27] MEDS: ENOXAPARIN 40 MG/0.4 ML (LOVENOX) SYR SC SCH (20:35)
[2020-06-27] MEDS: MELATONIN 3 MG TABLET PO PRN (20:35)
[2020-06-28] MEDS: DOXYCYCLINE 100 MG (VIBRAMYCIN) TABLET PO SCH (06:09)
[2020-06-28 06:34] VITALS: BP 156/68
[2020-06-28] MEDS: KCL 10 MEQ TAB (MICRO K) PO SCH (08:02)
[2020-06-28] MEDS: amLODIPine 5 MG (NORVASC) TAB PO SCH (08:02)
[2020-06-28] MEDS: ASPIRIN E.C. 325 MG (ECOTRIN) TABLET PO SCH (08:02)
[2020-06-28] MEDS: CLOPIDOGREL 75 MG (PLAVIX) TABLET PO SCH (08:02)
--- NOTE | 2020-06-28 08:58 | Physical Therapy Daily Note ---
PT Daily Note-Current Subjective Pt. agrees to Rx and explains how he feels he has progressed etc. Pain Location: No Pain Reported Mental Status Patient Orientation: Normal For Age Attachments: Other-See Comments (mask out of room) Transfers SCALE: Activities may be completed with or without assistive devices. 1-Ewobpimmbb-gcjeecv completes the activity by him/herself with no assistance from a helper. 5-Set-up or Clean-up Assistance-helper sets up or cleans up; patient completes activity. [place] assists only prior to or following the activity. 4-Supervision or Touching Assistance-helper provides verbal cues and/or touching/steadying and/or contact guard assistance as patient completes activity. Assistance may be provided throughout the activity or intermittently. 3-Partial/Moderate Assistance-helper does LESS THAN HALF the effort. [place] lifts, holds or supports trunk or limbs, but provides less than half the effort. 2-Substantial/Maximal Assistance-helper does MORE THAN HALF the effort. [place] lifts or holds trunk or limbs and provides more than half the effort. 7-Pclnvajkw-zhqllk does ALL the effort. Patient does none of the effort to complete the activity. Or, the assistance of 2 or more helpers is required for the patient to complete the activity. If activity was not attempted, code reason: 7-Patient Refused. 9-Not Applicable-not attempted and the patient did not perform the activity before the current illness, exacerbation or injury. 10-Not Attempted due to Environmental Limitations-(lack of equipment, weather restraints, etc.). 88-Not Attempted due to Medical Conditions or Safety Concerns. Roll Left & Right (QC): 6 Sit to Lying (QC): 6 Lying to Sitting/Side of Bed(Q: 6 Sit to Stand (QC): 6 Chair/Zjt-jm-Axavo Xfer(QC): 6 Toilet Transfer (QC): 6 Car Transfer (QC): 6 pt. up ad ansley and demonstrates this in TRFs as well Weight Bearing Right Lower Extremity: Right Full Weight Bearing Left Lower Extremity: Left Full Weight Bearing Gait Training Does the Patient Walk?: Yes Walk 10 feet (QC): 6 Walk 50 ft with 2 Turns(QC): 6 Walk 150 ft (QC): 6 Walking 10ft/uneven surface-QC: 6 Gait Persons Needed: 0 Gait Assistive Device: FWW no LOB, hip hikes to compensate for poor to no DF bilat, up ad ansley in room and to bthrm Stair Training Stair Training: Handrails/: 2 handrails #of Steps: 4 1 Step (curb) (QC): 4 4 Steps (QC): 4 12 Steps (QC): 88 Stairs: Pattern: Step to Balance Picking up an Object (QC): 88 Exercises Supine Ex: Quad Set, Rolling, Glut sets, Heel Slides, Short Arc Quads, Scooting, Straight leg raise, Hip abd/add Supine Reps: 12 Seated Therapy Exercises: Sit to stand, Long arc quads, Hip flexion, Hip abd/add Seated Reps: 12 Assessment Current Status: Good Progress meets goals PT Short Term Goals Short Term Goals Time Frame: Jun 26, 2020 Roll Left & Right: 6 Sit to lyin Lying to sitting on side of be: 6 Sit to stand: 4 Chair/dnn-pm-myvmh transfer: 4 Walk 10 feet: 4 (SBA) Walk 50 feet with two turns: 4 (SBA) Walk 150 feet: 4 (SBA) PT Split Leather Department Supervisor Goals Assisted Goals PT Split Leather Department Supervisor Goals Time Frame: Jul 10, 2020 Roll Left & Right (QC): 6 Sit to Lying (QC): 6 Lying-Sitting on Side/Bed(QC): 6 Sit to Stand (QC): 6 Chair/Onx-xp-Jsszc Xfer(QC): 6 Toilet Transfer (QC): 6 Car Transfer (QC): 6 Does the Patient Walk: Yes Walk 10 feet (QC): 6 Walk 50ft with 2 Turns (QC): 6 Walk 150 ft (QC): 6 Walking 10ft on Uneven Surface: 6 1 Step (curb) (QC): 4 4 Steps (QC): 4 12 Steps (QC): 88 Picking up an Object (QC): 88 Wheel 50 feet with 2 turns (QC: 9 Wheel 150 feet: 9 PT Plan Treatment/Plan Treatment Plan: Continue Plan of Care Treatment Plan: Bed Mobility, Education, Functional Activity Steph, Functional Strength, Group Therapy, Gait, Safety, Therapeutic Exercise, Transfers Treatment Duration: Jul 10, 2020 Frequency: At least 5 of 7 days/Wk (IRF) Estimated Hrs Per Day: 1.5 hours per day Patient and/or Family Agrees t: Yes Time/GCodes Time In: 800 Time Out: 900 Total Billed Treatment Time: 60 Total Billed Treatment 1,GT20m,EX15m,FA25m YESI BARNH[employer] DATA MANAGEMENT ASSOCIATE Jun 28, 2020 08:58
[2020-06-28] MEDS: DOCUSATE SODIUM 100 MG (COLACE) CAP PO SCH ×2 (09:00→20:15)
[2020-06-28] MEDS: SENNA W/DOCUSATE (SENOKOT S) TABLET PO SCH ×2 (09:00→20:15)
[2020-06-28] MEDS: polyethylene glycoL POWDER 17 GM (MIRALAX) PACK PO SCH ×2 (09:00→20:15)
--- NOTE | 2020-06-28 09:34 | Occupational Ther Daily Note ---
OT Current Status-Daily Note Subjective Pt AxO, up in chair this am. Pt denies pain, agrees to OT, states "wonderful, but sad," about d/c tomorrow. Stating he's exciting to go home but sad to leave "good company." Pt denies complaints, agrees to showering. Nursing made aware for LE wraping. ADL-Treatment Therapy Code Descriptions/Definitions Functional [place] Measure: 0=Not Assessed/NA 4=Minimal Assistance 1=Total Assistance 5=Supervision or Setup 2=Maximal Assistance 6=Modified [place] 3=Moderate Assistance 7=Complete IndependenceSCALE: Activities may be completed with or without assistive devices. 1-Kaxkwecnnv-hptfvrf completes the activity by him/herself with no assistance from a helper. 5-Set-up or Clean-up Assistance-helper sets up or cleans up; patient completes activity. [place] assists only prior to or following the activity. 4-Supervision or Touching Assistance-helper provides verbal cues and/or touching/steadying and/or contact guard assistance as patient completes a ctivity. Assistance may be provided throughout the activity or intermittently. 3-Partial/Moderate Assistance-helper does LESS THAN HALF the effort. [place] lifts, holds or supports trunk or limbs, but provides less than half the effort. 2-Substantial/Maximal Assistance-helper does MORE THAN HALF the effort. [place] lifts or holds trunk or limbs and provides more than half the effort. 4-Hywvtznjs-uxbivr does ALL the effort. Patient does none of the effort to complete the activity. Or, the assistance of 2 or more helpers is required for the patient to complete the activity. If activity was not attempted, code reason: 7-Patient Refused. 9-Not Applicable-not attempted and the patient did not perform the activity before the current illness, exacerbation or injury. 10-Not Attempted due to Environmental Limitations-(lack of equipment, weather restraints, etc.). 88-Not Attempted due to Medical Conditions or Safety Concerns. Eating (QC): 6 Oral Hygiene (QC): 5 (s/u with chair placed behind pt. Able to complete with IND in sit.) Bathing Location: L Arm, R Arm, L Upper Leg, R Upper Leg, L Lower Leg (including foot), R Lower Leg (including foot), Chest, Abdomen, Buttocks, Perineal Area Shower/Bathe Self (QC): 5 (completes shower on sc/ standing at gb with IND, though OT doffs bandages to prep for showering.) Upper Body Dressing (QC): 6 (gathers and dons in shower with IND.) Lower Body Dressing (QC): 6 (gathers and dons in shower with IND.) On/Off Footwear: 6 (gathers and dons with use of AE.) Toileting Hygiene (QC): 6 (IND ) Toilet Transfer (QC): 6 (IND. Pt up ad ansley in room.) Other Treatment Pt agrees to showering, nursing aware. Pt sit to stand with SUP and ambulates to closet, completing reaching/ gathering with safety. Pt ambulates with gathered items safely to sc, sits with control/ use of gbs. Pt's dressings doffed/ able to soak during shower. Pt completes all showering tasks with IND. Dons clothes post showering on sc. Sit to stand with SUP and completes oral care at sink with request of OT placing commode behind him. Pt returns to recliner, all needs met, call light in reach, LE's elevated with disposable ingrid under LEs and nursing made aware of pt's position. Education OT Patient Education: Correct positioning, Purpose of tx/functional activities, Safety issues Teaching Recipient: Patient Teaching Methods: Demonstration, Discussion Response to Teaching: Verbalize Understanding, Return Demonstration OT Short Term Goals Short Term Goals Time Frame: Jun 26, 2020 Eatin Oral hygiene: 6 Toileting hygiene: 4 Shower/bathe self: 4 Upper body dressin Lower body dressin Putting on/taking off footwear: 4 (with AE) OT Skilled Nursing Goals Salesperson Wigs Goals Time Frame: Jul 03, 2020 Eating (QC): 6 Oral Hygiene (QC): 6 Toileting Hygiene (QC): 6 Shower/Bathe Self (QC): 5 Upper Body Dressing (QC): 6 Lower Body Dressing (QC): 6 On/Off Footwear (QC): 6 Additional Goals: 1-Demonstrate ADL Tasks, 2-Verbalize Understanding, 3-I mproveStrength/Steph 1=Demonstrate adherence to instructed precautions during ADL tasks. 2=Patient will verbalize/demonstrate understanding of assistive devices/modifications for ADL. 3=Patient will improve strength/tolerance for activity to enable patient to perform ADL's. OT Education/Plan Problem List/Assessment Assessment: Decreased Activ Tolerance, Impaired I ADL's Discharge Recommendations Plan/Recommendations: Continue POC Therapy Discharge Recommendati: Home & Family Treatment Plan/Plan of Care Treatment,Training & Education: Yes Patient would benefit from OT for education, treatment and training to promote independence in ADL's, mobility, safety and/or upper extremity function for ADL's. Plan of Care: ADL Retraining, Functional Mobility, Group Exercise/Act as Ind, UE Funct Exercise/Act Treatment Duration: Jul 03, 2020 Frequency: At least 5 of 7 days/Wk (IRF) Estimated Hrs Per Day: 1.5 hours per day Agreement: Yes Rehab Potential: Good Time/GCodes Start Time: 09:00 Stop Time: 10:00 Total Time Billed (hr/min): 60 Billed Treatment Time 1, ADL 4 (60) ROMEL ALVARENGA OTR Jun 28, 2020 09:34
[2020-06-28] MEDS ORDERED: ASPI-999 PO ×2 (11:02→12:09)
[2020-06-28] MEDS ORDERED: AMLO-250 PO (11:02)
--- NOTE | 2020-06-28 11:03 | Progress Note - Cardiology ---
Cardiology SOAP Progress Note Subjective: No c/o CP, palpitations, dyspnea, syncope or near syncope. Plan is to discharge home tomorrow Objective: I&O/Vital Signs 06/28/20 06/28/20 06:34 09:00 Temp 36.2 Pulse 74 Resp 16 B/P (MAP) 156/68 (97) Pulse Ox 95 O2 Delivery Room Air Room Air 06/28/20 00:00 Intake Total 1700 ml Balance 1700 ml Constitutional: AAO x 3, well-developed, well-nourished Respiratory: No accessory muscle use, No respiratory distress; chest expansion is symmetric, chest is bilaterally symmetric, lungs clear to auscultation Cardiovascular: regular rate-rhythm; No JVD; S1 and S2 Gastrointestional: No tender; soft, round, audible bowel sounds Extremities: other (dressings to bilat LE, D&I, not removed) Neurologic/Psychiatric: grossly intact (moves all extremities) Skin: other (see above) A/P: Assessment: Bilateral lower extremity venous ulcers - management per wound care and surgical services. Mildly elevated troponin on Jun 13, 2020 without any significant cardiac symptoms. Nuclear stress test done 06/14/2020 showed possible anterior apical ischemia. Pt desires conservative therapy only HTN HLP CRI DM Plan: Continue current cardiac regimen Wound care management per Dr. Dawood Gabriel and we have recommended coronary angiography and possible intervention. The patient understands but refuses Continue current cardiac medication regimen Plan for possible discharge home Wednesday Schedule out pt f/u There is no cardiology coverage over the weekend. Refer to primary care attending. If emergent cardiac services are need will require transfer to tertiary care facility, to be decided by primary care attending. ARELIS ANDINO Jun 28, 2020 11:03
--- NOTE | 2020-06-28 12:03 | PM&R Progress Note ---
Subjective HPI/CC On Admission Date Seen by Provider: Jun 28, 2020 Time Seen by Provider: 05:30 Subjective/Events-last exam 06/28/2020: Patient doing very well Slept in the chair again Wound care is being set up as an outpatient Check meds and labs Discharge orders placed He will follow-up with me within 2 weeks 06/27/2020: Patient doing pretty well Asked me to become his primary care provider at discharge and I agreed Dressing changes maintained Discharge is planned on Wednesday06/26/20: Dr. Seay was pleased with how his legs look Slept in a chair all night Bowels moved today Cardiac catheterization has been refused by the pt 06/25/20: Daily dressing changes on the legs are required and they seem to be seeping through the dressing so will initiate a Dr. Seay wound consult Denies any new issues otherwise Bowels are moving well 06/24/20: Creatinine 1.56 on labs today Norvasc of 5mg maintaining BP of 150s Bowels are moving okay Dressing changes maintained 06/23/20: BP still a bit high at 150's but just started Norvasc BM+ No pain reported Dressing change of legs going well 06/22/20: Diarrhea is improved Legs improved Dressing changes daily 06/21/20: No new issues Dressing to legs improved Podiatry consultation done BP 165 so added Norvasc Patient had a good night Legs are improved overall and dressing changes maintained Potassium 3.1 so increased PO supplement Creat 1.89 Loose stools noted Checked meds and labs Conferred with RN Reviewed therapy notes Review of Systems General: Fatigue Cardiovascular: Edema Musculoskeletal: leg pain Objective Exam Vital Signs Vital Signs Date Time Temp Pulse Resp B/P (MAP) Pulse Ox O2 Delivery O2 Flow Rate FiO2 06/28/20 16:00 36.2 56 16 148/76 (100) 97 Room Air Capillary Refill : Less Than 3 Seconds General Appearance: No Apparent Distress, WD/WN, Chronically ill HEENT: PERRL/EOMI, Normal ENT Inspection, Pharynx Normal Neck: Full Range of Motion, Normal Inspection, Non Tender, Supple, Carotid Bruit Respiratory: Chest Non Tender, Lungs Clear, Normal Breath Sounds, No Accessory Muscle Use, No Respiratory Distress Cardiovascular: Regular Rate, Rhythm, No Gallop, No JVD, No Murmur, Normal Peripheral Pulses Gastrointestinal: Normal Bowel Sounds, No Organomegaly, No Pulsatile Mass, Non Tender, Soft Back: Normal Inspection, No CVA Tenderness, No Vertebral Tenderness Extremity: Normal Capillary Refill, Normal Inspection, Normal Range of Motion, Non Tender, No Calf Tenderness, Pedal Edema Neurologic/Psychiatric: Alert, Oriented x3, No Motor/Sensory Deficits, Normal Mood/Affect, Motor Weakness (generalized all extremities) Skin: Normal Color, Warm/Dry, Rash (lower legs) Lymphatic: No Adenopathy Results/Procedures Lab Patient resulted labs reviewed. FIM Transfers Therapy Code Descriptions/Definitions Functional [place] Measure: 0=Not Assessed/NA 4=Minimal Assistance 1=Total Assistance 5=Supervision or Setup 2=Maximal Assistance 6=Modified [place] 3=Moderate Assistance 7=Complete IndependenceSCALE: Activities may be completed with or without assistive devices. 8-Sbriwungnk-hsuemsf completes the activity by him/herself with no assistance from a helper. 5-Set-up or Clean-up Assistance-helper sets up or cleans up; patient completes activity. [place] assists only prior to or following the activity. 4-Supervision or Touching Assistance-helper provides verbal cues and/or touching/steadying and/or contact guard assistance as patient completes activity. Assistance may be provided throughout the activity or intermittently. 3-Partial/Moderate Assistance-helper does LESS THAN HALF the effort. [place] lifts, holds or supports trunk or limbs, but provides less than half the effort. 2-Substantial/Maximal Assistance-helper does MORE THAN HALF the effort. [place] lifts or holds trunk or limbs and provides more than half the effort. 1-Vidodbtne-toctpk does ALL the effort. Patient does none of the effort to complete the activity. Or, the assistance of 2 or more helpers is required for the patient to complete the activity. If activity was not attempted, code reason: 7-Patient Refused. 9-Not Applicable-not attempted and the patient did not perform the activity before the current illness, exacerbation or injury. 10-Not Attempted due to Environmental Limitations-(lack of equipment, weather restraints, etc.). 88-Not Attempted due to Medical Conditions or Safety Concerns. Roll Left to Right (QC): 6 Sit to Lying (QC): 6 Sit to Stand (QC): 6 Chair/Tov-jb-Grcyo Xfer(QC): 6 Car Transfer (QC): 6 Gait Training Does the Patient Walk?: Yes Distance: 400' Walk 10 feet (QC): 6 Walk 50 ft with 2 Turns(QC): 6 Walk 150 ft (QC): 6 Walking 10ft/uneven surface-QC: 6 Gait Persons Needed: 0 Gait Assistive Device: FWW Wheelchair Training Does the Pt Use a Wheelchair?: No Wheel 50 ft with 2 turns (QC): 9 Wheel 150 ft (QC): 9 Stair Training Stair Training: Handrails/: 2 handrails #of Steps: 4 1 Step (curb) (QC): 4 4 Steps (QC): 4 12 Steps (QC): 88 Stairs: Pattern: Step to Balance Picking up an Object (QC): 88 ADL-Treatment Eating (QC): 6 Oral Hygiene (QC): 5 (s/u with chair placed behind pt. Able to complete with IND in sit.) Bathing Location: L Arm, R Arm, L Upper Leg, R Upper Leg, L Lower Leg (including foot), R Lower Leg (including foot), Chest, Abdomen, Buttocks, Perineal Area Shower/Bathe Self (QC): 5 (completes shower on sc/ standing at gb with IND, though OT doffs bandages to prep for showering.) Upper Body Dressing (QC): 6 (gathers and dons in shower with IND.) Lower Body Dressing (QC): 6 (gathers and dons in shower with IND.) On/Off Footwear (QC): 6 (gathers and dons with use of AE.) Toileting Hygiene (QC): 6 (IND ) Toilet Transfer (QC): 6 (IND. Pt up ad ansley in room.) Assessment/Plan Assessment and Plan Assess & Plan/Chief Complaint Assessment: Debility NSTEMI CAD Refusal of cardiac cath for definitive treatment CRI DM new onset hga1c 6.8 Lower leg cellulitis Venous stasis dermatitis Plan: Monitor creat IRF protocol Monitor chest pain 06/20/20: Rash management with abx and dressing changes Increase potassium to TID with meals DC accuchecks 06/21/20: Improved status Add Norvasc for elevated BP 06/22/20: Improved status Monitor BP Dressing changes 06/23/20: Monitor BP Dressing changes to legs Complete abx Check labs in am 06/24/20: Labs stable Dressing changes helping heal stasis dermatitis 06/25/20: Wound care to legs Monitor BP 06/26/20: Wound care BP management 06/27/2020: Discharge was planned on Wednesday Wound care Monitor blood pressure 06/28/2020: Discharge plan for tomorrow Monitor closely Send meds to [facility] (1) NSTEMI (non-ST elevated myocardial infarction) Status: Acute (2) OSWALDO (acute kidney injury) (3) DMII (diabetes mellitus, type 2) (4) Venous stasis dermatitis of both lower extremities (5) Bilateral lower leg cellulitis Status: Acute (6) Bilateral leg edema Status: Acute (7) HTN (hypertension) Status: Acute BRIAN GAN DO Jun 28, 2020 12:03
[2020-06-28] MEDS ORDERED: NITR0.4T42 SL (12:09)
[2020-06-28] MEDS ORDERED: ACHD5005 PO (12:09)
[2020-06-28] MEDS ORDERED: ATOR80TA76 PO (12:09)
[2020-06-28] MEDS ORDERED: CLOP75TA28 PO (12:09)
--- NOTE | 2020-06-28 12:11 | D/C HH Face to Face Order ---
D/C Face to Face Orders Reconcile Patient Problems Problems Reviewed?: Yes Instructions for Patient Via [facility], Patient Instructions/FollowUp: Dr Duong Physician to follow Patient: Ad Discharge Diet for Home: ADA Diet, Cardiac Diet Patient Problems: CAD Venous stasis dermatitis Patient Data-Allergies,Ht & Wt Patient Allergies: Coded Allergies: No Known Drug Allergies (Unverified , 06/13/20) Home Health Need/Face to Face Date of Face to Face: Jun 28, 2020 Clinical Findings: Generalized weakness and fatigue, Instability, Muscle weakness, Pain with ambulation, Shortness of breath, Unsteady gait, Non-healing wound I have seen Pt brwg-nz-lkai: Yes Discharged To: Home Diagnosis/Conditions: CAD Venous stasis dermatitis Patient is Homebound due to: Niki fall risk due to instabilty, Muscle weakness, Pain w/ambulation Homebound Status Due to the above stated illness, injury or surgical procedure (medical condition or diagnosis) and associated clinical findings, the patient is johnnie ebound because of his/her inability to leave home except with aid of a supportive device and/or person AND leaving the home requires a considerable and taxing effort or is medically contraindicated. Pt req the following assistanc: Walker Home Health Nursing Orders Home Health Services Order: Nursing Services, Physical Therapy-Evaluate & Treat, Wound Care-Eval/Treat Certify Stmt I certify that this patient is under my care and that I, a nurse practitioner or a physician; a lpn or medical assistant working with me, had a face to face encounter that - meets the physician face to face encounter requirements with this patient as dated. BRIAN DUONG DO Jun 28, 2020 12:11
--- NOTE | 2020-06-28 13:30 | NUR ---
CM/SS DISCHARGE Patient will discharge Wednesday back home with his son and family. HHC: Confirmed. PCP will be Dr. Naina Duong, updated [facility] re same. IMM2 presented, signed, charted. Patient will self-direct transportation coordination with his son.
--- NOTE | 2020-06-28 14:11 | Therapy Group Daily Note ---
Therapy Daily Group Note Patient Education Topic Home Safety, Other List Below Exercises LE Seated Exercise, UE Exercise Session Ratio (pt:therapist): 3:1 Goal of Session: Home Safety Strategies, UE/LE Strengthing Goal Met for this Session: Yes Pt Benefit of Group: Contributions to Others, F/U Use of Strategies @Home, Increased Functional Safety, Increased Functional Strength, Improved Cognition, Recognition of Peers, Socialization Other/Notes Pt ambulated to therapy gym using FWW. Pt stated orientation (person, living, best piece of advice you were given). Pt participated in socialization, LE/UE seated exercises, medication management, home safety. Pt gave feedback/ideas throughout group, to acknowledge of educational topics. Pt demonstrated shoulder flexion, shoulder shrugs, horizontal should abduction/adduction. Pt demonstrated ankle pumps, leg flexion, marches. Pt completed 3 exercise 1 set 10 reps B UE AROM. Pt completed 3 exercises 1 set of 10 reps LE exercises. Pt ambulated to room using FWW. Pt in recliner call light/phone in reach. All needs met. Start Time: 12:45 Stop Time: 13:50 Total Billed Treatment Time: 65 Total Billed Treatment 1 visit- GRP KYA AGGARWAL Jun 28, 2020 14:11
--- NOTE | 2020-06-28 15:44 | NUR ---
"RD ASSESSMENT PMHx: no significant PMH; PT INTERACTION: Pt was awake and pleasant during nutrition follow-up. Pt states he has been eating well since last assessment. Note avg PO intake 86% x3d, per chart review. Pt states no issues with nausea, vomiting, constipation, or diarrhea since last assessment. Note last BM was 06/28, and pt currently on bowel regimen of colace BID, senna BID, and miralax BID, per chart review. ABNORMAL NUTRITION-RELATED LAB VALUES LOW: Ca 8.1; HIGH: BUN 24; cr 1.56; Est. kcal needs: 9517-0055 kcal | 15-18 kcal/kg Est. Pro needs: 110-132 g Pro | 1.0-1.2 g Pro/kg PES STATEMENT: Given current appetite and PO intake, no nutrition diagnosis at this time (NO-1.1). INTERVENTION: Continue with current diet order of CHO 75g/m 1snack diet. Will continue to follow and reassess as pt needs, intake, and status change. Kelly Haley MS RD LD [phone] cell"
[2020-06-28 16:00] VITALS: BP 148/76
--- NOTE | 2020-06-28 16:49 | Progress Note - Cardiology ---
Cardiology SOAP Progress Note Subjective: Malaise present No cp or palp or syncope or shortness of breath No n/v/d Objective: I&O/Vital Signs 06/28/20 06/28/20 06:34 09:00 Temp 36.2 Pulse 74 Resp 16 B/P (MAP) 156/68 (97) Pulse Ox 95 O2 Delivery Room Air Room Air 06/28/20 00:00 Intake Total 1700 ml Balance 1700 ml Constitutional: AAO x 3, well-developed, well-nourished Respiratory: No accessory muscle use, No respiratory distress; chest expansion is symmetric, chest is bilaterally symmetric, lungs clear to auscultation Cardiovascular: regular rate-rhythm; No JVD; S1 and S2 Gastrointestional: No tender; soft, round, audible bowel sounds Extremities: other (dressings to bilat LE, D&I, not removed) Neurologic/Psychiatric: grossly intact (moves all extremities) Skin: other (see above) A/P: Assessment: Bilateral lower extremity venous ulcers - management per wound care and surgical services. Mildly elevated troponin on Jun 13, 2020 without any significant cardiac symptoms. Nuclear stress test done 06/14/2020 showed possible anterior apical ischemia. Pt desires conservative therapy only HTN HLP CRI DM Plan: Continue current cardiac regimen Wound care management per Dr. Dawood Gabriel and we have recommended coronary angiography and possible intervention. The patient understands but refuses Continue current cardiac medication regimen Plan for possible discharge home Wednesday Schedule out pt f/u There is no cardiology coverage over the weekend. Refer to primary care attending. If emergent cardiac services are needed, will require transfer to tertiary care facility, to be decided by primary care attending. ELOY ANTONIO MD FACP FACC CCDS Jun 28, 2020 16:49
[2020-06-28] MEDS: ENOXAPARIN 40 MG/0.4 ML (LOVENOX) SYR SC SCH (20:50)
[2020-06-29 06:00] VITALS: BP 137/65
--- NOTE | 2020-06-29 06:08 | Discharge Summary ---
Diagnosis/Chief Complaint Date of Admission Jun 19, 2020 at 10:00 Date of Discharge Discharge Date: Jun 29, 2020 Discharge Diagnosis Assessment: Debility NSTEMI CAD Refusal of cardiac cath for definitive treatment CRI DM new onset hga1c 6.8 Lower leg cellulitis Venous stasis dermatitis Plan: Monitor creat IRF protocol Monitor chest pain 06/20/20: Rash management with abx and dressing changes Increase potassium to TID with meals DC accuchecks 06/21/20: Improved status Add Norvasc for elevated BP 06/22/20: Improved status Monitor BP Dressing changes 06/23/20: Monitor BP Dressing changes to legs Complete abx Check labs in am 06/24/20: Labs stable Dressing changes helping heal stasis dermatitis 06/25/20: Wound care to legs Monitor BP 06/26/20: Wound care BP management 06/27/2020: Discharge was planned on Wednesday Wound care Monitor blood pressure 06/28/2020: Discharge plan for tomorrow Monitor closely Send meds to [facility] (1) NSTEMI (non-ST elevated myocardial infarction) Status: Acute (2) OSWALDO (acute kidney injury) (3) DMII (diabetes mellitus, type 2) (4) Venous stasis dermatitis of both lower extremities (5) Bilateral lower leg cellulitis Status: Acute (6) Bilateral leg edema Status: Acute (7) HTN (hypertension) Status: Acute Discharge Summary Discharge Physical Examination Allergies: Coded Allergies: No Known Drug Allergies (Unverified , 06/13/20) Vitals & I&Os Vital Signs Date Time Temp Pulse Resp B/P (MAP) Pulse Ox O2 Delivery O2 Flow Rate FiO2 06/29/20 06:00 36.2 56 18 137/65 (89) 97 06/28/20 20:15 Room Air General Appearance: Alert, Oriented X3, Cooperative Respiratory: Clear to Auscultation Cardiovascular: Regular Rate Neuro: Normal Gait, Normal Speech, Strength at 5/5 X4 Ext Psych/Mental Status: Mental Status NL Hospital Course Was the Problem List Reviewed?: Yes Hospital course: Patient had an uneventful hospital course for 11 days after sustaining a non-ST elevation HI and only wanting conservative management for medication and declined a cardiac catheterization. Chronic renal insufficiency was monitored closely and had stability. Plavix maintained along with hypertensive medication and was able to participate in all therapies and ultimately regained enough strength for normal ambulatory skills and regaining of independent ADLs in order to go home with his family. Labs (last 24 hrs) Laboratory Tests 06/19/20 16:20: Glucometer 95 06/19/20 20:01: Glucometer 112H 06/20/20 04:55: White Blood Count 8.0, Red Blood Count 4.29L, Hemoglobin 11.9L, Hematocrit 37L, Mean Corpuscular Volume 85, Mean Corpuscular Hemoglobin 28, Mean Corpuscular Hemoglobin Concent 33, Red Cell Distribution Width 13.7, Platelet Count 196, Mean Platelet Volume 10.5, Immature Granulocyte % (Auto) 1, Neutrophils (%) (Auto) 67, Lymphocytes (%) (Auto) 18, Monocytes (%) (Auto) 11, Eosinophils (%) (Auto) 4, Basophils (%) (Auto) 0, Neutrophils # (Auto) 5.3, Lymphocytes # (Auto) 1.4, Monocytes # (Auto) 0.9, Eosinophils # (Auto) 0.3, Basophils # (Auto) 0.0, Immature Granulocyte # (Auto) 0.1, Sodium Level 136, Potassium Level 3.1L, Chloride Level 105, Carbon Dioxide Level 21, Anion Gap 10, Blood Urea Nitrogen 31H, Creatinine 1.89H, Estimat Glomerular Filtration Rate 36, BUN/Creatinine Ratio 16, Glucose Level 112H, Calcium Level 7.7L, Corrected Calcium 8.4L, Total Bilirubin 0.7, Aspartate Amino Transf (AST/SGOT) 40H, Alanine Aminotransferase (ALT/SGPT) 40, Alkaline Phosphatase 79, Total Protein 6.1L, Albumin 3.1L 06/20/20 05:27: Glucometer 114H 06/24/20 04:30: White Blood Count 7.7, Red Blood Count 4.58, Hemoglobin 12.6L, Hematocrit 39L, Mean Corpuscular Volume 85, Mean Corpuscular Hemoglobin 28, Mean Corpuscular Hemoglobin Concent 32, Red Cell Distribution Width 13.6, Platelet Count 239, Mean Platelet Volume 10.5, Immature Granulocyte % (Auto) 1, Neutrophils (%) (Auto) 68, Lymphocytes (%) (Auto) 18, Monocytes (%) (Auto) 10, Eosinophils (%) (Auto) 4, Basophils (%) (Auto) 1, Neutrophils # (Auto) 5.2, Lymphocytes # (Auto) 1.4, Monocytes # (Auto) 0.7, Eosinophils # (Auto) 0.3, Basophils # (Auto) 0.0, Immature Granulocyte # (Auto) 0.1, Sodium Level 136, Potassium Level 4.0, Chloride Level 104, Carbon Dioxide Level 21, Anion Gap 11, Blood Urea Nitrogen 24H, Creatinine 1.56H, Estimat Glomerular Filtration Rate 44, BUN/Creatinine Ratio 15, Glucose Level 105, Calcium Level 8.1L, Corrected Calcium 8.6, Total Bilirubin 0.8, Aspartate Amino Transf (AST/SGOT) 32, Alanine Aminotransferase (ALT/SGPT) 35, Alkaline Phosphatase 88, Total Protein 6.8, Albumin 3.4 Pending Labs Laboratory Tests 06/19/20 16:20: Glucometer 95 06/19/20 20:01: Glucometer 112 06/20/20 04:55: White Blood Count 8.0, Red Blood Count 4.29, Hemoglobin 11.9, Hematocrit 37, Mean Corpuscular Volume 85, Mean Corpuscular Hemoglobin 28, Mean Corpuscular Hemoglobin Concent 33, Red Cell Distribution Width 13.7, Platelet Count 196, Mean Platelet Volume 10.5, Immature Granulocyte % (Auto) 1, Neutrophils (%) (Auto) 67, Lymphocytes (%) (Auto) 18, Monocytes (%) (Auto) 11, Eosinophils (%) (Auto) 4, Basophils (%) (Auto) 0, Neutrophils # (Auto) 5.3, Lymphocytes # (Auto) 1.4, Monocytes # (Auto) 0.9, Eosinophils # (Auto) 0.3, Basophils # (Auto) 0.0, Immature Granulocyte # (Auto) 0.1, Sodium Level 136, Potassium Level 3.1, Chloride Level 105, Carbon Dioxide Level 21, Anion Gap 10, Blood Urea Nitrogen 31, Creatinine 1.89, Estimat Glomerular Filtration Rate 36, BUN/Creatinine Ratio 16, Glucose Level 112, Calcium Level 7.7, Corrected Calcium 8.4, Total Bilirubin 0.7, Aspartate Amino Transf (AST/SGOT) 40, Alanine Aminotransferase (ALT/SGPT) 40, Alkaline Phosphatase 79, Total Protein 6.1, Albumin 3.1 06/20/20 05:27: Glucometer 114 06/24/20 04:30: White Blood Count 7.7, Red Blood Count 4.58, Hemoglobin 12.6, Hematocrit 39, Mean Corpuscular Volume 85, Mean Corpuscular Hemoglobin 28, Mean Corpuscular Hemoglobin Concent 32, Red Cell Distribution Width 13.6, Platelet Count 239, Mean Platelet Volume 10.5, Immature Granulocyte % (Auto) 1, Neutrophils (%) (Auto) 68, Lymphocytes (%) (Auto) 18, Monocytes (%) (Auto) 10, Eosinophils (%) (Auto) 4, Basophils (%) (Auto) 1, Neutrophils # (Auto) 5.2, Lymphocytes # (Auto) 1.4, Monocytes # (Auto) 0.7, Eosinophils # (Auto) 0.3, Basophils # (Auto) 0.0, Immature Granulocyte # (Auto) 0.1, Sodium Level 136, Potassium Level 4.0, C hloride Level 104, Carbon Dioxide Level 21, Anion Gap 11, Blood Urea Nitrogen 24, Creatinine 1.56, Estimat Glomerular Filtration Rate 44, BUN/Creatinine Ratio 15, Glucose Level 105, Calcium Level 8.1, Corrected Calcium 8.6, Total Bilirubin 0.8, Aspartate Amino Transf (AST/SGOT) 32, Alanine Aminotransferase (ALT/SGPT) 35, Alkaline Phosphatase 88, Total Protein 6.8, Albumin 3.4 Discharge Home Medications: Active Scripts Active Hydrocodone-Acetamin 5-325 mg (Hydrocodone/Acetaminophen) 1 Each Tablet 1 Tab PO Q4H PRN Aspirin 81 Mg Tab.chew 81 Mg PO DAILY Nitroglycerin 0.4 Mg Tab.subl 0 Mg SL UD PRN Atorvastatin Calcium 80 Mg Tablet 80 Mg PO HS Clopidogrel (Clopidogrel Bisulfate) 75 Mg Tablet 75 Mg PO DAILY Aspirin 81 Mg Tab.chew 81 Mg PO DAILY Amlodipine Besylate 5 Mg Tablet 5 Mg PO DAILY Instructions to patient/family Please see electronic discharge instructions given to patient. Diagnosis/Problems Diagnosis/Problems (1) NSTEMI (non-ST elevated myocardial infarction) Status: Acute (2) OSWALDO (acute kidney injury) (3) DMII (diabetes mellitus, type 2) (4) Venous stasis dermatitis of both lower extremities (5) Bilateral lower leg cellulitis Status: Acute (6) Bilateral leg edema Status: Acute (7) HTN (hypertension) Status: Acute Clinical Quality Measures DVT/VTE Risk/Contraindication: Risk Factor Score Per Nursin RFS Level Per Nursing on Admit: 4+=Very High BRIAN GAN DO Jun 29, 2020 06:08
[2020-06-29] MEDS ORDERED: ASPIRIN 81 MG CHEW (CHILDREN'S ASA) PO SCH (09:00)
[2020-06-29] MEDS: amLODIPine 5 MG (NORVASC) TAB PO SCH (10:52)
[2020-06-29] MEDS: CLOPIDOGREL 75 MG (PLAVIX) TABLET PO SCH (10:52)
[2020-06-29] MEDS: polyethylene glycoL POWDER 17 GM (MIRALAX) PACK PO SCH (10:53)
[2020-06-29] MEDS: DOCUSATE SODIUM 100 MG (COLACE) CAP PO SCH (10:53)
[2020-06-29] MEDS: SENNA W/DOCUSATE (SENOKOT S) TABLET PO SCH (10:54)
--- NOTE | 2020-06-29 13:45 | NUR ---
KATHY MARMOLEJO demonstrates understanding of discharge instructions and accurately returns instructions upon questioning. Copy of Post-Discharge Instructions given to patient. KATHY MARMOLEJO is able to manage continuing needs after discharge. Patients belongings returned to patient. Patient discharged from 224-1 on at 1340. KATHY MARMOLEJO left floor via wheel chair, accompanied by staff to private vehicle with adult son.
[2020-06-29 20:27] VITALS: BP 142/70
--- NOTE | 2020-07-01 11:27 | Therapy Team Discharge Summary ---
Therapy Discharge Summary Discharge Recommendations Date of Discharge Jun 29, 2020 at 13:40 Therapy D/C Recommendations: Home w/ Family Support Occupational Therapy Pt. has met all goals. Pt. is doing well. Discharged home with family support. Pt. has needed equipment at home. No further OT services needed at this time. No Skilled OT Needs ID'd PT Covering Machine Tender Goals Fdc Goals PT Covering Machine Tender Goals Time Frame: Jul 10, 2020 Roll Left to Right (QC): 6 Sit to Lying (QC): 6 Lying-Sitting on Side/Bed(QC): 6 Sit to Stand (QC): 6 Chair/Tzu-wp-Cjxnx Xfer(QC): 6 Car Transfer (QC): 6 Does the Patient Walk: Yes Walk 10 feet (QC): 6 Walk 10ft-Uneven Surface(QC): 6 Walk 50ft with 2 Turns (QC): 6 Walk 150 ft (QC): 6 Wheel 50 feet with 2 turns (QC: 9 1 Step (curb) (QC): 4 4 Steps (QC): 4 12 Steps (QC): 88 Picking up an Object (QC): 88 OT Fdc Goals Fdc Goals Time Frame: Jul 03, 2020 Eating (FIM): 6 (met) Eating (QC): 6 (met) Oral Hygiene (QC): 6 (met) Shower/Bathe Self (QC): 5 (met) Upper Body Dressing (QC): 6 (met) Lower Body Dressing (QC): 6 (met) On/Off Footwear (QC): 6 (met) Toileting(FIM): 6 (met) Toileting Hygiene (QC): 6 (met) Toilet/Commode Transfer (QC): 6 (met) Additional Goals: 1-Demonstrate ADL Tasks, 2-Verbalize Understanding, 3-ImproveStrength/Steph 1=Demonstrate adherence to instructed precautions during ADL tasks. 2=Patient will verbalize/demonstrate understanding of assistive devices/modifications for ADL. 3=Patient will improve strength/tolerance for activity to enable patient to perform ADL's. JANET LYNCH OT Jul 01, 2020 11:27
--- NOTE | 2020-07-01 15:10 | Therapy Team Discharge Summary ---
Therapy Discharge Summary Discharge Recommendations Date of Discharge Jun 29, 2020 at 13:40 Therapy D/C Recommendations: Home w/ Family Support Physical Therapy Patient came to rehab with NSTEMI/bilateral LE cellulitis/venous stasis ulcers bilateral LE. Upon evaluation patient performed bed mobility and supine <-> sit SBA, sit <-> stand and transfers min assist, car transfer min assist, ambulated 150' with a rolling walker with CGA (including 50' with at least 2 turns of 90 degrees and 10' over an uneven surface), and went up and down 1 step using a rolling walker with min assist. Patient has been performing bed mobility and transfer training, balance and endurance training, functional strengthening, stair training, gait training, and education. Patient has made good progress and has met all of his skilled nursing goals. Now, patient performs bed mobility and transfers with independence, independent with car transfer, ambulates 150' with a rolling walker with independence (including 50' with at least 2 turns of 90 degrees and 10' over an uneven surface), and can go up and down 4 steps using 2 handrails with CGA/SBA. Patient has been discharged from this facility and will be discharged from PT at this time. Occupational Therapy No Skilled OT Needs ID'd PT Endocrinology Physician Goals Half-Way Goals PT Half-Way Goals Time Frame: Jul 10, 2020 Roll Left to Right (QC): 6 Sit to Lying (QC): 6 Lying-Sitting on Side/Bed(QC): 6 Sit to Stand (QC): 6 Chair/Hwm-wv-Boyiv Xfer(QC): 6 Car Transfer (QC): 6 Does the Patient Walk: Yes Walk 10 feet (QC): 6 Walk 10ft-Uneven Surface(QC): 6 Walk 50ft with 2 Turns (QC): 6 Walk 150 ft (QC): 6 Wheel 50 feet with 2 turns (QC: 9 1 Step (curb) (QC): 4 4 Steps (QC): 4 12 Steps (QC): 88 Picking up an Object (QC): 88 OT Half-Way Goals Half-Way Goals Time Frame: Jul 03, 2020 Eating (FIM): 6 (met) Eating (QC): 6 (met) Oral Hygiene (QC): 6 (met) Shower/Bathe Self (QC): 5 (met) Upper Body Dressing (QC): 6 (met) Lower Body Dressing (QC): 6 (met) On/Off Footwear (QC): 6 (met) Toileting(FIM): 6 (met) Toileting Hygiene (QC): 6 (met) Toilet/Commode Transfer (QC): 6 (met) Additional Goals: 1-Demonstrate ADL Tasks, 2-Verbalize Understanding, 3- ImproveStrength/Steph 1=Demonstrate adherence to instructed precautions during ADL tasks. 2=Patient will verbalize/demonstrate understanding of assistive devices/modifications for ADL. 3=Patient will improve strength/tolerance for activity to enable patient to perform ADL's. DOMO MAKI PT Jul 01, 2020 15:10
== END 2020-06-29 13:40 | disposition home health service (06) | DRG 281 ==
PROVIDERS: ADMIT Internal Medicine; ATTEND Internal Medicine
DX: I21.4 Non-ST elevation (NSTEMI) myocardial infarction (principal); L03.116 Cellulitis of left lower limb; L03.115 Cellulitis of right lower limb; N17.9 Acute kidney failure, unspecified; I82.811 Embolism and thrombosis of superficial veins of right lower extremity; L97.222 Non-pressure chronic ulcer of left calf with fat layer exposed; L97.212 Non-pressure chronic ulcer of right calf with fat layer exposed; I87.2 Venous insufficiency (chronic) (peripheral); I25.10 Atherosclerotic heart disease of native coronary artery without angina pectoris; I12.9 Hypertensive chronic kidney disease with stage 1 through stage 4 chronic kidney disease, or unspecified chronic kidney disease; E11.22 Type 2 diabetes mellitus with diabetic chronic kidney disease; N18.9 Chronic kidney disease, unspecified; Z79.84 Long term (current) use of oral hypoglycemic drugs; M21.372 Foot drop, left foot; M21.371 Foot drop, right foot; G60.9 Hereditary and idiopathic neuropathy, unspecified; B35.1 Tinea unguium; L85.3 Xerosis cutis; R19.7 Diarrhea, unspecified; Z79.82 Long term (current) use of aspirin; T36.8X5D Adverse effect of other systemic antibiotics, subsequent encounter; T45.515D Adverse effect of anticoagulants, subsequent encounter
CPT/HCPCS: 36415; 80053; 82962; 85025

== ENCOUNTER → 2020-07-11 | Outpatient (CLI) | payer MEDICARE ==
[~2020-07-11] MED LIST changes: -ACETAMINOPHEN 500 MG TAB (TYLENOL) PO PRN; +ACHD5005 PO; -ALPRAZolam 0.25 MG (XANAX) TAB PO PRN; +AMLO-250 PO; +ASPI-999 PO; -BISACODYL 10 MG SUPP (DULCOLAX) PR PRN; -CALCIUM CARBONATE 500 MG (TUMS) TAB.CHEW PO PRN; -DOCUSATE SODIUM 100 MG (COLACE) CAP PO PRN; -FLEET ENEMA ADULT 1 EA BTL PR PRN; -LACTULOSE SYRUP 10GM/15ML (ENULOSE) 30ML UDC PO PRN; -LOPERAMIDE 2 MG (IMODIUM) TABLET PO PRN; +NITR0.4T42 SL; -ONDANSETRON 4 MG (ZOFRAN) ORAL DISSOLVE TAB PO PRN; -diphenhydrAMINE 25 MG TAB (BENADRYL) PO PRN; -guaiFENesin/CODEINE (ROBITUSSIN AC) 10ML UDC PO PRN
== END ==
LOC: WOUNDCARE 08:40
PROVIDERS: ATTEND Surgery
DX: I87.332 Chronic venous hypertension (idiopathic) with ulcer and inflammation of left lower extremity (principal); E11.622 Type 2 diabetes mellitus with other skin ulcer; I82.411 Acute embolism and thrombosis of right femoral vein; L97.222 Non-pressure chronic ulcer of left calf with fat layer exposed
CPT/HCPCS: 11042; G0463

== ENCOUNTER → 2020-07-17 | Outpatient (CLI) | payer MEDICARE | LOC: WOUNDCARE 09:19 | PROVIDERS: ATTEND Surgery | DX: I87.332 Chronic venous hypertension (idiopathic) with ulcer and inflammation of left lower extremity (principal); E11.622 Type 2 diabetes mellitus with other skin ulcer; L97.222 Non-pressure chronic ulcer of left calf with fat layer exposed; I82.411 Acute embolism and thrombosis of right femoral vein; E11.52 Type 2 diabetes mellitus with diabetic peripheral angiopathy with gangrene | CPT/HCPCS: 11042; G0463 ==

== ENCOUNTER → 2020-07-23 | Outpatient (CLI) | payer MEDICARE | LOC: WOUNDCARE 12:01 | PROVIDERS: ATTEND Surgery | DX: I87.332 Chronic venous hypertension (idiopathic) with ulcer and inflammation of left lower extremity (principal); E11.622 Type 2 diabetes mellitus with other skin ulcer; I82.411 Acute embolism and thrombosis of right femoral vein; I96 Gangrene, not elsewhere classified; L97.222 Non-pressure chronic ulcer of left calf with fat layer exposed | CPT/HCPCS: 97597; G0463 ==

== ENCOUNTER → 2020-07-31 | Outpatient (CLI) | payer MEDICARE | LOC: WOUNDCARE 08:29 | PROVIDERS: ATTEND Surgery | DX: I87.332 Chronic venous hypertension (idiopathic) with ulcer and inflammation of left lower extremity (principal); E11.622 Type 2 diabetes mellitus with other skin ulcer; L97.222 Non-pressure chronic ulcer of left calf with fat layer exposed; I82.411 Acute embolism and thrombosis of right femoral vein; E11.52 Type 2 diabetes mellitus with diabetic peripheral angiopathy with gangrene | CPT/HCPCS: 11042; G0463; 99211 ==

== ENCOUNTER → 2020-08-07 | Outpatient (CLI) | payer MEDICARE | LOC: WOUNDCARE 11:05 | PROVIDERS: ATTEND Orthopaedic Surgery Hand Surgery | DX: L97.222 Non-pressure chronic ulcer of left calf with fat layer exposed (principal); I87.332 Chronic venous hypertension (idiopathic) with ulcer and inflammation of left lower extremity; E11.622 Type 2 diabetes mellitus with other skin ulcer; I82.413 Acute embolism and thrombosis of femoral vein, bilateral | CPT/HCPCS: 11042; G0463 ==

== ENCOUNTER → 2020-08-13 | Outpatient (CLI) | payer MEDICARE | LOC: WOUNDCARE 11:59 | PROVIDERS: ATTEND Surgery | DX: I87.332 Chronic venous hypertension (idiopathic) with ulcer and inflammation of left lower extremity (principal); L97.222 Non-pressure chronic ulcer of left calf with fat layer exposed; I96 Gangrene, not elsewhere classified; I82.411 Acute embolism and thrombosis of right femoral vein | CPT/HCPCS: 11042; G0463 ==

== ENCOUNTER → 2020-08-20 | Outpatient (CLI) | payer MEDICARE | LOC: WOUNDCARE 12:15 | PROVIDERS: ATTEND Orthopaedic Surgery Hand Surgery | DX: I82.411 Acute embolism and thrombosis of right femoral vein (principal); I87.332 Chronic venous hypertension (idiopathic) with ulcer and inflammation of left lower extremity; I96 Gangrene, not elsewhere classified; L97.222 Non-pressure chronic ulcer of left calf with fat layer exposed | CPT/HCPCS: 11042; G0463 ==

== ENCOUNTER → 2020-08-27 | Outpatient (CLI) | payer MEDICARE | LOC: WOUNDCARE 12:32 | PROVIDERS: ATTEND Surgery | DX: I96 Gangrene, not elsewhere classified (principal); L97.222 Non-pressure chronic ulcer of left calf with fat layer exposed; I82.411 Acute embolism and thrombosis of right femoral vein; I87.332 Chronic venous hypertension (idiopathic) with ulcer and inflammation of left lower extremity | CPT/HCPCS: 11042; G0463 ==

== ENCOUNTER → 2020-09-05 | Outpatient (CLI) | payer MEDICARE ==
[~2020-09-05] MED LIST changes: -LISI-552 PO; +LISI20TA26 PO
== END ==
LOC: WOUNDCARE 13:16
PROVIDERS: ATTEND Surgery
DX: I96 Gangrene, not elsewhere classified (principal); I82.411 Acute embolism and thrombosis of right femoral vein; L97.222 Non-pressure chronic ulcer of left calf with fat layer exposed; I87.332 Chronic venous hypertension (idiopathic) with ulcer and inflammation of left lower extremity
CPT/HCPCS: 11042; G0463

== ENCOUNTER → 2020-09-12 | Outpatient (CLI) | payer MEDICARE | LOC: WOUNDCARE 09:06 | PROVIDERS: ATTEND Orthopaedic Surgery Hand Surgery | DX: I96 Gangrene, not elsewhere classified (principal); L97.221 Non-pressure chronic ulcer of left calf limited to breakdown of skin; I82.411 Acute embolism and thrombosis of right femoral vein; I87.332 Chronic venous hypertension (idiopathic) with ulcer and inflammation of left lower extremity | CPT/HCPCS: 99212 ==

== ENCOUNTER → 2022-03-16 | Outpatient (CLI) | payer MEDICARE ==
[~2022-03-16] MED LIST changes: +APIX5TAB PO; +FLUC100T10 PO; +HYDR25TA4 PO; +LINE600T12 PO; +LOSA50TA63 PO; +MICO90PO TOP; +NITR0.4T39 SL; +SODI475I IR
== END ==
LOC: WOUNDCARE 12:14
PROVIDERS: ATTEND Family Medicine
DX: I89.0 Lymphedema, not elsewhere classified (principal); L97.522 Non-pressure chronic ulcer of other part of left foot with fat layer exposed; L97.322 Non-pressure chronic ulcer of left ankle with fat layer exposed; L97.219 Non-pressure chronic ulcer of right calf with unspecified severity; L97.222 Non-pressure chronic ulcer of left calf with fat layer exposed; I87.333 Chronic venous hypertension (idiopathic) with ulcer and inflammation of bilateral lower extremity
CPT/HCPCS: A6197; G0463; 99214

== ENCOUNTER → 2022-03-26 | Outpatient (CLI) | payer MEDICARE | LOC: WOUNDCARE 12:05 | PROVIDERS: ATTEND Family Medicine | DX: I87.333 Chronic venous hypertension (idiopathic) with ulcer and inflammation of bilateral lower extremity (principal); I89.0 Lymphedema, not elsewhere classified; L97.522 Non-pressure chronic ulcer of other part of left foot with fat layer exposed; L97.322 Non-pressure chronic ulcer of left ankle with fat layer exposed; L97.212 Non-pressure chronic ulcer of right calf with fat layer exposed; L97.222 Non-pressure chronic ulcer of left calf with fat layer exposed; E11.622 Type 2 diabetes mellitus with other skin ulcer; E66.01 Morbid (severe) obesity due to excess calories; I25.10 Atherosclerotic heart disease of native coronary artery without angina pectoris; E11.52 Type 2 diabetes mellitus with diabetic peripheral angiopathy with gangrene; I96 Gangrene, not elsewhere classified; R29.6 Repeated falls; Z68.37 Body mass index [BMI] 37.0-37.9, adult | CPT/HCPCS: A6197; G0463; 99213 ==

== ENCOUNTER → 2022-04-01 | Outpatient (CLI) | payer MEDICARE ==
--- NOTE | 2022-04-01 13:55 | Diagnostic Imaging Report ---
PROCEDURE: US Bilateral lower extremity arterial. TECHNIQUE: Multiple real-time grayscale images are obtained through both lower extremity arterial systems with color Doppler imaging and color Doppler spectral analysis. INDICATION: History of non-pressure chronic ulcer. History of atherosclerotic disease. COMPARISON: None FINDINGS: Normal triphasic waveform is identified within the right common femoral artery. Biphasic flow is also seen within the mid and proximal superficial femoral artery. Flow then becomes monophasic within the distal superficial femoral artery and continues as monophasic and of the popliteal artery. Peak systolic velocities are within normal limits. Obtained grayscale and color flow images show no focal significant stenosis, but visualization appears significantly limited due to patient body habitus. Additionally, patient refused to complete the exam. The right lower extremity calf arteries were not imaged. Additionally, the left lower extremity arterial Doppler portion exam was not performed. IMPRESSION: 1. Limited Doppler evaluation right lower extremity arterial system shows abnormal monophasic waveform within the distal superficial femoral and popliteal arteries. This does raise concern for significant upstream atherosclerotic disease. Grayscale and color flow images however failed to show focal significant stenosis. This however may be related to patient body habitus limitations. Additionally, patient refused to complete the exam as stated above. Dictated by: Dictated on workstation # [id number]
== END ==
LOC: RAD 08:42
PROVIDERS: ATTEND Family Medicine
DX: L97.522 Non-pressure chronic ulcer of other part of left foot with fat layer exposed (principal); L97.322 Non-pressure chronic ulcer of left ankle with fat layer exposed; L97.219 Non-pressure chronic ulcer of right calf with unspecified severity; L97.222 Non-pressure chronic ulcer of left calf with fat layer exposed; I87.333 Chronic venous hypertension (idiopathic) with ulcer and inflammation of bilateral lower extremity; I89.0 Lymphedema, not elsewhere classified; E11.622 Type 2 diabetes mellitus with other skin ulcer; E66.01 Morbid (severe) obesity due to excess calories; I25.10 Atherosclerotic heart disease of native coronary artery without angina pectoris; R29.6 Repeated falls
CPT/HCPCS: 93925

== ENCOUNTER → 2022-04-02 | Outpatient (CLI) | payer MEDICARE ==
--- NOTE | 2022-04-02 15:11 | Diagnostic Imaging Report ---
INDICATION: Knee pain. EXAMINATION: Two views were obtained. FINDINGS: There is mild three compartment osteoarthritic change. There is no fracture or dislocation. There are some focal soft tissue swelling overlying the tibial tuberosity. IMPRESSION: 1. Focal soft tissue swelling overlying the tibial tuberosity presumably hematoma. Recommend clinical correlation. 2. Mild three compartment osteoarthritic change. Dictated by: Dictated on workstation # [id number]
== END ==
LOC: WOUNDCARE 12:48
PROVIDERS: ATTEND Family Medicine
DX: L97.522 Non-pressure chronic ulcer of other part of left foot with fat layer exposed (principal); L97.322 Non-pressure chronic ulcer of left ankle with fat layer exposed; L97.219 Non-pressure chronic ulcer of right calf with unspecified severity; L97.222 Non-pressure chronic ulcer of left calf with fat layer exposed; I87.333 Chronic venous hypertension (idiopathic) with ulcer and inflammation of bilateral lower extremity; I89.0 Lymphedema, not elsewhere classified; E11.622 Type 2 diabetes mellitus with other skin ulcer; E66.01 Morbid (severe) obesity due to excess calories; I25.10 Atherosclerotic heart disease of native coronary artery without angina pectoris; R29.6 Repeated falls; E11.52 Type 2 diabetes mellitus with diabetic peripheral angiopathy with gangrene; I96 Gangrene, not elsewhere classified
CPT/HCPCS: 11042; 73562; G0463

== ENCOUNTER 2022-04-21 08:41 | Day surgery (SDC) | payer MEDICARE ==
[2022-04-21] VITALS (9 sets, daily range): BP systolic 134–166; BP diastolic 61–92
[~2022-04-21] VITALS: Ht 180 cm; Wt 122.6 kg
[2022-04-21] MEDS ORDERED: NS IV 1000 ML 1,000 ML IV SCH ×2 (09:00→12:00)
[2022-04-21 09:31] LABS: HEMATOCRIT 39 % (40-54); HEMOGLOBIN 12.5 g/dL (13.3-17.7); MEAN CORPUSCULAR HEMOGLOBIN 26 pg (25-34); MEAN CORPUSCULAR HGB CONC 32 g/dL (32-36); MEAN CORPUSCULAR VOLUME 82 fL (80-99); MEAN PLATELET VOLUME 9.9 fL (9.0-12.2); PLATELET COUNT 211 10^3/uL (130-400); WHITE BLOOD COUNT 7.1 10^3/uL (4.3-11.0)
[2022-04-21] MEDS ORDERED: AMLO-250 PO (09:40)
[2022-04-21 09:41] LABS: INR 1.1 (0.8-1.4); PROTHROMBIN TIME PATIENT 14.4 SEC (12.2-14.7)
[2022-04-21 09:48] LABS: ALBUMIN 3.5 GM/DL (3.2-4.5); BILIRUBIN,TOTAL 0.5 MG/DL (0.1-1.0); CALCIUM 8.8 MG/DL (8.5-10.1); CREATININE SERUM 0.93 MG/DL (0.60-1.30); POTASSIUM 3.9 MMOL/L (3.6-5.0); TOTAL PROTEIN 7.6 GM/DL (6.4-8.2)
[2022-04-21] MEDS ORDERED: HEParin (CATH LAB) 2,000 ML IV ONE (10:32)
[2022-04-21] MEDS ORDERED: LIDOCAINE 1% INJ 30 ML (XYLOCAINE) VIAL ONE (10:32)
[2022-04-21] MEDS ORDERED: NS IV 1000 ML 1,000 ML ONE (10:32)
[2022-04-21] MEDS ORDERED: fentaNYL INJ 100 MCG/2 ML AMP ONE ×2 (10:36→12:11)
[2022-04-21] MEDS ORDERED: MIDAZOLAM 2 MG/2 ML (VERSED) VIAL ONE (10:37)
[2022-04-21] MEDS ORDERED: diphenhydrAMINE 50 MG/ML INJ (BENADRYL) ONE (10:55)
--- NOTE | 2022-04-21 11:03 | Cardiac Procedure Note-CS/ASA ---
Pre-Procedure Note Pre-Op Procedure Note Date of Available H&P: Apr 01, 2022 Date H&P Reviewed: Apr 21, 2022 Time H&P Reviewed: 10:30 History & Physical: H&P Reviewed, No changes noted Conscious Sedation Pre-Proced ASA Score 3 For ASA 3 and 4: Consider anesthesia and medical clearance. Also, for patients with a history of failed moderate sedation consider anesthesia. Airway Lungs Heart ASA score ASA 1: a normal healthy patient ASA 2: a patient with a mild systemic disease (mid diabetes, controlled hypertension, obesity ASA 3: a patient with a severe systemic disease that limits activity (angina, COPD, prior Myocardial infarction) ASA 4: a patient with an incapacitating disease that is a constant threat to life (CHF, renal failure) ASA 5: a moribund patient not expected to survive 24 hrs. (ruptured aneurysm) ASA 6: a declared brain- patient whose organs are being harvested. For emergent operations, add the letter E after the classification Mallampati Classification Grade 3 Sedation Plan Analgesia, Amnesia, Plan communicated to team members, Discussed options with patient/fam, Discussed risks with patient/fam The patient is an appropriate candidate to undergo the planned procedure, sedation, and anesthesia. The patient immediately re-assessed prior to indication. ELOY ANTONIO MD FACP FAC CCDS Apr 21, 2022 11:03
[2022-04-21] MEDS ORDERED: KETAMINE HCL 100 MG/ML 5 ML VIAL ONE (11:16)
[2022-04-21] MEDS ORDERED: proPOfol 200 MG/20 ML (DIPRIVAN) VIAL IV ONE (11:17)
[2022-04-21] MEDS ORDERED: METO-352 PO (12:00)
[2022-04-21] MEDS ORDERED: PATIENT MAY USE OWN MEDS, ALL PO SCH (12:00)
--- NOTE | 2022-04-21 12:02 | Discharge Inst-Cardiology ---
Discharge Inst-Cardiac Discharge Medications New Medications: Metoprolol Succinate (Toprol Xl) 50 Mg Tab.er.24h 50 MG PO DAILY for 30 Days, #30 TAB 3 Refills Continued Medications: Apixaban (Eliquis) 5 Mg Tablet 5 MG PO BID, #60 TAB Nitroglycerin (Nitroglycerin) 0.4 Mg Tab.subl 0.4 MG SL UD PRN for CHEST PAIN, #20 TAB Discontinued Medications: Amlodipine Besylate (Amlodipine Besylate) 5 Mg Tablet 5 MG PO DAILY, TAB ELOY ANTONIO MD FACP FAC CCDS Apr 21, 2022 12:02
--- NOTE | 2022-04-21 12:03 | Discharge Inst-Post CATH ---
Discharge Inst-CATH/EP Post Cardiac Cath/EP D/C Inst Follow Up/Plan F/u with Dr Jaeger in 1-2 weeks ACTIVITY * Go Home directly and rest. * Limit activity of the leg (or wrist if it was used) for 7 days including aerobics, swimming, jogging, bicycling, etc. * Restrict stair-climbing for 7 days if possible, if not, climb up with your non-cath leg, then bring together on the same step. * Avoid lifting, pushing, pulling or excessive movement of the affected extremity for 7 days. * Customary sexual activity may be resumed after 2 days-use caution not to use a position that strains or causes pain to the affected extremity. * No driving for 24 hours. * NO SMOKING. * Avoid straining for bowel movements for 7 days. * Gentle walking on level ground is allowed. * Returning to work will depend on the type of procedure and the results. Your doctor will discuss this with you. CALL YOUR DOCTOR FOR ANY OF THE FOLLOWING: *If bleeding from the puncture site occurs- Apply gentle pressure to site with clean cloth and call your doctor or EMS. * If a knot or lump forms under the skin, increases in size, or causes pain. * If bruising appears to be worsening or moving further down your leg instead of disappearing. * Temperature above 101 F. CARE OF YOUR GROIN INCISION; * Bruising or purple discoloration of the skin near the puncture site is common. * You may shower only, no bathtub bathing for 5 days. Be careful to avoid slipping as your leg may feel stiff. * If a closure device was used on your femoral artery, please see the attached guide regarding care of the device and your leg. * Leave dressing on FOR 24 hours. CARE OF YOUR WRIST INCISION; * Bruising or purple discoloration of the skin near the puncture site is common. * You may shower. * DO NOT submerge wrist. * Leave dressing on FOR 24 hours. ELOY JAEGER MD [facility] CCDS Apr 21, 2022 12:03
[2022-04-21] MEDS ORDERED: meTOprolol 5 MG/5 ML (LOPRESSOR) VIAL ONE (12:07)
--- NOTE | 2022-04-21 12:07 | Progress Note ---
Standard Progress Note Progress Notes/Assess & Plan Date Seen by a Provider: Apr 21, 2022 Time Seen by a Provider: 11:11 Progress/Assessment & Plan called for rescue sedation. 75 mg ketamine and 100mg propofol given iv. tolerated procedure well.. start time 1111 end time 1145 RHETT JACOB CRNA Apr 21, 2022 12:07
--- NOTE | 2022-04-21 12:18 | Anesthesia-General Post-Op ---
MAC Patient Condition Mental Status/LOC: Same as Preop Cardiovascular: Satisfactory Nausea/Vomiting: Absent Respiratory: Satisfactory Pain: Controlled Complications: Absent Post Op Complications Complications None Follow Up Care/Instructions Patient Instructions None needed. Anesthesiology Discharge Order Discharge Order Patient is doing well, no complaints, stable vital signs, no apparent adverse anesthesia problems. No complications reported per nursing. IRIS FELIX CRNA Apr 21, 2022 12:18
[2022-04-21] MEDS ORDERED: FURO40TA4 PO (12:44)
[2022-04-21] MEDS ORDERED: POTA10CA43 PO (12:44)
--- NOTE | 2022-04-21 13:45 | OPERATIVE REPORT ---
DATE OF SERVICE: 04/21/2022 The patient is a 71-year-old gentleman with a history of bilateral leg swelling and nonhealing ulcers. Abdominal aortic and bilateral leg artery angiography was carried out today to evaluate for significant obstructive peripheral arterial disease. Informed consent was obtained. DESCRIPTION OF PROCEDURE: He was brought to the cardiac catheterization laboratory in a fasting state. Right groin was prepared and draped in the usual sterile fashion. Lidocaine 1% was used for local anesthesia. Modified Seldinger technique was used to advance a 5-Libyan sheath in right femoral artery. He was very uncomfortable on the labor relations director table. We requested anesthesia to help us with keeping the patient comfortable. The nurse survey engineer administered conscious sedation and short-acting general anesthesia. Overall, he tolerated the procedure well. We advanced a 5-Libyan pigtail catheter to the level of L1 and abdominal aortic angiography was carried out. We then used a crossover catheter to carry out angiography of the left common iliac artery with runoff down to the level of the ankle. Because the leg arteries were not very well visualized, we exchanged this catheter over a wire for a straight catheter the tip of which was placed in the left superficial femoral artery and runoff was performed down to the level of the ankle, which did delineate the leg arteries quite well. The straight catheter was then pulled back to the right common iliac artery and angiography was performed with runoff down to the level of the ankle. The catheter was then removed, and angiography of the right femoral artery was carried out through the sheath and Mynx was used to achieve hemostasis. ABDOMINAL AORTIC ANGIOGRAPHY: Abdominal aortic angiography did not indicate any significant abdominal aortic aneurysm, dissection or stenosis. Renal arteries are identified and do not exhibit significant disease. Aortoiliac bifurcation is intact and does not exhibit significant disease. ARTERIAL CIRCULATION OF THE LEFT LOWER LIMB: The left common iliac, external iliac, internal iliac arteries are intact. The left common femoral, the left superficial femoral and the deep left femoral arteries are also intact. There is moderate diffuse calcification and plaque of the left superficial femoral artery. The left popliteal artery is intact. The anterior tibial and the peroneal arteries are intact on the left side. The posterior tibial artery appears to be occluded on the left side and this occlusion appears to be at the ostium because the artery is not visualized. Thus, there is a 2-vessel runoff in the lower left leg. Angiography of the arterial circulation of the right leg. The iliac arteries are intact. The common femoral, superficial femoral and deep femoral arteries are also intact. There is diffuse moderate plaque and calcification of the right superficial femoral artery. The right popliteal artery is intact. The popliteal artery trifurcates and all main branches of the trifurcation are seen. There is approximately 50% stenosis of the tibio-peroneal origin. The right peroneal artery has approximately 70% stenosis in its ostial and proximal portion. The anterior tibial artery on the right side has diffuse mild to moderate plaque. CONCLUSIONS: Moderate peripheral arterial disease including moderate diffuse disease of both superficial femoral arteries without significant focal stenoses. On the right side, there is a 3-vessel runoff and there is moderate disease in the proximal portion of the tibioperoneal trunk and approximately 70% stenosis in the ostium of a small caliber right peroneal. There is a 2-vessel runoff in the left lower leg. The left posterior tibial not seen. The peroneal and the anterior tibial have diffuse moderate plaque. DISCUSSION AND RECOMMENDATIONS: Based on the results of the study, it appears appropriate to continue a conservative approach for peripheral arterial disease. Risk factor modification has been reviewed. Outpatient followup is advised. Job ID: [id number] DocumentID: [id number] Dictated Date: 04/21/2022 12:36:44 Mock Up Assembler Date: 04/21/2022 13:44:18 Dictated By: ELOY ANTONIO MD, MA, FACP, FACC, MTDD
== END 2022-04-21 16:12 | disposition home or self-care (01) ==
LOC: CATH 08:41 → ICU 12:44 → CATH 16:12
PROVIDERS: ATTEND Internal Medicine Cardiovascular Disease
DX: E11.51 Type 2 diabetes mellitus with diabetic peripheral angiopathy without gangrene (principal); E78.2 Mixed hyperlipidemia; R94.39 Abnormal result of other cardiovascular function study; E11.22 Type 2 diabetes mellitus with diabetic chronic kidney disease; I12.9 Hypertensive chronic kidney disease with stage 1 through stage 4 chronic kidney disease, or unspecified chronic kidney disease; N18.32 Chronic kidney disease, stage 3b; I82.409 Acute embolism and thrombosis of unspecified deep veins of unspecified lower extremity
CPT/HCPCS: 36247; 75625; 75716; 80053; 80061; 85027; 85610; 85730; 87081; C1760; C1769 ×3; C1887 ×2; C1894; 36415

== ENCOUNTER 2023-05-31 15:09 | Emergency (ER) | payer MEDICARE, MEDICAID ==
[~2023-05-31 15:09] MED LIST changes: +FURO40TA4 PO; +METO-352 PO; +POTA10CA84 PO
[2023-05-31] MEDS ORDERED: LIDOCAINE 2% w/EPI 1:100,000 20 ML VIAL INJ ONE (15:30)
--- NOTE | 2023-05-31 15:33 | ED Lower Extremity ---
General Chief Complaint: Trauma-Non Activation Stated Complaint: FALL Nursing Triage Note: PT ARRIVED PER EMS, PT HAS FALLEN TWICE TODAY, 2ND TIME HAS LAC TO L KNEE AREA. PT HAS EXTREMELY SWOLLEN LOWER EXTEMETIES. PT LAC TO L KNEE APPROX 2CM, PT HAS KNOT THAT LAC IS ON. PT STATES FALLS ATTRIBUTED TO SLIPS. Source: patient Exam Limitations: no limitations History of Present Illness Date Seen by Provider: May 31, 2023 Time Seen by Provider: 15:30 Initial Comments Patient is a 72-year-old male with a history of chronic lower leg swelling presents to ED for evaluation after a fall. Patient fell twice today. Once while going to the kitchen to make a sandwich for his [id number]. States he slipped landing on his buttock. Denies hitting his head or loss of conscious. Was able to stand. Does use a walker. States he was sitting on the edge of his bed slipped while getting out landed on his buttock. Patient states he crawled to the bed and this resulted in a wound to his left knee. He has an abnormal growth to his left knee which opened up and started bleeding. Patient is on Eliquis. He has no current pain at this time. Denies of any headache, dizziness, chest pain, shortness of breath, Yoandy pain vomiting or diarrhea. Denies history of CHF or kidney disease. He states he has chronic lower ext remity edema over the past [address] Duong Allergies and Home Medications Allergies Coded Allergies: No Known Drug Allergies (Unverified , 06/13/20) Patient Home Medication List Home Medication List Reviewed: Yes Apixaban (Eliquis) 5 Mg Tablet, 5 MG PO BID Prescribed by: BRIAN DUONG on 03/13/22 0839 Furosemide (Furosemide) 40 Mg Tablet, 40 MG PO DAILY Prescribed by: ELOY ANTONIO on 04/21/22 1244 Metoprolol Succinate (Toprol Xl) 50 Mg Tab.er.24h, 50 MG PO DAILY Prescribed by: ELOY ANTONIO on 04/21/22 1200 Nitroglycerin (Nitroglycerin) 0.4 Mg Tab.subl, 0.4 MG SL UD PRN for CHEST PAIN Prescribed by: BRIAN DUONG on 03/13/22 0839 Potassium Chloride (Potassium Chloride) 10 Meq Capsule.er, 10 MEQ PO DAILY Prescribed by: ELOY ANTONIO on 04/21/22 1244 Review of Systems Constitutional: No chills, No diaphoresis, No malaise, No weakness EENTM: No ear pain, No blurred vision Respiratory: No cough, No dyspnea on exertion Cardiovascular: No chest pain, No edema Gastrointestinal: No diarrhea, No jaundice, No nausea, No vomiting Genitourinary: No decreased output, No discharge Musculoskeletal: No back pain, No joint pain, No joint swelling, No muscle pain Skin: change in color (laceration) All Other Systems Reviewed Negative Unless Noted: Yes Past Xkshqkj-Kukfza-Nyyjeg Hx Patient Social History Tobacco Use?: No Substance use?: No Alcohol Use?: No Pt feels they are or have been: No Immunizations Up To Date First/Initial COVID19 Vaccinat: 2020 Second COVID19 Vaccination Keyur: 2020 Third COVID19 Vaccination Date: 2020 Seasonal Allergies Seasonal Allergies: No Past Medical History Surgery/Hospitalization HX: PMH; HTN. SURGERY; LEG (PT CAN'T RECALL WHICH) STENT FOR "SMALL BLOOD CLOT" Surgeries: Yes (BACK) Orthopedic Respiratory: No Cardiac: Yes (NSTEMI) Deep Vein Thrombosis Neurological: Yes (RIGHT FOOT DROP DUE TO CHRONIC BACK PROBLEMS) Genitourinary: No Gastrointestinal: No Musculoskeletal: Yes (RIGHT FOOT DROP DUE TO CHRONIC BACK PROBLEMS;S/P LUMBAR SPINE SURGERY) Foot Drop, Chronic Back Pain Endocrine: Yes Diabetes, Non-Insulin dep HEENT: No Cancer: No Psychosocial: No Integumentary: Yes (CHRONIC WOUNDS- BILATERAL LOWER LEGS. ) Recent Skin Changes Family Medical History No Pertinent Family Hx SOCIAL HISTORY: -ETOH--HISTORY OF ABUSE, CLAIMS NO USE FOR 20 YEARS, PER PT ON 06/13/20 -DRUGS--DENIES USE -SMOKING--DENIES PT STATES HE WAS HOSPITALIZED APPROXIMATELY 2 YEARS AGO--DOES NOT KNOW WHAT HE WAS DX WITH STATES HE WAS INTUBATED AND IN ICU FOR 2 WEEKS STATES HE HAD FEVER OF 105 WHEN HE WAS ADMITTED, BUT HAS NO IDEA WHAT KIND OF INFECTION HE HAD THAT CAUSED HIM TO BE ILL. Physical Exam Vital Signs Vital Signs - First Documented 05/31/23 15:13 Temp 36.5 Pulse 80 Resp 18 B/P (MAP) 168/94 (118) Pulse Ox 98 O2 Delivery Room Air Capillary Refill : Less Than 3 Seconds Height, Weight, BMI Height: '" Weight: lbs. oz. kg; 37.83 BMI Method: General Appearance: WD/WN, no apparent distress HEENT: PERRL/EOMI, normal ENT inspection, TMs normal, pharynx normal Neck: non-tender, full range of motion, supple Cardiovascular: regular rate, rhythm, no edema, no gallop, no JVD Respiratory: chest non-tender, lungs clear, normal breath sounds, no respiratory distress, no accessory muscle use Gastrointestinal: normal bowel sounds, non tender, soft Back: normal inspection, no CVA tenderness Hips: bilateral hip non-tender, bilateral hip normal inspection, bilateral hip normal range of motion Legs: bilateral leg other (Bilateral lower leg swelling. Cap refill less than 2. Dorsalis pedis +2 abnormal baseball size growth of left anterior knee. 3 cm open wound with mild bleeding. No tenderness to palpate.) Neurologic/Psychiatric: community organization director II-XII nml as tested, no motor/sensory deficits, alert Skin: other (3 similar laceration to left anterior knee. Mild bleeding. Overlying an abnormal growth) Lymphatic: no adenopathy Procedures/Interventions Wound Location: Lower Extremities Other Wound Location left knee Wound Length (cm): 3 Wound's Depth, Shape: superficial, sub Q Wound Explored: clean Irrigated w/ Saline (ccs): 200 Betadine Prep?: Yes Anesthesia: 1% Lidocaine Volume Anesthetic (ccs): 5 Suture: Ethlion Suture Size: 3-0 Number of Sutures: 11 Layer Closure?: 1 Sterile Dressing Applied?: Yes Progress/Results/Core Measures Results/Orders Lab Results Laboratory Tests Test 05/31/23 15:20 Range/Units White Blood Count 10.2 4.3-11.0 10^3/uL Red Blood Count 5.19 4.30-5.52 10^6/uL Hemoglobin 13.7 13.3-17.7 g/dL Hematocrit 42 40-54 % Mean Corpuscular Volume 82 80-99 fL Mean Corpuscular Hemoglobin 26 25-34 pg Mean Corpuscular Hemoglobin Concent 32 32-36 g/dL Red Cell Distribution Width 15.0 H 10.0-14.5 % Platelet Count 212 130-400 10^3/uL Mean Platelet Volume 10.4 9.0-12.2 fL Immature Granulocyte % (Auto) 1 % Neutrophils (%) (Auto) 71 42-75 % Lymphocytes (%) (Auto) 15 12-44 % Monocytes (%) (Auto) 12 0-12 % Eosinophils (%) (Auto) 1 0-10 % Basophils (%) (Auto) 0 0-10 % Neutrophils # (Auto) 7.3 1.8-7.8 X 10^3 Lymphocytes # (Auto) 1.5 1.0-4.0 X 10^3 Monocytes # (Auto) 1.2 H 0.0-1.0 X 10^3 Eosinophils # (Auto) 0.1 0.0-0.3 10^3/uL Basophils # (Auto) 0.0 0.0-0.1 10^3/uL Immature Granulocyte # (Auto) 0.1 0.0-0.1 10^3/uL Sodium Level 135 135-145 MMOL/L Potassium Level 4.1 3.6-5.0 MMOL/L Chloride Level 105 98-107 MMOL/L Carbon Dioxide Level 20 L 21-32 MMOL/L Anion Gap 10 5-14 MMOL/L Blood Urea Nitrogen 22 H 7-18 MG/DL Creatinine 0.92 0.60-1.30 MG/DL Estimat Glomerular Filtration Rate 89 BUN/Creatinine Ratio 24 Glucose Level 135 H 70-105 MG/DL Calcium Level 8.6 8.5-10.1 MG/DL Corrected Calcium 8.8 8.5-10.1 MG/DL Total Bilirubin 1.3 H 0.1-1.0 MG/DL Aspartate Amino Transf (AST/SGOT) 42 H 5-34 U/L Alanine Aminotransferase (ALT/SGPT) 34 0-55 U/L Alkaline Phosphatase 83 40-136 U/L C-Reactive Protein High Sensitivity 4.51 H 0.00-0.50 MG/DL B-Type Natriuretic Peptide < 10.0 <100.0 PG/ML Total Protein 7.8 6.4-8.2 GM/DL Albumin 3.7 3.2-4.5 GM/DL My Orders Orders - GRAYSON ORTIZ Cbc And Automated Diff (05/31/23 15:26) Comprehensive Metabolic Panel (05/31/23 15:26) Hs C Reactive Protein (05/31/23 15:26) Bnp Ifeanyi (05/31/23 15:26) Knee, Left, 3 Views (05/31/23 15:26) Lidocaine 2% W/Epi 1:100,000 (Xylocaine/ (05/31/23 15:30) Dipht/Pertuss(Acell)/Tet Adult (Dipht/Pe (05/31/23 16:00) Vital Signs/I&O 05/31/23 05/31/23 15:13 16:45 Temp 36.5 36.5 Pulse 80 80 Resp 18 18 B/P (MAP) 168/94 (118) 168/94 Pulse Ox 98 98 O2 Delivery Room Air Room Air Blood Pressure Mean: 118 Departure Communication (PCP) Patient with 2 mechanical falls today. Has history of chronic venous stasis lower extremities. Patient Has a history of venous ulcers but denies of any ulcer-like lesions at this time. Denies of any current symptoms such as head pain, neck and back pain, chest pain, shortness of breath, headache, abdominal pain, leg pain, vomiting or diarrhea. Does appear to have a chronic mass anterior to the left knee. He states he has been seen for this lesion. Appears to be a lipoma on exam. It is prominent with a 3 cm laceration to the right bottom half. Mild bleeding currently on Eliquis. Denies hitting his head during the fall. States he slipped today landed on his butt but denies of any lower back pain or buttock pain. Did slip out of his bed as well and when he crawled he opened up the area on his left knee. He had no loss of consciousness, chest pain prior or after. Patient vital signs stable. Did order CBC, CMP here in the ED. Denies diuretic use. Did obtain x-ray of the left knee which did not show any acute fracture. Placed 11 simple interrupted sutures to the left knee with closure. Patient refused tetanus. Neurovascular intact in the lower extremities. CBC, CMP was grossly unremarkable. Did have a CRP 4.51 nonspecific. There is no evidence of cellulitis to the lower extremities. He does have equal pulses. States that the swelling seems to be improving. Remove sutures in 10 to 12 days. Discussed topical Neosporin twice a day. If increased redness or swelling to return back to ED. Follow-up outpatient at home. Does have a walker. Patient is able to ambulate with his walker. Continue elevate your legs at home. If any worsening symptoms return back to ED for further evaluation. Follow-up with your PCP in the next 4 to 5 days for reevaluation. Impression Primary Impression: Knee laceration Additional Impression: Leg swelling Disposition: 01 HOME, SELF-CARE Condition: Stable Departure-Patient Inst. Decision time for Depature: 16:22 Referrals: BRIAN DUONG DO (PCP/Family) Primary Care Physician Patient Instructions: Laceration Repair With Stitches ED Add. Discharge Instructions: Recommend applying topical Neosporin twice to the wound. Keep the area clean. If increased redness or swelling to return back to ED. Remove sutures in 10 to 12 days. Continue using your walker. Elevate your legs during the day All discharge instructions reviewed with patient and/or family. Voiced understanding. GRAYSON ORTIZ May 31, 2023 15:33
[2023-05-31 15:35] LABS: ALBUMIN 3.7 GM/DL (3.2-4.5); BASOPHILS % (AUTO) 0 % (0-10); EOSINOPHILS # (AUTO) 0.1 10^3/uL (0.0-0.3); EOSINOPHILS % (AUTO) 1 % (0-10); HEMATOCRIT 42 % (40-54); HEMOGLOBIN 13.7 g/dL (13.3-17.7); LYMPHOCYTES # (AUTO) 1.5 X 10^3 (1.0-4.0); LYMPHOCYTES % (AUTO) 15 % (12-44); MEAN CORPUSCULAR HEMOGLOBIN 26 pg (25-34); MEAN CORPUSCULAR HGB CONC 32 g/dL (32-36); MEAN CORPUSCULAR VOLUME 82 fL (80-99); MEAN PLATELET VOLUME 10.4 fL (9.0-12.2); MONOCYTES # (AUTO) 1.2 X 10^3 (0.0-1.0); MONOCYTES % (AUTO) 12 % (0-12); NEUTROPHILS # (AUTO) 7.3 X 10^3 (1.8-7.8); NEUTROPHILS % (AUTO) 71 % (42-75); PLATELET COUNT 212 10^3/uL (130-400); POTASSIUM 4.1 MMOL/L (3.6-5.0); WHITE BLOOD COUNT 10.2 10^3/uL (4.3-11.0)
[2023-05-31 15:37] LABS: CALCIUM 8.6 MG/DL (8.5-10.1)
[2023-05-31 15:38] LABS: TOTAL PROTEIN 7.8 GM/DL (6.4-8.2)
[2023-05-31 15:40] LABS: BILIRUBIN,TOTAL 1.3 MG/DL (0.1-1.0)
[2023-05-31 15:42] LABS: CREATININE SERUM 0.92 MG/DL (0.60-1.30)
[2023-05-31] MEDS ORDERED: Tetanus/Diphtheria/Pertussis (Acell) ADULT Vaccine 0.5 ML IM ONE (16:00)
--- NOTE | 2023-05-31 16:28 | Diagnostic Imaging Report ---
CLINICAL INDICATION: Patient with left knee pain. EXAM: X-ray of the left knee, two views. COMPARISONS: X-ray of the left knee dated 04/02/2022. FINDINGS: There is no acute fracture or dislocation. Stable hypertrophic patellar spurs at the quadriceps and patellar ligament attachment. Hypertrophic tibial tuberosity spurs again noted. There is interval decreased size of the pretibial soft tissue swelling. It still remains prominent with areas of air or fat density within it. Thoracic calcifications are seen. Stable small medial and lateral compartment spurs. There is no knee effusion. There is soft tissue swelling involving left lower extremity. IMPRESSION: 1: There is no acute fracture or dislocation. 2: There is interval decreased size of the prominent area of prepatellar soft tissue thickening. There is interval development of air or fat lobules visible within the prepatellar area of soft tissue thickening. 3: There is stable degenerative disease of the left knee. Dictated by: Dictated on workstation # [id number]
[2023-05-31 16:45] VITALS: BP 168/94
== END 2023-05-31 16:45 | disposition home or self-care (01) ==
LOC: EDUNIT# 15:09 → ER 15:10
DX: S81.012A Laceration without foreign body, left knee, initial encounter (principal); M79.89 Other specified soft tissue disorders; Z79.01 Long term (current) use of anticoagulants; W01.0XXA Fall on same level from slipping, tripping and stumbling without subsequent striking against object, initial encounter; W06.XXXA Fall from bed, initial encounter; Y93.01 Activity, walking, marching and hiking; Y92.000 Kitchen of unspecified non-institutional (private) residence as the place of occurrence of the external cause
CPT/HCPCS: 12032; 36415; 73562; 80053; 83880; 85025; 86141; 90471